=== PATIENT | female | born 1940 | race Caucasian/White ===

== ENCOUNTER 2016-05-29 16:31 | Observation (INO) | payer MEDICARE ==
[2016-05-29 17:22] LABS: Basophils % (A) 0 %; CH 29.3; CHCM 32.3; Eosinophils # (A) 0.2 k/uL (0-0.7); Eosinophils % (A) 2 %; HCT 34.1 % (34.0-46.0); HDW 2.73; HGB 10.7 gm/dL (11.4-16.0); Luc # (Auto) 0.25; Luc % (Auto) 3; Lymphocytes # (A) 2.1 k/uL (1.0-4.8); Lymphocytes % (A) 29 %; MCH 28.7 pg (25.0-35.0); MCHC 31.4 g/dL (31.0-37.0); MCV 91.4 fL (80.0-100.0); Mean Platelet Volume 7.5; Monocytes # (A) 0.4 k/uL (0-1.0); Monocytes % (A) 6 %; Neutrophils # (A) 4.5 k/uL (1.3-7.7); Neutrophils % (A) 60 %; RBC 3.73 m/uL (3.80-5.40); RDW 15.5 % (11.5-15.5); WBC 7.5 k/uL (3.8-10.6); WBC (Perox) 7.71
[2016-05-29 17:28] LABS: INR 1.1 (<1.1); Partial Thromboplastin Time 25.3 sec (22.0-30.0); Prothrombin Time 10.7 sec (9.0-12.0)
[2016-05-29 17:32] LABS: Calcium 9.2 mg/dL (8.4-10.2); Potassium 4.3 mmol/L (3.5-5.1); Total Bilirubin 0.4 mg/dL (0.2-1.3); Total Protein 7.2 g/dL (6.3-8.2)
[2016-05-29 17:35] LABS: Creatine Kinase 24 U/L (30-135)
--- NOTE | 2016-05-29 17:46 | XR ---
EXAMINATION TYPE: XR chest 1V portable DATE OF EXAM: 05/29/2016 5:37 PM COMPARISON: 09/16/2014 INDICATION: Weakness, fall 2 days prior TECHNIQUE: Single frontal view of the chest is obtained. FINDINGS: The heart size is normal. The pulmonary vasculature is normal. The lungs are clear. No displaced fractures are evident. No pneumothorax is evident. IMPRESSION: 1. No acute pulmonary process.
[2016-05-29 17:48] LABS: Creatine Kinase MB 1.2 ng/mL (0.0-2.4); Troponin I <0.012 ng/mL (0.000-0.034)
[2016-05-29 18:45] LABS: Appearance,Urine Clear (Clear); Bilirubin,Urine Negative (Negative); Glucose,Urine (UA) Negative (Negative); Ketones,Urine Negative (Negative); Leukocyte Esterase,Urine Negative (Negative); Mucus,Urine Rare /hpf; Nitrite,Urine Negative (Negative); PH, Urine 5.5 (5.0-8.0); Particle Count 11135; Protein,Urine 1+ (Negative); RBC,Urine 2 /hpf (0-5); Squamous Epithelial Cell,Urine 1 /hpf (0-4); UA Billing (MACRO vs. MICRO) MICRO; Urobilinogen,Urine <2.0 mg/dL (<2.0); WBC,Urine 2 /hpf (0-5)
--- NOTE | 2016-05-29 19:21 | CT ---
EXAMINATION TYPE: CT brain wo con DATE OF EXAM: 05/29/2016 6:25 PM COMPARISON: 07/06/2011 CT brain, 02/11/2012 MRI brain. INDICATION: Fall 2 days ago. Bruising to the face DLP: 1643 mGycm, Automated exposure control for dose reduction was used. CONTRAST: None CT of the brain is performed utilizing 3 mm thick sections through the posterior fossa and 3 mm thick sections through the remaining calvarium. Study is performed within 24 hours of arrival to the hosp [facility]. No abnormal hyperdensity is present to suggest an acute intracranial hemorrhage. No mass lesion is evident. No acute infarcts are evident. White matter changes are not as evident as on the MRI exam. Ventricles and sulci are appropriate for the patient age. Paranasal sinuses and mastoid air cells within the [id number] are clear. IMPRESSIONS: 1. No acute intracranial process.
--- NOTE | 2016-05-29 19:26 | CT ---
EXAMINATION TYPE: CT facial bones wo con DATE OF EXAM: 05/29/2016 6:25 PM COMPARISON: NONE HISTORY: Fall 2 days ago. Bruising to the face CT DLP: 1643 mGycm Automated exposure control for dose reduction was used. TECHNIQUE: CT scan of the sinuses is performed without contrast, axial images are obtained, coronal r eformatted images are also reviewed. FINDINGS: There is a punctate areas of low density adjacent to the anterior left mandible previous co uld be related to dentures. On the coronal plane on this appears more conclusive for denture relation . No subcutaneous air is identified. An acute fracture is not identified. There is a defect within th e right anterior aspect of the mandible prior to tooth removal could be related. Series 2 image 21. A n acute fracture is not identified. There is mild soft tissue swelling at the chin. There is a small 0.9 x 1.3 cm hyperdense collection in the right cheek which can be a small hematoma. There is soft ti ssue swelling over this region. Zygomatic arches are intact. Maxillary sinuses appear intact. Greater wings of sphenoid are unremarkable. Globes are symmetrical. Orbits appear normal. Nasal bones are intact. Maxillary spine is intact. Note is made of degenerative changes within the visualized portions of the cervical spine IMPRESSION: 1. Soft tissue swelling right cheek with a small subcutaneous hematoma discussed above. 2. No acute osseous fractures. 3. Small air collections appear to be related to the patient's dentures. No subcutaneous air is ident ified.
[2016-05-29] MEDS ORDERED: ACETAMINOPHEN TAB 325 MG TAB PO PRN (19:52)
[2016-05-29] MEDS ORDERED: NALOXONE 0.4 MG/ML 1 ML VIAL IV PRN (19:52)
--- NOTE | 2016-05-29 19:55 | ED ---
Weakness HPI - General Chief complaint: Weakness Stated complaint: Weakness, Fall, Altered Mental Time Seen by Provider: 05/29/16 16:44 Source: patient, family Mode of arrival: wheelchair Limitations: no limitations - History of Present Illness Initial comments: This patient is 75-year-old woman who presents to be evaluated after she had a fall. The patient has been having some generalized weakness and a number of recent falls. The patient also has been somewhat disoriented at times. Currently the patient does complain of some right facial pain and swelling after the fall. She is denying neck pain. Patient denies chest pain, palpitations, dyspnea or diaphoresis. Patient was not able to state with certainty that she did not have syncopal episode. MD Complaint: generalized weakness, lack of energy, difficulty walking -: week(s) Location: generalized Quality: aching Consistency: constant Improves with: none Worsens with: none Associated Symptoms: denies other symptoms - Related Data Home Medications Medication Instructions Recorded Confirmed Clopidogrel [Plavix] 75 mg PO DAILY 09/16/14 05/29/16 Pantoprazole Sodium 40 mg PO DAILY 09/16/14 05/29/16 Repaglinide [Prandin] 1 mg PO TID 09/16/14 05/29/16 ALPRAZolam [Xanax] 0.5 mg PO BID PRN 04/17/15 05/29/16 Aspirin [Adult Low Dose Aspirin EC] 81 mg PO DAILY 02/03/16 05/29/16 Multivitamins, Thera [Multivitamin 1 tab PO DAILY 02/03/16 05/29/16 (formulary)] Deland Oil 1 tab PO DAILY 02/03/16 05/29/16 Previous Rx's Medication Instructions Recorded Atorvastatin [Lipitor] 40 mg PO HS #30 tab 04/19/15 Benazepril [Lotensin] 5 mg PO DAILY #1 tablet 05/31/16 Ferrous Sulfate Oral Elixir 300 mg PO DAILY #140 ml 05/31/16 [Feosol Liquid] Metoprolol Tartrate [Lopressor] 25 mg PO BID #0 05/31/16 amLODIPine [Norvasc] 5 mg PO HS #0 05/31/16 Allergies Allergy/AdvReac Type Severity Reaction Status Date / Time acetaminophen [From Tylenol] Allergy Anaphylaxis Verified 05/29/16 17:04 blue dye Allergy Anaphylaxis Verified 05/29/16 17:04 clonidine [From Catapres] Allergy Unknown Verified 05/29/16 17:04 iodine Allergy Unknown Verified 05/29/16 17:04 monosodium glutamate [MSG] Allergy Anaphylaxis Verified 05/29/16 17:04 ofloxacin [From Floxin] Allergy Anaphylaxis Verified 05/29/16 17:04 piroxicam [From Feldene] Allergy Unknown Verified 05/29/16 17:04 red dye Allergy Anaphylaxis Verified 05/29/16 17:04 Sulfa (Sulfonamide Allergy Anaphylaxis Verified 05/29/16 17:04 Antibiotics) tramadol [From Ultram] Allergy Anaphylaxis Verified 05/29/16 17:04 bisoprolol [From Ziac] AdvReac Unknown Verified 05/29/16 17:04 glipizide AdvReac Unknown Verified 05/29/16 17:04 hydrochlorothiazide AdvReac Unknown Verified 05/29/16 17:04 [From Ziac] metformin AdvReac Unknown Verified 05/29/16 17:04 sertraline [From Zoloft] AdvReac Hallucinati Verified 05/30/16 06:06 ons triamterene [From Dyazide] AdvReac Unknown Verified 05/29/16 17:04 Review of Systems ROS Statement: Those systems with pertinent positive or pertinent negative responses have been documented in the HPI. ROS Other: All systems not noted in ROS Statement are negative. Constitutional: Reports: weakness (Generalized). Denies: fever, chills Eyes: Denies: vision change ENT: Reports: epistaxis. Denies: ear pain, hearing loss Respiratory: Denies: cough, dyspnea Cardiovascular: Reports: syncope (Questionable). Denies: chest pain Gastrointestinal: Denies: abdominal pain, vomiting, diarrhea Genitourinary: Denies: dysuria, hematuria Skin: Denies: rash Neurological: Denies: headache, weakness, numbness, paresthesias Past Medical History Past Medical History: Coronary Artery Disease (CAD), Chest Pain / Angina, Heart Failure, COPD, Diabetes Mellitus, GERD/Reflux, GI Bleed, Hyperlipidemia, Hypertension, Myocardial Infarction (NH), Osteoarthritis (OA) Additional Past Medical History / Comment(s): 09/16/14 admitted with chf. Other HX: NIDDM, chronic L knee pain, generalized arthiritis, anemia, back pain.sinus infections. Last Myocardial Infarction Date:: 04/2010 History of Any Multi-Drug Resistant Organisms: None Reported Past Surgical History: Appendectomy, Heart Catheterization With Stent, Hysterectomy Additional Past Surgical History / Comment(s): Ccaths with a total of 5 stents placed. Stent in leg. Subclavian bypass. PTCA's, EGD with cauterized arterovenous malformation, colonoscopy, L hand's index finger amputation, R hand 's thumb tendon repair, R elbow replacement, subclavian steel surgery-"new veins in my neck." sinus sx Past Anesthesia/Blood Transfusion Reactions: No Reported Reaction Additional Past Anesthesia/Blood Transfusion Reaction / Comment(s): Pt has recieved blood in the past without reaction. Date of Last Stent Placement:: 2010 Past Psychological History: Anxiety, Depression Additional Psychological History / Comment(s): Pt has a adult bryan who lives with her and another bryan next door. She is independent. She uses a cane to ambulate. She drives a car. She has no home care agency use. She has a supportive family. Smoking Status: Former smoker Past Alcohol Use History: None Reported Additional Past Alcohol Use History / Comment(s): Pt states she has smoked on and off for more than 35 yrs. quit 09-16-14 Past Drug Use History: None Reported - Past Family History Father History Unknown: Yes Mother Family Medical History: Cancer Additional Family Medical History / Comment(s): Mother had lung cancer. General Exam Limitations: no limitations General appearance: alert, in no apparent distress Head exam: Present: atraumatic, normocephalic Eye exam: Present: PERRL, EOMI, periorbital swelling, periorbital tenderness, other ((Continued). Absent: scleral icterus, conjunctival injection ENT exam: Present: normal oropharynx, mucous membranes moist Neck exam: Present: normal inspection, full ROM. Absent: tenderness, meningismus Respiratory exam: Present: normal lung sounds bilaterally. Absent: respiratory distress, wheezes, rales, rhonchi, stridor Cardiovascular Exam: Present: regular rate, normal rhythm, normal heart sounds. Absent: systolic murmur, diastolic murmur, rubs, gallop GI/Abdominal exam: Present: soft. Absent: distended, tenderness, guarding, rebound, rigid Extremities exam: Present: normal inspection, normal capillary refill. Absent: pedal edema, calf tenderness Back exam: Absent: CVA tenderness (R), CVA tenderness (L) Neurological exam: Present: alert, CN II-XII intact. Absent: motor sensory deficit Skin exam: Present: warm, dry, intact, normal color, other (Right facial contusion) Course Vital Signs 05/29/16 05/29/16 05/29/16 16:38 18:34 19:03 Temperature 97.2 F L Pulse Rate 53 L 52 L 56 L Respiratory 20 16 16 Rate Blood Pressure 146/81 202/85 153/65 O2 Sat by Pulse 98 99 100 Oximetry 05/29/16 05/29/16 19:38 20:10 Temperature Pulse Rate 70 62 Respiratory 16 16 Rate Blood Pressure 153/65 162/74 O2 Sat by Pulse 100 100 Oximetry Medical Decision Making - Lab Data Result diagrams: 05/31/16 08:45 05/31/16 08:45 Lab Results 05/29/16 05/29/16 05/29/16 Range/Units 17:00 17:00 17:00 WBC 7.5 (3.8-10.6) k/uL RBC 3.73 L (3.80-5.40) m/uL Hgb 10.7 L (11.4-16.0) gm/dL Hct 34.1 (34.0-46.0) % MCV 91.4 (80.0-100.0) fL MCH 28.7 (25.0-35.0) pg MCHC 31.4 (31.0-37.0) g/dL RDW 15.5 (11.5-15.5) % Plt Count 234 (150-450) k/uL Neutrophils % 60 % Lymphocytes % 29 % Monocytes % 6 % Eosinophils % 2 % Basophils % 0 % Neutrophils # 4.5 (1.3-7.7) k/uL Lymphocytes # 2.1 (1.0-4.8) k/uL Monocytes # 0.4 (0-1.0) k/uL Eosinophils # 0.2 (0-0.7) k/uL Basophils # 0.0 (0-0.2) k/uL PT (9.0-12.0) sec INR (<1.1) APTT (22.0-30.0) sec Sodium 145 (137-145) mmol/L Potassium 4.3 (3.5-5.1) mmol/L Chloride 111 H (98-107) mmol/L Carbon Dioxide 23 (22-30) mmol/L Anion Gap 11 mmol/L BUN 29 H (7-17) mg/dL Creatinine 1.43 H (0.52-1.04) mg/dL Est GFR (MDRD) Af Amer 43 (>60 ml/min/1.73 sqM) Est GFR (MDRD) Non-Af 36 (>60 ml/min/1.73 sqM) Glucose 87 (74-99) mg/dL Estimated Ave Glu mg/dL mg/dL Hemoglobin A1c (4.2-6.1) % Calcium 9.2 (8.4-10.2) mg/dL Total Bilirubin 0.4 (0.2-1.3) mg/dL AST 24 (14-36) U/L ALT 22 (9-52) U/L Alkaline Phosphatase 97 (38-126) U/L Total Creatine Kinase 24 L (30-135) U/L CK-MB (CK-2) 1.2 (0.0-2.4) ng/mL CK-MB (CK-2) Rel Index 5.0 Troponin I <0.012 (0.000-0.034) ng/mL Total Protein 7.2 (6.3-8.2) g/dL Albumin 3.7 (3.5-5.0) g/dL Urine Color Urine Appearance (Clear) Urine pH (5.0-8.0) Ur Specific [place] (1.001-1.035) Urine Protein (Negative) Urine Glucose (UA) (Negative) Urine Ketones (Negative) Urine Blood (Negative) Urine Nitrate (Negative) Urine Bilirubin (Negative) Urine Urobilinogen (<2.0) mg/dL Ur Leukocyte Esterase (Negative) Urine RBC (0-5) /hpf Urine WBC (0-5) /hpf Ur Squamous Epith Cells (0-4) /hpf Hyaline Casts (0-2) /lpf Urine Mucus (None) /hpf 05/29/16 05/29/16 05/29/16 Range/Units 17:00 17:00 18:21 WBC (3.8-10.6) k/uL RBC (3.80-5.40) m/uL Hgb (11.4-16.0) gm/dL Hct (34.0-46.0) % MCV (80.0-100.0) fL MCH (25.0-35.0) pg MCHC (31.0-37.0) g/dL RDW (11.5-15.5) % Plt Count (150-450) k/uL Neutrophils % % Lymphocytes % % Monocytes % % Eosinophils % % Basophils % % Neutrophils # (1.3-7.7) k/uL Lymphocytes # (1.0-4.8) k/uL Monocytes # (0-1.0) k/uL Eosinophils # (0-0.7) k/uL Basophils # (0-0.2) k/uL PT 10.7 (9.0-12.0) sec INR 1.1 (<1.1) APTT 25.3 (22.0-30.0) sec Sodium (137-145) mmol/L Potassium (3.5-5.1) mmol/L Chloride (98-107) mmol/L Carbon Dioxide (22-30) mmol/L Anion Gap mmol/L BUN (7-17) mg/dL Creatinine (0.52-1.04) mg/dL Est GFR (MDRD) Af Amer (>60 ml/min/1.73 sqM) Est GFR (MDRD) Non-Af (>60 ml/min/1.73 sqM) Glucose (74-99) mg/dL Estimated Ave Glu mg/dL 143 mg/dL Hemoglobin A1c 6.6 H (4.2-6.1) % Calcium (8.4-10.2) mg/dL Total Bilirubin (0.2-1.3) mg/dL AST (14-36) U/L ALT (9-52) U/L Alkaline Phosphatase (38-126) U/L Total Creatine Kinase (30-135) U/L CK-MB (CK-2) (0.0-2.4) ng/mL CK-MB (CK-2) Rel Index Troponin I (0.000-0.034) ng/mL Total Protein (6.3-8.2) g/dL Albumin (3.5-5.0) g/dL Urine Color Yellow Urine Appearance Clear (Clear) Urine pH 5.5 (5.0-8.0) Ur Specific [place] 1.010 (1.001-1.035) Urine Protein 1+ H (Negative) Urine Glucose (UA) Negative (Negative) Urine Ketones Negative (Negative) Urine Blood Negative (Negative) Urine Nitrate Negative (Negative) Urine Bilirubin Negative (Negative) Urine Urobilinogen <2.0 (<2.0) mg/dL Ur Leukocyte Esterase Negative (Negative) Urine RBC 2 (0-5) /hpf Urine WBC 2 (0-5) /hpf Ur Squamous Epith Cells 1 (0-4) /hpf Hyaline Casts 3 H (0-2) /lpf Urine Mucus Rare H (None) /hpf - EKG Data -: EKG Interpreted by Mi EKG shows normal: sinus rhythm, axis (Normal), intervals (The QRS duration is prolonged at 150 ms consistent with left bundle branch block), QRS complexes ( There is a left bundle-branch block present) Rate: bradycardia (Rate approximately 51 bpm) Interpretation: other (Review of the record finds that the left bundle branch block was present on monitor tracings from January.) Disposition Clinical Impression: Altered mental status, Falls frequently, Contusion of face Disposition: ADMITTED IP TO THIS [facility] Condition: Stable
[2016-05-29 21:42] LABS: Glucose,Whole Blood 124 mg/dL (75-99)
[2016-05-29] MEDS: amLODIPine 5 MG TAB PO SCH (22:53)
[2016-05-29] MEDS: SODIUM CHLORIDE 0.9% 1,000 ML IV SCH (23:00)
[2016-05-30 07:07] LABS: Glucose,Whole Blood 64 mg/dL (75-99)
[2016-05-30 07:24] LABS: Glucose,Whole Blood 80 mg/dL (75-99)
[2016-05-30] MEDS: REPAGLINIDE 1 MG TAB PO SCH ×2 (08:43→14:09)
[2016-05-30] MEDS ORDERED: METOPROLOL TARTRATE 50 MG TAB PO SCH (09:00)
[2016-05-30 12:00] LABS: Glucose,Whole Blood 261 mg/dL (75-99)
[2016-05-30] MEDS ORDERED: ALPRAZolam 0.5 MG TAB PO PRN (13:28)
[2016-05-30] MEDS ORDERED: SODIUM CHLORIDE 0.9% 1,000 ML IV ONE (13:45)
--- NOTE | 2016-05-30 15:34 | P.CNNES ---
History of Present Illness Consult date: 05/30/16 Reason for Consult: Patient admitted with generalized weakness and multiple falls. History of Present Illness: This patient is a 75-year-old right-handed white female was in her usual state of health until of last week. She was at home and was on her way to the bathroom when she apparently lost her balance and fell forward. She struck the bedroom wall and tried to brace herself with her walking cane. Unfortunately she collapsed and fell to the ground. Her daughter who was in another room heard her fall and came running to the bedroom to assist her. The daughter recommended that she go to the hospital but the patient refused. She does not recollect losing consciousness when she fell. She did complain of a headache at the time. Apparently the next day she was also having some visual and auditory hallucinations. This was quite alarming to the family as she has not done this previously. The patient noted yesterday significant bruising on her entire face. Due to the head trauma she developed raccoon eyes and soft tissue swelling and hematoma to the right side of the face. Left eye was also involved. Having seen the degree of contusion to the face she decided to come to the emergency room yesterday evening. Patient was seen in the emergency room by Dr. Morales who ordered a computed tomography scan of the brain. CAT scan of the brain was reported negative for any acute changes. There was no evidence of acute hemorrhage or stroke. No evidence of subdural hematoma. Patient also underwent computed tomography scan of the facial bones which revealed no acute osseous fracture. Soft tissue swelling over the right cheek and some subcutaneous hematoma was noted. We reviewed the results of the CAT scan today with the patient and her daughter who is at bedside. Apparently the patient has been doing better today in terms of her mental status. They were concerned as she clearly had visual and auditory hallucinations a day after this fall. The patient does have a known history of underlying severe cardiomyopathy and vascular disease. She underwent a R to study in January of last year which revealed her to have significant carotid artery stenosis. According to the daughter it measured 80-90% stenosis. She was advised maximal medical therapy at the time. In the emergency room the patient's EKG revealed left bundle branch block as well as QRS prolongation. She was noted to have some sinus bradycardia with a heart rate dropping to 46. The patient is resting comfortably at this time. She denies any headache symptoms at this time. As noted she does have major contusion to the face mostly on the right side. She has been able to stand and ambulate today to the bathroom with the use of her walker. She denies any severe vertigo symptoms at this time. This patient likely has suffered a closed head injury with mild concussion syndrome. Neurology is now consulted for further evaluation and recommendations. Review of Systems Constitutional: Denies chills, Denies fever Eyes: denies blurred vision, denies pain Ears, nose, mouth and throat: Denies headache, Denies sore throat Cardiovascular: Denies chest pain, Denies shortness of breath Respiratory: Denies cough Gastrointestinal: Denies abdominal pain, Denies diarrhea, Denies nausea, Denies vomiting Genitourinary: Denies dysuria, Denies hematuria Musculoskeletal: Denies myalgias Integumentary: Denies pruritus, Denies rash Neurological: Reports change in mentation, Reports syncope, Denies numbness, Denies weakness Psychiatric: Reports hallucinations, Denies anxiety, Denies depression Endocrine: Denies fatigue, Denies weight change Past Medical History Past Medical History: Coronary Artery Disease (CAD), Chest Pain / Angina, Heart Failure, COPD, Diabetes Mellitus, GERD/Reflux, GI Bleed, Hyperlipidemia, Hypertension, Myocardial Infarction (MS), Osteoarthritis (OA) Additional Past Medical History / Comment(s): 09/16/14 admitted with chf. Other HX: NIDDM, chronic L knee pain, generalized arthiritis, anemia, back pain.sinus infections., carotid stenosis Last Myocardial Infarction Date:: 04/2010 History of Any Multi-Drug Resistant Organisms: None Reported Past Surgical History: Appendectomy, Heart Catheterization With Stent, Hysterectomy Additional Past Surgical History / Comment(s): Ccaths with a total of 5 stents placed. Stent in leg. left Subclavian bypass. PTCA's, EGD with cauterized arterovenous malformation, colonoscopy, L hand's index finger amputation, R hand 's thumb tendon repair, R elbow replacement, subclavian steel surgery-"new veins in my neck." sinus sx Past Anesthesia/Blood Transfusion Reactions: No Reported Reaction Additional Past Anesthesia/Blood Transfusion Reaction / Comment(s): Pt has recieved blood in the past without reaction. Date of Last Stent Placement:: 2010 Past Psychological History: Anxiety, Depression Additional Psychological History / Comment(s): Pt has a adult bryan who lives with her and another bryan next door. She is independent. She uses a cane to ambulate. She drives a car. She has no home care agency use. She has a supportive family. Smoking Status: Former smoker Past Alcohol Use History: None Reported Additional Past Alcohol Use History / Comment(s): Pt states she has smoked on and off for more than 35 yrs. quit 09-16-14 Past Drug Use History: None Reported - Past Family History Father History Unknown: Yes Mother Family Medical History: Cancer Additional Family Medical History / Comment(s): Mother had lung cancer. Medications and Allergies Home Medications Medication Instructions Recorded Confirmed Type Clopidogrel [Plavix] 75 mg PO DAILY 09/16/14 05/29/16 History Pantoprazole Sodium 40 mg PO DAILY 09/16/14 05/29/16 History Repaglinide [Prandin] 1 mg PO TID 09/16/14 05/29/16 History ALPRAZolam [Xanax] 0.5 mg PO BID PRN 04/17/15 05/29/16 History Benazepril [Lotensin] 10 mg PO DAILY 04/17/15 05/29/16 History Cyclobenzaprine [Flexeril] 10 mg PO BID PRN 04/17/15 05/29/16 History amLODIPine [Norvasc] 5 mg PO HS 04/17/15 05/29/16 History Aspirin [Adult Low Dose Aspirin EC] 81 mg PO DAILY 02/03/16 05/29/16 History Ferrous Sulfate [Iron (65 MG 325 mg PO DAILY 02/03/16 05/29/16 History Elemental)] Multivitamins, Thera [Multivitamin] 1 tab PO DAILY 02/03/16 05/29/16 History [place] Oil 1 tab PO DAILY 02/03/16 05/29/16 History Furosemide [Lasix] 20 mg PO DAILY@1200 05/29/16 05/29/16 History Metoprolol Tartrate [Lopressor] 25 mg PO QID 05/29/16 05/29/16 History Allergies Allergy/AdvReac Type Severity Reaction Status Date / Time acetaminophen [From Tylenol] Allergy Anaphylaxis Verified 05/29/16 17:04 blue dye Allergy Anaphylaxis Verified 05/29/16 17:04 clonidine [From Catapres] Allergy Unknown Verified 05/29/16 17:04 iodine Allergy Unknown Verified 05/29/16 17:04 monosodium glutamate [MSG] Allergy Anaphylaxis Verified 05/29/16 17:04 ofloxacin [From Floxin] Allergy Anaphylaxis Verified 05/29/16 17:04 piroxicam [From Feldene] Allergy Unknown Verified 05/29/16 17:04 red dye Allergy Anaphylaxis Verified 05/29/16 17:04 Sulfa (Sulfonamide Allergy Anaphylaxis Verified 05/29/16 17:04 Antibiotics) tramadol [From Ultram] Allergy Anaphylaxis Verified 05/29/16 17:04 bisoprolol [From Ziac] AdvReac Unknown Verified 05/29/16 17:04 glipizide AdvReac Unknown Verified 05/29/16 17:04 hydrochlorothiazide AdvReac Unknown Verified 05/29/16 17:04 [From Ziac] metformin AdvReac Unknown Verified 05/29/16 17:04 sertraline [From Zoloft] AdvReac Hallucinati Verified 05/30/16 06:06 ons triamterene [From Dyazide] AdvReac Unknown Verified 05/29/16 17:04 Physical Examination - Vital Signs Vital Signs: Vital Signs Temp Pulse Pulse Resp BP BP Pulse Ox 05/30/16 08:46 95 05/30/16 07:00 97.4 F L 73 16 145/64 95 05/29/16 23:00 97.3 F L 70 16 152/70 96 05/29/16 20:10 62 16 162/74 100 Intake and Output 05/29/16 05/30/16 05/30/16 22:59 06:59 14:59 Intake Total 120 220 Balance 120 220 Intake: Intake, IV Titration 220 Amount Sodium Chloride 0.9% 1, 220 000 ml @ 20 mls/hr IV . Q24H [facility] Rx#:[id number] Oral 120 Other: Voiding Method Bedside Commode # Voids 1 Weight 78.5 kg - Constitutional General appearance: average body habitus, cooperative - EENT EENT: PERRL, mucous membranes moist - Respiratory Respiratory: lungs clear, normal breath sounds - Cardiovascular Cardiovascular: regular rate, normal S1, normal S2 Extremities: no peripheral edema bilaterally - Gastrointestinal Gastrointestinal: normoactive bowel sounds - Integumentary Integumentary: normal - Neurologic Cranial nerve examination: PERRL, EOMI, VFF, V1/V2/V3 grossly intact, face symmetric, tongue midline, intact gag reflex, intact corneal reflex, normal palatal elevation Speech examination: intact Sensorimotor examination: intact Detailed motor examination: grossly full strength in all extremities Motor examination - right side: 5/5: biceps, triceps, wrist flexion, wrist extension, striker out, hip flexors, knee extensors, dorsiflexion, toe extension (EHL) , plantarflexion Motor examination - left side: 5/5: biceps, triceps, wrist flexion, wrist extension, striker out, hip flexors, knee extensors, dorsiflexion, toe extension (EHL) , plantarflexion Detailed sensory examination: intact Reflex and gait examination: intact Reflexes: 1+: ankle, bicep, knee, tricep - Musculoskeletal Musculoskeletal: no pain - Psychiatric Psychiatric: mood/affect appropriate, cooperative Results - Laboratory Findings CBC and BMP: 05/29/16 17:00 05/29/16 17:00 Abnormal Lab Findings: Abnormal Labs 05/29/16 05/30/16 05/30/16 21:38 07:05 11:58 POC Glucose (mg/dL) 124 H 64 L 261 H Assessment and Plan (1) Closed head injury Status: Acute Code(s): S09.90XA - UNSPECIFIED INJURY OF HEAD, INITIAL ENCOUNTER (2) Acute encephalopathy Status: Acute Code(s): G93.40 - ENCEPHALOPATHY, UNSPECIFIED (3) Sinus bradycardia Status: Acute Code(s): R00.1 - BRADYCARDIA, UNSPECIFIED (4) Carotid artery stenosis Status: Acute Code(s): I65.29 - OCCLUSION AND STENOSIS OF UNSPECIFIED CAROTID ARTERY Plan: This patient is a 75-year-old female who suffered a major fall at home on of last week. Patient fell forward in her bedroom and struck the wall. She sustained major contusion to the face. She refused to come to the hospital on . Apparently yesterday evening she was noticing significant contusion and bruising to the face. At this point she was very concerned and decided to come to the emergency room for further evaluation. She is on Plavix and aspirin and the closed head injury became much more pronounced yesterday which cause the patient quite concerned. Patient was brought into the emergency room and subsequent admitted to the hospital. She has a known history of carotid artery disease with significant stenosis. In the ER she is also noted to have evidence of left bundle branch block and sinus bradycardia. The cause of her fall is still unclear but possibilities include symptomatic sinus bradycardia or cardiogenic syncope. We have recommended a cardiology consultation for further assessment. Neurologically she is intact. Her cognitive function has improved. We will continue to monitor for any signs of subdural hematoma following this closed head injury. Case was discussed at length with the patient and her daughter at bedside. All their questions were answered. We will continue close neurological follow-up in this patient during this admission. Time with Patient: Greater than 30
--- NOTE | 2016-05-30 16:22 | HP ---
DATE OF ADMISSION: Patient is a very pleasant 75-year-old female who came in after a fall and patient has a raccoon face because of the fall and bruising on the face and patient had multiple CT's all of which are negative. The patient's etiology of fall is not very clear but although patient does not appear to have any syncopal episode or any seizure-like activity, loss of bowel or bladder incontinence, patient appears to have had a generalized weakness. Patient has been falling lately and patient was also confused as per the family and patient apparently had visual hallucinations. Patient is only on Xanax, but patient has been on the Xanax for long time and patient at one point of time, primary care physician tried to get rid of Xanax and start her on sertraline for her anxiety disorder. At the time, she had visual hallucinations. Patient does not have any history of Parkinson's or any history of the Lewy-Body dementia and patient denied any other seizure-like activity, migraine. Patient denied any fever, chills. Patient denied any dysuria, nausea, vomiting. Patient's creatinine is 1.43. Baseline appears to be around that, around 1.3. Patient does not have any history of congestive heart failure. Patient has severe peripheral vascular disease and coronary artery disease. REVIEW OF SYSTEMS: GENERAL: As described in HPI. HEENT: No recent visual problems or hearing problems. Denied any sore throat. CARDIOVASCULAR: No chest pain, orthopnea, PND, no palpitations, no syncope. PULMONARY: No shortness of breath, no cough, no hemoptysis. GASTROINTESTINAL: No diarrhea, no nausea, no vomiting, no abdominal pain. Normoactive bowel sounds. NEUROLOGICAL: As described on HPI. Patient does not have any other focal weakness or sensory deficits or any visual problems. HEMATOLOGICAL: Denies any bleeding or petechiae. GENITOURINARY: Denies any burning micturition, frequency, or urgency. MUSCULOSKELETAL/RHEUMATOLOGICAL: Denies any joint pain, swelling, or any muscle pain. ENDOCRINE: Denies any polyuria or polydipsia. The rest of the 14 point review of systems is negative. Home medications include Plavix, pantoprazole, repaglinide, alprazolam, benazepril, cyclobenzaprine, amlodipine, ferrous sulfate, multivitamin, salmon oil, Lasix, metoprolol, atorvastatin. ALLERGIES: Patient has multiple allergies, please refer to the chart for those. PAST MEDICAL HISTORY: Coronary artery disease, peripheral vascular disease, COPD, diabetes mellitus. Patient at one point of time was admitted for congestive heart failure in the past, although at that time, I extensively reviewed her chart, it does not appear like patient was treated for any heart failure exacerbation. Initially was thought to have heart failure, but was treated for mostly COPD and bronchitis, hyperlipidemia, hypertension, myocardial infarction, osteoarthritis, appendectomy, cardiac catheterization and stent placement, hysterectomy, anxiety and depression. FAMILY HISTORY: Father had cancer. SOCIAL HISTORY: Quit smoking years ago. Denied any acute smoking since 2014, denied any alcohol abuse or any drug abuse. PHYSICAL EXAMINATION: Temperature 97.4, pulse of 73, respiratory rate of 16, blood pressure is 145/64, saturating at 94% on room air. HEENT EXAMINATION: Raccoon face as described in the history itself. GENERAL: The patient is alert and oriented x3, not in any acute distress. Well developed, well nourished. Normocephalic, atraumatic. No pharyngeal erythema. No thyromegaly. CARDIOVASCULAR: S1 and S2 present. No murmurs, rubs, or gallops. PULMONARY: Chest is clear to auscultation, no wheezing or crackles. ABDOMEN: Soft, nontender, nondistended, normoactive bowel sounds. No palpable organomegaly. MUSCULOSKELETAL: No joint swelling or deformity. EXTREMITIES: No cyanosis, clubbing, or pedal edema. NEUROLOGICAL: Gross neurological examination did not reveal any focal deficits. SKIN: No rashes. LABORATORY DATA: CBC, CMP are abnormal for elevated chloride of 111. Patient will be switched to lactated Ringer's and patient's creatinine is elevated. ASSESSMENT AND PLAN: 1. Fall, appears to be mechanical fall. Will get PT and OT to evaluate the patient. No other fractures were evident on the CT of the brain and facial CT. There is a nasal bone fracture. Beyond that, there is nothing else seen. There is some soft tissue subcutaneous hematoma under the right cheek which is actually evident clinically. 2. Visual hallucinations and episode of confusion; unsure of the exact etiology yet. Will get Neurology to evaluate the patient for that. I do not know the exact etiology of that. 3. Chronic obstructive pulmonary disease. 4. Coronary artery disease. 5. Peripheral vascular disease. 6. Type 2 diabetes mellitus. 7. Hyperlipidemia. 8. Hypertension. 9. History of myocardial infarction in the past. For above mentioned clinical problems, I will continue all the appropriate medications except for lisinopril which will be held as her renal function unknown whether CKD or other acute renal failure. Possibility of acute renal failure secondary to prerenal azotemia from Lasix and patient has a component of chronic kidney disease stage III, probably secondary to diabetic nephropathy.
[2016-05-30 17:03] LABS: Glucose,Whole Blood 194 mg/dL (75-99)
[2016-05-30] MEDS: INSULIN LISPRO (humaLOG) 300 UNIT/3 ML VIAL SQ SCH ×2 (18:40→20:42)
[2016-05-30] MEDS: METOPROLOL TARTRATE 25 MG TAB PO SCH ×2 (18:40→20:42)
[2016-05-30] MEDS: LACTATED RINGERS 1,000 ML IV SCH (20:34)
[2016-05-30] MEDS: SODIUM CHLORIDE 0.9% 1,000 ML IV SCH (20:39)
[2016-05-30 20:40] LABS: Hemoglobin A1C 6.6 % (4.2-6.1)
[2016-05-30] MEDS: amLODIPine 5 MG TAB PO SCH (20:41)
[2016-05-30] MEDS ORDERED: ATORVASTATIN 40 MG TAB PO SCH (21:00)
[2016-05-30 22:00] LABS: Glucose,Whole Blood 113 mg/dL (75-99)
[2016-05-31] MEDS: LACTATED RINGERS 1,000 ML IV SCH (06:29)
[2016-05-31 07:41] LABS: Glucose,Whole Blood 120 mg/dL (75-99)
[2016-05-31 07:46] VITALS: BP 128/64; PULSE 81; RESP 19; TEMP 97.2
--- NOTE | 2016-05-31 08:59 | P.CRDCN ---
History of Present Illness Consult date: 05/31/16 Reason for Consult (text): Syncope History of present illness: 75-year-old lady is admitted to hospital having had a fall at home. Patient states that she got up to go to the bathroom and slipped and fell and fell on her face. She has extensive contusion on her face. She fell down on but came to hospital after she noticed a extensive ecchymosis. Cardiology has been consulted for evaluation of possible syncope. She denies chest pain difficulty in breathing palpitations dizziness or syncope. There is no history of loss of consciousness. Her fall seems to be simple mechanical she slipped and fell. Patient EKG shows sinus bradycardia with left bundle branch block. Since admission we did not document any bradycardia arrhythmia. Did not document any tachycardia C that. Her blood pressures have been stable. I'm going to check an orthostatic hypotension on her. Patient has known carotid stenosis. Carotid stenosis does not explain the event that happened to her. She has had extensive workup so far including CT scans of the face that have all been negative. From my standpoint I'm going to obtain a 2-D echo if this is negative she from a standpoint she can be discharged home and to workup can be pursued as outpatient we will consider an event recorder and if necessary do a stress test on her. Review of Systems Constitutional: Denies chills. Denies fever. Eyes: Denies blurred vision. Denies pain. Ears, nose, mouth and throat: Denies headache. Denies sore throat. Cardiovascular: Denies chest pain. Denies shortness of breath. Respiratory: Denies cough. Gastrointestinal: Denies abdominal pain. Denies diarrhea. Denies nausea. Denies vomiting. Musculoskeletal: Denies myalgias. Integumentary: Denies pruritus. Denies rash. Neurological: Denies numbness. Denies weakness. Fall and injury to the face Psychiatric: Denies anxiety. Denies depression. Endocrine: Denies fatigue. Denies weight change. Genitourinary: Denies burning, hematuria, frequency of urination. Hematological: No anemia or excess bleeding. Past Medical History Past Medical History: Coronary Artery Disease (CAD), Chest Pain / Angina, Heart Failure, COPD, Diabetes Mellitus, GERD/Reflux, GI Bleed, Hyperlipidemia, Hypertension, Myocardial Infarction (NC), Osteoarthritis (OA) Additional Past Medical History / Comment(s): 09/16/14 admitted with chf. Other HX: NIDDM, chronic L knee pain, generalized arthiritis, anemia, back pain.sinus infections., carotid stenosis Last Myocardial Infarction Date:: 04/2010 History of Any Multi-Drug Resistant Organisms: None Reported Past Surgical History: Appendectomy, Heart Catheterization With Stent, Hysterectomy Additional Past Surgical History / Comment(s): Ccaths with a total of 5 stents placed. Stent in leg. left Subclavian bypass. PTCA's, EGD with cauterized arterovenous malformation, colonoscopy, L hand's index finger amputation, R hand 's thumb tendon repair, R elbow replacement, subclavian steel surgery-"new veins in my neck." sinus sx Past Anesthesia/Blood Transfusion Reactions: No Reported Reaction Additional Past Anesthesia/Blood Transfusion Reaction / Comment(s): Pt has recieved blood in the past without reaction. Date of Last Stent Placement:: 2010 Past Psychological History: Anxiety, Depression Additional Psychological History / Comment(s): Pt has a adult bryan who lives with her and another bryan next door. She is independent. She uses a cane to ambulate. She drives a car. She has no home care agency use. She has a supportive family. Smoking Status: Former smoker Past Alcohol Use History: None Reported Additional Past Alcohol Use History / Comment(s): Pt states she has smoked on and off for more than 35 yrs. quit 09-16-14 Past Drug Use History: None Reported - Past Family History Father History Unknown: Yes Mother Family Medical History: Cancer Additional Family Medical History / Comment(s): Mother had lung cancer. Medications and Allergies Home Medications Medication Instructions Recorded Confirmed Type Clopidogrel [Plavix] 75 mg PO DAILY 09/16/14 05/29/16 History Pantoprazole Sodium 40 mg PO DAILY 09/16/14 05/29/16 History Repaglinide [Prandin] 1 mg PO TID 09/16/14 05/29/16 History ALPRAZolam [Xanax] 0.5 mg PO BID PRN 04/17/15 05/29/16 History Benazepril [Lotensin] 10 mg PO DAILY 04/17/15 05/29/16 History Cyclobenzaprine [Flexeril] 10 mg PO BID PRN 04/17/15 05/29/16 History amLODIPine [Norvasc] 5 mg PO HS 04/17/15 05/29/16 History Aspirin [Adult Low Dose Aspirin EC] 81 mg PO DAILY 02/03/16 05/29/16 History Ferrous Sulfate [Iron (65 MG 325 mg PO DAILY 02/03/16 05/29/16 History Elemental)] Multivitamins, Thera [Multivitamin] 1 tab PO DAILY 02/03/16 05/29/16 History [place] Oil 1 tab PO DAILY 02/03/16 05/29/16 History Furosemide [Lasix] 20 mg PO DAILY@1200 05/29/16 05/29/16 History Metoprolol Tartrate [Lopressor] 25 mg PO QID 05/29/16 05/29/16 History Allergies Allergy/AdvReac Type Severity Reaction Status Date / Time acetaminophen [From Tylenol] Allergy Anaphylaxis Verified 05/29/16 17:04 blue dye Allergy Anaphylaxis Verified 05/29/16 17:04 clonidine [From Catapres] Allergy Unknown Verified 05/29/16 17:04 iodine Allergy Unknown Verified 05/29/16 17:04 monosodium glutamate [MSG] Allergy Anaphylaxis Verified 05/29/16 17:04 ofloxacin [From Floxin] Allergy Anaphylaxis Verified 05/29/16 17:04 piroxicam [From Feldene] Allergy Unknown Verified 05/29/16 17:04 red dye Allergy Anaphylaxis Verified 05/29/16 17:04 Sulfa (Sulfonamide Allergy Anaphylaxis Verified 05/29/16 17:04 Antibiotics) tramadol [From Ultram] Allergy Anaphylaxis Verified 05/29/16 17:04 bisoprolol [From Ziac] AdvReac Unknown Verified 05/29/16 17:04 glipizide AdvReac Unknown Verified 05/29/16 17:04 hydrochlorothiazide AdvReac Unknown Verified 05/29/16 17:04 [From Ziac] metformin AdvReac Unknown Verified 05/29/16 17:04 sertraline [From Zoloft] AdvReac Hallucinati Verified 05/30/16 06:06 ons triamterene [From Dyazide] AdvReac Unknown Verified 05/29/16 17:04 Physical Exam Vitals: Vital Signs Temp Pulse Pulse Resp BP BP Pulse Ox 05/31/16 07:00 97.2 F L 81 19 128/64 95 05/30/16 23:50 96.6 F L 74 20 164/69 98 05/30/16 21:25 101 H 180/89 05/30/16 15:00 97.4 F L 100 16 136/82 96 Intake and Output 05/30/16 05/31/16 05/31/16 22:59 06:59 14:59 Intake Total 200 100 Balance 200 100 Intake: Oral 200 100 Other: Voiding Method Bedside Commode # Voids 2 Weight 79 kg General: The patient is awake and alert, in no distress, and does not appear acutely ill. Skin: Skin is warm and dry and no rashes or lesions are noted. Eye: Pupils are equal, round and reactive to light, extra-ocular movements are intact; there is normal conjunctiva bilaterally. Patient has extensive ecchymosis over her face Ears, nose, mouth and throat: There are moist mucous membranes and no oral lesions. Neck: The neck is supple, there is no tenderness or JVD. Cardiovascular: There is a regular rate and rhythm. Systolic murmur at the apex Respiratory: Lungs are clear to auscultation, respirations are non-labored, breath sounds are equal. Gastrointestinal: Soft, non-distended, non-tender abdomen without masses or organomegaly noted. There is no rebound or guarding present. Bowel sounds are unremarkable. Back: There is no tenderness to palpation in the midline. There is no obvious deformity. Musculoskeletal: Normal ROM, no tenderness, There is no pedal edema. There is no calf tenderness or swelling. Extremities: No edema. Vascular: Femoral pulse is normal. Posterior tibial pulses are normal .Dorsalis pedis is palpable. Neurological: CN II-XII intact. There are no obvious motor or sensory deficits. Speech is normal. Psychiatric: Cooperative, appropriate mood & affect, normal judgment. Results 05/29/16 17:00 05/29/16 17:00 Current Medications Generic Name Dose Route Start Last Admin Trade Name Freq PRN Reason Stop Dose Admin Alprazolam 0.5 mg 05/30/16 13:28 Xanax PO BID PRN Anxiety/Insomnia Amlodipine Besylate 5 mg 05/29/16 22:15 05/30/16 20:41 Norvasc PO 5 mg HS HOLLI Administration Aspirin 81 mg 05/31/16 09:00 Aspirin PO DAILY HOLLI Atorvastatin Calcium 40 mg 05/30/16 21:00 05/30/16 20:41 Lipitor PO 40 mg HS HOLLI Administration Clopidogrel Bisulfate 75 mg 05/31/16 09:00 Plavix PO DAILY HOLLI Ferrous Sulfate 300 mg 05/31/16 12:00 Feosol PO DAILY@1200 HOLLI Sodium Chloride 1,000 mls @ 20 mls/hr 05/29/16 20:00 05/30/16 20:39 Saline 0.9% IV Not Given .Q24H HOLLI Lactated Ringer's 1,000 mls @ 75 mls/hr 05/30/16 15:45 05/31/16 06:29 Lactated Ringers IV 75 mls/hr .[id number] HOLLI Administration Insulin Human Lispro 0 unit 05/30/16 17:30 05/30/16 20:42 Humalog SQ Not Given ACHS [facility] Protocol Metoprolol Tartrate 25 mg 05/30/16 13:45 05/30/16 20:42 Lopressor PO 25 mg BID HOLLI Administration Naloxone HCl 0.2 mg 05/29/16 19:52 Narcan IV Q2M PRN Opioid Reversal Pantoprazole Sodium 40 mg 05/31/16 09:00 Protonix PO DAILY HOLLI Intake and Output 05/30/16 05/31/16 05/31/16 22:59 06:59 14:59 Intake Total 200 100 Balance 200 100 Intake: Oral 200 100 Other: Voiding Method Bedside Commode # Voids 2 Weight 79 kg EKG Interpretations (text) Sinus bradycardia with left bundle branch block Assessment and Plan Plan: Syncope rule out cardiac causes History of fall History of CAD Hypertension Dyslipidemia Patient fall seems to be primarily mechanical. I reviewed all her records. I' m going to review the carotid duplex study. This can be addressed as outpatient. I will obtain a 2-D echo to assess her LV function. Will consider a stress test as outpatient.
[2016-05-31] MEDS ORDERED: PANTOPRAZOLE 40 MG TABLET PO SCH (09:00)
[2016-05-31] MEDS ORDERED: ASPIRIN 81 MG CHEW PO SCH (09:00)
[2016-05-31] MEDS ORDERED: CLOPIDOGREL 75 MG TAB PO SCH (09:00)
[2016-05-31] MEDS: INSULIN LISPRO (humaLOG) 300 UNIT/3 ML VIAL SQ SCH ×2 (09:06→12:47)
[2016-05-31] MEDS: METOPROLOL TARTRATE 25 MG TAB PO SCH (09:07)
[2016-05-31 09:08] LABS: CH 28.8; CHCM 31.7; HCT 32.6 % (34.0-46.0); HDW 2.59; HGB 10.3 gm/dL (11.4-16.0); MCH 28.8 pg (25.0-35.0); MCHC 31.6 g/dL (31.0-37.0); MCV 91.3 fL (80.0-100.0); Mean Platelet Volume 6.4; RBC 3.57 m/uL (3.80-5.40); RDW 15.5 % (11.5-15.5); WBC 7.7 k/uL (3.8-10.6)
[2016-05-31 09:37] LABS: Calcium 9.2 mg/dL (8.4-10.2); Potassium 4.6 mmol/L (3.5-5.1)
[2016-05-31] MEDS ORDERED: FERROUS SULFATE ORAL ELIXIR 300 MG/5 ML CUP PO SCH (12:00)
[2016-05-31 12:23] LABS: Glucose,Whole Blood 187 mg/dL (75-99)
--- NOTE | 2016-05-31 16:40 | P.DS ---
Providers Date of admission: 05/29/16 19:54 Expected date of discharge: 05/31/16 Attending physician: MD Dr. Kristina Oconnell Consults: 05/30/16 13:34 Consult Physician Routine Consulting Provider: Jere Hamilton Consult Reason/Comments: Altered mental status Do you want consulting provider notified?: Yes 05/30/16 16:00 Consult Physician Routine Consulting Provider: Westley Crawford Consult Reason/Comments: Symptomatic sinus bradycardia and left bundle branch block. Syncope. Do you want consulting provider notified?: Yes Primary care physician: [facility] Course: Final Diagnoses: 1. Mechanical fall, nasal bone fracture present, no other fractures reported per CT of brain and face 2. Visual hallucinations and episodic confusion, etiology unclear, improved 3. COPD 4. CAD 5. Peripheral vascular disease 6. Diabetes mellitus type 2 7. Hyperlipidemia 8. Hypertension 9. History of AR 10. Acute renal failure secondary to prerenal azotemia related to Lasix. 11. History of Carotid artery artery stenosis 80-90% per family, maximizing medical therapy recommended Hospital course: This is a 75-year-old female presented with a raccoon face status post fall. EKG revealed sinus bradycardia with left bundle branch block.No clear-cut syncopal episodes or seizure-like activity, as patient did not completely lose consciousness. CT of facial bones reported soft tissue swelling right cheek with a small subcutaneous hematoma, no acute osseous fractures Neuro workup completed by Dr. Mckeon. Evaluated by cardiology, discussing potential outpatient stress test. Echo completed, results pending. Lasix and lisinopril placed on hold secondary to acute renal failure. Significant clinical improvement. Patient has been cleared by all consults. Family at bedside and updated on adjustments in med regime and discharge plan. Patient is being discharged home with daughters in a stable condition with guarded prognosis. The impression and plan of care has been dictated as directed. : I performed a H&P examination of this patient and discussed the same with the dictator. I agree with the dictator's note. Any additional findings/opinions/ etc. will be noted. Patient Condition at Discharge: Stable Plan - Discharge Summary New Discharge Prescriptions: Benazepril [Lotensin] 5 mg PO DAILY #1 tablet Ferrous Sulfate Oral Elixir [Feosol Liquid] 300 mg PO DAILY #140 ml Discharge Medication List Clopidogrel [Plavix] 75 mg PO DAILY 09/16/14 [History] Pantoprazole Sodium 40 mg PO DAILY 09/16/14 [History] Repaglinide [Prandin] 1 mg PO TID 09/16/14 [History] ALPRAZolam [Xanax] 0.5 mg PO BID PRN 04/17/15 [History] Atorvastatin [Lipitor] 40 mg PO HS #30 tab 04/19/15 [Rx] Aspirin [Adult Low Dose Aspirin EC] 81 mg PO DAILY 02/03/16 [History] Multivitamins, Thera [Multivitamin] 1 tab PO DAILY 02/03/16 [History] [place] Oil 1 tab PO DAILY 02/03/16 [History] Benazepril [Lotensin] 5 mg PO DAILY #1 tablet 05/31/16 [Rx] Ferrous Sulfate Oral Elixir [Feosol Liquid] 300 mg PO DAILY #140 ml 05/31/16 [Rx ] Metoprolol Tartrate [Lopressor] 25 mg PO BID #0 05/31/16 [Rx] amLODIPine [Norvasc] 5 mg PO HS #0 05/31/16 [Rx] Follow up Appointment(s)/Referral(s): Jere Hamilton MD [STAFF PHYSICIAN] - 2 Weeks [facility], [NON-STAFF] - 1 Week Myla Veras MD [STAFF PHYSICIAN] - 1 Week Andrés Varner MD [Primary Care Provider] - 3 Days Ambulatory/Diagnostic Orders: Basic Metabolic Panel [LAB.AMB] Time Frame: 3 Days, Location: Determined By Patient Patient Instructions/Handouts: Altered Mental Status (GEN), Fall Prevention (DC ) Activity/Diet/Wound Care/Special Instructions: Lasix discontinued. Diet: Cardiac Activity: Limited until follow up Discharge Disposition: HOME WITH HOME HEALTH SERVICES
--- NOTE | 2016-05-31 17:00 | P.PN ---
Subjective This patient is a 75-year-old female who was evaluated yesterday for having suffered an acute fall and possible near syncope. Patient has been seen by internal medicine and cardiology and seems to be doing much better. She has had no further recurrence of syncope and/or confusion. She did suffer extensive contusion to the face which is slowly resolving. She has ecchymosis over the right orbital and facial areas. She denies any headache today. She had no obvious cause of loss of consciousness with this episode and no evidence of any seizure-like activity associated with the fall. There was no loss of bowel or bladder incontinence. EKG did show some sinus bradycardia with left bundle branch block. She has been evaluated by cardiology who is checking her for orthostatic hypertension. She has known carotid artery stenosis and this is being further evaluated by cardiology. She is to have a echocardiogram and this will also be evaluated by cardiology. Neurologically she remains intact and is alert and oriented 3. We will continue close neurological follow-up for the patient during this admission. Objective - Vital Signs Vital signs: Vital Signs Temp 97.2 F L 05/31/16 07:00 Pulse 81 05/31/16 07:00 Resp 19 05/31/16 07:00 BP 128/64 05/31/16 07:00 Pulse Ox 95 05/31/16 07:00 Intake & Output 05/30/16 05/31/16 05/31/16 18:59 06:59 18:59 Intake Total 300 Output Total 3 Balance -3 300 Weight 79 kg Intake: Oral 300 Output: Urine 3 Other: Voiding Method Bedside Commode Bedside Commode # Voids 2 - Exam Physical examination: PHYSICAL EXAMINATION: Patient is resting comfortably in bed. VITAL SIGNS: Blood pressure is [128/64]. Heart rate is [81]. Respiration is [19] . Temperature is [97.2]. HEENT: Head is atraumatic, neck is supple, there were no carotid bruits. CHEST: Lungs are clear to auscultation and percussion. CARDIAC: S1, S2 normal rate and rhythm. There is no murmur. ABDOMEN: Soft and nontender. Bowel sounds are present. EXTREMITIES: There is no pedal edema. Peripheral pulses are present. Neurological examination: Patient has a nonfocal neurological examination. Neurologic exam remains unchanged from yesterday. - Labs CBC & Chem 7: 05/31/16 08:45 05/31/16 08:45 Labs: Abnormal Lab Results - Last 24 Hours (Table) 05/30/16 05/30/16 05/31/16 Range/Units 17:00 21:40 07:20 RBC (3.80-5.40) m/uL Hgb (11.4-16.0) gm/dL Hct (34.0-46.0) % Chloride (98-107) mmol/L BUN (7-17) mg/dL Creatinine (0.52-1.04) mg/dL Glucose (74-99) mg/dL POC Glucose (mg/dL) 194 H 113 H 120 H (75-99) mg/dL 05/31/16 05/31/16 05/31/16 Range/Units 08:45 08:45 12:19 RBC 3.57 L (3.80-5.40) m/uL Hgb 10.3 L (11.4-16.0) gm/dL Hct 32.6 L (34.0-46.0) % Chloride 109 H (98-107) mmol/L BUN 22 H (7-17) mg/dL Creatinine 1.23 H (0.52-1.04) mg/dL Glucose 173 H (74-99) mg/dL POC Glucose (mg/dL) 187 H (75-99) mg/dL Assessment and Plan (1) Closed head injury Status: Acute Code(s): S09.90XA - UNSPECIFIED INJURY OF HEAD, INITIAL ENCOUNTER (2) Acute encephalopathy Status: Acute Code(s): G93.40 - ENCEPHALOPATHY, UNSPECIFIED (3) Sinus bradycardia Status: Acute Code(s): R00.1 - BRADYCARDIA, UNSPECIFIED (4) Carotid artery stenosis Status: Acute Code(s): I65.29 - OCCLUSION AND STENOSIS OF UNSPECIFIED CAROTID ARTERY Plan: This patient is a 75-year-old female who suffered a major fall at home on of last week. Patient fell forward in her bedroom and struck the wall. She sustained major contusion to the face. She refused to come to the hospital on . Apparently yesterday evening she was noticing significant contusion and bruising to the face. At this point she was very concerned and decided to come to the emergency room for further evaluation. She is on Plavix and aspirin and the closed head injury became much more pronounced yesterday which cause the patient quite concerned. Patient was brought into the emergency room and subsequent admitted to the hospital. She has a known history of carotid artery disease with significant stenosis. In the ER she is also noted to have evidence of left bundle branch block and sinus bradycardia. The cause of her fall is still unclear but possibilities include symptomatic sinus bradycardia or cardiogenic syncope. We have recommended a cardiology consultation for further assessment. Neurologically she is intact. Her cognitive function has improved. We will continue to monitor for any signs of subdural hematoma following this closed head injury. Case was discussed at length with the patient and her daughter at bedside. All their questions were answered. Patient continues to do much better today in terms of her mental status. She is being considered for discharge home later today. She may follow -up in the outpatient neurology clinic if there is any further symptoms of confusion or weakness. We will continue close neurological follow-up in this patient during this admission. As noted patient can schedule follow-up in the outpatient neurology clinic in 3-4 weeks as needed.
--- NOTE | 2016-06-01 05:01 | EEG ---
DATE OF SERVICE: 05/31/2016 INDICATIONS FOR EXAMINATION: This patient is a 75-year-old female being evaluated for multiple falls and recent collapse. AGE: 75Y EEG FINDINGS: A routine 21-channel, awake digital EEG recording was accomplished utilizing the 10 to 20 international system with bipolar and referential montages. The background activity in the most alert resting state consists of a low to medium amplitude, fairly well-developed and well-sustained 7 to 8 Hz activity over the posterior head regions. This posterior rhythm attenuates to eye opening. There is a small amount of low amplitude 18 to 20 Hz beta activity seen maximally over the anterior head regions. Muscle and movement artifact was observed on a few occasions during the tracing. Hyperventilation was not performed. Photic stimulation at flash frequencies of 2 to 30 Hz produced a good symmetrical occipital driving response. No epileptiform discharges were seen. IMPRESSION: This EEG is normal for the patient's age. The EEG failed to reveal any focal, lateralized or epileptiform abnormalities. Clinical correlation is recommended.
--- NOTE | 2016-06-01 09:58 | ECHOF ---
Referral Reason:syncope MEASUREMENTS -------- HEIGHT: 157.5 cm WEIGHT: 78.9 kg BP: IVSd: 1.3 cm (0.6 - 1.1) LVIDd: 2.7 cm (3.9 - 5.3) LVPWd: 1.6 cm (0.6 - 1.1) IVSs: 1.8 cm LVIDs: 2.2 cm LVPWs: 1.3 cm Ao Diam: 3.5 cm (2.0 - 3.7) AV Cusp: 1.8 cm (1.5 - 2.6) LA Diam: 3.1 cm (2.7 - 3.8) MV EXCURSION: 12.842 mm (> 18.000) MV EF SLOPE: 33 mm/s (70 - 150) EPSS: 0.8 cm MV E Moris: 0.72 m/s MV DecT: 112 ms MV A Moris: 1.19 m/s MV E/A Ratio: 0.61 RAP: 5.00 mmHg RVSP: 20.42 mmHg FINDINGS -------- Sinus rhythm. This was a technically difficult study with suboptimal views. There is moderate concentric left ventricular hypertrophy. Overall left ventricular systolic function is mild-moderately impaired with, an EF between 40 - 45 %. The right ventricle is normal in size and function. The left atrium is normal in size. The right atrium is normal in size. 1.5mg of Definity was utilized for enhancement of images Aortic valve is trileaflet and is mildly thickened. The mitral valve leaflets are mildly thickened. Mild mitral regurgitation is present. Mild tricuspid regurgitation present. Pulmonic valve appears structurally normal. The aortic root size is normal. The pericardium is normal. CONCLUSIONS -------- 1. Sinus rhythm. 2. The mitral valve leaflets are mildly thickened. 3. Mild mitral regurgitation is present. 4. Mild tricuspid regurgitation present. 5. Pulmonic valve appears structurally normal. 6. The aortic root size is normal. 7. The pericardium is normal. 8. This was a technically difficult study with suboptimal views. 9. There is moderate concentric left ventricular hypertrophy. 10. Overall left ventricular systolic function is mild-moderately impaired with, an EF between 40 - 45 %. 11. The right ventricle is normal in size and function. 12. The left atrium is normal in size. 13. The right atrium is normal in size. 14. 1.5mg of Definity was utilized for enhancement of images 15. Aortic valve is trileaflet and is mildly thickened. WATERSHED COORDINATOR: Sharda Manley RDCS
== END 2016-05-31 15:32 | disposition home health service (06) ==
LOC: EC 16:31 → 4MS4W 19:54
PROVIDERS: ADMIT Internal Medicine; ATTEND Internal Medicine
DX: S02.2XXA Fracture of nasal bones, initial encounter for closed fracture (principal); S00.83XA Contusion of other part of head, initial encounter; R44.1 Visual hallucinations; I13.0 Hypertensive heart and chronic kidney disease with heart failure and stage 1 through stage 4 chronic kidney disease, or unspecified chronic kidney disease; E11.22 Type 2 diabetes mellitus with diabetic chronic kidney disease; E11.51 Type 2 diabetes mellitus with diabetic peripheral angiopathy without gangrene; E78.5 Hyperlipidemia, unspecified; F41.9 Anxiety disorder, unspecified; G93.40 Encephalopathy, unspecified; I25.10 Atherosclerotic heart disease of native coronary artery without angina pectoris; I25.2 Old myocardial infarction; I42.9 Cardiomyopathy, unspecified; I44.7 Left bundle-branch block, unspecified; I65.29 Occlusion and stenosis of unspecified carotid artery; J44.9 Chronic obstructive pulmonary disease, unspecified; K21.9 Gastro-esophageal reflux disease without esophagitis; N18.3 Chronic kidney disease, stage 3 (moderate); R29.6 Repeated falls; W01.0XXA Fall on same level from slipping, tripping and stumbling without subsequent striking against object, initial encounter; Y92.009 Unspecified place in unspecified non-institutional (private) residence as the place of occurrence of the external cause; N17.8 Other acute kidney failure; T50.1X5A Adverse effect of loop [high-ceiling] diuretics, initial encounter; Z79.82 Long term (current) use of aspirin; Z79.899 Other long term (current) drug therapy; Z87.891 Personal history of nicotine dependence; R41.0 Disorientation, unspecified; Z79.84 Long term (current) use of oral hypoglycemic drugs; Z79.02 Long term (current) use of antithrombotics/antiplatelets; Z88.1 Allergy status to other antibiotic agents; Z88.5 Allergy status to narcotic agent; Z88.2 Allergy status to sulfonamides; M19.90 Unspecified osteoarthritis, unspecified site; R00.1 Bradycardia, unspecified; S05.11XA Contusion of eyeball and orbital tissues, right eye, initial encounter; R55 Syncope and collapse; S09.90XA Unspecified injury of head, initial encounter; I50.9 Heart failure, unspecified; D64.9 Anemia, unspecified; Z91.048 Other nonmedicinal substance allergy status
CPT/HCPCS: 99285 ×2; 36415; 94760; 95816; 93005; 93306; 97116; 97161; 80053; 80048; 83036; 82550; 82553; 84484; 85025; 85027; 85610; 85730; 81001; 71010; 70486; 70450; G0378 ×3; 96360; 96361

== ENCOUNTER 2016-09-04 05:08 | Inpatient (IN) | payer MEDICARE ==
[2016-09-04] MEDS ORDERED: ASPIRIN 81 MG CHEW PO STA (05:17)
[2016-09-04] MEDS ORDERED: NITROGLYCERIN OINT 1 INCH/GM PACKET TOPICAL STA (05:17)
--- NOTE | 2016-09-04 05:19 | ED ---
General Adult HPI - General Chief complaint: Chest Pain Stated complaint: Chest Pain/SOB Time Seen by Provider: 09/04/16 05:10 Source: patient, EMS, RN notes reviewed Mode of arrival: EMS Limitations: no limitations - History of Present Illness Initial comments: This is a 75-year-old female with past history significant for coronary artery disease with multiple stent placements. Patient also has diabetes hypertension and high cholesterol. Patient states she smoked up until about a year ago. Patient comes in today. She had chest pain that was not relieved with 3 nitroglycerin at home. Patient states she had emesis a gave her IV more nitroglycerin and oxygen patient states this took away her pain completely and she now is pain-free. Patient denies any radiation of the pain earlier. Patient denies any shortness of breath or difficulty breathing. Patient denies any diaphoresis. Patient denies any nausea. Patient denies abdominal pain patient denies any vomiting or diarrhea recently. Patient denies any recent fever chills or cough. Patient denies being lightheaded dizzy or having a near syncopal episode. Patient denies any headache patient denies numbness weakness. - Related Data Home Medications Medication Instructions Recorded Confirmed Clopidogrel [Plavix] 75 mg PO DAILY 09/16/14 09/04/16 Pantoprazole Sodium 40 mg PO DAILY 09/16/14 09/04/16 Repaglinide [Prandin] 1 mg PO TID 09/16/14 09/04/16 ALPRAZolam [Xanax] 0.5 mg PO BID PRN 04/17/15 09/04/16 Aspirin [Adult Low Dose Aspirin EC] 81 mg PO DAILY 02/03/16 09/04/16 Multivitamins, Thera [Multivitamin 1 tab PO DAILY 02/03/16 09/04/16 (formulary)] [place] Oil 1 tab PO DAILY 02/03/16 09/04/16 Nitroglycerin Sl Tabs [Nitrostat] 0.4 mg SUBLINGUAL Q5M PRN 09/04/16 09/04/16 Previous Rx's Medication Instructions Recorded Atorvastatin [Lipitor] 40 mg PO HS #30 tab 04/19/15 Benazepril [Lotensin] 5 mg PO DAILY #1 tablet 05/31/16 Ferrous Sulfate Oral Elixir 300 mg PO DAILY #140 ml 05/31/16 [Feosol Liquid] Metoprolol Tartrate [Lopressor] 25 mg PO BID #0 05/31/16 amLODIPine [Norvasc] 5 mg PO HS #0 05/31/16 Allergies Allergy/AdvReac Type Severity Reaction Status Date / Time acetaminophen [From Tylenol] Allergy Anaphylaxis Verified 09/04/16 05:17 blue dye Allergy Anaphylaxis Verified 09/04/16 05:17 clonidine [From Catapres] Allergy Unknown Verified 09/04/16 05:17 iodine Allergy Unknown Verified 09/04/16 05:17 monosodium glutamate [MSG] Allergy Anaphylaxis Verified 09/04/16 05:17 ofloxacin [From Floxin] Allergy Anaphylaxis Verified 09/04/16 05:17 piroxicam [From Feldene] Allergy Unknown Verified 09/04/16 05:17 red dye Allergy Anaphylaxis Verified 09/04/16 05:17 Sulfa (Sulfonamide Allergy Anaphylaxis Verified 09/04/16 05:17 Antibiotics) tramadol [From Ultram] Allergy Anaphylaxis Verified 09/04/16 05:17 bisoprolol [From Ziac] AdvReac Unknown Verified 09/04/16 05:17 glipizide AdvReac Unknown Verified 09/04/16 05:17 hydrochlorothiazide AdvReac Unknown Verified 09/04/16 05:17 [From Ziac] metformin AdvReac Unknown Verified 09/04/16 05:17 sertraline [From Zoloft] AdvReac Hallucinati Verified 09/04/16 05:17 ons triamterene [From Dyazide] AdvReac Unknown Verified 09/04/16 05:17 Review of Systems ROS Statement: Those systems with pertinent positive or pertinent negative responses have been documented in the HPI. ROS Other: All systems not noted in ROS Statement are negative. Past Medical History Past Medical History: Coronary Artery Disease (CAD), Chest Pain / Angina, Heart Failure, COPD, Diabetes Mellitus, GERD/Reflux, GI Bleed, Hyperlipidemia, Hypertension, Myocardial Infarction ([place]), Osteoarthritis (OA) Additional Past Medical History / Comment(s): 09/16/14 admitted with chf. Other HX: NIDDM, chronic L knee pain, generalized arthiritis, anemia, back pain.sinus infections. Last Myocardial Infarction Date:: 04/2010 History of Any Multi-Drug Resistant Organisms: None Reported Past Surgical History: Appendectomy, Heart Catheterization With Stent, Hysterectomy Additional Past Surgical History / Comment(s): Ccaths with a total of 5 stents placed. Stent in leg. Subclavian bypass. PTCA's, EGD with cauterized arterovenous malformation, colonoscopy, L hand's index finger amputation, R hand 's thumb tendon repair, R elbow replacement, subclavian steel surgery-"new veins in my neck." sinus sx Past Anesthesia/Blood Transfusion Reactions: No Reported Reaction Additional Past Anesthesia/Blood Transfusion Reaction / Comment(s): Pt has recieved blood in the past without reaction. Date of Last Stent Placement:: 2010 Past Psychological History: Anxiety, Depression Additional Psychological History / Comment(s): Pt has a adult bryan who lives with her and another bryan next door. She is independent. She uses a cane to ambulate. She drives a car. She has no home care agency use. She has a supportive family. Smoking Status: Former smoker Past Alcohol Use History: None Reported Additional Past Alcohol Use History / Comment(s): Pt states she has smoked on and off for more than 35 yrs. quit 09-16-14 Past Drug Use History: None Reported - Past Family History Father History Unknown: Yes Mother Family Medical History: Cancer Additional Family Medical History / Comment(s): Mother had lung cancer. General Exam - General Exam Comments Initial Comments: GENERAL: Patient is well-developed and well-nourished. Patient is nontoxic and well- hydrated and is in mild distress. ENT: Neck is soft and supple. No significant lymphadenopathy is noted. Oropharynx is clear. Moist mucous membranes. Neck has full range of motion without eliciting any pain. EYES: The sclera were anicteric and conjunctiva were pink and moist. Extraocular movements were intact and pupils were equal round and reactive to light. Eyelids were unremarkable. PULMONARY: Unlabored respirations. Good breath sounds bilaterally. No audible rales rhonchi or wheezing was noted. CARDIOVASCULAR: There is a regular rate and rhythm without any murmurs gallops or rubs. ABDOMEN: Soft and nontender with normal bowel sounds. No palpable organomegaly was noted. There is no palpable pulsatile mass. SKIN: Skin is clear with no lesions or rashes and otherwise unremarkable. NEUROLOGIC: Patient is alert and oriented x3. Cranial nerves II through XII are grossly intact. Motor and sensory are also intact. Normal speech, volume and content. Symmetrical smile. MUSCULOSKELETAL: Normal extremities with adequate strength and full range of motion. No lower extremity swelling or edema. No calf tenderness. LYMPHATICS: No significant lymphadenopathy is noted PSYCHIATRIC: Normal psychiatric evaluation. Normal interpersonal interactions appears functionally intact in deals appropriately with others. No signs of depression. No signs of anxiety. Limitations: no limitations Course Vital Signs 09/04/16 05:09 Temperature 96.8 F L Pulse Rate 81 Respiratory 20 Rate Blood Pressure 179/88 O2 Sat by Pulse 91 L Oximetry Medical Decision Making - Medical Decision Making EKG shows a normal sinus rhythm at 76 bpm MA interval 284 Stacy is a 50 QT interval 470 QTC is 528. Patient's EKG shows a left bundle branch block. When compared to an old EKG there are no acute changes noted Chest x-ray shows mild pulmonary edema Patient received Lasix for the pulmonary edema. Patient's troponin was elevated so so the patient heparin spoke with cardiology . the primary medical care doctor admitted the patient. - Lab Data Result diagrams: 09/04/16 05:25 09/04/16 05:25 Lab Results 09/04/16 09/04/16 09/04/16 Range/Units 05:25 05:25 05:25 WBC 9.8 (3.8-10.6) k/uL RBC 3.32 L (3.80-5.40) m/uL Hgb 10.0 L (11.4-16.0) gm/dL Hct 32.0 L (34.0-46.0) % MCV 96.3 (80.0-100.0) fL MCH 30.1 (25.0-35.0) pg MCHC 31.3 (31.0-37.0) g/dL RDW 14.7 (11.5-15.5) % Plt Count 259 (150-450) k/uL Neutrophils % 72 % Lymphocytes % 19 % Monocytes % 6 % Eosinophils % 1 % Basophils % 0 % Neutrophils # 7.1 (1.3-7.7) k/uL Lymphocytes # 1.9 (1.0-4.8) k/uL Monocytes # 0.6 (0-1.0) k/uL Eosinophils # 0.1 (0-0.7) k/uL Basophils # 0.0 (0-0.2) k/uL Hypochromasia Slight PT (9.0-12.0) sec INR (<1.1) APTT (22.0-30.0) sec Sodium 140 (137-145) mmol/L Potassium 4.1 (3.5-5.1) mmol/L Chloride 112 H (98-107) mmol/L Carbon Dioxide 18 L (22-30) mmol/L Anion Gap 10 mmol/L BUN 26 H (7-17) mg/dL Creatinine 1.29 H (0.52-1.04) mg/dL Est GFR (MDRD) Af Amer 49 (>60 ml/min/1.73 sqM) Est GFR (MDRD) Non-Af 40 (>60 ml/min/1.73 sqM) Glucose 162 H (74-99) mg/dL Calcium 8.2 L (8.4-10.2) mg/dL Magnesium 1.4 L (1.6-2.3) mg/dL Total Bilirubin 0.5 (0.2-1.3) mg/dL AST 43 H (14-36) U/L ALT 22 (9-52) U/L Alkaline Phosphatase 90 (38-126) U/L Total Creatine Kinase 179 H (30-135) U/L CK-MB (CK-2) 8.9 H* (0.0-2.4) ng/mL CK-MB (CK-2) Rel Index 5.0 Troponin I 3.680 H* (0.000-0.034) ng/mL Total Protein 6.7 (6.3-8.2) g/dL Albumin 3.6 (3.5-5.0) g/dL 09/04/16 Range/Units 05:25 WBC (3.8-10.6) k/uL RBC (3.80-5.40) m/uL Hgb (11.4-16.0) gm/dL Hct (34.0-46.0) % MCV (80.0-100.0) fL MCH (25.0-35.0) pg MCHC (31.0-37.0) g/dL RDW (11.5-15.5) % Plt Count (150-450) k/uL Neutrophils % % Lymphocytes % % Monocytes % % Eosinophils % % Basophils % % Neutrophils # (1.3-7.7) k/uL Lymphocytes # (1.0-4.8) k/uL Monocytes # (0-1.0) k/uL Eosinophils # (0-0.7) k/uL Basophils # (0-0.2) k/uL Hypochromasia PT 11.3 (9.0-12.0) sec INR 1.1 (<1.1) APTT 26.0 (22.0-30.0) sec Sodium (137-145) mmol/L Potassium (3.5-5.1) mmol/L Chloride (98-107) mmol/L Carbon Dioxide (22-30) mmol/L Anion Gap mmol/L BUN (7-17) mg/dL Creatinine (0.52-1.04) mg/dL Est GFR (MDRD) Af Amer (>60 ml/min/1.73 sqM) Est GFR (MDRD) Non-Af (>60 ml/min/1.73 sqM) Glucose (74-99) mg/dL Calcium (8.4-10.2) mg/dL Magnesium (1.6-2.3) mg/dL Total Bilirubin (0.2-1.3) mg/dL AST (14-36) U/L ALT (9-52) U/L Alkaline Phosphatase (38-126) U/L Total Creatine Kinase (30-135) U/L CK-MB (CK-2) (0.0-2.4) ng/mL CK-MB (CK-2) Rel Index Troponin I (0.000-0.034) ng/mL Total Protein (6.3-8.2) g/dL Albumin (3.5-5.0) g/dL Critical Care Time Critical Care Time: Yes Total Critical Care Time: 35 Disposition Clinical Impression: Non-STEMI (non-ST elevated myocardial infarction) Disposition: ADMITTED IP TO THIS HOSP Referrals: Andrés Varner MD [Primary Care Provider] - 1-2 days Time of Disposition: 06:18
[2016-09-04 05:38] LABS: Basophils % (A) 0 %; CH 30.4; CHCM 31.7; Eosinophils # (A) 0.1 k/uL (0-0.7); Eosinophils % (A) 1 %; HDW 2.81; Hypochromasia Slight; Luc # (Auto) 0.13; Luc % (Auto) 1; Lymphocytes # (A) 1.9 k/uL (1.0-4.8); Lymphocytes % (A) 19 %; MCH 30.1 pg (25.0-35.0); MCHC 31.3 g/dL (31.0-37.0); MCV 96.3 fL (80.0-100.0); Mean Platelet Volume 6.7; Monocytes # (A) 0.6 k/uL (0-1.0); Monocytes % (A) 6 %; Neutrophils # (A) 7.1 k/uL (1.3-7.7); Neutrophils % (A) 72 %; RBC 3.32 m/uL (3.80-5.40); RDW 14.7 % (11.5-15.5); WBC 9.8 k/uL (3.8-10.6); WBC (Perox) 9.94
[2016-09-04 05:46] LABS: INR 1.1 (<1.1); Prothrombin Time 11.3 sec (9.0-12.0)
[2016-09-04 05:47] LABS: Calcium 8.2 mg/dL (8.4-10.2); Magnesium 1.4 mg/dL (1.6-2.3); Potassium 4.1 mmol/L (3.5-5.1); Total Bilirubin 0.5 mg/dL (0.2-1.3); Total Protein 6.7 g/dL (6.3-8.2)
--- NOTE | 2016-09-04 06:01 | XR ---
EXAM: XR Chest, 2 Views CLINICAL HISTORY: Reason: Chest Pain TECHNIQUE: Frontal and lateral views of the chest. COMPARISON: 05/29/16 FINDINGS: Lungs: Prominent central pulmonary vasculature. Increased interstitial markings bilaterally, increased since the prior study. Similar mild nodularity or scarring in the right lateral upper lobe. Pleural space: Likely small pleural effusion, new since prior. No pneumothorax. Heart: Heart size upper normal. Mediastinum: Unremarkable. Bones/joints: Unremarkable. IMPRESSION: Findings may represent mild pulmonary edema or interstitial pneumonitis.
[2016-09-04] MEDS ORDERED: FUROSEMIDE 10 MG/ML 2 ML VIAL IV ONE ×2 (06:02→06:30)
[2016-09-04 06:14] LABS: Creatine Kinase MB 8.9 ng/mL (0.0-2.4); Troponin I 3.68 ng/mL (0.000-0.034)
[2016-09-04] MEDS ORDERED: HEPARIN SODIUM,PORCINE 10,000 UNIT/ML 1 ML VIAL IV ONE (06:16)
[2016-09-04] MEDS ORDERED: NITROGLYCERIN SL TABS 0.4 MG TAB SUBLINGUAL PRN ×3 (06:33→12:29)
[2016-09-04] MEDS: HEPARIN SODIUM,PORCINE/D5W PMX 25,000 UNIT in DEXTROSE/WATER 1 500ML.BAG IV SCH (06:35)
--- NOTE | 2016-09-04 08:58 | P.CRDCN ---
History of Present Illness Consult date: 09/04/16 Requesting physician: Iza Escobedo Consult reason: chest pain Chief complaint: Chest pain History of present illness: This is a pleasant 75-year-old female who used to follow with Dr. Edwards in the office, she now follows with Dr. Mojica. Patient has a history of coronary artery disease with prior stent placement, PAD with prior peripheral stenting, hypertension, chronic anemia, diabetes, hyperlipidemia, she presents to the hospital with symptoms of chest discomfort. Patient states she was fairly active yesterday going to appointments and out with her daughter without any difficulty. She states that she was getting ready for bed last night and developed midsternal chest tightness, she tried to drink some warm water thinking that it may be heartburn, however the symptoms persisted. She did try taking one sublingual nitroglycerin without any relief of symptoms. EMS was called, she was given 3 baby aspirin along with a sublingual nitroglycerin and ultimately got relief of discomfort. Blood pressure on arrival here 180/88, heart rate in the 80s, 91% on room air. EKG on arrival here showed a normal sinus rhythm with a left bundle-branch block pattern and lateral ST-T wave changes. Hemoglobin 10.0, potassium 4.1, BUN 26, creatinine 1.2. Magnesium level I.4, CK 179, MB 8.9, troponin 3.6. BNP level 13,200. Patient denies any associated shortness of breath, no diaphoresis or nausea. At the time of my examination this morning she is currently chest pain-free. The patient is on aspirin 325 mg daily, she was given 2 IV doses of Lasix 20 mg, nitro paste is in place as well as heparin drip. Past Medical History Past Medical History: Coronary Artery Disease (CAD), Chest Pain / Angina, Heart Failure, COPD, Diabetes Mellitus, GERD/Reflux, GI Bleed, Hyperlipidemia, Hypertension, Myocardial Infarction ([place]), Osteoarthritis ([place]) Additional Past Medical History / Comment(s): 09/16/14 admitted with chf. Other HX: NIDDM, chronic L knee pain, generalized arthiritis, anemia, back pain.sinus infections. Last Myocardial Infarction Date:: 04/2010 History of Any Multi-Drug Resistant Organisms: None Reported Past Surgical History: Appendectomy, Heart Catheterization With Stent, Hysterectomy Additional Past Surgical History / Comment(s): Ccaths with a total of 5 stents placed. Stent in leg. Subclavian bypass. PTCA's, EGD with cauterized arterovenous malformation, colonoscopy, L hand's index finger amputation, R hand 's thumb tendon repair, R elbow replacement, subclavian steel surgery-"new veins in my neck." sinus sx Past Anesthesia/Blood Transfusion Reactions: No Reported Reaction Additional Past Anesthesia/Blood Transfusion Reaction / Comment(s): Pt has recieved blood in the past without reaction. Date of Last Stent Placement:: 2010 Past Psychological History: Anxiety, Depression Additional Psychological History / Comment(s): Pt has a adult bryan who lives with her and another bryan next door. She is independent. She uses a cane to ambulate. She drives a car. She has no home care agency use. She has a supportive family. Smoking Status: Former smoker Past Alcohol Use History: None Reported Additional Past Alcohol Use History / Comment(s): Pt states she has smoked on and off for more than 35 yrs. quit 09-16-14 Past Drug Use History: None Reported - Past Family History Father History Unknown: Yes Mother Family Medical History: Cancer Additional Family Medical History / Comment(s): Mother had lung cancer. Medications and Allergies Home Medications Medication Instructions Recorded Confirmed Type Clopidogrel [Plavix] 75 mg PO DAILY 09/16/14 09/04/16 History Pantoprazole Sodium 40 mg PO DAILY 09/16/14 09/04/16 History Repaglinide [Prandin] 1 mg PO TID 09/16/14 09/04/16 History ALPRAZolam [Xanax] 0.5 mg PO BID PRN 04/17/15 09/04/16 History Aspirin [Adult Low Dose Aspirin EC] 81 mg PO DAILY 02/03/16 09/04/16 History Multivitamins, Thera [Multivitamin 1 tab PO DAILY 02/03/16 09/04/16 History (formulary)] [place] Oil 1 tab PO DAILY 02/03/16 09/04/16 History Nitroglycerin Sl Tabs [Nitrostat] 0.4 mg SUBLINGUAL Q5M PRN 09/04/16 09/04/16 History Allergies Allergy/AdvReac Type Severity Reaction Status Date / Time acetaminophen [From Tylenol] Allergy Anaphylaxis Verified 09/04/16 05:17 blue dye Allergy Anaphylaxis Verified 09/04/16 05:17 clonidine [From Catapres] Allergy Unknown Verified 09/04/16 05:17 iodine Allergy Unknown Verified 09/04/16 05:17 monosodium glutamate [MSG] Allergy Anaphylaxis Verified 09/04/16 05:17 ofloxacin [From Floxin] Allergy Anaphylaxis Verified 09/04/16 05:17 piroxicam [From Feldene] Allergy Unknown Verified 09/04/16 05:17 red dye Allergy Anaphylaxis Verified 09/04/16 05:17 Sulfa (Sulfonamide Allergy Anaphylaxis Verified 09/04/16 05:17 Antibiotics) tramadol [From Ultram] Allergy Anaphylaxis Verified 09/04/16 05:17 bisoprolol [From Ziac] AdvReac Unknown Verified 09/04/16 05:17 glipizide AdvReac Unknown Verified 09/04/16 05:17 hydrochlorothiazide AdvReac Unknown Verified 09/04/16 05:17 [From Ziac] metformin AdvReac Unknown Verified 09/04/16 05:17 sertraline [From Zoloft] AdvReac Hallucinati Verified 09/04/16 05:17 ons triamterene [From Dyazide] AdvReac Unknown Verified 09/04/16 05:17 Physical Exam Vitals: Vital Signs Temp Pulse Resp BP Pulse Ox 09/04/16 08:19 96.8 F L 63 16 148/61 97 09/04/16 07:00 63 16 148/61 97 09/04/16 05:09 96.8 F L 81 20 179/88 91 L Intake and Output 09/03/16 09/04/16 09/04/16 22:59 06:59 14:59 Other: Weight 76.204 kg PHYSICAL EXAMINATION: HEENT: Head is atraumatic, normocephalic. Pupils equal, round. Neck is supple. There is no elevated jugular venous pressure. Bilateral carotid bruits HEART EXAMINATION: heart S1 and S2 systolic murmur heard. CHEST EXAMINATION: Lungs are clear with diminished air entry to bilateral bases. ABDOMEN: Soft, nontender. Bowel sounds are heard. No organomegaly noted. EXTREMITIES: 1+ peripheral pulses with no evidence of peripheral edema and no calf tenderness noted. NEUROLOGIC patient is awake, alert and oriented -3. . Results 09/04/16 05:25 09/04/16 05:25 Cardiac Enzymes 09/04/16 09/04/16 Range/Units 05:25 05:25 AST 43 H (14-36) U/L CK-MB (CK-2) 8.9 H* (0.0-2.4) ng/mL Troponin I 3.680 H* (0.000-0.034) ng/mL Coagulation 09/04/16 Range/Units 05:25 PT 11.3 (9.0-12.0) sec APTT 26.0 (22.0-30.0) sec CBC 09/04/16 Range/Units 05:25 WBC 9.8 (3.8-10.6) k/uL RBC 3.32 L (3.80-5.40) m/uL Hgb 10.0 L (11.4-16.0) gm/dL Hct 32.0 L (34.0-46.0) % Plt Count 259 (150-450) k/uL Comprehensive Metabolic Panel 09/04/16 Range/Units 05:25 Sodium 140 (137-145) mmol/L Potassium 4.1 (3.5-5.1) mmol/L Chloride 112 H (98-107) mmol/L Carbon Dioxide 18 L (22-30) mmol/L BUN 26 H (7-17) mg/dL Creatinine 1.29 H (0.52-1.04) mg/dL Glucose 162 H (74-99) mg/dL Calcium 8.2 L (8.4-10.2) mg/dL AST 43 H (14-36) U/L ALT 22 (9-52) U/L Alkaline Phosphatase 90 (38-126) U/L Total Protein 6.7 (6.3-8.2) g/dL Albumin 3.6 (3.5-5.0) g/dL Current Medications Generic Name Dose Route Start Last Admin Trade Name Freq PRN Reason Stop Dose Admin Aspirin 325 mg 09/05/16 09:00 Aspirin PO DAILY [facility] Heparin Sodium/Dextrose 25,000 500 mls @ 18.28 mls/hr 09/04/16 06:30 06:35 unit/ IV Solution IV 12 units/kg/hr .Q24H HOLLI 18.28 mls/hr Protocol Administration 12 UNITS/KG/HR Nitroglycerin 1 inch 09/04/16 12:00 Nitro-Bid Oint TOPICAL Q6HR [facility] Nitroglycerin 0.4 mg 09/04/16 06:33 Nitrostat SUBLINGUAL Q5M PRN Chest Pain Intake and Output 09/03/16 09/04/16 09/04/16 22:59 06:59 14:59 Other: Weight 76.204 kg 09/04/16 05:25 09/04/16 05:25 EKG Interpretations (text) EKG shows a normal sinus rhythm with a left bundle-branch block pattern and lateral ST-T wave changes. Assessment and Plan Plan: Assessment and plan #1 symptoms of midsternal chest tightness and heaviness, abnormal troponin suggestive of acute coronary syndrome. #2 known history of coronary artery disease with prior stent placement #3 PAD with prior peripheral stenting #4 hypertension #5 hyperlipidemia #6 diabetes #7 chronic anemia #8 systolic congestive year acute on chronic, most recent echo was performed in May of this year which revealed an ejection fraction of 40-45%. Plan We will obtain an echocardiogram with Doppler study. Obtained to further troponin values and repeat EKG. Continue IV heparin along with aspirin and Nitropaste. Resume Lipitor, metoprolol tartrate, Lotensin, Plavix, further recommendations will be based on these findings and the patient's clinical course. DNP note has been reviewed, I agree with a documented findings and plan of care. Patient was seen and examined.
[2016-09-04] MEDS: CLOPIDOGREL 75 MG TAB PO SCH (10:19)
[2016-09-04] MEDS: METOPROLOL TARTRATE 25 MG TAB PO SCH ×2 (10:19→21:13)
[2016-09-04] MEDS: LISINOPRIL 5 MG TAB PO SCH (10:20)
[2016-09-04 10:40] VITALS: BMI 30.7
[2016-09-04] MEDS ORDERED: ALPRAZolam 0.25 MG TAB PO PRN ×2 (10:58→12:29)
[2016-09-04] MEDS ORDERED: ASPIRIN 325 MG TAB PO STA ×2 (10:58→12:29)
[2016-09-04] MEDS ORDERED: SODIUM CHLORIDE 0.9% 1,000 ML in EMPTY BAG 1 BAG IV ONE ×2 (10:58→12:29)
[2016-09-04] MEDS ORDERED: ALPRAZolam 0.5 MG TAB PO PRN ×2 (10:58→12:29)
[2016-09-04] MEDS ORDERED: ATORVASTATIN 80 MG TAB PO STA ×2 (10:58→12:29)
[2016-09-04 12:18] LABS: Creatine Kinase MB 13.7 ng/mL (0.0-2.4); Troponin I 8.39 ng/mL (0.000-0.034)
[2016-09-04] MEDS ORDERED: diphenhydrAMINE 25 MG CAP PO SCH (12:30)
[2016-09-04 12:58] LABS: Glucose,Whole Blood 114 mg/dL (75-99)
[2016-09-04] MEDS ORDERED: diphenhydrAMINE 50 MG/ML 1 ML VIAL IVP SCH (14:15)
[2016-09-04] MEDS: FERROUS SULFATE ORAL ELIXIR 300 MG/5 ML CUP PO SCH (14:22)
[2016-09-04] MEDS: NITROGLYCERIN OINT 1 INCH/GM PACKET TOPICAL SCH ×2 (14:22→17:59)
[2016-09-04] MEDS: predniSONE 20 MG TAB PO SCH ×3 (14:23→21:13)
[2016-09-04] MEDS: diphenhydrAMINE 50 MG/ML 1 ML VIAL IVP SCH ×2 (14:38→22:14)
[2016-09-04 16:52] LABS: Glucose,Whole Blood 170 mg/dL (75-99)
[2016-09-04] MEDS ORDERED: LISINOPRIL 10 MG TAB PO STA (17:18)
[2016-09-04 17:31] LABS: Creatine Kinase MB 11.4 ng/mL (0.0-2.4); Troponin I 8.43 ng/mL (0.000-0.034)
[2016-09-04] MEDS ORDERED: ATORVASTATIN 40 MG TAB PO SCH (21:00)
[2016-09-04 21:10] LABS: Glucose,Whole Blood 258 mg/dL (75-99)
[2016-09-04] MEDS: INSULIN LISPRO (humaLOG) 300 UNIT/3 ML VIAL SQ SCH (21:13)
[2016-09-05] MEDS: NITROGLYCERIN OINT 1 INCH/GM PACKET TOPICAL SCH ×3 (00:42→14:31)
[2016-09-05] MEDS: LISINOPRIL 5 MG TAB PO SCH (06:09)
[2016-09-05] MEDS: diphenhydrAMINE 50 MG/ML 1 ML VIAL IVP SCH (06:09)
[2016-09-05] MEDS: METOPROLOL TARTRATE 25 MG TAB PO SCH ×2 (06:09→20:09)
[2016-09-05] MEDS: CLOPIDOGREL 75 MG TAB PO SCH (06:09)
[2016-09-05] MEDS: predniSONE 20 MG TAB PO SCH (06:09)
[2016-09-05 06:29] LABS: Glucose,Whole Blood 221 mg/dL (75-99)
[2016-09-05 06:48] LABS: Basophils % (A) 0 %; CHCM 32.2; Eosinophils % (A) 1 %; HCT 31.9 % (34.0-46.0); HDW 3.06; HGB 10.6 gm/dL (11.4-16.0); Hypochromasia Slight; Luc # (Auto) 0.08; Luc % (Auto) 1; Lymphocytes # (A) 1.5 k/uL (1.0-4.8); Lymphocytes % (A) 20 %; MCH 31.2 pg (25.0-35.0); MCHC 33.4 g/dL (31.0-37.0); MCV 93.5 fL (80.0-100.0); Mean Platelet Volume 6.8; Monocytes # (A) 0.4 k/uL (0-1.0); Monocytes % (A) 5 %; Neutrophils # (A) 5.7 k/uL (1.3-7.7); Neutrophils % (A) 74 %; RBC 3.41 m/uL (3.80-5.40); RDW 14.4 % (11.5-15.5); WBC 7.7 k/uL (3.8-10.6); WBC (Perox) 8.05
[2016-09-05] MEDS: INSULIN LISPRO (humaLOG) 300 UNIT/3 ML VIAL SQ SCH ×4 (06:57→22:07)
[2016-09-05 07:26] LABS: Calcium 9.1 mg/dL (8.4-10.2)
[2016-09-05 07:29] LABS: Potassium 4.7 mmol/L (3.5-5.1)
[2016-09-05] MEDS: HEPARIN SODIUM,PORCINE/D5W PMX 25,000 UNIT in DEXTROSE/WATER 1 500ML.BAG IV SCH (08:11)
[2016-09-05] MEDS ORDERED: ASPIRIN 325 MG TAB PO SCH (09:00)
--- NOTE | 2016-09-05 10:47 | HP ---
DATE OF ADMISSION: CHIEF COMPLAINT: Chest pain. HISTORY OF PRESENT ILLNESS: Mrs. Leon is a 75-year-old female who follows with Dr. Andrés Varner as outpatient with a past medical history of coronary artery disease, peripheral arterial disease, hypertension, chronic anemia, diabetes, hyperlipidemia, coming to the hospital with a chief complaint of chest pain. Patient states that she started to have chest pain midsternal, chest tightness that was radiating to the back side of the chest. She did try taking sublingual nitroglycerin without any relief of symptoms. She called EMS. The EMS did give her 4 baby aspirins after which she had relief of her chest pain. The patient states that she has been in her usual health and she did see Dr. Dumont for her left knee pain and got intra-articular steroid shots. Patient also states that she had a fall 5 to 6 weeks back, unclear whether it is mechanical or due to syncope and since then she states that she had difficulty in controlling her blood sugars and blood pressure. At the time of admission, the patient's blood pressure was high and she had elevation in her troponins without any EKG changes so she is currently being treated for non-ST elevation myocardial infarction with IV heparin. Cardiology has been consulted and following the patient. PAST MEDICAL HISTORY: Significant for coronary artery disease, peripheral arterial disease, hypertension, hyperlipidemia, COPD, diabetes mellitus. PAST SURGICAL HISTORY: Appendectomy, heart catheterization with stent placement, hysterectomy, and peripheral arterial disease, status post stent placement in bilateral lower extremities. ALLERGIES: TYLENOL, BLUE DYE, CLONIDINE, IODINE, MONOSODIUM GLUTAMATE, MOXIFLOXACIN, PIROXICAM, RED DYE, SULFA, TRAMADOL, BISOPROLOL, GLIPIZIDE, HYDROCHLOROTHIAZIDE, METFORMIN, ZOLOFT, TRIAMTERENE. Patient's home medications: 1. Plavix 75 mg p.o. daily. 2. Prandin 1 mg p.o. 3 times a day. 3. Pantoprazole 40 mg p.o. daily. 4. Xanax 0.5 mg p.o. b.i.d. 5. Lipitor 40 mg p.o. q.h.s. 6. Aspirin 81 mg p.o. daily. 7. Multivitamin 1 tablet p.o. daily. 8. [place] oil 1 tablet p.o. daily. 9. Lotensin 5 mg p.o. daily. 10. Ferrous sulfate 300 mg p.o. daily. 11. Metoprolol 25 mg p.o. b.i.d. 12. Nitroglycerin 0.4 mg sublingual q.5 minutes p.r.n. for chest pain. REVIEW OF SYSTEMS: All 13 review of systems are done and negative except for the ones mentioned in the HPI. FAMILY HISTORY: Positive for lung cancer in her mother. Patient's vitals currently: Blood pressure 181/87, heart rate 59, respiratory rate 14, temperature 96.7, saturating at 94% on room air. GENERAL EXAMINATION: Patient does not appear to be in acute distress. She is comfortably, sitting on the bed. HEAD: Atraumatic, nontraumatic. EYES: Pupils, round, and reactive to light. No pallor. No icterus. NECK: No JVD. No thyromegaly. CARDIOVASCULAR: S1, S2 heard. LUNGS: Bilateral breath sounds are positive. No wheeze or crackles. ABDOMEN: Soft, nontender. Bowel sounds are positive. EXTREMITIES: No edema. No cyanosis, no clubbing. Peripheral pulses are felt. PIPING MANAGER: Alert, awake and oriented x3. No focal neurological deficits. PSYCHIATRIC: Appropriate mood and affect. MUSCULOSKELETAL: No joint swelling or deformity. SKIN: No rashes. The patient's labs: White count of 9.8, hemoglobin is 10.2, platelets of 259. Sodium is 140, potassium 4.1, chloride 112, bicarb 18, BUN 26, creatinine 1.29, troponin is 3.680, 8.390 and 8.430. ASSESSMENT AND PLAN: 1. Non-ST elevation myocardial infarction. 2. History of coronary artery disease with prior stent placement. 3. Severe peripheral arterial disease with prior peripheral stenting. 4. Hypertension. 5. Hyperlipidemia. 6. Type 2 diabetes mellitus. 7. Chronic anemia on iron supplements. 8. Systolic congestive heart failure, acute on chronic. Recent echo showing ejection fraction of 40% to 45%. PLAN: The patient is to be continued on IV heparin. Patient's troponins have been elevated. She is currently denying any chest pain so we will continue with the current management. Cardiology on board and following the patient. Will continue with the rest of her home medications. Patient's blood pressure is running high so we will increase the dose of Lotensin. Further recommendations to follow depending on the progress of the patient. Patient states that she follows with Dr. Pittman and wants him to do the cath, but I explained to her that Dr. Lina Veras is coveting cardiology tear for this week, but we will inform her daughter and proceed further. This was also discussed with the nursing staff in detail that we will inform her daughter about this.
[2016-09-05] MEDS ORDERED: MIDAZOLAM 2 MG/2 ML VIAL ONE (10:53)
[2016-09-05] MEDS ORDERED: LIDOCAINE 2% INJ 20 MG/ML (20 ML MDV) ONE (11:00)
[2016-09-05] MEDS ORDERED: IV FLUID CONTINUATION 375 ML IV ONE (11:15)
[2016-09-05] MEDS: MIDAZOLAM 2 MG/2 ML VIAL IV ONE ×2 (11:55→12:13)
[2016-09-05] MEDS ORDERED: LIDOCAINE 2% INJ 20 MG/ML SQ ONE (11:59)
[2016-09-05] MEDS ORDERED: NITROGLYCERIN SL TABS 0.4 MG TAB SUBLINGUAL ONE ×3 (12:06→12:57)
[2016-09-05] MEDS: NITROGLYCERIN SL TABS 0.4 MG TAB SUBLINGUAL ONE ×3 (12:07→12:58)
[2016-09-05] MEDS: NITROGLYCERIN 1000MCG/10ML SYRINGE INTRACORON ONE ×2 (12:14→12:29)
[2016-09-05] MEDS ORDERED: amLODIPine 5 MG TAB ONE (12:16)
[2016-09-05] MEDS ORDERED: amLODIPine 5 MG TAB PO ONE (12:17)
[2016-09-05] MEDS ORDERED: IODIXANOL 320 MG/ML 100 ML INTRAARTER ONE (12:34)
[2016-09-05] MEDS ORDERED: LABETALOL 5 MG/ML VIAL MDV IV ONE (12:44)
[2016-09-05] MEDS ORDERED: RX INFO: IV CONTRAST WAS GIVEN 1 EACH MISC MISCELLANE PRN (13:48)
[2016-09-05] MEDS ORDERED: SODIUM CHLORIDE 0.9% 1,000 ML IV SCH (14:00)
[2016-09-05] MEDS ORDERED: LISINOPRIL 5 MG TAB PO ONE (14:00)
[2016-09-05] MEDS: FERROUS SULFATE ORAL ELIXIR 300 MG/5 ML CUP PO SCH (14:23)
[2016-09-05 15:29] LABS: Glucose,Whole Blood 166 mg/dL (75-99)
[2016-09-05 17:00] LABS: Glucose,Whole Blood 154 mg/dL (75-99)
--- NOTE | 2016-09-05 17:12 | PN ---
Boris Johnson is a 75-year-old lady presented with a non-ST elevation myocardial infarction. She has peripheral artery disease, CAD, previous stenting of RCA. She has significant disease in circumflex, extremely tortuous and calcified. Her troponin maxed at 8.3. She is resting comfortably, hemodynamically stable and had some chest pain yesterday. We will perform coronary angiography today from right femoral approach. Rationale, risks, benefits, options explained to patient and family. Vital signs are stable. S1, S2 heard normally ejection systolic murmur is audible. Lungs are clear. Abdomen and lower extremity exam is unchanged. We will perform electrical cardioversion today.
[2016-09-05] MEDS ORDERED: amLODIPine 5 MG TAB PO SCH (21:00)
[2016-09-05 21:32] LABS: Glucose,Whole Blood 209 mg/dL (75-99)
[2016-09-06 05:40] VITALS: TEMP 98.2
[2016-09-06 06:15] LABS: Glucose,Whole Blood 98 mg/dL (75-99)
[2016-09-06] MEDS: INSULIN LISPRO (humaLOG) 300 UNIT/3 ML VIAL SQ SCH ×2 (06:37→12:34)
[2016-09-06 07:25] LABS: Basophils % (A) 0 %; CH 30.7; Eosinophils % (A) 0 %; HCT 28.3 % (34.0-46.0); HDW 3.03; HGB 9.3 gm/dL (11.4-16.0); Luc # (Auto) 0.23; Luc % (Auto) 3; Lymphocytes # (A) 2.7 k/uL (1.0-4.8); Lymphocytes % (A) 29 %; MCH 30.8 pg (25.0-35.0); MCHC 32.9 g/dL (31.0-37.0); MCV 93.5 fL (80.0-100.0); Mean Platelet Volume 6.7; Monocytes # (A) 0.8 k/uL (0-1.0); Monocytes % (A) 9 %; Neutrophils # (A) 5.3 k/uL (1.3-7.7); Neutrophils % (A) 59 %; RBC 3.02 m/uL (3.80-5.40); RDW 14.5 % (11.5-15.5); WBC 9.1 k/uL (3.8-10.6); WBC (Perox) 9.57
[2016-09-06 07:43] LABS: Calcium 8.8 mg/dL (8.4-10.2); Potassium 3.5 mmol/L (3.5-5.1)
[2016-09-06] MEDS: METOPROLOL TARTRATE 25 MG TAB PO SCH (08:18)
[2016-09-06] MEDS: CLOPIDOGREL 75 MG TAB PO SCH (08:18)
[2016-09-06] MEDS ORDERED: LISINOPRIL 20 MG TAB PO SCH (09:00)
[2016-09-06] MEDS ORDERED: ASPIRIN 81 MG CHEW PO SCH (09:00)
[2016-09-06 09:16] VITALS: RESP 18
[2016-09-06 09:21] LABS: Hemoglobin A1C 6.3 % (4.2-6.1)
--- NOTE | 2016-09-06 10:39 | PN ---
DATE OF SERVICE: 09/05/2016 Ms. Leon is a 75-year-old female with a past medical history of coronary artery disease, peripheral artery disease, hypertension, chronic anemia, diabetes mellitus, hyperlipidemia. Came into the hospital with the chief complaint of chest pain. Patient had end-STEMI, did have a cardiac cath this morning and they suggested medical management. Patient currently lying in bed. She does not have any active complaints. REVIEW OF SYSTEMS: CONSTITUTIONAL: Denies having any fever, chills, or rigors. RESPIRATORY: No cough. No difficulty in breathing. CARDIOVASCULAR: No chest pain or palpitations. GI: No abdominal pain, nausea, vomiting, or diarrhea. : No dysuria or hematuria. Patient's medications have been reviewed. On examination, patient's vital signs temperature 97.2, heart rate 77, respiratory rate 16, blood pressure 136/68, saturating at 94% on room air. GENERAL EXAMINATION: Patient does not appear to be in acute distress. She is comfortably lying in bed. HEAD: Atraumatic, nontraumatic. EYES: Pupils, round, and reactive to light. No pallor. No icterus. NECK: No JVD. No thyromegaly. CARDIOVASCULAR: S1, S2 heard. LUNGS: Bilateral breath sounds are positive. No wheeze or crackles. ABDOMEN: Soft, nontender. Bowel sounds positive. EXTREMITIES: No edema. No cyanosis, no clubbing. Peripheral pulses are felt. Examination of the cardiac cath and right groin, no signs of bleeding or hematoma. YACHT RIGGER: Alert, awake, oriented x3. No focal neurological deficits. PSYCHIATRIC: Appropriate mood and affect. PATIENT'S LABS: White count 7.7, hemoglobin 10.6, platelets 265. Sodium 142, potassium 4.7, chloride 110, bicarb 20, BUN 24, creatinine 1.10. ASSESSMENT AND PLAN: 1. Non-ST elevation myocardial infarction. 2. History of coronary artery disease with prior stent placement. 3. Severe peripheral artery disease with prior peripheral stenting. 4. Hypertension. 5. Hyperlipidemia. 6. Type 2 diabetes mellitus. 7. Chronic anemia on iron supplements. 8. Systolic congestive heart failure with acute on chronic recent echo showing ejection fraction of 40% to 45%. PLAN: The plan is to continue on the current medical management. The cardiac cath was done and she did not have any stents placed. Continue with the current medication regimen and anticipate discharge in the next 24 hours.
--- NOTE | 2016-09-06 11:17 | CC ---
DATE OF SERVICE: 09/05/2016 PROCEDURE: Left heart catheterization, coronary angiography. Performed by: Dr. Yasemin Veras. Moderate conscious sedation time 45 minutes with Versed and Benadryl. CLINICAL INFORMATION: Mrs. Mitchell Leon is a 75-year-old lady with a known history of CAD, peripheral arterial disease, hypertension, hyperlipidemia, carotid disease. She underwent stenting of right coronary artery, performed by Dr. Chucky Veras in July of 2010 and prior to that in April of 2010 she had stenting of a very complex tortuous calcified circumflex. Since then, she has done fairly well on medical therapy, had some left SFA stenting performed by Dr. Pittman. She came into the hospital with chest pain suggestive of angina, had a troponin elevation, but EKG had a left bundle and therefore inconclusive. In view of her abnormal troponin levels and episodes of chest pain, I recommended coronary angiography with the understanding that she had significant calcified coronary disease based on previous cardiac cath. PROCEDURE NOTE: Under local anesthesia and strict aseptic precautions, a 6 [place] introducer was placed in the right femoral artery. I had a considerable difficulty. I used a micropuncture technique, advanced a glidewire and over the glidewire, I advanced a 6 [place] sheath and over this, I advanced a long straight 4 [place]ian catheter into the descending aorta and then passed an stiff Amplatz wire. With this combination I was able to get a 6 [place] introducer. Using standard Marky catheters, I performed coronary angiography, and a pigtail catheter was used to check LV pressures. LV gram was not performed. Sheath was taken out after optimizing BP control and manual compression applied. Patient tolerated the procedure well without complications. CARDIAC CATHETERIZATION FINDINGS: The left ventricular end-diastolic pressure was about 80 to 90 mmHg without any gradient across the aortic valve. CORONARY ANGIOGRAPHIC FINDINGS: RIGHT CORONARY ARTERY: Very dominant vessel, proximally has minor irregularities, heavy calcification, midportion before bifurcation has a 40% stenosis at the site of previous stenting it bifurcates into large PDA and PLV, both of which supply a sizable amount of myocardium. There is no significant disease in the dominant RCA. LEFT MAIN CORONARY ARTERY: A short, patent vessel, which is calcified distally tapers to about a 30% narrowing then bifurcates into LAD and circumflex. LEFT ANTERIOR DESCENDING CORONARY ARTERY: Good caliber vessel extends along the anterior wall, gives off septal and diagonal branches in the midportion. There is a 30% to 35% narrowing, moderate calcification. No significant obstructive CAD is noted in the LAD system. LEFT POSTERIOR CIRCUMFLEX CORONARY ARTERY: Technically clear, nondominant vessel, extremely tortuous, ostium has a 50% lesion, proximal portion has another 40% to 50% lesion and then the caliber improves and gives off a large posterolateral branch that is free of significant disease. Compared to the previous images angiographically, there is no significant progression of disease. The left main appears to have had mild progression of disease, but the circumflex and RCA do not show any significant disease progression. FINAL IMPRESSION: This patient has mildly elevated filling pressures. She has systolic hypertension. There is moderate disease, and the stented RCA and circumflex are both patent with no more than 40% stenosis. LAD is free of significant disease. All coronaries are heavily calcified. RECOMMENDATIONS: After reviewing the angiograms and comparing them to the ones from 2011, I am recommending aggressive medical therapy. Left main lesion is about 35% best seen in the caudal projection, nonsurgical. Aggressive medical therapy with risk factor modification, BP control is advised, but I am not recommending any percutaneous or surgical intervention at this time. Findings are discussed at length with the patient and family and will be discharged hopefully in the next 24 to 48 hours.
--- NOTE | 2016-09-06 11:19 | LTR ---
September 05, 2016 RE: Mitchell Leon Dear Dr. Varner; Thank you for the opportunity to participate in the care of Mrs. Boris Leon. I am pleased to report to you that she does not have any significant progression of CAD. We will pursue aggressive medical therapy without percutaneous or surgical intervention. Please find enclosed my cardiac cath report for your records. Thank you for your referral and please call for questions. With kindest regards. Sincerely, COTY LAMA MD
[2016-09-06 11:40] LABS: Glucose,Whole Blood 135 mg/dL (75-99)
[2016-09-06] MEDS: FERROUS SULFATE ORAL ELIXIR 300 MG/5 ML CUP PO SCH (12:34)
[2016-09-06 12:38] VITALS: BP 179/71; PULSE 65
--- NOTE | 2016-09-07 09:19 | CDI ---
In responding to this query, please exercise your independent professional judgment. The [facility] Coding Staff and Clinical Documentation Specialists appreciate your assistance in clarifying documentation, maintaining compliance with coding guidelines, accurately documenting patients condition and capturing severity of illness. The fact that a question is asked does not imply that any particular answer is desired or expected. Communication forms are a method of clarifying documentation and are not made part of the Legal Health Record. Thank you in advance for your clarification. Last Revision, January 2015 Lyn Manzo [address] [place] [address] Documentation Clarification Form Date: 09/06/2016 12:51:00 PM From: Tana Lopez RN, CCDS Admit Date: 09/04/2016 6:18:00 AM Patient Name: Mitchell Leon Visit Number: [id number] Dr. Jessica Shirley A diagnosis of anemia lacks specificity to accurately reflect your patients severity of condition and clarification is needed. Patient history/risk factors: CAD, PAD, HTN, Hyperlipidemia, COPD, DM Clinical Indicators: 09/06 Attending Progress Note: "Chronic anemia on iron supplements." Hemoglobin: 10/10.6/9.3 Hematocrit: 32/31.9/28.3 Treatment: Labs Am daily Feosol 300mg PO QD In order to capture the severity of condition, please clarify the type of anemia and etiology if known: Acute blood loss anemia Acute on chronic blood loss anemia Chronic blood loss anemia Iron deficiency anemia Hemolytic anemia Drug induced anemia Anemia due to malignancy Nutritional anemia Anemia of chronic kidney disease Unable to determine Other, please specify Please document in your progress notes and discharge summary in order to capture severity of illness and risk of mortality. Include clinical findings that support your diagnosis. FYI: Press F11 to launch patient chart. Place X here if this finding has no clinical significance, is not applicable or if you are not able to provide any additional documentation. JAIR
--- NOTE | 2016-09-07 09:59 | DS ---
DATE OF ADMISSION: 09/04/2016 DATE OF DISCHARGE: 09/06/2016 HOSPITAL COURSE: Ms. Leon is a 75-year-old female with a past medical history of coronary artery disease artery disease, peripheral artery disease , hypertension, chronic anemia, diabetes mellitus, hyperlipidemia, admitted to the hospital with a chief complaint of chest pain. The patient had non-ST elevation myocardial infarction and she did have a cardiac cath on 09/05/2016. Patient did not have any significant stenosis. Cardiology suggested that she continue with the medical management. Post cath, patient's hemoglobin has been stable. No active complaints. She has been cleared by cardiology to be discharged home in stable condition. Patient's vitals are stable at the time of discharge and she is being discharged home in stable condition. DISCHARGE DIAGNOSES: 1. Non-ST elevation myocardial infarction non-ST elevation myocardial infarction. 2. History of coronary artery disease with prior stenting. 3. History of severe peripheral artery disease with prior stenting. 4. Hypertension. 5. Hyperlipidemia. 6. Type 2 diabetes mellitus. 7. Chronic anemia on iron supplements. 8. Systolic congestive heart failure with acute on chronic. Recent echo showing an ejection fraction of 40% to 45%. Patient's discharge medications: 1. Plavix 75 mg p.o. daily. 2. Protonix 40 mg p.o. daily. 3. Prandin 1 mg p.o. 3 times a day. 4. Xanax 0.5 mg p.o. b.i.d. p.r.n. for anxiety. 5. ( ) 40 mg p.o. q.h.s. 6. Aspirin 81 mg p.o. daily. 7. Multivitamin 1 tablet p.o. daily. 8. [place] oil 1 tablet p.o. daily. 9. Lotensin 5 mg p.o. daily. 10. Ferrous Sulfate 300 mg p.o. daily. 11. Metoprolol 25 mg p.o. b.i.d. 12. Nitroglycerins 0.4 mg sublingual q.5 minutes p.r.n. for chest pain. The patient is being discharged home in stable condition. Advised to follow with a her PCP, Dr. Andrés Varner in 2 to 3 days and also cardiology, Dr. Pittman in one week. DIET: Heart healthy diet. Activity as tolerated. Patient is being discharged home today.
--- NOTE | 2016-09-09 10:27 | ECHOF ---
Referral Reason:acs MEASUREMENTS -------- HEIGHT: 157.5 cm WEIGHT: 76.2 kg BP: 148/61 IVSd: 1.5 cm (0.6 - 1.1) LVIDd: 4.0 cm (3.9 - 5.3) LVPWd: 1.8 cm (0.6 - 1.1) IVSs: 2.4 cm LVIDs: 3.1 cm LVPWs: 1.7 cm LAESV Index (A-L): 41.58 ml/m Ao Diam: 3.5 cm (2.0 - 3.7) AV Cusp: 1.7 cm (1.5 - 2.6) LA Diam: 2.9 cm (2.7 - 3.8) MV EXCURSION: 13.536 mm (> 18.000) MV EF SLOPE: 30 mm/s (70 - 150) EPSS: 1.7 cm MV E Moris: 0.87 m/s MV DecT: 229 ms MV A Moris: 0.91 m/s MV E/A Ratio: 0.96 RAP: 5.00 mmHg RVSP: 24.70 mmHg FINDINGS -------- Sinus rhythm. This was a technically difficult study with suboptimal views. There is moderate concentric left ventricular hypertrophy. Overall left ventricular systolic function is mild-moderately impaired with, an EF between 40 - 45 %. Mitral Doppler inflow pattern suggests diastolic filling abnormality 28.58. The right ventricle is normal in size and function. LA is severely dilated >40 ml/m2 The right atrium is normal in size. 1.5mg of Definity was utilized for enhancement of images Aortic valve is trileaflet and is mildly thickened. The mitral valve leaflets are mildly thickened. Mild mitral regurgitation is present. Mild tricuspid regurgitation present. The right ventricular systolic pressure, as measured by Doppler, is 24.70mmHg. Pulmonic valve appears structurally normal. The aortic root size is normal. The pericardium is normal. CONCLUSIONS -------- 1. Sinus rhythm. 2. Aortic valve is trileaflet and is mildly thickened. 3. The mitral valve leaflets are mildly thickened. 4. Mild mitral regurgitation is present. 5. Mild tricuspid regurgitation present. 6. The right ventricular systolic pressure, as measured by Doppler, is 24.70mmHg. 7. Pulmonic valve appears structurally normal. 8. The aortic root size is normal. 9. The pericardium is normal. 10. This was a technically difficult study with suboptimal views. 11. There is moderate concentric left ventricular hypertrophy. 12. Overall left ventricular systolic function is mild-moderately impaired with, an EF between 40 - 45 %. 13. Mitral Doppler inflow pattern suggest diastolic filling abnormality 28.58. 14. The right ventricle is normal in size and function. 15. LA is severely dilated >40 ml/m2 16. The right atrium is normal in size. 17. 1.5mg of Definity was utilized for enhancement of images [employer] HISTORY PROFESSOR: Sharda Manley RDCS
== END 2016-09-06 15:17 | disposition home or self-care (01) | DRG 280 ==
LOC: EC 05:08 → 6SEL 06:18
PROVIDERS: ADMIT Hospitalist; ATTEND Hospitalist
PROC: B211YZZ Fluoroscopy of Multiple Coronary Arteries using Other Contrast (ICD-10-PCS; 2016-09-05)
PROC: 4A023N7 Measurement of Cardiac Sampling and Pressure, Left Heart, Percutaneous Approach (ICD-10-PCS; principal; 2016-09-05 11:15)
DX: I21.4 Non-ST elevation (NSTEMI) myocardial infarction (principal); I50.23 Acute on chronic systolic (congestive) heart failure; J44.9 Chronic obstructive pulmonary disease, unspecified; E11.9 Type 2 diabetes mellitus without complications; F32.9 Major depressive disorder, single episode, unspecified; D64.9 Anemia, unspecified; I11.0 Hypertensive heart disease with heart failure; I44.7 Left bundle-branch block, unspecified; I73.9 Peripheral vascular disease, unspecified; I25.10 Atherosclerotic heart disease of native coronary artery without angina pectoris; E78.5 Hyperlipidemia, unspecified; E78.00 Pure hypercholesterolemia, unspecified; I25.2 Old myocardial infarction; K21.9 Gastro-esophageal reflux disease without esophagitis; F41.9 Anxiety disorder, unspecified; G89.29 Other chronic pain; M25.562 Pain in left knee; Z87.891 Personal history of nicotine dependence; Z90.710 Acquired absence of both cervix and uterus; Z95.828 Presence of other vascular implants and grafts; Z95.5 Presence of coronary angioplasty implant and graft; Z91.041 Radiographic dye allergy status; Z88.2 Allergy status to sulfonamides; Z88.8 Allergy status to other drugs, medicaments and biological substances; Z91.048 Other nonmedicinal substance allergy status; Z79.02 Long term (current) use of antithrombotics/antiplatelets; Z79.84 Long term (current) use of oral hypoglycemic drugs; Z79.82 Long term (current) use of aspirin; Z79.899 Other long term (current) drug therapy
CPT/HCPCS: 36415; 71020; 80048; 80053; 80061; 82550; 82553; 83036; 83735; 83880; 84484; 85025; 85610; 85730; 93005; 93306; 93458; 94760; 96365; 96366; 96375; 96376; 99291

== ENCOUNTER → 2017-03-14 | Outpatient (CLI) | payer MEDICARE ==
--- NOTE | 2017-03-14 11:12 | MR ---
EXAMINATION TYPE: MR angio head wo con DATE OF EXAM: 03/14/2017 COMPARISON: NONE HISTORY: Chronic tension-type headache TECHNIQUE: Utilizing 3-D [id number] intracranial MRA of [place] was performed. FINDINGS: The vertebrobasilar and carotid systems are patent. There is mild fusiform prominence of the right M CA trifurcation measuring 2 mm. Left vertebral artery is dominant. Right vertebral artery is congenit ally diminutive in size.. There is a 2 mm nodular prominence extending off the distal left ICA. IMPRESSION: 1. Mild fusiform prominence of the right MCA trifurcation which is suggestive of a 2 mm aneurysm. 2. 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
--- NOTE | 2017-03-14 11:32 | MR ---
EXAMINATION TYPE: MR brain wo con DATE OF EXAM: 03/14/2017 COMPARISON: 02/11/2012 HISTORY: Chronic tension-type headache T1-weighted sagittal, T2, FLAIR, and diffusion axial, and T2 coronal coronal views of the brain are s ubmitted. There is no evidence of acute ischemia. There is a mass measuring 8 mm posterior to the odontoid on t he left resulting in anterior lateral compression of the spinal cord. Changes of chronic sinusitis and mastoiditis noted. There is a mild to moderate generalized degenerat marla change with areas of abnormal signal within the white matter bilaterally which are nonspecific bu t most typical remote microvascular ischemia. Small focal area of abnormal signal involving the andrew compatible with remote infarction. Craniocervi tyler junction maintained. Sella turcica has a normal appearance. No cerebellopontine angle mass. IMPRESSION: 1. There is an 8 mm mass posterior to the odontoid on the left resulting in mild anterolateral compre ssion of the spinal cord. This may be related to meningioma. Postcontrast exam recommended to assess for enhancement. Report called to referring physician. 2. Degenerative and nonspecific white matter changes most typical remote microvascular ischemia. A Red message has been communicated to Jere Hamilton MD~[id number] via the [employer] Critical Result system on 03/14/2017 11:30 AM, Message ID [id number].
== END | disposition home or self-care (01) ==
LOC: RADMRIMAIN 10:11
PROVIDERS: ATTEND Psychiatry & Neurology Neurology
DX: G44.229 Chronic tension-type headache, not intractable (principal); I67.1 Cerebral aneurysm, nonruptured; G95.20 Unspecified cord compression
CPT/HCPCS: 70544; 70551

== ENCOUNTER 2017-03-31 12:10 | Inpatient (IN) | payer MEDICARE ==
[2017-03-31] MEDS ORDERED: SODIUM CHLORIDE 0.9% 1,000 ML IV STA (12:51)
--- NOTE | 2017-03-31 12:54 | ED ---
General Adult HPI - General Chief complaint: Fever Stated complaint: SOB-Sent by Time Seen by Provider: 03/31/17 12:21 Source: patient, family, RN notes reviewed Mode of arrival: wheelchair Limitations: no limitations - History of Present Illness Initial comments: 76-year-old female sent by primary care physician for evaluation of fever, weight loss and dehydration. Patient has past medical history of CHF, COPD, hypertension, CAD, peripheral vascular disease. She states that over the past several days she has had mild cough. She also reports subjective fever and chills. She complains of myalgias and body aches. Denies any central chest pain. Denies abdominal pain. Patient had one episode of vomiting and one episode of diarrhea. No known sick contacts. Patient was sent for fever evaluation and dehydration. - Related Data Home Medications Medication Instructions Recorded Confirmed Clopidogrel [Plavix] 75 mg PO DAILY 09/16/14 03/31/17 Pantoprazole Sodium 40 mg PO DAILY 09/16/14 03/31/17 Repaglinide [Prandin] 1 mg PO QAM 09/16/14 03/31/17 ALPRAZolam [Xanax] 0.5 mg PO BID PRN 04/17/15 03/31/17 Aspirin [Adult Low Dose Aspirin EC] 81 mg PO DAILY 02/03/16 03/31/17 Multivitamins, Thera [Multivitamin 1 tab PO DAILY 02/03/16 03/31/17 (formulary)] Nitroglycerin Sl Tabs [Nitrostat] 0.4 mg SUBLINGUAL Q5M PRN 09/04/16 03/31/17 Previous Rx's Medication Instructions Recorded Atorvastatin [Lipitor] 40 mg PO HS #30 tab 04/19/15 Benazepril [Lotensin] 5 mg PO DAILY #1 tablet 05/31/16 Metoprolol Tartrate [Lopressor] 25 mg PO BID #0 05/31/16 Allergies Allergy/AdvReac Type Severity Reaction Status Date / Time acetaminophen [From Tylenol] Allergy Anaphylaxis Verified 03/31/17 13:53 blue dye Allergy Anaphylaxis Verified 03/31/17 13:53 clonidine [From Catapres] Allergy Unknown Verified 03/31/17 13:53 iodine Allergy Unknown Verified 03/31/17 13:53 monosodium glutamate [MSG] Allergy Anaphylaxis Verified 03/31/17 13:53 ofloxacin [From Floxin] Allergy Anaphylaxis Verified 03/31/17 13:53 piroxicam [From Feldene] Allergy Unknown Verified 03/31/17 13:53 red dye Allergy Anaphylaxis Verified 03/31/17 13:53 Sulfa (Sulfonamide Allergy Anaphylaxis Verified 03/31/17 13:53 Antibiotics) tramadol [From Ultram] Allergy Anaphylaxis Verified 03/31/17 13:53 bisoprolol [From Ziac] AdvReac Unknown Verified 03/31/17 13:53 glipizide AdvReac Unknown Verified 03/31/17 13:53 hydrochlorothiazide AdvReac Unknown Verified 03/31/17 13:53 [From Ziac] metformin AdvReac Unknown Verified 03/31/17 13:53 sertraline [From Zoloft] AdvReac Hallucinati Verified 03/31/17 13:53 ons triamterene [From Dyazide] AdvReac Unknown Verified 03/31/17 13:53 Review of Systems ROS Statement: Those systems with pertinent positive or pertinent negative responses have been documented in the HPI. ROS Other: All systems not noted in ROS Statement are negative. Past Medical History Past Medical History: Coronary Artery Disease (CAD), Chest Pain / Angina, Heart Failure, COPD, Diabetes Mellitus, GERD/Reflux, GI Bleed, Hyperlipidemia, Hypertension, Myocardial Infarction (CA), Osteoarthritis (OA) Additional Past Medical History / Comment(s): 09/16/14 admitted with chf. Other HX: NIDDM, chronic L knee pain, generalized arthiritis, anemia, back pain.sinus infections. MRI brain-tumor Last Myocardial Infarction Date:: 04/2010 History of Any Multi-Drug Resistant Organisms: None Reported Past Surgical History: Appendectomy, Heart Catheterization With Stent, Hysterectomy Additional Past Surgical History / Comment(s): Ccaths with a total of 5 stents placed. Stent in leg. Subclavian bypass. PTCA's, EGD with cauterized arterovenous malformation, colonoscopy, L hand's index finger amputation, R hand 's thumb tendon repair, R elbow replacement, subclavian steel surgery-"new veins in my neck." sinus sx, Past Anesthesia/Blood Transfusion Reactions: No Reported Reaction Additional Past Anesthesia/Blood Transfusion Reaction / Comment(s): Pt has recieved blood in the past without reaction. Date of Last Stent Placement:: 2010 Past Psychological History: Anxiety, Depression Smoking Status: Former smoker Past Alcohol Use History: None Reported Past Drug Use History: None Reported - Past Family History Father History Unknown: Yes Mother Family Medical History: Cancer Additional Family Medical History / Comment(s): Mother had lung cancer. General Exam Limitations: no limitations General appearance: alert, in no apparent distress Head exam: Present: atraumatic, normocephalic Eye exam: Present: normal appearance, PERRL ENT exam: Present: mucous membranes dry Neck exam: Present: normal inspection, full ROM. Absent: tenderness, meningismus Respiratory exam: Present: normal lung sounds bilaterally. Absent: respiratory distress, wheezes Cardiovascular Exam: Present: regular rate, normal rhythm GI/Abdominal exam: Present: soft. Absent: distended, tenderness Extremities exam: Present: normal inspection, normal capillary refill. Absent: pedal edema Neurological exam: Present: alert, oriented X3, CN II-XII intact. Absent: motor sensory deficit Psychiatric exam: Present: normal affect, normal mood Skin exam: Present: warm, dry, intact. Absent: cyanosis, diaphoretic Course Vital Signs 03/31/17 12:15 Temperature 97.2 F L Pulse Rate 57 L Respiratory 16 Rate Blood Pressure 185/84 O2 Sat by Pulse 95 Oximetry Medical Decision Making - Medical Decision Making 68-year-old female presenting for evaluation of fever and dehydration. Laboratory studies are obtained, patient has white blood cell count 8.4, hemoglobin 12.4, creatinine 2.45 from a baseline of 1.6. Influenza is negative. Chest x-ray shows no focal pneumonia. Urinalysis is pending as well as blood culture and urine culture. Patient will be admitted for further evaluation and treatment including rehydration and monitoring of acute kidney injury. Urinalysis pending. Case discussed with Dr. Vazquez, he will accept admission. - Lab Data Result diagrams: 03/31/17 12:42 03/31/17 12:42 Lab Results 03/31/17 03/31/17 03/31/17 Range/Units 12:42 12:42 12:42 WBC 8.4 (3.8-10.6) k/uL RBC 4.33 (3.80-5.40) m/uL Hgb 12.4 (11.4-16.0) gm/dL Hct 39.9 (34.0-46.0) % MCV 92.2 (80.0-100.0) fL MCH 28.6 (25.0-35.0) pg MCHC 31.0 (31.0-37.0) g/dL RDW 15.1 (11.5-15.5) % Plt Count 237 (150-450) k/uL Neutrophils % 70 % Lymphocytes % 21 % Monocytes % 5 % Eosinophils % 1 % Basophils % 0 % Neutrophils # 5.9 (1.3-7.7) k/uL Lymphocytes # 1.8 (1.0-4.8) k/uL Monocytes # 0.4 (0-1.0) k/uL Eosinophils # 0.1 (0-0.7) k/uL Basophils # 0.0 (0-0.2) k/uL Sodium 142 (137-145) mmol/L Potassium 3.9 (3.5-5.1) mmol/L Chloride 106 (98-107) mmol/L Carbon Dioxide 21 L (22-30) mmol/L Anion Gap 15 mmol/L BUN 26 H (7-17) mg/dL Creatinine 2.45 H (0.52-1.04) mg/dL Est GFR (MDRD) Af Amer 23 (>60 ml/min/1.73 sqM) Est GFR (MDRD) Non-Af 19 (>60 ml/min/1.73 sqM) Glucose 145 H (74-99) mg/dL Plasma Lactic Acid Michael (0.7-2.0) mmol/L Calcium 7.8 L (8.4-10.2) mg/dL Total Bilirubin 0.4 (0.2-1.3) mg/dL AST 22 (14-36) U/L ALT 27 (9-52) U/L Alkaline Phosphatase 93 (38-126) U/L Total Protein 7.0 (6.3-8.2) g/dL Albumin 3.8 (3.5-5.0) g/dL Influenza Type A RNA Not Detected (Not Detectd) Influenza Type B (PCR) Not Detected (Not Detectd) 03/31/17 Range/Units 12:42 WBC (3.8-10.6) k/uL RBC (3.80-5.40) m/uL Hgb (11.4-16.0) gm/dL Hct (34.0-46.0) % MCV (80.0-100.0) fL MCH (25.0-35.0) pg MCHC (31.0-37.0) g/dL RDW (11.5-15.5) % Plt Count (150-450) k/uL Neutrophils % % Lymphocytes % % Monocytes % % Eosinophils % % Basophils % % Neutrophils # (1.3-7.7) k/uL Lymphocytes # (1.0-4.8) k/uL Monocytes # (0-1.0) k/uL Eosinophils # (0-0.7) k/uL Basophils # (0-0.2) k/uL Sodium (137-145) mmol/L Potassium (3.5-5.1) mmol/L Chloride (98-107) mmol/L Carbon Dioxide (22-30) mmol/L Anion Gap mmol/L BUN (7-17) mg/dL Creatinine (0.52-1.04) mg/dL Est GFR (MDRD) Af Amer (>60 ml/min/1.73 sqM) Est GFR (MDRD) Non-Af (>60 ml/min/1.73 sqM) Glucose (74-99) mg/dL Plasma Lactic Acid Michael 1.6 (0.7-2.0) mmol/L Calcium (8.4-10.2) mg/dL Total Bilirubin (0.2-1.3) mg/dL AST (14-36) U/L ALT (9-52) U/L Alkaline Phosphatase (38-126) U/L Total Protein (6.3-8.2) g/dL Albumin (3.5-5.0) g/dL Influenza Type A RNA (Not Detectd) Influenza Type B (PCR) (Not Detectd) Disposition Clinical Impression: Dehydration, Acute kidney injury Disposition: ADMITTED IP TO THIS HOSP Condition: Stable Referrals: Andrés Varner MD [Primary Care Provider] - 1-2 days Decision to Admit Reason: Admit from EC Decision Date: 03/31/17 Decision Time: 14:19
[2017-03-31 13:10] LABS: Albumin 3.8 g/dL (3.5-5.0); Calcium 7.8 mg/dL (8.4-10.2); Potassium 3.9 mmol/L (3.5-5.1); Total Bilirubin 0.4 mg/dL (0.2-1.3)
[2017-03-31 13:11] LABS: Basophils % (A) 0 %; Eosinophils # (A) 0.1 k/uL (0-0.7); Eosinophils % (A) 1 %; HCT 39.9 % (34.0-46.0); HGB 12.4 gm/dL (11.4-16.0); Lymphocytes # (A) 1.8 k/uL (1.0-4.8); Lymphocytes % (A) 21 %; MCH 28.6 pg (25.0-35.0); MCV 92.2 fL (80.0-100.0); Mean Platelet Volume 7.2; Monocytes # (A) 0.4 k/uL (0-1.0); Monocytes % (A) 5 %; Neutrophils # (A) 5.9 k/uL (1.3-7.7); Neutrophils % (A) 70 %; Platelet Count 237 k/uL (150-450); RBC 4.33 m/uL (3.80-5.40); RDW 15.1 % (11.5-15.5); WBC 8.4 k/uL (3.8-10.6)
--- NOTE | 2017-03-31 13:17 | XR ---
EXAMINATION TYPE: XR chest 2V DATE OF EXAM: 03/31/2017 COMPARISON: 09/04/2016 INDICATION: Pain fever flulike symptoms for 3 days, TECHNIQUE: Frontal and lateral views of the chest are obtained. FINDINGS: The heart size is normal. The pulmonary vasculature is normal. The lungs are clear. Left apical surgical suture is present. IMPRESSION: 1. No acute pulmonary process.
[2017-03-31] MEDS ORDERED: NALOXONE 0.4 MG/ML 1 ML VIAL IV PRN (14:20)
[2017-03-31] MEDS ORDERED: NITROGLYCERIN SL TABS 0.4 MG TAB SUBLINGUAL PRN (15:09)
--- NOTE | 2017-03-31 15:09 | P.HPIM ---
History of Present Illness H&P Date: 03/31/17 Chief Complaint: Weakness and fatigue muscle aches and nausea The patient is a 76-year-old female with a past focal history of coronary artery disease with stenting, peripheral vascular disease with stenting , essential hypertension and dyslipidemia type 2 diabetes, chronic systolic congestive heart failure with last known ejection fraction of 40-45% Presents to the ER with chief complaint of increasing fatigue and weakness, and diffuse myalgias of her back and all extremities with some nausea and decreased appetite. She denies any subjective fevers chills or night sweats, she denies any dysuria chest pain or shortness of breath. She reports a history of dysgeusia since having a fall several months ago, the patient denied any history of fractures to her face at that point but interestingly after reviewing her records it appears that the discharging physician documented that the patient sustained a nasal bone fracture in May of last year, despite there not be any noted fractures on facial and head CT The patient denies any abdominal pain, she does report diarrhea last week that's has since resolved. 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 In the ER the patient was noted to be in acute kidney injury on chronic kidney disease with elevated creatinine of 2.5, she was recommended for admission for acute dehydration and acute kidney injury Past Medical History Past Medical History: Coronary Artery Disease (CAD), Chest Pain / Angina, Heart Failure, COPD, Diabetes Mellitus, GERD/Reflux, GI Bleed, Hyperlipidemia, Hypertension, Myocardial Infarction (PR), Osteoarthritis (OA) Additional Past Medical History / Comment(s): 09/16/14 admitted with chf. Other HX: NIDDM, chronic L knee pain, generalized arthiritis, anemia, back pain.sinus infections. MRI brain-tumor Last Myocardial Infarction Date:: 04/2010 History of Any Multi-Drug Resistant Organisms: None Reported Past Surgical History: Appendectomy, Heart Catheterization With Stent, Hysterectomy Additional Past Surgical History / Comment(s): Ccaths with a total of 5 stents placed. Stent in leg. Subclavian bypass. PTCA's, EGD with cauterized arterovenous malformation, colonoscopy, L hand's index finger amputation, R hand 's thumb tendon repair, R elbow replacement, subclavian steel surgery-"new veins in my neck." sinus sx, Past Anesthesia/Blood Transfusion Reactions: No Reported Reaction Additional Past Anesthesia/Blood Transfusion Reaction / Comment(s): Pt has recieved blood in the past without reaction. Date of Last Stent Placement:: 2010 Past Psychological History: Anxiety, Depression Smoking Status: Former smoker Past Alcohol Use History: None Reported Past Drug Use History: None Reported - Past Family History Father History Unknown: Yes Mother Family Medical History: Cancer Additional Family Medical History / Comment(s): Mother had lung cancer. Medications and Allergies Home Medications Medication Instructions Recorded Confirmed Type Clopidogrel [Plavix] 75 mg PO DAILY 09/16/14 03/31/17 History Pantoprazole Sodium 40 mg PO DAILY 09/16/14 03/31/17 History Repaglinide [Prandin] 1 mg PO BID 09/16/14 03/31/17 History ALPRAZolam [Xanax] 0.5 mg PO BID PRN 04/17/15 03/31/17 History Atorvastatin [Lipitor] 40 mg PO HS #30 tab 04/19/15 03/31/17 Rx Aspirin [Adult Low Dose Aspirin EC] 81 mg PO DAILY 02/03/16 03/31/17 History Multivitamins, Thera [Multivitamin 1 tab PO DAILY 02/03/16 03/31/17 History (formulary)] Benazepril [Lotensin] 5 mg PO DAILY #1 tablet 05/31/16 03/31/17 Rx Metoprolol Tartrate [Lopressor] 25 mg PO BID #0 05/31/16 03/31/17 Rx Nitroglycerin Sl Tabs [Nitrostat] 0.4 mg SUBLINGUAL Q5M PRN 09/04/16 03/31/17 History Allergies Allergy/AdvReac Type Severity Reaction Status Date / Time acetaminophen [From Tylenol] Allergy Anaphylaxis Verified 03/31/17 13:53 blue dye Allergy Anaphylaxis Verified 03/31/17 13:53 clonidine [From Catapres] Allergy Unknown Verified 03/31/17 13:53 iodine Allergy Unknown Verified 03/31/17 13:53 monosodium glutamate [MSG] Allergy Anaphylaxis Verified 03/31/17 13:53 ofloxacin [From Floxin] Allergy Anaphylaxis Verified 03/31/17 13:53 piroxicam [From Feldene] Allergy Unknown Verified 03/31/17 13:53 red dye Allergy Anaphylaxis Verified 03/31/17 13:53 Sulfa (Sulfonamide Allergy Anaphylaxis Verified 03/31/17 13:53 Antibiotics) tramadol [From Ultram] Allergy Anaphylaxis Verified 03/31/17 13:53 bisoprolol [From Ziac] AdvReac Unknown Verified 03/31/17 13:53 glipizide AdvReac Unknown Verified 03/31/17 13:53 hydrochlorothiazide AdvReac Unknown Verified 03/31/17 13:53 [From Ziac] metformin AdvReac Unknown Verified 03/31/17 13:53 sertraline [From Zoloft] AdvReac Hallucinati Verified 03/31/17 13:53 ons triamterene [From Dyazide] AdvReac Unknown Verified 03/31/17 13:53 Physical Exam Vitals: Vital Signs Temp Pulse Resp BP Pulse Ox 03/31/17 13:19 68 18 178/79 97 03/31/17 12:15 97.2 F L 57 L 16 185/84 95 Intake and Output 03/30/17 03/31/17 03/31/17 22:59 06:59 14:59 Other: Weight 65.771 kg Patient Weight 04/01/17 06:59 Weight 65.771 kg Constitutional: No acute distress, conversant, pleasant Eyes: Anicteric sclerae, moist conjunctiva, no lid-lag, PERRLA ENMT: NC/AT,Oropharynx clear, no erythema, exudates, dry mucous membranes Neck:Supple, FROM, no masses, or JVD, No carotid bruits; No thyromegaly Lungs: Clear to auscultation, Clear to percussion, Normal respiratory effort, no accessory muscle use Cardiovascular: Heart regular in rate and rhythm, No murmurs, gallops, or rubs no peripheral edema Abdominal: Soft Nontender, nom distended, no guarding, no rebound or rigidity, Normoactive bowel sounds No hepatomegaly, No splenomegaly, No palpable mass No abdominal wall hernia noted Skin: Normal temperature, tone, texture, turgor, No induration No subcutaneous nodules, No rash, lesions, No ulcers Extremities:No digital cyanosis No clubbing, Pedal pulses intact and symmetrical Radial pulses intact and symmetrical Normal gait and station, No calf tenderness Psychiatric: Alert and oriented to person, place and time, Appropriate affect Intact judgement Neuro: Muscles Strength 5/5 in all 4 extremities, Sensation to light touch grossly present throughout, Cranial nerves II-XII grossly intact. No focal sensory deficits Results CBC & Chem 7: 04/01/17 07:28 04/01/17 07:28 Labs: Abnormal Lab Results - Last 24 Hours (Table) 03/31/17 Range/Units 12:42 Carbon Dioxide 21 L (22-30) mmol/L BUN 26 H (7-17) mg/dL Creatinine 2.45 H (0.52-1.04) mg/dL Glucose 145 H (74-99) mg/dL Calcium 7.8 L (8.4-10.2) mg/dL Assessment and Plan (1) Acute kidney injury superimposed on CKD Current Visit: Yes Status: Acute Code(s): N17.9 - ACUTE KIDNEY FAILURE, UNSPECIFIED; N18.9 - CHRONIC KIDNEY DISEASE, UNSPECIFIED SNOMED Code(s): 51096080 (2) Type 2 diabetes mellitus Current Visit: Yes Status: Acute Code(s): E11.9 - TYPE 2 DIABETES MELLITUS WITHOUT COMPLICATIONS SNOMED Code(s): 59012830 (3) Essential hypertension Current Visit: Yes Status: Acute Code(s): I10 - ESSENTIAL (PRIMARY) HYPERTENSION SNOMED Code(s): 19914230 (4) Traumatic anosmia Current Visit: Yes Status: Acute Code(s): S04.819A - INJURY OF OLFACTORY NERVE, UNSPECIFIED SIDE, INIT ENCNTR SNOMED Code(s): 94304479 Plan: The patient is placed in observation anticipate a greater than 2 midnight stay admitted with acute kidney injury superimposed on chronic kidney disease stage III secondary to poor by mouth intake loss of appetite and dehydration, the patient was scheduled to be referred to Dr. García as she is inpatient here will consult GI for further recommendations. It is possible that she might have some gastroparesis from her underlying type 2 diabetes we'll start Reglan for that and initiate Protonix therapy for possible GERD. This certainly possible that the patient might have underlying anosmia and dysgeusia from her trauma where she sustained supposedly a nasal bone fracture that was documented on her last discharge summary however review of her CAT scan at that time reported that the nasal bones are intact. We will hydrate the patient resume her home meds and continue to follow her clinical course
[2017-03-31] MEDS ORDERED: ONDANSETRON 4 MG/2 ML VIAL IVP PRN (15:39)
[2017-03-31 16:45] VITALS: BMI 26.5
[2017-03-31] MEDS: METOCLOPRAMIDE 5 MG TAB PO SCH ×2 (18:09→20:16)
[2017-03-31] MEDS: METOPROLOL TARTRATE 25 MG TAB PO SCH (20:16)
[2017-03-31] MEDS: ATORVASTATIN 40 MG TAB PO SCH (20:16)
[2017-03-31 20:41] LABS: Glucose,Whole Blood 148 mg/dL (75-99)
[2017-03-31] MEDS: REPAGLINIDE 1 MG TAB PO SCH (22:09)
[2017-04-01 01:37] LABS: Appearance,Urine Clear (Clear); Bilirubin,Urine Negative (Negative); Blood,Urine Negative (Negative); Color,Urine Yellow; Glucose,Urine (UA) Negative (Negative); Hyaline Casts,Urine 6 /lpf (0-2); Ketones,Urine Negative (Negative); Leukocyte Esterase,Urine Negative (Negative); Mucus,Urine Rare /hpf; Nitrite,Urine Negative (Negative); PH, Urine 5.5 (5.0-8.0); Protein,Urine 1+ (Negative); RBC,Urine 1 /hpf (0-5); Specific Gravity,Urine 1.009 (1.001-1.035); Squamous Epithelial Cell,Urine 2 /hpf (0-4); Urobilinogen,Urine <2.0 mg/dL (<2.0); WBC,Urine 8 /hpf (0-5)
[2017-04-01 02:35] LABS: Hemoglobin A1C 6.3 % (4.0-6.0)
[2017-04-01] MEDS: REPAGLINIDE 1 MG TAB PO SCH ×2 (07:41→18:00)
[2017-04-01] MEDS: METOCLOPRAMIDE 5 MG TAB PO SCH ×4 (07:43→22:06)
[2017-04-01] MEDS: ASPIRIN 81 MG PO SCH (07:43)
[2017-04-01] MEDS: METOPROLOL TARTRATE 25 MG TAB PO SCH ×2 (07:43→21:53)
[2017-04-01] MEDS: PANTOPRAZOLE 40 MG TABLET PO SCH (07:43)
[2017-04-01] MEDS ORDERED: SODIUM CHLORIDE 0.9% 500 ML IV ONE (08:07)
[2017-04-01 08:11] LABS: Glucose,Whole Blood 66 mg/dL (75-99)
[2017-04-01 08:11] LABS: Glucose,Whole Blood 84 mg/dL (75-99)
[2017-04-01 08:20] LABS: Anisocytosis Slight; Basophils % (A) 0 %; Eosinophils # (A) 0.1 k/uL (0-0.7); Eosinophils % (A) 1 %; HCT 37.4 % (34.0-46.0); HGB 11.2 gm/dL (11.4-16.0); Hypochromasia Moderate; Lymphocytes # (A) 2.7 k/uL (1.0-4.8); Lymphocytes % (A) 31 %; MCH 28.1 pg (25.0-35.0); MCHC 29.9 g/dL (31.0-37.0); MCV 93.8 fL (80.0-100.0); Mean Platelet Volume 7.7; Monocytes # (A) 0.6 k/uL (0-1.0); Monocytes % (A) 7 %; Neutrophils % (A) 57 %; Platelet Count 200 k/uL (150-450); RBC 3.99 m/uL (3.80-5.40); RDW 16.1 % (11.5-15.5); WBC 8.8 k/uL (3.8-10.6)
[2017-04-01 08:34] LABS: Calcium 7.3 mg/dL (8.4-10.2); Potassium 3.5 mmol/L (3.5-5.1)
[2017-04-01] MEDS ORDERED: LISINOPRIL 5 MG TAB PO SCH (09:00)
[2017-04-01] MEDS ORDERED: REPAGLINIDE 1 MG TAB PO SCH (09:00)
[2017-04-01] MEDS ORDERED: CLOPIDOGREL 75 MG TAB PO SCH (09:00)
[2017-04-01] MEDS: SODIUM CHLORIDE 0.9% 1,000 ML IV SCH ×2 (10:53→21:50)
[2017-04-01 12:14] LABS: Glucose,Whole Blood 83 mg/dL (75-99)
[2017-04-01] MEDS: MULTIVITAMINS, THERA 1 EACH TAB PO SCH ×2 (12:39→13:09)
[2017-04-01] MEDS: LISINOPRIL 5 MG TAB PO SCH (12:39)
--- NOTE | 2017-04-01 13:01 | P.PN ---
Subjective Progress Note Date: 04/01/17 Patient still complaining of loss of appetite, she attempted to eat breakfast and a prep had approximately 1/4 of her meal. No acute events overnight Objective - Vital Signs Vital signs: Vital Signs Temp 97.8 F 04/01/17 07:00 Pulse 65 04/01/17 07:00 Resp 16 04/01/17 07:00 BP 137/64 04/01/17 07:00 Pulse Ox 95 04/01/17 07:00 Intake & Output 03/31/17 04/01/17 04/01/17 18:59 06:59 18:59 Weight 65.771 kg 65.771 kg Other: # Voids 1 - Exam Constitutional: No acute distress, conversant, pleasant Eyes: Anicteric sclerae, moist conjunctiva, no lid-lag, PERRLA ENMT: NC/AT,Oropharynx clear, no erythema, exudates Neck:Supple, FROM, no masses, or JVD, No carotid bruits; No thyromegaly Lungs: Clear to auscultation, Clear to percussion, Normal respiratory effort, no accessory muscle use Cardiovascular: Heart regular in rate and rhythm, No murmurs, gallops, or rubs no peripheral edema Abdominal: Soft Nontender, nom distended, no guarding, no rebound or rigidity, Normoactive bowel sounds No hepatomegaly, No splenomegaly, No palpable mass No abdominal wall hernia noted Skin: Normal temperature, tone, texture, turgor, No induration No subcutaneous nodules, No rash, lesions, No ulcers Extremities:No digital cyanosis No clubbing, Pedal pulses intact and symmetrical Radial pulses intact and symmetrical Normal gait and station, No calf tenderness Psychiatric: Alert and oriented to person, place and time, Appropriate affect Intact judgement Neuro: Muscles Strength 5/5 in all 4 extremities, Sensation to light touch grossly present throughout, Cranial nerves II-XII grossly intact. No focal sensory deficits - Labs CBC & Chem 7: 04/01/17 07:28 04/01/17 07:28 Labs: Abnormal Lab Results - Last 24 Hours (Table) 03/31/17 03/31/17 03/31/17 Range/Units 12:42 12:42 20:35 Hgb (11.4-16.0) gm/dL MCHC (31.0-37.0) g/dL RDW (11.5-15.5) % Chloride (98-107) mmol/L Carbon Dioxide 21 L (22-30) mmol/L BUN 26 H (7-17) mg/dL Creatinine 2.45 H (0.52-1.04) mg/dL Glucose 145 H (74-99) mg/dL POC Glucose (mg/dL) 148 H (75-99) mg/dL Hemoglobin A1c 6.3 H (4.0-6.0) % Calcium 7.8 L (8.4-10.2) mg/dL Urine Protein (Negative) Urine WBC (0-5) /hpf Hyaline Casts (0-2) /lpf Urine Mucus (None) /hpf 04/01/17 04/01/17 04/01/17 Range/Units 01:20 07:08 07:28 Hgb 11.2 L (11.4-16.0) gm/dL MCHC 29.9 L (31.0-37.0) g/dL RDW 16.1 H (11.5-15.5) % Chloride (98-107) mmol/L Carbon Dioxide (22-30) mmol/L BUN (7-17) mg/dL Creatinine (0.52-1.04) mg/dL Glucose (74-99) mg/dL POC Glucose (mg/dL) 66 L (75-99) mg/dL Hemoglobin A1c (4.0-6.0) % Calcium (8.4-10.2) mg/dL Urine Protein 1+ H (Negative) Urine WBC 8 H (0-5) /hpf Hyaline Casts 6 H (0-2) /lpf Urine Mucus Rare H (None) /hpf 04/01/17 Range/Units 07:28 Hgb (11.4-16.0) gm/dL MCHC (31.0-37.0) g/dL RDW (11.5-15.5) % Chloride 112 H (98-107) mmol/L Carbon Dioxide (22-30) mmol/L BUN 25 H (7-17) mg/dL Creatinine 2.09 H (0.52-1.04) mg/dL Glucose (74-99) mg/dL POC Glucose (mg/dL) (75-99) mg/dL Hemoglobin A1c (4.0-6.0) % Calcium 7.3 L (8.4-10.2) mg/dL Urine Protein (Negative) Urine WBC (0-5) /hpf Hyaline Casts (0-2) /lpf Urine Mucus (None) /hpf Microbiology - Last 24 Hours (Table) 04/01/17 01:20 Urine Culture - Preliminary Urine,Voided Assessment and Plan (1) Acute kidney injury superimposed on CKD Narrative/Plan: * Prerenal secondary to decreased by mouth intake * Continue with IV fluids creatinine trending down nicely Current Visit: Yes Status: Acute Code(s): N17.9 - ACUTE KIDNEY FAILURE, UNSPECIFIED; N18.9 - CHRONIC KIDNEY DISEASE, UNSPECIFIED SNOMED Code(s): 21546319 (2) Type 2 diabetes mellitus Narrative/Plan: * A1c is 6.3 and suggesting pretty good control * Can continue home diabetic regimen Current Visit: Yes Status: Acute Code(s): E11.9 - TYPE 2 DIABETES MELLITUS WITHOUT COMPLICATIONS SNOMED Code(s): 26152089 (3) Essential hypertension Narrative/Plan: * Blood pressure stable continue home antihypertensive regimen Current Visit: Yes Status: Acute Code(s): I10 - ESSENTIAL (PRIMARY) HYPERTENSION SNOMED Code(s): 05293152 (4) Traumatic anosmia Narrative/Plan: * History of facial CT indicates that there was no nasal fracture despite this been documented by discharging physician on her admission in May 2016 * Dietary consultation Current Visit: Yes Status: Acute Code(s): S04.819A - INJURY OF OLFACTORY NERVE, UNSPECIFIED SIDE, INIT ENCNTR SNOMED Code(s): 31602616 (5) Nausea Narrative/Plan: * Still with poor intake secondary to nausea and dysgeusia * Possible gastroparesis versus GERD * Continue with Reglan and Protonix respectively we'll also add Pepcid for additive PPI therapy * GI consult requested possible EGD Current Visit: Yes Status: Acute Code(s): R11.0 - NAUSEA SNOMED Code(s): 962691232
[2017-04-01] MEDS ORDERED: FAMOTIDINE 20 MG TAB PO STA (13:02)
[2017-04-01 17:21] LABS: Glucose,Whole Blood 136 mg/dL (75-99)
[2017-04-01 20:57] LABS: Glucose,Whole Blood 105 mg/dL (75-99)
[2017-04-01] MEDS: ATORVASTATIN 40 MG TAB PO SCH ×2 (21:51→21:53)
[2017-04-01] MEDS: FAMOTIDINE 20 MG TAB PO SCH (21:53)
[2017-04-01] MEDS: ALPRAZolam 0.5 MG TAB PO PRN (21:56)
[2017-04-02] MEDS: SODIUM CHLORIDE 0.9% 1,000 ML IV SCH (05:51)
[2017-04-02 07:33] LABS: Glucose,Whole Blood 68 mg/dL (75-99)
[2017-04-02] MEDS ORDERED: DEXTROSE 10 % IN WATER 250 ML IV STA (07:36)
[2017-04-02 07:56] LABS: Glucose,Whole Blood 164 mg/dL (75-99)
[2017-04-02] MEDS: METOCLOPRAMIDE 5 MG TAB PO SCH ×4 (08:01→20:58)
[2017-04-02] MEDS: REPAGLINIDE 1 MG TAB PO SCH ×2 (08:01→17:12)
[2017-04-02 09:43] LABS: Anisocytosis Slight; Basophils % (A) 0 %; Eosinophils # (A) 0.1 k/uL (0-0.7); Eosinophils % (A) 2 %; HCT 33.1 % (34.0-46.0); HGB 9.9 gm/dL (11.4-16.0); Hypochromasia Slight; Lymphocytes # (A) 2.3 k/uL (1.0-4.8); Lymphocytes % (A) 32 %; MCH 28.3 pg (25.0-35.0); MCHC 29.9 g/dL (31.0-37.0); MCV 94.4 fL (80.0-100.0); Mean Platelet Volume 8.1; Monocytes # (A) 0.6 k/uL (0-1.0); Monocytes % (A) 9 %; Neutrophils % (A) 55 %; Platelet Count 164 k/uL (150-450); RBC 3.51 m/uL (3.80-5.40); RDW 16.5 % (11.5-15.5); WBC 7.3 k/uL (3.8-10.6)
[2017-04-02 09:58] LABS: Potassium 3.2 mmol/L (3.5-5.1)
[2017-04-02 10:08] LABS: Calcium 6.5 mg/dL (8.4-10.2)
[2017-04-02] MEDS: ASPIRIN 81 MG PO SCH (10:41)
[2017-04-02] MEDS: METOPROLOL TARTRATE 25 MG TAB PO SCH ×2 (10:41→20:55)
[2017-04-02] MEDS: PANTOPRAZOLE 40 MG TABLET PO SCH (10:41)
[2017-04-02] MEDS: FAMOTIDINE 20 MG TAB PO SCH ×2 (10:41→20:57)
[2017-04-02] MEDS ORDERED: POTASSIUM CHLORIDE 40 MEQ in SODIUM CHLORIDE 0.9% 250 ML IVPB STA (10:45)
[2017-04-02] MEDS ORDERED: CALCIUM CHLORIDE 100 MG/ML 10 ML SYRINGE IVP ONE (10:56)
[2017-04-02] MEDS ORDERED: CALCIUM GLUCONATE 1,000 MG in SODIUM CHLORIDE 0.9% 100 ML IVPB ONE (11:00)
--- NOTE | 2017-04-02 11:04 | P.PN ---
Subjective Progress Note Date: 04/02/17 Patient wanting to eat because she's hungry was apparently nothing by mouth overnight with plans for EGD however unable to be performed today and is rescheduled for tomorrow, No acute events overnight Objective - Vital Signs Vital signs: Vital Signs Temp 96.5 F L 04/02/17 07:00 Pulse 77 04/02/17 07:00 Resp 16 04/02/17 07:00 BP 148/68 04/02/17 07:00 Pulse Ox 95 04/02/17 07:00 Intake & Output 04/01/17 04/02/17 04/02/17 18:59 06:59 18:59 Intake Total 120 800 Balance 120 800 Weight 65.771 kg Intake: Intake, IV Titration 800 Amount Sodium Chloride 0.9% 1, 800 000 ml @ 100 mls/hr IV . Q10H HOLLI Rx#:[id number] Oral 120 Other: # Voids 1 2 - Exam Constitutional: No acute distress, conversant, pleasant Eyes: Anicteric sclerae, moist conjunctiva, no lid-lag, PERRLA ENMT: NC/AT,Oropharynx clear, no erythema, exudates Neck:Supple, FROM, no masses, or JVD, No carotid bruits; No thyromegaly Lungs: Clear to auscultation, Clear to percussion, Normal respiratory effort, no accessory muscle use Cardiovascular: Heart regular in rate and rhythm, No murmurs, gallops, or rubs no peripheral edema Abdominal: Soft Nontender, nom distended, no guarding, no rebound or rigidity, Normoactive bowel sounds No hepatomegaly, No splenomegaly, No palpable mass No abdominal wall hernia noted Skin: Normal temperature, tone, texture, turgor, No induration No subcutaneous nodules, No rash, lesions, No ulcers Extremities:No digital cyanosis No clubbing, Pedal pulses intact and symmetrical Radial pulses intact and symmetrical Normal gait and station, No calf tenderness Psychiatric: Alert and oriented to person, place and time, Appropriate affect Intact judgement Neuro: Muscles Strength 5/5 in all 4 extremities, Sensation to light touch grossly present throughout, Cranial nerves II-XII grossly intact. No focal sensory deficits - Labs CBC & Chem 7: 04/02/17 09:03 04/02/17 09:03 Labs: Abnormal Lab Results - Last 24 Hours (Table) 04/01/17 04/01/17 04/02/17 Range/Units 17:18 20:55 07:26 RBC (3.80-5.40) m/uL Hgb (11.4-16.0) gm/dL Hct (34.0-46.0) % MCHC (31.0-37.0) g/dL RDW (11.5-15.5) % Sodium (137-145) mmol/L Potassium (3.5-5.1) mmol/L Chloride (98-107) mmol/L BUN (7-17) mg/dL Creatinine (0.52-1.04) mg/dL POC Glucose (mg/dL) 136 H 105 H 68 L (75-99) mg/dL Calcium (8.4-10.2) mg/dL 04/02/17 04/02/17 04/02/17 Range/Units 07:54 09:03 09:03 RBC 3.51 L (3.80-5.40) m/uL Hgb 9.9 L (11.4-16.0) gm/dL Hct 33.1 L (34.0-46.0) % MCHC 29.9 L (31.0-37.0) g/dL RDW 16.5 H (11.5-15.5) % Sodium 147 H (137-145) mmol/L Potassium 3.2 L (3.5-5.1) mmol/L Chloride 114 H (98-107) mmol/L BUN 18 H (7-17) mg/dL Creatinine 1.45 H (0.52-1.04) mg/dL POC Glucose (mg/dL) 164 H (75-99) mg/dL Calcium 6.5 L* (8.4-10.2) mg/dL Microbiology - Last 24 Hours (Table) 04/01/17 01:20 Urine Culture - Final Urine,Voided Aerococcus urinae 03/31/17 12:42 Blood Culture - Preliminary Blood No Growth after 24 hours Assessment and Plan (1) Acute kidney injury superimposed on CKD Narrative/Plan: * Prerenal secondary to decreased by mouth intake * Continue with IV fluids creatinine trending down nicely from 2.45-1.45 * Decrease fluids to 75 mL an hour of half normal saline Current Visit: Yes Status: Acute Code(s): N17.9 - ACUTE KIDNEY FAILURE, UNSPECIFIED; N18.9 - CHRONIC KIDNEY DISEASE, UNSPECIFIED SNOMED Code(s): 49792732 (2) Type 2 diabetes mellitus Narrative/Plan: * A1c is 6.3 and suggesting pretty good control * Can continue home diabetic regimen Current Visit: Yes Status: Acute Code(s): E11.9 - TYPE 2 DIABETES MELLITUS WITHOUT COMPLICATIONS SNOMED Code(s): 24259720 (3) Essential hypertension Narrative/Plan: * Blood pressure stable continue home antihypertensive regimen Current Visit: Yes Status: Acute Code(s): I10 - ESSENTIAL (PRIMARY) HYPERTENSION SNOMED Code(s): 58919320 (4) Traumatic anosmia Narrative/Plan: * History of facial CT indicates that there was no nasal fracture despite this been documented by discharging physician on her admission in May 2016 * Dietary consultation Current Visit: Yes Status: Chronic Code(s): S04.819A - INJURY OF OLFACTORY NERVE, UNSPECIFIED SIDE, INIT ENCNTR SNOMED Code(s): 69621845 (5) Nausea Narrative/Plan: * Still with poor intake secondary to nausea and dysgeusia * Possible gastroparesis versus GERD * Continue with Reglan and Protonix respectively we'll also add Pepcid for additive PPI therapy * GI Dr. Chao planning EGD tomorrow Current Visit: Yes Status: Acute Code(s): R11.0 - NAUSEA SNOMED Code(s): 928622991 (6) Hypocalcemia Narrative/Plan: * we'll replace with calcium chloride and check PTH, vitamin D, albumin magnesium and phosphorus Current Visit: Yes Status: Acute Code(s): E83.51 - HYPOCALCEMIA SNOMED Code(s): 9635722 (7) Hypokalemia Narrative/Plan: * potassium 3.2 we'll replace and recheck tomorrow Current Visit: Yes Status: Acute Code(s): E87.6 - HYPOKALEMIA SNOMED Code( s): 36194417
[2017-04-02 11:09] LABS: Albumin 2.9 g/dL (3.5-5.0); Phosphorus 3.1 mg/dL (2.5-4.5)
[2017-04-02] MEDS: SODIUM CHLORIDE 0.45% 1,000 ML IV SCH (11:10)
[2017-04-02 11:21] LABS: Magnesium 0.7 mg/dL (1.6-2.3)
[2017-04-02 12:05] LABS: Glucose,Whole Blood 155 mg/dL (75-99)
[2017-04-02] MEDS: MULTIVITAMINS, THERA 1 EACH TAB PO SCH (12:28)
[2017-04-02] MEDS: MAGNESIUM SULFATE-D5W PMX 1 GM in DEXTROSE/WATER 1 100ML.BAG IVPB SCH ×4 (12:34→17:06)
[2017-04-02] MEDS: CLOPIDOGREL 75 MG TAB PO SCH (12:36)
[2017-04-02] MEDS: LISINOPRIL 5 MG TAB PO SCH (12:36)
[2017-04-02 17:23] LABS: Glucose,Whole Blood 269 mg/dL (75-99)
[2017-04-02 20:23] LABS: Glucose,Whole Blood 187 mg/dL (75-99)
[2017-04-02] MEDS: ALPRAZolam 0.5 MG TAB PO PRN (21:02)
[2017-04-03] MEDS: SODIUM CHLORIDE 0.45% 1,000 ML IV SCH ×2 (02:15→13:42)
[2017-04-03 06:58] LABS: Glucose,Whole Blood 71 mg/dL (75-99)
[2017-04-03] MEDS: PANTOPRAZOLE 40 MG TABLET PO SCH ×2 (07:50→10:37)
[2017-04-03] MEDS: ASPIRIN 81 MG PO SCH ×2 (07:50→10:37)
[2017-04-03] MEDS: METOCLOPRAMIDE 5 MG TAB PO SCH ×3 (07:50→12:44)
[2017-04-03] MEDS: REPAGLINIDE 1 MG TAB PO SCH ×2 (07:50→10:49)
[2017-04-03] MEDS: METOPROLOL TARTRATE 25 MG TAB PO SCH ×3 (07:51→10:38)
[2017-04-03] MEDS: FAMOTIDINE 20 MG TAB PO SCH ×2 (07:51→10:37)
[2017-04-03] MEDS ORDERED: IV FLUID CONTINUATION 1,000 ML IV ONE (09:33)
[2017-04-03] MEDS ORDERED: LIDOCAINE 1% INJ 10MG/ML (20 ML MDV) ONE (09:34)
[2017-04-03] MEDS ORDERED: PROPOFOL 10 MG/ML 20 ML VIAL IV ONE (09:34)
[2017-04-03] MEDS ORDERED: FLUCONAZOLE 100 MG TAB PO SCH (10:00)
--- NOTE | 2017-04-03 10:21 | P.PCN ---
Date of Procedure: 04/03/17 Procedure(s) Performed: Procedure: Esophagogastroduodenoscopy and biopsy. Preoperative diagnosis: Nausea and weight loss. Postoperative diagnosis: 1. Deja esophagitis. 2. Antral gastritis. 3. Biopsies obtained from duodenum, antrum and esophagus. Procedure: With the patient on her left lateral decubitus position and after informed consent and adequate sedation, I passed the Olympus-GIF 160 video upper endoscope through the cricopharyngeus down the esophagus. GE junction was around 40 cm from the incisors and there was a very small sliding hiatal hernia measuring less than 1 cm with no obvious reflux esophagitis or complicated reflux disease. There was erythema and sticky small white exudates consistent with deja esophagitis. The endoscope was then passed into the stomach which was insufflated with air and inspected in detail including the retroflex view in the cardia. There was some motling and erythema in the antrum consistent with gastitis, but no ulcers or phytobezoars. Finally, the endoscope was passed through the pylorus into the duodenum. No ulcers or outlet obstruction or other pathology noted. The patient tolerated the procedure well. Plan: Will start diflucan. Await biopsy results.
[2017-04-03 11:45] LABS: Albumin 3.5 g/dL (3.5-5.0); Magnesium 1.6 mg/dL (1.6-2.3); Phosphorus 3.1 mg/dL (2.5-4.5); Potassium 3.8 mmol/L (3.5-5.1); Total Bilirubin 0.6 mg/dL (0.2-1.3); Total Protein 6.2 g/dL (6.3-8.2)
[2017-04-03 12:10] LABS: Glucose,Whole Blood 132 mg/dL (75-99)
--- NOTE | 2017-04-03 12:36 | P.PN ---
Subjective Progress Note Date: 04/03/17 Patient recently returned from a EGD, discussed results consistent with deja esophagitis and antral gastritis, discussed plan that we will try to advance her diet and see how she tolerates it. Corrected significant electrolyte abnormalities yesterday we'll recheck her labs this morning No acute events overnight Objective - Vital Signs Vital signs: Vital Signs Temp 97.5 F L 04/03/17 07:00 Pulse 76 04/03/17 07:00 Resp 18 04/03/17 07:00 BP 148/71 04/03/17 07:00 Pulse Ox 94 L 04/03/17 07:00 Intake & Output 04/02/17 04/03/17 04/03/17 18:59 06:59 18:59 Intake Total 1025 100 Balance 1025 100 Weight 65.771 kg Intake: IV 100 Intake, IV Titration 1025 Amount Calcium Gluconate 1,000 100 mg In Sodium Chloride 0.9 % 100 ml @ 100 mls/hr IVPB ONCE ONE Rx#: [id number] Potassium Chloride 40 meq 250 In Sodium Chloride 0.9% 250 ml @ 67.5 mls/hr IVPB ONCE STA Rx#:[id number] Sodium Chloride 0.45% 1, 675 000 ml @ 75 mls/hr IV . [id number] [facility]I Rx#:[id number] Other: # Voids 3 - Exam Constitutional: No acute distress, conversant, pleasant Eyes: Anicteric sclerae, moist conjunctiva, no lid-lag, PERRLA ENMT: NC/AT,Oropharynx clear, no erythema, exudates Neck:Supple, FROM, no masses, or JVD, No carotid bruits; No thyromegaly Lungs: Clear to auscultation, Clear to percussion, Normal respiratory effort, no accessory muscle use Cardiovascular: Heart regular in rate and rhythm, No murmurs, gallops, or rubs no peripheral edema Abdominal: Soft Nontender, nom distended, no guarding, no rebound or rigidity, Normoactive bowel sounds No hepatomegaly, No splenomegaly, No palpable mass No abdominal wall hernia noted Skin: Normal temperature, tone, texture, turgor, No induration No subcutaneous nodules, No rash, lesions, No ulcers Extremities:No digital cyanosis No clubbing, Pedal pulses intact and symmetrical Radial pulses intact and symmetrical Normal gait and station, No calf tenderness Psychiatric: Alert and oriented to person, place and time, Appropriate affect Intact judgement Neuro: Muscles Strength 5/5 in all 4 extremities, Sensation to light touch grossly present throughout, Cranial nerves II-XII grossly intact. No focal sensory deficits - Labs CBC & Chem 7: 04/02/17 09:03 04/03/17 11:24 Labs: Abnormal Lab Results - Last 24 Hours (Table) 04/02/17 04/02/17 04/02/17 Range/Units 10:52 17:11 20:22 Sodium (137-145) mmol/L Chloride (98-107) mmol/L Creatinine (0.52-1.04) mg/dL Glucose (74-99) mg/dL POC Glucose (mg/dL) 269 H 187 H (75-99) mg/dL Calcium (8.4-10.2) mg/dL Total Protein (6.3-8.2) g/dL PTH Intact 158.0 H (14.0-72.0) pg/mL 04/03/17 04/03/17 04/03/17 Range/Units 06:55 11:24 12:05 Sodium 146 H (137-145) mmol/L Chloride 114 H (98-107) mmol/L Creatinine 1.27 H (0.52-1.04) mg/dL Glucose 107 H (74-99) mg/dL POC Glucose (mg/dL) 71 L 132 H (75-99) mg/dL Calcium 8.0 L (8.4-10.2) mg/dL Total Protein 6.2 L (6.3-8.2) g/dL PTH Intact (14.0-72.0) pg/mL Microbiology - Last 24 Hours (Table) 03/31/17 12:42 Blood Culture - Preliminary Blood No Growth after 48 hours 04/01/17 01:20 Urine Culture - Final Urine,Voided Aerococcus urinae Assessment and Plan (1) Antral gastritis Narrative/Plan: * Status post EGD performed by Dr. Chao * Continue with Reglan and Protonix and Pepcid for additive PPI therapy Current Visit: Yes Status: Acute Code(s): K29.50 - UNSPECIFIED CHRONIC GASTRITIS WITHOUT BLEEDING SNOMED Code(s): 2430649 (2) Deja esophagitis Narrative/Plan: * Started on Diflucan 100 mg by mouth daily Current Visit: Yes Status: Acute Code(s): B37.81 - CANDIDAL ESOPHAGITIS SNOMED Code(s): 47191921 (3) Acute kidney injury superimposed on CKD Narrative/Plan: * Prerenal secondary to decreased by mouth intake * Continue with IV fluids creatinine trending down nicely from 2.45-1.27 * Decrease fluids to 75 mL an hour of half normal saline Current Visit: Yes Status: Acute Code(s): N17.9 - ACUTE KIDNEY FAILURE, UNSPECIFIED; N18.9 - CHRONIC KIDNEY DISEASE, UNSPECIFIED SNOMED Code(s): 35727207 (4) Type 2 diabetes mellitus Narrative/Plan: * A1c is 6.3 and suggesting pretty good control * Can continue home diabetic regimen Current Visit: Yes Status: Acute Code(s): E11.9 - TYPE 2 DIABETES MELLITUS WITHOUT COMPLICATIONS SNOMED Code(s): 18133490 (5) Essential hypertension Narrative/Plan: * Blood pressure stable continue home antihypertensive regimen Current Visit: Yes Status: Acute Code(s): I10 - ESSENTIAL (PRIMARY) HYPERTENSION SNOMED Code(s): 02332160 (6) Traumatic anosmia Narrative/Plan: * History of facial CT indicates that there was no nasal fracture despite this been documented by discharging physician on her admission in May 2016 * Dietary consultation Current Visit: Yes Status: Chronic Code(s): S04.819A - INJURY OF OLFACTORY NERVE, UNSPECIFIED SIDE, INIT ENCNTR SNOMED Code(s): 50738148 (7) Hypocalcemia Narrative/Plan: * we'll replace with calcium chloride and check PTH, vitamin D, albumin magnesium and phosphorus Current Visit: Yes Status: Acute Code(s): E83.51 - HYPOCALCEMIA SNOMED Code(s): 0233515 (8) Hypokalemia Narrative/Plan: * Hypokalemia has resolved Current Visit: Yes Status: Resolved Code(s): E87.6 - HYPOKALEMIA SNOMED Code(s): 02595543 Plan: The patient appetite picks up she may be able to be discharged today
[2017-04-03] MEDS: MULTIVITAMINS, THERA 1 EACH TAB PO SCH (13:27)
[2017-04-03] MEDS: CLOPIDOGREL 75 MG TAB PO SCH (13:35)
[2017-04-03] MEDS: LISINOPRIL 5 MG TAB PO SCH (13:35)
[2017-04-03 15:13] VITALS: BP 142/79; PULSE 80; RESP 18; TEMP 96.2
--- NOTE | 2017-04-04 19:36 | P.DS ---
Providers Date of admission: 03/31/17 14:20 Attending physician: Baldemar Vazquez MD Consults: 03/31/17 15:42 Consult Physician Routine Consulting Provider: Tonie García Consult Reason/Comments: nausea, poor appetite Do you want consulting provider notified?: Yes Primary care physician: Andrés Varner - Discharge Diagnosis(es) (1) Antral gastritis Status: Acute (2) Deja esophagitis Status: Acute (3) UTI (urinary tract infection) Status: Acute (4) Acute kidney injury superimposed on CKD Status: Acute (5) Type 2 diabetes mellitus Status: Acute (6) Essential hypertension Status: Acute (7) Traumatic anosmia Status: Chronic (8) Hypocalcemia Status: Acute (9) Hypokalemia Status: Resolved (10) Vitamin D deficiency Status: Acute Hospital Course: The patient is a 76-year-old female that presented with decreased appetite and intractable nausea and was admitted for acute kidney injury superimposed on chronic kidney disease after presenting with a creatinine of 2.45, the kidney injury was thought to be prerenal secondary to decreased oral intake and dehydration secondary to esophageal candidiasis and antral gastritis that were seen on EGD performed by GI Dr. Hernadez. The patient was started on IV fluids treat supportively with antiemetics and several electrolyte abnormality such as hypokalemia hypomagnesemia and hypocalcemia were addressed. Her creatinine returned to baseline and her blood sugars remained stable her hemoglobin A1c was 6.2 indicating adequate control. She was also treated with PPI therapy with Protonix and Pepcid. Vitamin D levels were checked and this is apparently the patient has a vitamin D deficiency which is apparently chronic. Urine cultures were checked and are positive for Aerococcus urinae. The patient 's appetite gradually improved. The patient was started on Diflucan and amoxicillin on day of discharge. New prescription is a discharge and include Diflucan amoxicillin Zofran Pepcid and vitamin D. This discharge process took approximately 35 minutes Patient Condition at Discharge: Stable Plan - Discharge Summary Discharge Rx Participant: No New Discharge Prescriptions: New Famotidine [Pepcid] 20 mg PO DAILY #30 tab Fluconazole [Diflucan] 100 mg PO DAILY 21 Days #21 tab Ondansetron HCl [Zofran Oral Soln] 4 mg PO Q6H PRN 20 Days #20 solution PRN Reason: Nausea And Vomiting Amoxicillin 500 mg PO AC-BID #28 capsule Ergocalciferol (Vitamin D2) [Vitamin D2] 50,000 unit PO WEEKLY #8 capsule Ondansetron HCl [Zofran] 4 mg PO TID PRN #15 tablet PRN Reason: Nausea Continue Clopidogrel [Plavix] 75 mg PO DAILY Repaglinide [Prandin] 1 mg PO BID Pantoprazole Sodium 40 mg PO DAILY ALPRAZolam [Xanax] 0.5 mg PO BID PRN PRN Reason: Anxiety/Insomnia Atorvastatin [Lipitor] 40 mg PO HS #30 tab Aspirin [Adult Low Dose Aspirin EC] 81 mg PO DAILY Multivitamins, Thera [Multivitamin (formulary)] 1 tab PO DAILY Metoprolol Tartrate [Lopressor] 25 mg PO BID #0 Benazepril [Lotensin] 5 mg PO DAILY #1 tablet Nitroglycerin Sl Tabs [Nitrostat] 0.4 mg SUBLINGUAL Q5M PRN PRN Reason: Pain Discharge Medication List Clopidogrel [Plavix] 75 mg PO DAILY 09/16/14 [History] Pantoprazole Sodium 40 mg PO DAILY 09/16/14 [History] Repaglinide [Prandin] 1 mg PO BID 09/16/14 [History] ALPRAZolam [Xanax] 0.5 mg PO BID PRN 04/17/15 [History] Atorvastatin [Lipitor] 40 mg PO HS #30 tab 04/19/15 [Rx] Aspirin [Adult Low Dose Aspirin EC] 81 mg PO DAILY 02/03/16 [History] Multivitamins, Thera [Multivitamin (formulary)] 1 tab PO DAILY 02/03/16 [History ] Benazepril [Lotensin] 5 mg PO DAILY #1 tablet 05/31/16 [Rx] Metoprolol Tartrate [Lopressor] 25 mg PO BID #0 05/31/16 [Rx] Nitroglycerin Sl Tabs [Nitrostat] 0.4 mg SUBLINGUAL Q5M PRN 09/04/16 [History] Famotidine [Pepcid] 20 mg PO DAILY #30 tab 04/03/17 [Rx] Fluconazole [Diflucan] 100 mg PO DAILY 21 Days #21 tab 04/03/17 [Rx] Ondansetron HCl [Zofran Oral Soln] 4 mg PO Q6H PRN 20 Days #20 solution [Rx] Amoxicillin 500 mg PO AC-BID #28 capsule 04/04/17 [Rx] Ergocalciferol (Vitamin D2) [Vitamin D2] 50,000 unit PO WEEKLY #8 capsule [Rx] Ondansetron HCl [Zofran] 4 mg PO TID PRN #15 tablet 04/04/17 [Rx] Follow up Appointment(s)/Referral(s): Andrés Varner MD [Primary Care Provider] - 1-2 days Discharge Disposition: HOME SELF-CARE
--- NOTE | 2017-04-12 12:17 | P.CONS ---
History of Present Illness - Reason for Consult Consult date: 04/01/17 Nausea weight loss - History of Present Illness The patient is a 76-year-old female with a past medical history of coronary artery disease with stenting, peripheral vascular disease with stenting, essential hypertension and dyslipidemia type 2 diabetes, chronic systolic congestive heart failure with last known ejection fraction of 40-45%, presented to the ER with chief complaint of increasing fatigue and weakness, and diffuse myalgias of her back and all extremities with some nausea and decreased appetite. She denies any subjective fevers chills or night sweats, she denies any dysuria chest pain or shortness of breath. She denied abdominal pain and reported diarrhea the week prior that has since resolved. There is also history of weight loss. The patient was noted in the emergency room to have acute kidney injury on top of chronic kidney disease and has been hydrated. We are asked to see regarding nausea and weight loss. She denied dysphagia, odynophagia or any hematemesis or melena. Review of Systems 12 point review of systems is, otherwise, not revealing. Past Medical History Past Medical History: Coronary Artery Disease (CAD), Chest Pain / Angina, Heart Failure, COPD, Diabetes Mellitus, GERD/Reflux, GI Bleed, Hyperlipidemia, Hypertension, Myocardial Infarction ([place]), Osteoarthritis (OA) Additional Past Medical History / Comment(s): 09/16/14 admitted with chf. Other HX: NIDDM, chronic L knee pain, generalized arthiritis, anemia, back pain.sinus infections. MRI brain-tumor Last Myocardial Infarction Date:: 04/2010 History of Any Multi-Drug Resistant Organisms: None Reported Past Surgical History: Appendectomy, Heart Catheterization With Stent, Hysterectomy Additional Past Surgical History / Comment(s): Ccaths with a total of 5 stents placed. Stent in leg. Subclavian bypass. PTCA's, EGD with cauterized arterovenous malformation, colonoscopy, L hand's index finger amputation, R hand 's thumb tendon repair, R elbow replacement, subclavian steel surgery-"new veins in my neck." sinus sx, Past Anesthesia/Blood Transfusion Reactions: No Reported Reaction Additional Past Anesthesia/Blood Transfusion Reaction / Comm: Pt has recieved blood in the past without reaction. Date of Last Stent Placement:: 2010 Past Psychological History: Anxiety, Depression Smoking Status: Former smoker Past Alcohol Use History: None Reported Past Drug Use History: None Reported - Past Family History Father History Unknown: Yes Mother Family Medical History: Cancer Additional Family Medical History / Comment(s): Mother had lung cancer. Medications and Allergies Home Medications Medication Instructions Recorded Confirmed Type Clopidogrel [Plavix] 75 mg PO DAILY 09/16/14 04/10/17 History Pantoprazole Sodium 40 mg PO DAILY 09/16/14 04/10/17 History Repaglinide [Prandin] 1 mg PO BID 09/16/14 04/10/17 History ALPRAZolam [Xanax] 0.5 mg PO BID PRN 04/17/15 04/10/17 History Atorvastatin [Lipitor] 40 mg PO HS #30 tab 04/19/15 04/10/17 Rx Aspirin [Adult Low Dose Aspirin EC] 81 mg PO DAILY 02/03/16 04/10/17 History Multivitamins, Thera [Multivitamin 1 tab PO DAILY 02/03/16 04/10/17 History (formulary)] Benazepril [Lotensin] 5 mg PO DAILY #1 tablet 05/31/16 04/10/17 Rx Metoprolol Tartrate [Lopressor] 25 mg PO BID #0 05/31/16 04/10/17 Rx Nitroglycerin Sl Tabs [Nitrostat] 0.4 mg SUBLINGUAL Q5M PRN 09/04/16 04/10/17 History Famotidine [Pepcid] 20 mg PO DAILY #30 tab 04/03/17 04/10/17 Rx Fluconazole [Diflucan] 100 mg PO DAILY 21 Days #21 tab 04/03/17 04/10/17 Rx Ondansetron HCl [Zofran Oral Soln] 4 mg PO Q6H PRN 20 Days #20 04/03/17 Rx solution Ergocalciferol (Vitamin D2) 50,000 unit PO WEEKLY #8 capsule 04/04/17 04/10/17 Rx [Vitamin D2] HYDROcodone/APAP 5-325MG [[place] 1 tab PO Q6HR PRN #12 tab 04/09/17 04/10/17 Rx 5-325] HYDROmorphone [Dilaudid] 1 mg PO Q6HR PRN #12 tab 04/09/17 04/10/17 Rx Allergies Allergy/AdvReac Type Severity Reaction Status Date / Time acetaminophen [From Tylenol] Allergy Anaphylaxis Verified 04/10/17 17:01 blue dye Allergy Anaphylaxis Verified 04/10/17 17:01 clonidine [From Catapres] Allergy Unknown Verified 04/10/17 17:01 iodine Allergy Unknown Verified 04/10/17 17:01 monosodium glutamate [MSG] Allergy Anaphylaxis Verified 04/10/17 17:01 ofloxacin [From Floxin] Allergy Anaphylaxis Verified 04/10/17 17:01 piroxicam [From Feldene] Allergy Unknown Verified 04/10/17 17:01 red dye Allergy Anaphylaxis Verified 04/10/17 17:01 Sulfa (Sulfonamide Allergy Anaphylaxis Verified 04/10/17 17:01 Antibiotics) tramadol [From Ultram] Allergy Anaphylaxis Verified 04/10/17 17:01 bisoprolol [From Ziac] AdvReac Unknown Verified 04/10/17 17:01 glipizide AdvReac Unknown Verified 04/10/17 17:01 hydrochlorothiazide AdvReac Unknown Verified 04/10/17 17:01 [From Ziac] metformin AdvReac Unknown Verified 04/10/17 17:01 sertraline [From Zoloft] AdvReac Hallucinati Verified 04/10/17 17:01 ons triamterene [From Dyazide] AdvReac Unknown Verified 04/10/17 17:01 Physical Exam Vitals: Vital Signs Temp Pulse Resp BP BP Pulse Ox 04/01/17 15:00 97.7 F 62 16 163/77 96 04/01/17 07:00 97.8 F 65 16 137/64 95 03/31/17 23:00 98.0 F 52 L 16 147/63 96 03/31/17 21:29 75 16 Intake and Output 04/01/17 04/01/17 04/01/17 06:59 14:59 22:59 Intake Total 120 Balance 120 Intake: Oral 120 Other: # Voids 1 1 Weight 65.771 kg Patient Weight 04/02/17 06:59 Weight 65.771 kg General: Appeared stated age, very pleasant, in no acute distress Head and neck: Normocephalic and atraumatic. Conjunctivae pink and sclerae not icteric. Mucous membranes moist and pink. No masses in the neck or tracheal shifts Lungs: Clear to auscultation with no dullness to percussion Heart: Regular, no abnormal sounds, murmurs, gallops or friction rubs Abdomen: Soft, no masses, organomegalies or tenderness, bowel sounds present Extremities: No clubbing, cyanosis or edema Neurologic: Alert and oriented 3. Cranial nerves grossly intact. No gross sensory or motor abnormalities Results CBC & Chem 7: 04/02/17 09:03 04/03/17 11:24 Labs: Abnormal Lab Results - Last 24 Hours (Table) 03/31/17 03/31/17 04/01/17 Range/Units 12:42 20:35 01:20 Hgb (11.4-16.0) gm/dL MCHC (31.0-37.0) g/dL RDW (11.5-15.5) % Chloride (98-107) mmol/L BUN (7-17) mg/dL Creatinine (0.52-1.04) mg/dL POC Glucose (mg/dL) 148 H (75-99) mg/dL Hemoglobin A1c 6.3 H (4.0-6.0) % Calcium (8.4-10.2) mg/dL Urine Protein 1+ H (Negative) Urine WBC 8 H (0-5) /hpf Hyaline Casts 6 H (0-2) /lpf Urine Mucus Rare H (None) /hpf 04/01/17 04/01/17 04/01/17 Range/Units 07:08 07:28 07:28 Hgb 11.2 L (11.4-16.0) gm/dL MCHC 29.9 L (31.0-37.0) g/dL RDW 16.1 H (11.5-15.5) % Chloride 112 H (98-107) mmol/L BUN 25 H (7-17) mg/dL Creatinine 2.09 H (0.52-1.04) mg/dL POC Glucose (mg/dL) 66 L (75-99) mg/dL Hemoglobin A1c (4.0-6.0) % Calcium 7.3 L (8.4-10.2) mg/dL Urine Protein (Negative) Urine WBC (0-5) /hpf Hyaline Casts (0-2) /lpf Urine Mucus (None) /hpf 04/01/17 Range/Units 17:18 Hgb (11.4-16.0) gm/dL MCHC (31.0-37.0) g/dL RDW (11.5-15.5) % Chloride (98-107) mmol/L BUN (7-17) mg/dL Creatinine (0.52-1.04) mg/dL POC Glucose (mg/dL) 136 H (75-99) mg/dL Hemoglobin A1c (4.0-6.0) % Calcium (8.4-10.2) mg/dL Urine Protein (Negative) Urine WBC (0-5) /hpf Hyaline Casts (0-2) /lpf Urine Mucus (None) /hpf Microbiology - Last 24 Hours (Table) 03/31/17 12:42 Blood Culture - Preliminary Blood No Growth after 24 hours 04/01/17 01:20 Urine Culture - Preliminary Urine,Voided Assessment and Plan Assessment: Nausea and weight loss could be on the basis of peptic ulcer disease, reflux disease or gastroparesis. Other pathology including pancreatic pathology should be kept in mind. Plan: I agree with your current management. Would consider upper endoscopy during this hospitalization. I will discuss with you and follow with you with interest.
== END 2017-04-03 17:50 | disposition home or self-care (01) | DRG 392 ==
LOC: EC 12:10 → 4MS4W 14:20
PROVIDERS: ADMIT Family Medicine; ATTEND Family Medicine
PROC: 0DB68ZX Excision of Stomach, Via Natural or Artificial Opening Endoscopic, Diagnostic (ICD-10-PCS; 2017-04-03)
PROC: 0DB58ZX Excision of Esophagus, Via Natural or Artificial Opening Endoscopic, Diagnostic (ICD-10-PCS; 2017-04-03)
PROC: 0DB98ZX Excision of Duodenum, Via Natural or Artificial Opening Endoscopic, Diagnostic (ICD-10-PCS; principal; 2017-04-03 09:30)
DX: K29.60 Other gastritis without bleeding (principal); N17.9 Acute kidney failure, unspecified; B37.81 Candidal esophagitis; E11.22 Type 2 diabetes mellitus with diabetic chronic kidney disease; E83.42 Hypomagnesemia; E11.51 Type 2 diabetes mellitus with diabetic peripheral angiopathy without gangrene; I13.0 Hypertensive heart and chronic kidney disease with heart failure and stage 1 through stage 4 chronic kidney disease, or unspecified chronic kidney disease; I50.22 Chronic systolic (congestive) heart failure; N39.0 Urinary tract infection, site not specified; E83.51 Hypocalcemia; E86.0 Dehydration; E55.9 Vitamin D deficiency, unspecified; E78.5 Hyperlipidemia, unspecified; E87.6 Hypokalemia; F32.9 Major depressive disorder, single episode, unspecified; F41.9 Anxiety disorder, unspecified; I25.10 Atherosclerotic heart disease of native coronary artery without angina pectoris; I25.2 Old myocardial infarction; J44.9 Chronic obstructive pulmonary disease, unspecified; K21.0 Gastro-esophageal reflux disease with esophagitis; K44.9 Diaphragmatic hernia without obstruction or gangrene; N18.3 Chronic kidney disease, stage 3 (moderate); G89.29 Other chronic pain; M19.90 Unspecified osteoarthritis, unspecified site; M25.562 Pain in left knee; R43.0 Anosmia; R43.2 Parageusia; R63.4 Abnormal weight loss; Z79.02 Long term (current) use of antithrombotics/antiplatelets; Z79.82 Long term (current) use of aspirin; Z79.899 Other long term (current) drug therapy; Z95.5 Presence of coronary angioplasty implant and graft; Z90.710 Acquired absence of both cervix and uterus; Z87.891 Personal history of nicotine dependence; Z88.6 Allergy status to analgesic agent; Z88.1 Allergy status to other antibiotic agents; Z91.041 Radiographic dye allergy status; Z88.5 Allergy status to narcotic agent; Z88.2 Allergy status to sulfonamides; Z88.8 Allergy status to other drugs, medicaments and biological substances; Z91.048 Other nonmedicinal substance allergy status
CPT/HCPCS: 36415; 43239; 71046; 80048; 80053; 81001; 82040; 82306; 83036; 83605; 83735; 83970; 84100; 85025; 87040; 87086; 87502; 88305; 88312; 88342; 96360; 96361; 99285

== ENCOUNTER 2017-04-09 19:19 | Emergency (ER) | payer MEDICARE ==
[2017-04-09] MEDS ORDERED: HYDROmorphone 0.5 MG/0.5 ML SYRINGE IVP STA ×2 (19:24→20:54)
[2017-04-09 19:53] VITALS: RESP 18
[2017-04-09 19:58] LABS: Anisocytosis Slight; Basophils % (A) 0 %; Eosinophils # (A) 0.1 k/uL (0-0.7); Eosinophils % (A) 2 %; HCT 32.8 % (34.0-46.0); HGB 10.3 gm/dL (11.4-16.0); Hypochromasia Slight; Lymphocytes # (A) 1.9 k/uL (1.0-4.8); Lymphocytes % (A) 22 %; MCH 29.3 pg (25.0-35.0); MCHC 31.3 g/dL (31.0-37.0); MCV 93.8 fL (80.0-100.0); Mean Platelet Volume 7.9; Monocytes # (A) 0.7 k/uL (0-1.0); Monocytes % (A) 9 %; Neutrophils # (A) 5.6 k/uL (1.3-7.7); Neutrophils % (A) 65 %; Platelet Count 183 k/uL (150-450); RDW 17.6 % (11.5-15.5); WBC 8.7 k/uL (3.8-10.6)
--- NOTE | 2017-04-09 20:03 | XR ---
EXAMINATION TYPE: XR shoulder limited LT DATE OF EXAM: 04/09/2017 CLINICAL HISTORY: Left shoulder pain TECHNIQUE: Single view left shoulder was obtained. COMPARISON: None. FINDINGS: There is an acute complete fracture was felt to be the anatomical neck of the left humerus. There is 5 cm of impaction. There is also another fracture fragment identified which could be the gr eater tuberosity. IMPRESSION: Acute complete impacted fracture of the proximal humerus. Fracture of the greater tuberosity is also suspected.
[2017-04-09 20:05] LABS: Glucose,Whole Blood 124 mg/dL (75-99)
--- NOTE | 2017-04-09 20:05 | XR ---
EXAMINATION TYPE: XR pelvis AP view DATE OF EXAM: 04/09/2017 CLINICAL HISTORY: Fall after falling down the stairs. TECHNIQUE: A single AP view of the pelvis is obtained. COMPARISON: None. FINDINGS: Severe degenerative changes are noted of the left hip joint with marginal sclerosis and com plete loss of joint space. Mild degenerative changes are noted in the right hip joint. Postoperative changes are identified in the pelvis. No acute fracture subluxation is seen. IMPRESSION: Severe degenerative changes are identified at the left hip joint. No acute fracture or subluxation is seen.
[2017-04-09 20:08] LABS: Albumin 3.3 g/dL (3.5-5.0); Alcohol <10 mg/dL; Amylase <30 U/L (30-110); Anion Gap 10 mmol/L; Calcium 8.2 mg/dL (8.4-10.2); Carbon Dioxide 21 mmol/L (22-30); Chloride 110 mmol/L (98-107); Glucose 123 mg/dL (74-99); Lipase 80 U/L (23-300); Sodium 141 mmol/L (137-145); Total Bilirubin 0.5 mg/dL (0.2-1.3); Total Protein 6.2 g/dL (6.3-8.2)
--- NOTE | 2017-04-09 20:10 | CT ---
EXAMINATION TYPE: CT brain cspine wo con DATE OF EXAM: 04/09/2017 COMPARISON: May 29, 2016 HISTORY: Fall with posterior head injury. CT DLP: 1256.20 mGycm Automated exposure control for dose reduction was used. TECHNIQUE: CT scan of the head and cervical spine are performed without contrast. FINDINGS: There is no acute intracranial hemorrhage, mass effect, or midline shift identified. Abdon ical atrophy as well as chronic white matter ischemic changes are noted. The ventricles and sulci ar e within normal limits in size. The globes are intact and the visualized sinuses are clear. Abnormal foreign body material is noted in both external auditory canals. Cervical spine is visualized in its entirety from C1 through upper thoracic levels and demonstrates s atisfactory alignment without evidence of acute fracture or dislocation. Moderate degenerative change s are noted in the cervical spine with endplate spurring noted at multiple levels which cause variabl e amounts of effacement of the ventral thecal sac as well as foraminal narrowing. Prevertebral soft t issue appears within normal limits. The C1-C2 articulation is unremarkable. IMPRESSION: 1. There is no acute fracture or dislocation evident in the cervical spine. 2. No acute intracranial hemorrhage, mass effect, or midline shift is seen. Foreign bodies are identi fied in the external auditory canals. Clinical correlation is required.
[2017-04-09 20:18] LABS: ALT 28 U/L (9-52); AST 21 U/L (14-36); Alkaline Phosphatase 73 U/L (38-126); Blood Urea Nitrogen 20 mg/dL (7-17); Potassium 4.4 mmol/L (3.5-5.1)
[2017-04-09 20:40] LABS: Creatine Kinase MB 1.4 ng/mL (0.0-2.4); Troponin I 0.022 ng/mL (0.000-0.034)
[2017-04-09 20:45] LABS: INR 1.1 (<1.2); Prothrombin Time 10.9 sec (9.0-12.0)
[2017-04-09 20:56] LABS: Partial Thromboplastin Time 21.4 sec (22.0-30.0)
--- NOTE | 2017-04-09 21:27 | XR ---
EXAMINATION TYPE: XR chest 1V portable DATE OF EXAM: 04/09/2017 COMPARISON: March 31, 2017 HISTORY: Left shoulder pain. TECHNIQUE: Single frontal view of the chest is obtained. FINDINGS: There is an acute complete fracture at what is felt to be the anatomical neck of the left humerus. There is 5 cm of impaction. The lungs appear clear. No pneumothorax or pleural effusion is identified. The cardiac silhouette is within normal limits. Surgical suma are identified in the upper chest unchanged. IMPRESSION: Acute complete impacted fracture of the left humerus is noted.
--- NOTE | 2017-04-09 22:16 | ED ---
General Adult HPI - General Chief complaint: Fall Stated complaint: Fall Time Seen by Provider: 04/09/17 19:24 Source: patient, family, EMS, RN notes reviewed, old records reviewed Mode of arrival: EMS Limitations: no limitations - History of Present Illness Initial comments: 76-year-old female presenting status post fall. Patient states she was stepping up, fell striking the right side of her head and left arm. She complains of severe pain in her left shoulder. Patient states she did not lose consciousness. She is on aspirin and Plavix for history of coronary artery disease. Patient has additional past medical history of chronic kidney disease. Denies any preceding chest pain or shortness of breath. Denies any abdominal pain. Denies nausea vomiting or diarrhea. Denies any lower extremity pain or swelling. - Related Data Home Medications Medication Instructions Recorded Confirmed Clopidogrel [Plavix] 75 mg PO DAILY 09/16/14 04/09/17 Pantoprazole Sodium 40 mg PO DAILY 09/16/14 04/09/17 Repaglinide [Prandin] 1 mg PO BID 09/16/14 04/09/17 ALPRAZolam [Xanax] 0.5 mg PO BID PRN 04/17/15 04/09/17 Aspirin [Adult Low Dose Aspirin EC] 81 mg PO DAILY 02/03/16 04/09/17 Multivitamins, Thera [Multivitamin 1 tab PO DAILY 02/03/16 04/09/17 (formulary)] Nitroglycerin Sl Tabs [Nitrostat] 0.4 mg SUBLINGUAL Q5M PRN 09/04/16 04/09/17 Previous Rx's Medication Instructions Recorded Atorvastatin [Lipitor] 40 mg PO HS #30 tab 04/19/15 Benazepril [Lotensin] 5 mg PO DAILY #1 tablet 05/31/16 Metoprolol Tartrate [Lopressor] 25 mg PO BID #0 05/31/16 Famotidine [Pepcid] 20 mg PO DAILY #30 tab 04/03/17 Fluconazole [Diflucan] 100 mg PO DAILY 21 Days #21 tab 04/03/17 Ondansetron HCl [Zofran Oral Soln] 4 mg PO Q6H PRN 20 Days #20 04/03/17 solution Ergocalciferol (Vitamin D2) 50,000 unit PO WEEKLY #8 capsule 04/04/17 [Vitamin D2] HYDROcodone/APAP 5-325MG [[place] 1 tab PO Q6HR PRN #12 tab 04/09/17 5-325] HYDROmorphone [Dilaudid] 1 mg PO Q6HR PRN #12 tab 04/09/17 Allergies Allergy/AdvReac Type Severity Reaction Status Date / Time acetaminophen [From Tylenol] Allergy Anaphylaxis Verified 04/09/17 19:51 blue dye Allergy Anaphylaxis Verified 04/09/17 19:51 clonidine [From Catapres] Allergy Unknown Verified 04/09/17 19:51 iodine Allergy Unknown Verified 04/09/17 19:51 monosodium glutamate [MSG] Allergy Anaphylaxis Verified 04/09/17 19:51 ofloxacin [From Floxin] Allergy Anaphylaxis Verified 04/09/17 19:51 piroxicam [From Feldene] Allergy Unknown Verified 04/09/17 19:51 red dye Allergy Anaphylaxis Verified 04/09/17 19:51 Sulfa (Sulfonamide Allergy Anaphylaxis Verified 04/09/17 19:51 Antibiotics) tramadol [From Ultram] Allergy Anaphylaxis Verified 04/09/17 19:51 bisoprolol [From Ziac] AdvReac Unknown Verified 04/09/17 19:51 glipizide AdvReac Unknown Verified 04/09/17 19:51 hydrochlorothiazide AdvReac Unknown Verified 04/09/17 19:51 [From Ziac] metformin AdvReac Unknown Verified 04/09/17 19:51 sertraline [From Zoloft] AdvReac Hallucinati Verified 04/09/17 19:51 ons triamterene [From Dyazide] AdvReac Unknown Verified 04/09/17 19:51 Review of Systems ROS Statement: Those systems with pertinent positive or pertinent negative responses have been documented in the HPI. ROS Other: All systems not noted in ROS Statement are negative. Past Medical History Past Medical History: Coronary Artery Disease (CAD), Chest Pain / Angina, Heart Failure, COPD, Diabetes Mellitus, GERD/Reflux, GI Bleed, Hyperlipidemia, Hypertension, Myocardial Infarction ([place]), Osteoarthritis (OA) Additional Past Medical History / Comment(s): 09/16/14 admitted with chf. Other HX: NIDDM, chronic L knee pain, generalized arthiritis, anemia, back pain.sinus infections. MRI brain-tumor Last Myocardial Infarction Date:: 04/2010 History of Any Multi-Drug Resistant Organisms: None Reported Past Surgical History: Appendectomy, Heart Catheterization With Stent, Hysterectomy Additional Past Surgical History / Comment(s): Ccaths with a total of 5 stents placed. Stent in leg. Subclavian bypass. PTCA's, EGD with cauterized arterovenous malformation, colonoscopy, L hand's index finger amputation, R hand 's thumb tendon repair, R elbow replacement, subclavian steel surgery-"new veins in my neck." sinus sx, Past Anesthesia/Blood Transfusion Reactions: No Reported Reaction Additional Past Anesthesia/Blood Transfusion Reaction / Comment(s): Pt has recieved blood in the past without reaction. Date of Last Stent Placement:: 2010 Past Psychological History: Anxiety, Depression Smoking Status: Former smoker Past Alcohol Use History: None Reported Past Drug Use History: None Reported - Past Family History Father History Unknown: Yes Mother Family Medical History: Cancer Additional Family Medical History / Comment(s): Mother had lung cancer. General Exam Limitations: no limitations General appearance: alert, in no apparent distress Head exam: Present: atraumatic, normocephalic Eye exam: Present: normal appearance, PERRL ENT exam: Present: normal exam Neck exam: Present: normal inspection, full ROM. Absent: tenderness Respiratory exam: Present: normal lung sounds bilaterally. Absent: respiratory distress, wheezes Cardiovascular Exam: Present: regular rate, normal rhythm GI/Abdominal exam: Present: soft. Absent: distended, tenderness Extremities exam: Present: joint swelling (Left shoulder, ecchymotic, swollen, severe pain with range of motion, distal pulses intact, border guard strength in the left hand is normal, other extremities within normal limits) Back exam: Present: normal inspection, full ROM. Absent: tenderness Neurological exam: Present: alert, oriented X3, CN II-XII intact. Absent: motor sensory deficit Psychiatric exam: Present: normal affect, normal mood Skin exam: Present: warm, dry, intact. Absent: cyanosis, diaphoretic Course Vital Signs 04/09/17 19:22 Temperature 97.6 F Pulse Rate 64 Respiratory 18 Rate Blood Pressure 182/105 O2 Sat by Pulse 95 Oximetry EKG Findings - EKG Comments: EKG Findings:: EKG shows normal sinus rhythm, left bundle branch block, ventricular rate 61, [place] interval 148, castration 154, QTC 421, no signs of acute ischemia Medical Decision Making - Medical Decision Making 68-year-old female presenting status post fall. Fall was mechanical in nature. Head CT is obtained, negative for acute intracranial her belly, CT C-spine negative for fracture subluxation, pelvic x-ray is negative for any acute bony abnormality. X-ray of the chest and shoulder both positive for complete impacted fracture of the proximal humerus. Remainder of left upper extremity exam is normal, good border guard strength, normal pulses. Patient is placed in a sling for gravity traction. Laboratory studies reveal creatinine 1.7, patient has history of CK D. Troponin 0.0-2 in the setting of CK D, no chest pain, no EKG changes. White blood cell count 8.7, hemoglobin stable 10.3. Patient was evaluated as a primary to trauma, general surgery was contacted. Patient will be taken home with her daughter, she will be observed for 24 hours , there was only minor head trauma with no LOC. Diagnosis: Left proximal humerus fracture - Lab Data Result diagrams: 04/09/17 19:45 04/09/17 19:45 Lab Results 04/09/17 04/09/17 04/09/17 Range/Units 19:45 19:45 19:45 WBC 8.7 (3.8-10.6) k/uL RBC 3.50 L (3.80-5.40) m/uL Hgb 10.3 L (11.4-16.0) gm/dL Hct 32.8 L (34.0-46.0) % MCV 93.8 (80.0-100.0) fL MCH 29.3 (25.0-35.0) pg MCHC 31.3 (31.0-37.0) g/dL RDW 17.6 H (11.5-15.5) % Plt Count 183 (150-450) k/uL Neutrophils % 65 % Lymphocytes % 22 % Monocytes % 9 % Eosinophils % 2 % Basophils % 0 % Neutrophils # 5.6 (1.3-7.7) k/uL Lymphocytes # 1.9 (1.0-4.8) k/uL Monocytes # 0.7 (0-1.0) k/uL Eosinophils # 0.1 (0-0.7) k/uL Basophils # 0.0 (0-0.2) k/uL Hypochromasia Slight Anisocytosis Slight PT (9.0-12.0) sec INR (<1.2) APTT (22.0-30.0) sec Sodium 141 (137-145) mmol/L Potassium 4.4 (3.5-5.1) mmol/L Chloride 110 H (98-107) mmol/L Carbon Dioxide 21 L (22-30) mmol/L Anion Gap 10 mmol/L BUN 20 H (7-17) mg/dL Creatinine 1.70 H (0.52-1.04) mg/dL Est GFR (MDRD) Af Amer 35 (>60 ml/min/1.73 sqM) Est GFR (MDRD) Non-Af 29 (>60 ml/min/1.73 sqM) Glucose 123 H (74-99) mg/dL POC Glucose (mg/dL) (75-99) mg/dL POC Glu Family Psychologist ID Plasma Lactic Acid Michael (0.7-2.0) mmol/L Calcium 8.2 L (8.4-10.2) mg/dL Total Bilirubin 0.5 (0.2-1.3) mg/dL AST 21 (14-36) U/L ALT 28 (9-52) U/L Alkaline Phosphatase 73 (38-126) U/L Total Creatine Kinase (30-135) U/L CK-MB (CK-2) (0.0-2.4) ng/mL CK-MB (CK-2) Rel Index Troponin I (0.000-0.034) ng/mL Total Protein 6.2 L (6.3-8.2) g/dL Albumin 3.3 L (3.5-5.0) g/dL Amylase <30 L (30-110) U/L Lipase 80 (23-300) U/L Serum Alcohol <10 mg/dL Blood Type O Negative Blood Type Recheck O Neg Antibody Screen NEGATIVE Spec Expiration Date 04/12/2017234404/09/17 04/09/17 04/09/17 Range/Units 19:45 19:45 19:45 WBC (3.8-10.6) k/uL RBC (3.80-5.40) m/uL Hgb (11.4-16.0) gm/dL Hct (34.0-46.0) % MCV (80.0-100.0) fL MCH (25.0-35.0) pg MCHC (31.0-37.0) g/dL RDW (11.5-15.5) % Plt Count (150-450) k/uL Neutrophils % % Lymphocytes % % Monocytes % % Eosinophils % % Basophils % % Neutrophils # (1.3-7.7) k/uL Lymphocytes # (1.0-4.8) k/uL Monocytes # (0-1.0) k/uL Eosinophils # (0-0.7) k/uL Basophils # (0-0.2) k/uL Hypochromasia Anisocytosis PT 10.9 (9.0-12.0) sec INR 1.1 (<1.2) APTT 21.4 L (22.0-30.0) sec Sodium (137-145) mmol/L Potassium (3.5-5.1) mmol/L Chloride (98-107) mmol/L Carbon Dioxide (22-30) mmol/L Anion Gap mmol/L BUN (7-17) mg/dL Creatinine (0.52-1.04) mg/dL Est GFR (MDRD) Af Amer (>60 ml/min/1.73 sqM) Est GFR (MDRD) Non-Af (>60 ml/min/1.73 sqM) Glucose (74-99) mg/dL POC Glucose (mg/dL) (75-99) mg/dL POC Glu Family Psychologist ID Plasma Lactic Acid Michael 1.2 (0.7-2.0) mmol/L Calcium (8.4-10.2) mg/dL Total Bilirubin (0.2-1.3) mg/dL AST (14-36) U/L ALT (9-52) U/L Alkaline Phosphatase (38-126) U/L Total Creatine Kinase 53 (30-135) U/L CK-MB (CK-2) 1.4 (0.0-2.4) ng/mL CK-MB (CK-2) Rel Index 2.6 Troponin I 0.022 (0.000-0.034) ng/mL Total Protein (6.3-8.2) g/dL Albumin (3.5-5.0) g/dL Amylase (30-110) U/L Lipase (23-300) U/L Serum Alcohol mg/dL Blood Type Blood Type Recheck Antibody Screen Spec Expiration Date 04/09/17 Range/Units 20:02 WBC (3.8-10.6) k/uL RBC (3.80-5.40) m/uL Hgb (11.4-16.0) gm/dL Hct (34.0-46.0) % MCV (80.0-100.0) fL MCH (25.0-35.0) pg MCHC (31.0-37.0) g/dL RDW (11.5-15.5) % Plt Count (150-450) k/uL Neutrophils % % Lymphocytes % % Monocytes % % Eosinophils % % Basophils % % Neutrophils # (1.3-7.7) k/uL Lymphocytes # (1.0-4.8) k/uL Monocytes # (0-1.0) k/uL Eosinophils # (0-0.7) k/uL Basophils # (0-0.2) k/uL Hypochromasia Anisocytosis PT (9.0-12.0) sec INR (<1.2) APTT (22.0-30.0) sec Sodium (137-145) mmol/L Potassium (3.5-5.1) mmol/L Chloride (98-107) mmol/L Carbon Dioxide (22-30) mmol/L Anion Gap mmol/L BUN (7-17) mg/dL Creatinine (0.52-1.04) mg/dL Est GFR (MDRD) Af Amer (>60 ml/min/1.73 sqM) Est GFR (MDRD) Non-Af (>60 ml/min/1.73 sqM) Glucose (74-99) mg/dL POC Glucose (mg/dL) 124 H (75-99) mg/dL POC Glu Family Psychologist ID Watt, Renu Plasma Lactic Acid Michael (0.7-2.0) mmol/L Calcium (8.4-10.2) mg/dL Total Bilirubin (0.2-1.3) mg/dL AST (14-36) U/L ALT (9-52) U/L Alkaline Phosphatase (38-126) U/L Total Creatine Kinase (30-135) U/L CK-MB (CK-2) (0.0-2.4) ng/mL CK-MB (CK-2) Rel Index Troponin I (0.000-0.034) ng/mL Total Protein (6.3-8.2) g/dL Albumin (3.5-5.0) g/dL Amylase (30-110) U/L Lipase (23-300) U/L Serum Alcohol mg/dL Blood Type Blood Type Recheck Antibody Screen Spec Expiration Date Critical Care Time Critical Care Time: Yes Total Critical Care Time: 35 Disposition Clinical Impression: Fall, Closed left humeral fracture Disposition: HOME SELF-CARE Condition: Good Instructions: Fall Prevention for Older Adults (ED), Arm Fracture in Adults (ED ), Proximal Humerus Fracture (ED) Prescriptions: HYDROcodone/APAP 5-325MG [[place] 5-325] 1 tab PO Q6HR PRN #12 tab PRN Reason: Pain HYDROmorphone [Dilaudid] 1 mg PO Q6HR PRN #12 tab PRN Reason: Severe Pain Referrals: Andrés Varner MD [Primary Care Provider] - 1-2 days Greg Dumont DO [Doctor of Osteopathic Medicine] - 1-2 days Time of Disposition: 22:15
[2017-04-09] MEDS ORDERED: HYDROcodone/APAP 5-325MG 1 EACH TAB PO STA (22:37)
[2017-04-09 23:42] VITALS: BP 188/78; PULSE 61; TEMP 97
== END 2017-04-09 22:55 | disposition home or self-care (01) ==
LOC: EC 19:19
DX: S42.202A Unspecified fracture of upper end of left humerus, initial encounter for closed fracture (principal); I25.10 Atherosclerotic heart disease of native coronary artery without angina pectoris; K21.9 Gastro-esophageal reflux disease without esophagitis; I25.2 Old myocardial infarction; E11.22 Type 2 diabetes mellitus with diabetic chronic kidney disease; N18.9 Chronic kidney disease, unspecified; Z95.5 Presence of coronary angioplasty implant and graft; Z87.891 Personal history of nicotine dependence; Z79.02 Long term (current) use of antithrombotics/antiplatelets; Z79.84 Long term (current) use of oral hypoglycemic drugs; Z79.82 Long term (current) use of aspirin; Z79.899 Other long term (current) drug therapy; Z88.6 Allergy status to analgesic agent; Z91.048 Other nonmedicinal substance allergy status; Z88.8 Allergy status to other drugs, medicaments and biological substances; Z88.1 Allergy status to other antibiotic agents; Z88.2 Allergy status to sulfonamides; W10.9XXA Fall (on) (from) unspecified stairs and steps, initial encounter; Y93.89 Activity, other specified
CPT/HCPCS: 99285; 96374; 96376; 36415; 86900; 86901; 80053; 82150; 82550; 82553; 83605; 83690; 84484; 85025; 85610; 85730; 86850; 80320; 72170; 73020; 71045; 72125; 70450; J1170; 93005

== ENCOUNTER 2017-04-10 16:18 | Inpatient (IN) | payer MEDICARE ==
[2017-04-10] MEDS ORDERED: HYDROmorphone 0.5 MG/0.5 ML SYRINGE IVP STA (16:55)
[2017-04-10] MEDS ORDERED: ONDANSETRON 4 MG/2 ML VIAL IVP STA (16:55)
[2017-04-10] MEDS ORDERED: SODIUM CHLORIDE 0.9% 1,000 ML IV STA (16:55)
--- NOTE | 2017-04-10 17:03 | ED ---
General Adult HPI - General Chief complaint: Recheck/Abnormal Lab/Rx Stated complaint: NVD/Weakness/Pain Time Seen by Provider: 04/10/17 16:45 Source: family, RN notes reviewed Mode of arrival: wheelchair Limitations: no limitations - History of Present Illness Initial comments: Patient is a pleasant 76-year-old female presenting to the emergency department with family for weakness and vomiting. Patient has had ongoing symptoms for several weeks. Patient did have recent urinary tract infection and only took 3 doses of amoxicillin and did not tolerate it. Patient has been having diarrhea. Patient has been having nausea and vomiting. Patient was in the hospital yesterday after a fall with proximal humerus fracture. Patient unable to get up and move around today without significant assistance. Patient is having severe pain with any movement of the left arm. No change in mental status. Patient denies any pain other than her left upper arm. - Related Data Home Medications Medication Instructions Recorded Confirmed Clopidogrel [Plavix] 75 mg PO DAILY 09/16/14 04/10/17 Pantoprazole Sodium 40 mg PO DAILY 09/16/14 04/10/17 Repaglinide [Prandin] 1 mg PO BID 09/16/14 04/10/17 ALPRAZolam [Xanax] 0.5 mg PO BID PRN 04/17/15 04/10/17 Aspirin [Adult Low Dose Aspirin EC] 81 mg PO DAILY 02/03/16 04/10/17 Multivitamins, Thera [Multivitamin 1 tab PO DAILY 02/03/16 04/10/17 (formulary)] Nitroglycerin Sl Tabs [Nitrostat] 0.4 mg SUBLINGUAL Q5M PRN 09/04/16 04/10/17 Previous Rx's Medication Instructions Recorded Atorvastatin [Lipitor] 40 mg PO HS #30 tab 04/19/15 Benazepril [Lotensin] 5 mg PO DAILY #1 tablet 05/31/16 Metoprolol Tartrate [Lopressor] 25 mg PO BID #0 05/31/16 Famotidine [Pepcid] 20 mg PO DAILY #30 tab 04/03/17 Fluconazole [Diflucan] 100 mg PO DAILY 21 Days #21 tab 04/03/17 Ondansetron HCl [Zofran Oral Soln] 4 mg PO Q6H PRN 20 Days #20 04/03/17 solution Ergocalciferol (Vitamin D2) 50,000 unit PO WEEKLY #8 capsule 04/04/17 [Vitamin D2] HYDROcodone/APAP 5-325MG [[place] 1 tab PO Q6HR PRN #12 tab 04/09/17 5-325] HYDROmorphone [Dilaudid] 1 mg PO Q6HR PRN #12 tab 04/09/17 Allergies Allergy/AdvReac Type Severity Reaction Status Date / Time acetaminophen [From Tylenol] Allergy Anaphylaxis Verified 04/10/17 17:01 blue dye Allergy Anaphylaxis Verified 04/10/17 17:01 clonidine [From Catapres] Allergy Unknown Verified 04/10/17 17:01 iodine Allergy Unknown Verified 04/10/17 17:01 monosodium glutamate [MSG] Allergy Anaphylaxis Verified 04/10/17 17:01 ofloxacin [From Floxin] Allergy Anaphylaxis Verified 04/10/17 17:01 piroxicam [From Feldene] Allergy Unknown Verified 04/10/17 17:01 red dye Allergy Anaphylaxis Verified 04/10/17 17:01 Sulfa (Sulfonamide Allergy Anaphylaxis Verified 04/10/17 17:01 Antibiotics) tramadol [From Ultram] Allergy Anaphylaxis Verified 04/10/17 17:01 bisoprolol [From Ziac] AdvReac Unknown Verified 04/10/17 17:01 glipizide AdvReac Unknown Verified 04/10/17 17:01 hydrochlorothiazide AdvReac Unknown Verified 04/10/17 17:01 [From Ziac] metformin AdvReac Unknown Verified 04/10/17 17:01 sertraline [From Zoloft] AdvReac Hallucinati Verified 04/10/17 17:01 ons triamterene [From Dyazide] AdvReac Unknown Verified 04/10/17 17:01 Review of Systems ROS Statement: Those systems with pertinent positive or pertinent negative responses have been documented in the HPI. ROS Other: All systems not noted in ROS Statement are negative. Constitutional: Denies: fever Eyes: Denies: eye pain ENT: Denies: ear pain Respiratory: Denies: cough Cardiovascular: Denies: chest pain Endocrine: Reports: fatigue Gastrointestinal: Reports: vomiting Genitourinary: Denies: discharge Musculoskeletal: Denies: back pain Skin: Denies: rash Neurological: Reports: weakness. Denies: confusion Past Medical History Past Medical History: Coronary Artery Disease (CAD), Chest Pain / Angina, Heart Failure, COPD, Diabetes Mellitus, GERD/Reflux, GI Bleed, Hyperlipidemia, Hypertension, Myocardial Infarction ([place]), Osteoarthritis (OA) Additional Past Medical History / Comment(s): 09/16/14 admitted with chf. Other HX: NIDDM, chronic L knee pain, generalized arthiritis, anemia, back pain.sinus infections. MRI brain-tumor Last Myocardial Infarction Date:: 04/2010 History of Any Multi-Drug Resistant Organisms: None Reported Past Surgical History: Appendectomy, Heart Catheterization With Stent, Hysterectomy Additional Past Surgical History / Comment(s): Ccaths with a total of 5 stents placed. Stent in leg. Subclavian bypass. PTCA's, EGD with cauterized arterovenous malformation, colonoscopy, L hand's index finger amputation, R hand 's thumb tendon repair, R elbow replacement, subclavian steel surgery-"new veins in my neck." sinus sx, Past Anesthesia/Blood Transfusion Reactions: No Reported Reaction Additional Past Anesthesia/Blood Transfusion Reaction / Comment(s): Pt has recieved blood in the past without reaction. Date of Last Stent Placement:: 2010 Past Psychological History: Anxiety, Depression Smoking Status: Former smoker Past Alcohol Use History: None Reported Past Drug Use History: None Reported - Past Family History Father History Unknown: Yes Mother Family Medical History: Cancer Additional Family Medical History / Comment(s): Mother had lung cancer. General Exam Limitations: no limitations General appearance: alert, in no apparent distress Head exam: Present: atraumatic Eye exam: Present: normal appearance, PERRL ENT exam: Present: normal oropharynx Neck exam: Present: normal inspection. Absent: tenderness Respiratory exam: Present: normal lung sounds bilaterally Cardiovascular Exam: Present: regular rate, normal rhythm GI/Abdominal exam: Present: soft. Absent: tenderness Extremities exam: Present: other (Left upper arm with significant ecchymosis and tenderness. Pain with any range of motion.) Back exam: Present: normal inspection. Absent: tenderness, vertebral tenderness Neurological exam: Present: alert. Absent: motor sensory deficit Expanded Motor strength exam: RUE: 5, LUE: 5, RLE: 5, LLE: 5 Psychiatric exam: Present: normal affect, normal mood Skin exam: Present: other (Significant ecchymosis left shoulder/left upper arm) Course Vital Signs 04/10/17 04/10/17 16:35 18:02 Temperature 97.9 F Pulse Rate 54 L 78 Respiratory 18 18 Rate Blood Pressure 159/68 O2 Sat by Pulse 99 98 Oximetry EKG Findings - EKG Comments: EKG Findings:: Sinus rhythm at 65. QRS 144. QT 494. QTC 513. Left axis. Left bundle branch block. Nonspecific ST-T. Medical Decision Making - Medical Decision Making Patient reevaluated and resting comfortably in bed. Patient has been unable to tolerate oral antibiotics and has positive urine culture. Patient does have significant proximal humerus fracture and will need orthopedic evaluation. Family is not comfortable with discharge home. Case was discussed in detail with Dr. amaya, covering for Dr. Cardenas. - Lab Data Result diagrams: 04/10/17 17:20 04/10/17 17:20 Lab Results 04/10/17 04/10/17 04/10/17 Range/Units 17:20 17:20 17:20 WBC 6.8 (3.8-10.6) k/uL RBC 3.25 L (3.80-5.40) m/uL Hgb 9.4 L (11.4-16.0) gm/dL Hct 30.3 L (34.0-46.0) % MCV 93.0 (80.0-100.0) fL MCH 28.8 (25.0-35.0) pg MCHC 30.9 L (31.0-37.0) g/dL RDW 17.3 H (11.5-15.5) % Plt Count 188 (150-450) k/uL Neutrophils % 69 % Lymphocytes % 19 % Monocytes % 9 % Eosinophils % 1 % Basophils % 0 % Neutrophils # 4.7 (1.3-7.7) k/uL Lymphocytes # 1.3 (1.0-4.8) k/uL Monocytes # 0.6 (0-1.0) k/uL Eosinophils # 0.0 (0-0.7) k/uL Basophils # 0.0 (0-0.2) k/uL Hypochromasia Slight Anisocytosis Slight PT (9.0-12.0) sec INR (<1.2) APTT (22.0-30.0) sec Sodium 141 (137-145) mmol/L Potassium 4.4 (3.5-5.1) mmol/L Chloride 109 H (98-107) mmol/L Carbon Dioxide 19 L (22-30) mmol/L Anion Gap 13 mmol/L BUN 21 H (7-17) mg/dL Creatinine 1.90 H (0.52-1.04) mg/dL Est GFR (MDRD) Af Amer 31 (>60 ml/min/1.73 sqM) Est GFR (MDRD) Non-Af 26 (>60 ml/min/1.73 sqM) Glucose 122 H (74-99) mg/dL Calcium 8.2 L (8.4-10.2) mg/dL Magnesium 1.1 L (1.6-2.3) mg/dL Total Bilirubin 0.6 (0.2-1.3) mg/dL AST 21 (14-36) U/L ALT 26 (9-52) U/L Alkaline Phosphatase 81 (38-126) U/L Total Creatine Kinase 147 H (30-135) U/L CK-MB (CK-2) 2.0 (0.0-2.4) ng/mL CK-MB (CK-2) Rel Index 1.4 Troponin I 0.038 H* (0.000-0.034) ng/mL Total Protein 6.1 L (6.3-8.2) g/dL Albumin 3.3 L (3.5-5.0) g/dL 04/10/17 Range/Units 17:20 WBC (3.8-10.6) k/uL RBC (3.80-5.40) m/uL Hgb (11.4-16.0) gm/dL Hct (34.0-46.0) % MCV (80.0-100.0) fL MCH (25.0-35.0) pg MCHC (31.0-37.0) g/dL RDW (11.5-15.5) % Plt Count (150-450) k/uL Neutrophils % % Lymphocytes % % Monocytes % % Eosinophils % % Basophils % % Neutrophils # (1.3-7.7) k/uL Lymphocytes # (1.0-4.8) k/uL Monocytes # (0-1.0) k/uL Eosinophils # (0-0.7) k/uL Basophils # (0-0.2) k/uL Hypochromasia Anisocytosis PT 10.8 (9.0-12.0) sec INR 1.1 (<1.2) APTT 24.4 (22.0-30.0) sec Sodium (137-145) mmol/L Potassium (3.5-5.1) mmol/L Chloride (98-107) mmol/L Carbon Dioxide (22-30) mmol/L Anion Gap mmol/L BUN (7-17) mg/dL Creatinine (0.52-1.04) mg/dL Est GFR (MDRD) Af Amer (>60 ml/min/1.73 sqM) Est GFR (MDRD) Non-Af (>60 ml/min/1.73 sqM) Glucose (74-99) mg/dL Calcium (8.4-10.2) mg/dL Magnesium (1.6-2.3) mg/dL Total Bilirubin (0.2-1.3) mg/dL AST (14-36) U/L ALT (9-52) U/L Alkaline Phosphatase (38-126) U/L Total Creatine Kinase (30-135) U/L CK-MB (CK-2) (0.0-2.4) ng/mL CK-MB (CK-2) Rel Index Troponin I (0.000-0.034) ng/mL Total Protein (6.3-8.2) g/dL Albumin (3.5-5.0) g/dL - Radiology Data Radiology results: image reviewed (Chest x-ray shows no acute intrathoracic process. There is an impacted left proximal humerus fracture.) Disposition Clinical Impression: Urinary tract infection, Falls frequently, Proximal humerus fracture, Weakness Disposition: ADMITTED IP TO THIS [facility] Referrals: Andrés Varner MD [Primary Care Provider] - 1-2 days Decision Time: 18:45
[2017-04-10 17:39] LABS: Anisocytosis Slight; Basophils % (A) 0 %; Eosinophils % (A) 1 %; HCT 30.3 % (34.0-46.0); HGB 9.4 gm/dL (11.4-16.0); Hypochromasia Slight; Lymphocytes # (A) 1.3 k/uL (1.0-4.8); Lymphocytes % (A) 19 %; MCH 28.8 pg (25.0-35.0); MCHC 30.9 g/dL (31.0-37.0); Mean Platelet Volume 7.8; Monocytes # (A) 0.6 k/uL (0-1.0); Monocytes % (A) 9 %; Neutrophils # (A) 4.7 k/uL (1.3-7.7); Neutrophils % (A) 69 %; Platelet Count 188 k/uL (150-450); RBC 3.25 m/uL (3.80-5.40); RDW 17.3 % (11.5-15.5); WBC 6.8 k/uL (3.8-10.6)
--- NOTE | 2017-04-10 17:49 | XR ---
EXAMINATION TYPE: XR chest 2V DATE OF EXAM: 04/10/2017 COMPARISON: 04/09/2017 HISTORY: Chest pain with known recent left proximal shoulder fracture. TECHNIQUE: Frontal and lateral views of the chest are obtained. FINDINGS: There is redemonstration of an impacted left proximal humeral fracture, moderate acromiocl avicular arthropathy bilaterally, and left supraclavicular suma. Cardiac silhouette is mildly enla rged. No pneumothorax is identified. No displaced rib fractures are seen. No focal consolidation, ple ural effusion or pneumothorax. IMPRESSION: 1. No acute cardiopulmonary process. 2. Redemonstration of an impacted acute left proximal humeral fracture.
[2017-04-10 17:55] LABS: INR 1.1 (<1.2); Partial Thromboplastin Time 24.4 sec (22.0-30.0); Prothrombin Time 10.8 sec (9.0-12.0)
[2017-04-10 18:02] LABS: Albumin 3.3 g/dL (3.5-5.0); Calcium 8.2 mg/dL (8.4-10.2); Potassium 4.4 mmol/L (3.5-5.1); Total Bilirubin 0.6 mg/dL (0.2-1.3); Total Protein 6.1 g/dL (6.3-8.2)
[2017-04-10 18:08] LABS: Magnesium 1.1 mg/dL (1.6-2.3)
[2017-04-10 18:14] LABS: Troponin I 0.038 ng/mL (0.000-0.034)
[2017-04-10] MEDS ORDERED: MAGNESIUM SULFATE-D5W PMX 1 GM in DEXTROSE/WATER 1 100ML.BAG IVPB ONE (18:25)
[2017-04-10] MEDS ORDERED: MAGNESIUM OXIDE 400 MG TAB PO STA (18:25)
[2017-04-10] MEDS ORDERED: NALOXONE 0.4 MG/ML 1 ML VIAL IV PRN (18:46)
[2017-04-10] MEDS ORDERED: AMPICILLIN-SULBACTAM 3 GM in SODIUM CHLORIDE 0.9% 100 ML IVPB STA (18:49)
[2017-04-10] MEDS ORDERED: CYCLOBENZAPRINE 10 MG TAB PO STA (19:18)
[2017-04-10] MEDS ORDERED: METOPROLOL TARTRATE 25 MG TAB PO STA (19:19)
[2017-04-10] MEDS ORDERED: ALPRAZolam 0.5 MG TAB PO PRN (20:49)
[2017-04-10] MEDS ORDERED: NITROGLYCERIN SL TABS 0.4 MG TAB SUBLINGUAL PRN (20:49)
[2017-04-10] MEDS ORDERED: ONDANSETRON HCL 4 MG PO PRN (20:49)
[2017-04-10] MEDS: MORPHINE SULFATE 2 MG/ML SYRINGE IV PRN (20:51)
[2017-04-10] MEDS ORDERED: FAMOTIDINE 20 MG TAB PO SCH (21:00)
[2017-04-10] MEDS: METOPROLOL TARTRATE 25 MG TAB PO SCH (21:14)
[2017-04-10 21:34] LABS: Glucose,Whole Blood 89 mg/dL (75-99)
[2017-04-10] MEDS: ATORVASTATIN 40 MG TAB PO SCH (23:14)
[2017-04-10] MEDS: MAGNESIUM SULFATE-D5W PMX 1 GM in DEXTROSE/WATER 1 100ML.BAG IVPB SCH ×2 (23:14→23:36)
[2017-04-10] MEDS: SODIUM CHLORIDE 0.9% 1,000 ML IV SCH (23:15)
[2017-04-10] MEDS: HYDROcodone/APAP 5-325MG 1 EACH TAB PO PRN (23:36)
--- NOTE | 2017-04-11 00:14 | P.HPIM ---
History of Present Illness H&P Date: 04/10/17 Chief Complaint: generalized weakness, poor PO intake 76 year old female with history of CAD s/p stents, HTN, DM, recent UTI and candidial esophagitis, she was discharge from the hospital 1 week ago, she presented again yesterday after sustaining a fall at home she was waking around when fell backwards, without loss of consciousness, denies any palpitations, chest pain, or trouble breathing, but she was feeling weak and shaky she thinks because she was not eating well. she hit her head and fell on left arm, she immediately felt excruciating pain, and she was brought to the ER at [facility], further workup showed no acute process in head CT (fall while on plavix and aspirin), further imaging to the shoulder revealed left humeral fracture. Arm sling was applied and patient discharged home with pain killers and to follow up OP. However, she reports that she felt weaker at home, and she was not eating drinking well, not even taking her own medications, due to feeling nauseated and sick to the stomach, again she denies any chest pain, orthopnea, leg swelling, or vomiting. She does report that for her prescribed ABx for UTI, she only ended up taking 3 pills due to intolerance of themedication and also because she developed diarrhea described as explosive multiple times a day non bloody , no delilah. She has been taking her diflucan though. Today otherwise, she denies any fever, chills, She reports that she is barely making any urine and thinks that she is dehydrated which happens to her alot. She feels better now after getting some IVF in the ED. her family discussed with me the possibility of evaluating the patient for home situation, as she has her older daughter living with her who is unable to take care of her old mother due to social issues that she has herself, and they think at this point they would entertain the possibility of placement in a post acute care facility if appropriate. She currently feels her pain is well controlled, and she feels much rested. She named her daughter Sharri as surrogate decision maker, and elected to be a full code as this is also indicated in her wishing will. Review of Systems Constitutional: Patient denies fever, denies chills, denies night sweating, Reports significant weight changes (weight loss) Eyes: Patient denies visual changes, denies eye pain ENT: Patient denies ear pain, denies rhinorrhea, denies sore throat Cardiovascular: Patient denies chest pain, denies exertional dyspnea, denies peripheral leg edema, denies orthopnea, denies paroxysmal nocturnal dyspnea Respiratory:Patient denies wheezing, denies shortness of breath, reports chronic productive cough , quit smoking years ago, denies any hemoptysis Gastrointestinal: Patient denies constipation, denies vomiting, denies abdominal pain, reports diarrhea as in HPI Genitourinary: Patient denies dysuria, denies hematuria, denies genital lesions, reports decrease urine output, dark and foul smelling Musculoskeletal: Patient denies muscle pain, , reports left shoulder pain worse with movement better with rest Psychiatric: Patient denies suicidal ideation, denies anxiety, reports memory changes, and mood swings (emotional, depressed mood) , needs help with cooking, shopping, banking Endocrine: Patient denies heat intolerance, denies cold intolerance, denies excessive thirst, denies polyuria Neurological: Patient denies focal neurologic deficits, denies focal weakness , denies numbness, denies tingling Hem/Lymphatic: Patient denies bleeding tendency, denies swollen lymph glands , reports bruising over left shoulder, and easy bruising in general with thin skin Allergic/Immun: Patient denies recent allergic reactions Skin: Patient denies rashes, denies pruritis, denies ulcers she is not updated on age appropriate cancer screening tests Past Medical History Past Medical History: Coronary Artery Disease (CAD), Chest Pain / Angina, Heart Failure, COPD, Diabetes Mellitus, GERD/Reflux, GI Bleed, Hyperlipidemia, Hypertension, Myocardial Infarction ([place]), Osteoarthritis (OA) Additional Past Medical History / Comment(s): NIDDM, chronic L knee pain, generalized arthiritis, anemia, back pain.sinus infections. 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 Stent in leg. Subclavian bypass. PTCA's, EGD with cauterized arterovenous malformation, colonoscopy, L hand's index finger amputation, R hand 's thumb tendon repair, R elbow replacement, subclavian steel surgery-"new veins in my neck." sinus sx, Past Anesthesia/Blood Transfusion Reactions: No Reported Reaction Additional Past Anesthesia/Blood Transfusion Reaction / Comment(s): Pt has recieved blood in the past without reaction. Date of Last Stent Placement:: 2010 Past Psychological History: Anxiety, Depression Smoking Status: Former smoker Past Alcohol Use History: None Reported Past Drug Use History: None Reported - Past Family History Father History Unknown: Yes Mother Family Medical History: Cancer Additional Family Medical History / Comment(s): Mother had lung cancer. Medications and Allergies Home Medications Medication Instructions Recorded Confirmed Type Clopidogrel [Plavix] 75 mg PO DAILY 09/16/14 04/10/17 History Pantoprazole Sodium 40 mg PO DAILY 09/16/14 04/10/17 History Repaglinide [Prandin] 1 mg PO BID 09/16/14 04/10/17 History ALPRAZolam [Xanax] 0.5 mg PO BID PRN 04/17/15 04/10/17 History Atorvastatin [Lipitor] 40 mg PO HS #30 tab 04/19/15 04/10/17 Rx Aspirin [Adult Low Dose Aspirin EC] 81 mg PO DAILY 02/03/16 04/10/17 History Multivitamins, Thera [Multivitamin 1 tab PO DAILY 02/03/16 04/10/17 History (formulary)] Benazepril [Lotensin] 5 mg PO DAILY #1 tablet 05/31/16 04/10/17 Rx Metoprolol Tartrate [Lopressor] 25 mg PO BID #0 05/31/16 04/10/17 Rx Nitroglycerin Sl Tabs [Nitrostat] 0.4 mg SUBLINGUAL Q5M PRN 09/04/16 04/10/17 History Famotidine [Pepcid] 20 mg PO DAILY #30 tab 04/03/17 04/10/17 Rx Fluconazole [Diflucan] 100 mg PO DAILY 21 Days #21 tab 04/03/17 04/10/17 Rx Ondansetron HCl [Zofran Oral Soln] 4 mg PO Q6H PRN 20 Days #20 04/03/17 Rx solution Ergocalciferol (Vitamin D2) 50,000 unit PO WEEKLY #8 capsule 04/04/17 04/10/17 Rx [Vitamin D2] HYDROcodone/APAP 5-325MG [[place] 1 tab PO Q6HR PRN #12 tab 04/09/17 04/10/17 Rx 5-325] HYDROmorphone [Dilaudid] 1 mg PO Q6HR PRN #12 tab 04/09/17 04/10/17 Rx Allergies Allergy/AdvReac Type Severity Reaction Status Date / Time acetaminophen [From Tylenol] Allergy Anaphylaxis Verified 04/10/17 17:01 blue dye Allergy Anaphylaxis Verified 04/10/17 17:01 clonidine [From Catapres] Allergy Unknown Verified 04/10/17 17:01 iodine Allergy Unknown Verified 04/10/17 17:01 monosodium glutamate [MSG] Allergy Anaphylaxis Verified 04/10/17 17:01 ofloxacin [From Floxin] Allergy Anaphylaxis Verified 04/10/17 17:01 piroxicam [From Feldene] Allergy Unknown Verified 04/10/17 17:01 red dye Allergy Anaphylaxis Verified 04/10/17 17:01 Sulfa (Sulfonamide Allergy Anaphylaxis Verified 04/10/17 17:01 Antibiotics) tramadol [From Ultram] Allergy Anaphylaxis Verified 04/10/17 17:01 bisoprolol [From Ziac] AdvReac Unknown Verified 04/10/17 17:01 glipizide AdvReac Unknown Verified 04/10/17 17:01 hydrochlorothiazide AdvReac Unknown Verified 04/10/17 17:01 [From Ziac] metformin AdvReac Unknown Verified 04/10/17 17:01 sertraline [From Zoloft] AdvReac Hallucinati Verified 04/10/17 17:01 ons triamterene [From Dyazide] AdvReac Unknown Verified 04/10/17 17:01 Physical Exam Vitals: Vital Signs Temp Pulse Pulse Resp BP BP Pulse Ox 04/10/17 20:15 97.9 F 66 12 171/73 96 04/10/17 19:52 97.2 F L 71 18 172/80 97 04/10/17 18:52 78 18 182/69 97 04/10/17 18:02 78 18 98 04/10/17 16:35 97.9 F 54 L 18 159/68 99 Intake and Output 04/10/17 04/10/17 04/10/17 06:59 14:59 22:59 Other: Weight 63.503 kg Patient Weight 04/11/17 06:59 Weight 63.503 kg Constitutional: No acute distress, conversant, pleasant Eyes: Anicteric sclerae, moist conjunctiva, no lid-lag, clinical pallor Pupils equal round reactive to light ENMT: NC/AT Oropharynx clear, no erythema, exudates Neck: Supple, FROM, no masses, or JVD No carotid bruits No thyromegaly Lungs: Clear to auscultation Clear to percussion Normal respiratory effort, no accessory muscle use Cardiovascular: Heart regular in rate and rhythm, + systolic murmur, NO gallops, or rubs No peripheral edema Abdominal: Soft Nontender, no guarding, rebound or rigidity Abdomen moving with respiration Normoactive bowel sounds No hepatomegaly, No splenomegaly No palpable mass No abdominal wall hernia noted Skin: Normal temperature, tone, texture, turgor No induration No subcutaneous nodules No rash, lesions No ulcers diffuse small areas of bruising especially over upper extremities bilaterally over the forearms Extremities: No digital cyanosis No clubbing Pedal pulses intact and symmetrical Radial pulses intact and symmetrical No calf tenderness significant bruising over left shoulder with loss of function of left shoulder due to extreme pain with motion (passive and active), 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 patient is missing the tip of her index finger over the left hand Psychiatric: Alert and oriented to person, place and time Appropriate affect fair judgment Neuro Muscles Strength 5/5 in all 4 extremities (except limited exam over left shoulder due to pain ) Sensation to light touch grossly present throughout Cranial nerves II-XII grossly intact No focal sensory deficits Lymphatics: no palpable cervical or supraclavicular , or inguinal lymph nodes Results CBC & Chem 7: 04/10/17 17:20 04/10/17 17:20 Labs: Abnormal Lab Results - Last 24 Hours (Table) 04/10/17 04/10/17 04/10/17 Range/Units 17:20 17:20 17:20 RBC 3.25 L (3.80-5.40) m/uL Hgb 9.4 L (11.4-16.0) gm/dL Hct 30.3 L (34.0-46.0) % MCHC 30.9 L (31.0-37.0) g/dL RDW 17.3 H (11.5-15.5) % Chloride 109 H (98-107) mmol/L Carbon Dioxide 19 L (22-30) mmol/L BUN 21 H (7-17) mg/dL Creatinine 1.90 H (0.52-1.04) mg/dL Glucose 122 H (74-99) mg/dL Calcium 8.2 L (8.4-10.2) mg/dL Magnesium 1.1 L (1.6-2.3) mg/dL Total Creatine Kinase 147 H (30-135) U/L Troponin I 0.038 H* (0.000-0.034) ng/mL Total Protein 6.1 L (6.3-8.2) g/dL Albumin 3.3 L (3.5-5.0) g/dL Assessment and Plan (1) Hypomagnesemia Narrative/Plan: replace IV repeat levels in AM Current Visit: Yes Status: Acute Code(s): E83.42 - HYPOMAGNESEMIA SNOMED Code(s): 297487048 (2) DVT prophylaxis Narrative/Plan: heparin sc TId Current Visit: Yes Status: Acute Code(s): XOJ5381 - SNOMED Code(s): 178464788 (3) Falls frequently Narrative/Plan: frequent falls , advanced age, debility , and vitamin d deficiency PT evaluation possible placement social work consult Current Visit: Yes Status: Acute Code(s): R29.6 - REPEATED FALLS SNOMED Code(s): 785661552 (4) UTI (urinary tract infection) Narrative/Plan: failed outpatient therapy due to medication intolerance IV unasyn recheck UA and culture no angel catheter Current Visit: Yes Status: Acute Code(s): N39.0 - URINARY TRACT INFECTION, SITE NOT SPECIFIED SNOMED Code(s): 58322187 (5) Weakness Narrative/Plan: generalized weakness due to advanced age and debility PT eval Current Visit: Yes Status: Acute Code(s): R53.1 - WEAKNESS SNOMED Code(s) : 79333016 (6) Acute kidney injury superimposed on CKD Narrative/Plan: most likely 2/2 poor PO intake and dehydration IVF hydration monitor renal function avoid nephrotoxic meds ACEI on hold for now Current Visit: No Status: Acute Code(s): N17.9 - ACUTE KIDNEY FAILURE, UNSPECIFIED; N18.9 - CHRONIC KIDNEY DISEASE, UNSPECIFIED SNOMED Code(s): 69767572 (7) Deja esophagitis Narrative/Plan: resume diflucan day 11/15 Current Visit: No Status: Acute Code(s): B37.81 - CANDIDAL ESOPHAGITIS SNOMED Code(s): 62105414 (8) Closed left humeral fracture Narrative/Plan: arm sling in place neurovascular exam intact on the left UE ortho consult pain control Current Visit: No Status: Acute Code(s): S42.302A - UNSP FRACTURE OF SHAFT OF HUMERUS, LEFT ARM, INIT SNOMED Code(s): 50338295 (9) Essential hypertension Narrative/Plan: controlled now ACEI on hold due to worsening renal function Current Visit: No Status: Acute Code(s): I10 - ESSENTIAL (PRIMARY) HYPERTENSION SNOMED Code(s): 38459470 (10) Type 2 diabetes mellitus Narrative/Plan: insulin sliding scale last visit A1C 6.2 % Current Visit: No Status: Acute Code(s): E11.9 - TYPE 2 DIABETES MELLITUS WITHOUT COMPLICATIONS SNOMED Code(s): 04376594 (11) Vitamin D deficiency Narrative/Plan: continue home therapy once weekly 54888 units Current Visit: No Status: Acute Code(s): E55.9 - VITAMIN D DEFICIENCY, UNSPECIFIED SNOMED Code(s): 58121833 (12) Weight loss Narrative/Plan: recommended to the patient to discuss with PCP , age appropriate cancer screening tests Current Visit: Yes Status: Acute Code(s): R63.4 - ABNORMAL WEIGHT LOSS SNOMED Code(s): 43090606 (13) CAD (coronary artery disease) Narrative/Plan: continue ASA, statin, plavix metoprolol Current Visit: Yes Status: Acute Code(s): I25.10 - ATHSCL HEART DISEASE OF [place] CORONARY ARTERY W/O ANG PCTRS SNOMED Code(s): 29042433 (14) Anemia Narrative/Plan: most likely of chronic disease iron studies monitor levels possibly the big bruising over left shoulder with humeral fracture is contributing into worsening of her anemia Current Visit: Yes Status: Acute Code(s): D64.9 - ANEMIA, UNSPECIFIED SNOMED Code(s): 542774167 (15) Metabolic acidosis Narrative/Plan: none anion gap metabolic acidosis aggressive hydration monitor levels Current Visit: Yes Status: Acute Code(s): E87.2 - ACIDOSIS SNOMED Code(s) : 54528199 (16) Brain aneurysm Narrative/Plan: asymptomatic for now, follow up OP with neurosurgery odontoid mass 8 mm , OP follow up with neurosurgery Current Visit: No Status: Acute Code(s): I67.1 - CEREBRAL ANEURYSM, NONRUPTURED SNOMED Code(s): 142576370 (17) Acute diarrhea Narrative/Plan: most likely side effect of antibiotics, r/o C.diff Current Visit: Yes Status: Acute Code(s): R19.7 - DIARRHEA, UNSPECIFIED SNOMED Code(s): 871390044 Plan: Preformed a thorough record review from recent hospitalization , recently discharged on with diagnosis of candidial esophagitis, and UTI, failed OP therapy with ABx due to intolerance and diarrhea. presented after sustaining afall at home Surrogate decision-maker: daughter valdez CODE STATUS: full code DVT prophylaxis: heparin sc Discussed with: Patient, family , RN Anticipated discharge: 48-[address]: [facility]
[2017-04-11] MEDS: HEPARIN SODIUM,PORCINE 5,000 UNIT/ML 1 ML VIAL SQ SCH ×5 (00:20→23:51)
[2017-04-11 01:18] LABS: Appearance,Urine Cloudy (Clear); Bacteria,Urine Rare /hpf; Bilirubin,Urine Negative (Negative); Blood,Urine Negative (Negative); Color,Urine Yellow; Glucose,Urine (UA) Negative (Negative); Granular Casts,Urine 7 /lpf (0); Hyaline Casts,Urine 23 /lpf (0-2); Ketones,Urine Trace (Negative); Leukocyte Esterase,Urine Small (Negative); Mucus,Urine Occasional /hpf; Nitrite,Urine Negative (Negative); PH, Urine 5.5 (5.0-8.0); Protein,Urine 2+ (Negative); RBC,Urine 10 /hpf (0-5); Specific Gravity,Urine 1.017 (1.001-1.035); Squamous Epithelial Cell,Urine 4 /hpf (0-4); WBC,Urine 4 /hpf (0-5)
[2017-04-11] MEDS: AMPICILLIN-SULBACTAM 1.5 GM in SODIUM CHLORIDE 0.9% 50 ML IVPB SCH ×4 (05:28→23:51)
[2017-04-11] MEDS: SODIUM CHLORIDE 0.9% 1,000 ML IV SCH ×3 (05:33→20:55)
[2017-04-11] MEDS ORDERED: REPAGLINIDE 1 MG TAB PO SCH (07:30)
[2017-04-11 07:37] LABS: Glucose,Whole Blood 74 mg/dL (75-99)
[2017-04-11] MEDS: INSULIN ASPART 100 UNIT/ML 1 ML 10 ML VIAL SQ SCH ×4 (07:44→21:51)
[2017-04-11 08:28] LABS: Anisocytosis Slight; Basophils % (A) 0 %; Eosinophils # (A) 0.1 k/uL (0-0.7); Eosinophils % (A) 1 %; HCT 24.8 % (34.0-46.0); Hypochromasia Slight; Lymphocytes # (A) 1.7 k/uL (1.0-4.8); Lymphocytes % (A) 22 %; MCHC 30.9 g/dL (31.0-37.0); MCV 93.8 fL (80.0-100.0); Monocytes # (A) 0.8 k/uL (0-1.0); Monocytes % (A) 10 %; Neutrophils # (A) 4.9 k/uL (1.3-7.7); Neutrophils % (A) 64 %; Platelet Count 149 k/uL (150-450); RBC 2.64 m/uL (3.80-5.40); RDW 16.2 % (11.5-15.5); WBC 7.6 k/uL (3.8-10.6)
[2017-04-11 08:30] LABS: HGB 7.7 gm/dL (11.4-16.0)
--- NOTE | 2017-04-11 10:32 | P.CNOR ---
History of Present Illness - HPI Consult date: 04/11/17 History of present illness: This is a 76-year-old female who was admitted after a fall. Patient states on 04/09/2017 she fell onto the left shoulder. Patient states she was evaluated in the emergency room and discharged with an arm sling. Patient states on 2017 she was in severe pain and she could not get the pain pills prescribed by the emergency room. Patient states she also felt feverish and sick so she was presented to the emergency room again and was admitted. Patient states today her pain is better controlled. Patient denies any neck pain, numbness, tingling , weakness. Review of Systems See HPI. Past Medical History Past Medical History: Coronary Artery Disease (CAD), Chest Pain / Angina, Heart Failure, COPD, Diabetes Mellitus, GERD/Reflux, GI Bleed, Hyperlipidemia, Hypertension, Myocardial Infarction ([place]), Osteoarthritis (OA) Additional Past Medical History / Comment(s): NIDDM, chronic L knee pain, generalized arthiritis, anemia, back pain.sinus infections. 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 Stent in leg. Subclavian bypass. PTCA's, EGD with cauterized arterovenous malformation, colonoscopy, L hand's index finger amputation, R hand 's thumb tendon repair, R elbow replacement, subclavian steel surgery-"new veins in my neck." sinus sx, Past Anesthesia/Blood Transfusion Reactions: No Reported Reaction Additional Past Anesthesia/Blood Transfusion Reaction / Comm: Pt has recieved blood in the past without reaction. Date of Last Stent Placement:: 2010 Past Psychological History: Anxiety, Depression Smoking Status: Former smoker Past Alcohol Use History: None Reported Past Drug Use History: None Reported - Past Family History Father History Unknown: Yes Mother Family Medical History: Cancer Additional Family Medical History / Comment(s): Mother had lung cancer. Medications and Allergies Home Medications Medication Instructions Recorded Confirmed Type Clopidogrel [Plavix] 75 mg PO DAILY 09/16/14 04/10/17 History Pantoprazole Sodium 40 mg PO DAILY 09/16/14 04/10/17 History Repaglinide [Prandin] 1 mg PO BID 09/16/14 04/10/17 History ALPRAZolam [Xanax] 0.5 mg PO BID PRN 04/17/15 04/10/17 History Atorvastatin [Lipitor] 40 mg PO HS #30 tab 04/19/15 04/10/17 Rx Aspirin [Adult Low Dose Aspirin EC] 81 mg PO DAILY 02/03/16 04/10/17 History Multivitamins, Thera [Multivitamin 1 tab PO DAILY 02/03/16 04/10/17 History (formulary)] Benazepril [Lotensin] 5 mg PO DAILY #1 tablet 05/31/16 04/10/17 Rx Metoprolol Tartrate [Lopressor] 25 mg PO BID #0 05/31/16 04/10/17 Rx Nitroglycerin Sl Tabs [Nitrostat] 0.4 mg SUBLINGUAL Q5M PRN 09/04/16 04/10/17 History Famotidine [Pepcid] 20 mg PO DAILY #30 tab 04/03/17 04/10/17 Rx Fluconazole [Diflucan] 100 mg PO DAILY 21 Days #21 tab 04/03/17 04/10/17 Rx Ondansetron HCl [Zofran Oral Soln] 4 mg PO Q6H PRN 20 Days #20 04/03/17 Rx solution Ergocalciferol (Vitamin D2) 50,000 unit PO WEEKLY #8 capsule 04/04/17 04/10/17 Rx [Vitamin D2] HYDROcodone/APAP 5-325MG [[place] 1 tab PO Q6HR PRN #12 tab 04/09/17 04/10/17 Rx 5-325] HYDROmorphone [Dilaudid] 1 mg PO Q6HR PRN #12 tab 04/09/17 04/10/17 Rx Allergies Allergy/AdvReac Type Severity Reaction Status Date / Time acetaminophen [From Tylenol] Allergy Anaphylaxis Verified 04/10/17 17:01 blue dye Allergy Anaphylaxis Verified 04/10/17 17:01 clonidine [From Catapres] Allergy Unknown Verified 04/10/17 17:01 iodine Allergy Unknown Verified 04/10/17 17:01 monosodium glutamate [MSG] Allergy Anaphylaxis Verified 04/10/17 17:01 ofloxacin [From Floxin] Allergy Anaphylaxis Verified 04/10/17 17:01 piroxicam [From Feldene] Allergy Unknown Verified 04/10/17 17:01 red dye Allergy Anaphylaxis Verified 04/10/17 17:01 Sulfa (Sulfonamide Allergy Anaphylaxis Verified 04/10/17 17:01 Antibiotics) tramadol [From Ultram] Allergy Anaphylaxis Verified 04/10/17 17:01 bisoprolol [From Ziac] AdvReac Unknown Verified 04/10/17 17:01 glipizide AdvReac Unknown Verified 04/10/17 17:01 hydrochlorothiazide AdvReac Unknown Verified 04/10/17 17:01 [From Ziac] metformin AdvReac Unknown Verified 04/10/17 17:01 sertraline [From Zoloft] AdvReac Hallucinati Verified 04/10/17 17:01 ons triamterene [From Dyazide] AdvReac Unknown Verified 04/10/17 17:01 Physical Examination On exam patient is alert and oriented 3 and is in no acute distress. There is significant ecchymosis over the left shoulder extending to the chest. Compartments are soft. Left shoulder is tender to palpation. There is no tenderness over the left elbow, wrist or hand. Patient has full range of motion of the wrist and hand. Sensation intact. Radial pulses 2+. Neurovascular status and circulatory status are intact. Results X-rays of the left shoulder show a displaced fracture of the proximal humerus. - Labs Labs: Abnormal Lab Results - Last 24 Hours (Table) 04/10/17 04/10/17 04/10/17 Range/Units 17:20 17:20 17:20 RBC 3.25 L (3.80-5.40) m/uL Hgb 9.4 L (11.4-16.0) gm/dL Hct 30.3 L (34.0-46.0) % MCHC 30.9 L (31.0-37.0) g/dL RDW 17.3 H (11.5-15.5) % Chloride 109 H (98-107) mmol/L Carbon Dioxide 19 L (22-30) mmol/L BUN 21 H (7-17) mg/dL Creatinine 1.90 H (0.52-1.04) mg/dL Glucose 122 H (74-99) mg/dL POC Glucose (mg/dL) (75-99) mg/dL Calcium 8.2 L (8.4-10.2) mg/dL Magnesium 1.1 L (1.6-2.3) mg/dL Total Creatine Kinase 147 H (30-135) U/L Troponin I 0.038 H* (0.000-0.034) ng/mL Total Protein 6.1 L (6.3-8.2) g/dL Albumin 3.3 L (3.5-5.0) g/dL Urine Appearance (Clear) Urine Protein (Negative) Urine Ketones (Negative) Ur Leukocyte Esterase (Negative) Urine RBC (0-5) /hpf Urine Bacteria (None) /hpf Hyaline Casts (0-2) /lpf Urine Mucus (None) /hpf 04/11/17 04/11/17 Range/Units 00:50 07:19 RBC (3.80-5.40) m/uL Hgb (11.4-16.0) gm/dL Hct (34.0-46.0) % MCHC (31.0-37.0) g/dL RDW (11.5-15.5) % Chloride (98-107) mmol/L Carbon Dioxide (22-30) mmol/L BUN (7-17) mg/dL Creatinine (0.52-1.04) mg/dL Glucose (74-99) mg/dL POC Glucose (mg/dL) 74 L (75-99) mg/dL Calcium (8.4-10.2) mg/dL Magnesium (1.6-2.3) mg/dL Total Creatine Kinase (30-135) U/L Troponin I (0.000-0.034) ng/mL Total Protein (6.3-8.2) g/dL Albumin (3.5-5.0) g/dL Urine Appearance Cloudy H (Clear) Urine Protein 2+ H (Negative) Urine Ketones Trace H (Negative) Ur Leukocyte Esterase Small H (Negative) Urine RBC 10 H (0-5) /hpf Urine Bacteria Rare H (None) /hpf Hyaline Casts 23 H (0-2) /lpf Urine Mucus Occasional H (None) /hpf H & H 04/10/17 Range/Units 17:20 Hgb 9.4 L (11.4-16.0) gm/dL Hct 30.3 L (34.0-46.0) % Coagulation 04/10/17 Range/Units 17:20 INR 1.1 (<1.2) Result Diagrams: 04/11/17 07:40 04/10/17 17:20 Assessment and Plan (1) Proximal humerus fracture Current Visit: Yes Status: Acute Code(s): S42.209A - UNSP FRACTURE OF UPPER END OF UNSP HUMERUS, INIT FOR CLOS FX SNOMED Code(s): 943603404 (2) Fall Current Visit: No Status: Acute Code(s): W19.XXXA - UNSPECIFIED FALL, INITIAL ENCOUNTER SNOMED Code(s): 6752905 Plan: #1. Maintain sling to the left upper extremity. #2. Continue pain control along with ice to the left shoulder. 3. Additional x-rays of the left shoulder are pending. Further recommendations to come. We'll continue to follow the patient closely.
[2017-04-11] MEDS: MULTIVITAMINS, THERA 1 EACH TAB PO SCH ×2 (10:33→10:35)
[2017-04-11] MEDS: METOPROLOL TARTRATE 25 MG TAB PO SCH ×2 (10:33→20:52)
[2017-04-11] MEDS: CLOPIDOGREL 75 MG TAB PO SCH (10:33)
[2017-04-11 10:34] LABS: Albumin 2.5 g/dL (3.5-5.0); Calcium 7.4 mg/dL (8.4-10.2); Magnesium 1.6 mg/dL (1.6-2.3); Phosphorus 3.3 mg/dL (2.5-4.5); Potassium 4.1 mmol/L (3.5-5.1); Total Bilirubin 0.3 mg/dL (0.2-1.3)
[2017-04-11] MEDS: FLUCONAZOLE 100 MG TAB PO SCH (10:34)
[2017-04-11] MEDS: ASPIRIN 81 MG PO SCH (10:34)
[2017-04-11] MEDS: PANTOPRAZOLE 40 MG TABLET PO SCH (10:34)
[2017-04-11] MEDS: diphenhydrAMINE 25 MG CAP PO PRN ×2 (10:41→17:11)
[2017-04-11] MEDS: HYDROcodone/APAP 5-325MG 1 EACH TAB PO PRN (10:41)
--- NOTE | 2017-04-11 11:20 | XR ---
EXAMINATION TYPE: XR shoulder complete LT DATE OF EXAM: 04/11/2017 COMPARISON: 04/09/2017 HISTORY: 76 year-old female left shoulder pain after fall 2 days ago TECHNIQUE: 3 views FINDINGS: Redemonstrated is a fracture of the proximal left humerus. This appears to be a three-part fracture w ith a impacted and laterally displaced and slightly angulated fracture across the surgical neck. The greater tuberosity fracture fragment was better seen previously. There is 3.2 cm of proximal migratio n and 2.8 cm lateral displacement. Some glenohumeral joint subluxation is present without tarun dislo cation. IMPRESSION: Two-part displaced proximal left humerus fracture involving the surgical neck (3.2 cm proximal migrat ion and 2.8 cm lateral displacement). This may be a three-part fracture as a displaced fracture fragm ent relating to the greater tuberosity was seen on the patient's 04/09/2017 exam.
[2017-04-11] MEDS: ONDANSETRON 4 MG/2 ML VIAL IVP PRN ×2 (11:36→18:32)
[2017-04-11] MEDS: MORPHINE SULFATE 2 MG/ML SYRINGE IV PRN (12:25)
[2017-04-11 12:52] LABS: Glucose,Whole Blood 135 mg/dL (75-99)
--- NOTE | 2017-04-11 13:51 | P.PN ---
Subjective Progress Note Date: 04/11/17 Principal diagnosis: dehydration/fall no further bouts of diarrhea,no abdominal pain, no nausea, no vomiting.Still is having pain in her shoulder specially with any movement. Objective - Vital Signs Vital signs: Vital Signs Temp 99.4 F 04/11/17 07:00 Pulse 75 04/11/17 07:00 Resp 18 04/11/17 07:00 BP 145/63 04/11/17 07:00 Pulse Ox 91 L 04/11/17 07:00 Intake & Output 04/10/17 04/11/17 04/11/17 18:59 06:59 18:59 Weight 63.503 kg 70 kg Other: # Voids 1 - Respiratory Respiratory: bilateral: CTA, negative: rales, rhonchi, wheezing - Cardiovascular Rhythm: regular Heart sounds: normal: S1, S2 - Gastrointestinal General gastrointestinal: Present: normal bowel sounds, soft - Integumentary Integumentary Comment(s): bruising appreciated over lt shoulder, swelling, - Musculoskeletal Musculoskeletal Comment(s): sweeling and bruising on lt shoulder, limited mobility secondary to pain - Labs CBC & Chem 7: 04/11/17 07:40 04/11/17 07:40 Labs: Abnormal Lab Results - Last 24 Hours (Table) 04/10/17 04/10/17 04/10/17 Range/Units 17:20 17:20 17:20 RBC 3.25 L (3.80-5.40) m/uL Hgb 9.4 L (11.4-16.0) gm/dL Hct 30.3 L (34.0-46.0) % MCHC 30.9 L (31.0-37.0) g/dL RDW 17.3 H (11.5-15.5) % Plt Count (150-450) k/uL Chloride 109 H (98-107) mmol/L Carbon Dioxide 19 L (22-30) mmol/L BUN 21 H (7-17) mg/dL Creatinine 1.90 H (0.52-1.04) mg/dL Glucose 122 H (74-99) mg/dL POC Glucose (mg/dL) (75-99) mg/dL Calcium 8.2 L (8.4-10.2) mg/dL Magnesium 1.1 L (1.6-2.3) mg/dL Total Creatine Kinase 147 H (30-135) U/L Troponin I 0.038 H* (0.000-0.034) ng/mL Total Protein 6.1 L (6.3-8.2) g/dL Albumin 3.3 L (3.5-5.0) g/dL Urine Appearance (Clear) Urine Protein (Negative) Urine Ketones (Negative) Ur Leukocyte Esterase (Negative) Urine RBC (0-5) /hpf Urine Bacteria (None) /hpf Hyaline Casts (0-2) /lpf Urine Mucus (None) /hpf 04/11/17 04/11/17 04/11/17 Range/Units 00:50 07:19 07:40 RBC 2.64 L (3.80-5.40) m/uL Hgb 7.7 L D (11.4-16.0) gm/dL Hct 24.8 L (34.0-46.0) % MCHC 30.9 L (31.0-37.0) g/dL RDW 16.2 H (11.5-15.5) % Plt Count 149 L (150-450) k/uL Chloride (98-107) mmol/L Carbon Dioxide (22-30) mmol/L BUN (7-17) mg/dL Creatinine (0.52-1.04) mg/dL Glucose (74-99) mg/dL POC Glucose (mg/dL) 74 L (75-99) mg/dL Calcium (8.4-10.2) mg/dL Magnesium (1.6-2.3) mg/dL Total Creatine Kinase (30-135) U/L Troponin I (0.000-0.034) ng/mL Total Protein (6.3-8.2) g/dL Albumin (3.5-5.0) g/dL Urine Appearance Cloudy H (Clear) Urine Protein 2+ H (Negative) Urine Ketones Trace H (Negative) Ur Leukocyte Esterase Small H (Negative) Urine RBC 10 H (0-5) /hpf Urine Bacteria Rare H (None) /hpf Hyaline Casts 23 H (0-2) /lpf Urine Mucus Occasional H (None) /hpf Assessment and Plan (1) Dehydration Narrative/Plan: IVF sec to diarrhea Current Visit: No Status: Acute Code(s): E86.0 - DEHYDRATION SNOMED Code(s ): 51234158 (2) Acute kidney injury Narrative/Plan: sec to dehydration continue IVF Current Visit: No Status: Acute Code(s): N17.9 - ACUTE KIDNEY FAILURE, UNSPECIFIED SNOMED Code(s): 32623119 (3) Acute diarrhea Narrative/Plan: stool cultures sent Current Visit: Yes Status: Acute Code(s): R19.7 - DIARRHEA, UNSPECIFIED SNOMED Code(s): 833507956 (4) Anemia Narrative/Plan: monitor no signs of bleeding Current Visit: Yes Status: Acute Code(s): D64.9 - ANEMIA, UNSPECIFIED SNOMED Code(s): 317992672 (5) Weakness Narrative/Plan: PT/OT acutely worse secondary to dehydration and diarrhea Current Visit: Yes Status: Acute Code(s): R53.1 - WEAKNESS SNOMED Code(s) : 52647253 (6) CAD (coronary artery disease) Narrative/Plan: no chest pain Current Visit: Yes Status: Acute Code(s): I25.10 - ATHSCL HEART DISEASE OF [place] CORONARY ARTERY W/O ANG PCTRS SNOMED Code(s): 66573431 (7) Hypomagnesemia Narrative/Plan: replace Current Visit: Yes Status: Acute Code(s): E83.42 - HYPOMAGNESEMIA SNOMED Code(s): 732732388 (8) Closed left humeral fracture Narrative/Plan: ortho following further xrays ordered Currently in sling pain control Current Visit: No Status: Acute Code(s): S42.302A - UNSP FRACTURE OF SHAFT OF HUMERUS, LEFT ARM, INIT SNOMED Code(s): 03742761 (9) Essential hypertension Narrative/Plan: controlled continue metoprolol hold lotensin Current Visit: No Status: Acute Code(s): I10 - ESSENTIAL (PRIMARY) HYPERTENSION SNOMED Code(s): 02171917 (10) Malnutrition Current Visit: Yes Status: Acute Code(s): E46 - UNSPECIFIED PROTEIN-CALORIE MALNUTRITION SNOMED Code(s): 50408085 (11) Type 2 diabetes mellitus Narrative/Plan: continue acck ac and hs, SSI hold prandin for now Current Visit: No Status: Acute Code(s): E11.9 - TYPE 2 DIABETES MELLITUS WITHOUT COMPLICATIONS SNOMED Code(s): 51634313
[2017-04-11] MEDS ORDERED: HYDROmorphone 0.5 MG/0.5 ML SYRINGE IVP PRN ×4 (14:54→15:05)
[2017-04-11] MEDS ORDERED: HYDROcodone/APAP 5-325MG 1 EACH TAB PO PRN (15:05)
[2017-04-11 17:14] LABS: Glucose,Whole Blood 144 mg/dL (75-99)
[2017-04-11] MEDS: MORPHINE SULFATE 2 MG/ML SYRINGE IVP PRN ×2 (18:16→22:00)
[2017-04-11] MEDS: ATORVASTATIN 40 MG TAB PO SCH (20:52)
[2017-04-11 21:03] LABS: Glucose,Whole Blood 156 mg/dL (75-99)
[2017-04-12] MEDS: SODIUM CHLORIDE 0.9% 1,000 ML IV SCH ×3 (06:00→21:06)
[2017-04-12 07:38] LABS: Glucose,Whole Blood 108 mg/dL (75-99)
[2017-04-12] MEDS: INSULIN ASPART 100 UNIT/ML 1 ML 10 ML VIAL SQ SCH ×4 (07:42→22:16)
[2017-04-12 08:21] LABS: Anisocytosis Slight; HCT 21.9 % (34.0-46.0); Hypochromasia Marked; MCH 28.7 pg (25.0-35.0); MCHC 30.2 g/dL (31.0-37.0); MCV 94.9 fL (80.0-100.0); Mean Platelet Volume 8.1; Platelet Count 141 k/uL (150-450); RBC 2.31 m/uL (3.80-5.40); RDW 16.9 % (11.5-15.5)
[2017-04-12] MEDS: ASPIRIN 81 MG PO SCH (08:24)
[2017-04-12] MEDS: PANTOPRAZOLE 40 MG TABLET PO SCH (08:24)
[2017-04-12] MEDS: HEPARIN SODIUM,PORCINE 5,000 UNIT/ML 1 ML VIAL SQ SCH ×4 (08:24→23:19)
[2017-04-12] MEDS: FLUCONAZOLE 100 MG TAB PO SCH (08:25)
[2017-04-12] MEDS: METOPROLOL TARTRATE 25 MG TAB PO SCH ×2 (08:25→20:59)
[2017-04-12] MEDS: CLOPIDOGREL 75 MG TAB PO SCH (08:25)
[2017-04-12] MEDS: ONDANSETRON 4 MG/2 ML VIAL IVP PRN (08:25)
[2017-04-12 08:30] LABS: HGB 6.6 gm/dL (11.4-16.0)
[2017-04-12 08:35] LABS: Calcium 7.5 mg/dL (8.4-10.2); Potassium 4.5 mmol/L (3.5-5.1)
[2017-04-12] MEDS: MORPHINE SULFATE 2 MG/ML SYRINGE IVP PRN (08:43)
--- NOTE | 2017-04-12 09:35 | P.PN ---
Subjective Progress Note Date: 04/12/17 Principal diagnosis: still with pain today still complaining of pain, daughter says that patient was hallucinating with the morphine. The are concerned with increased sweling also.No shortness of breath,no dizziess,no weakness.No chest pain. Objective - Vital Signs Vital signs: Vital Signs Temp 99.5 F 04/12/17 07:00 Pulse 80 04/12/17 07:00 Resp 14 04/12/17 07:00 BP 154/70 04/12/17 07:00 Pulse Ox 92 L 04/12/17 07:00 Intake & Output 04/11/17 04/12/17 04/12/17 18:59 06:59 18:59 Intake Total 100 Balance 100 Weight 70 kg 71 kg Intake: Intake, IV Titration 100 Amount Ampicillin-Sulbactam 1.5 50 gm In Sodium Chloride 0.9 % 50 ml @ 100 mls/hr IVPB Q12H [facility] Rx#:[id number] Ampicillin-Sulbactam 1.5 50 gm In Sodium Chloride 0.9 % 50 ml @ 100 mls/hr IVPB Q6HR [facility] Rx#:[id number] Other: # Voids 2 2 - Constitutional General appearance: Present: no acute distress - Respiratory Respiratory: bilateral: CTA, negative: wheezing - Cardiovascular Rhythm: regular Heart sounds: normal: S1, S2 - Gastrointestinal General gastrointestinal: Present: normal bowel sounds, soft - Integumentary Integumentary Comment(s): lot of bruising,and swelling on shoulder in lt arm. - Psychiatric Psychiatric: Present: A&O x's 3, intact judgment & insight - Labs CBC & Chem 7: 04/12/17 07:06 04/12/17 07:06 Labs: Abnormal Lab Results - Last 24 Hours (Table) 04/11/17 04/11/17 04/11/17 Range/Units 07:40 12:49 12:56 RBC (3.80-5.40) m/uL Hgb (11.4-16.0) gm/dL Hct (34.0-46.0) % MCHC (31.0-37.0) g/dL RDW (11.5-15.5) % Plt Count (150-450) k/uL Chloride 113 H (98-107) mmol/L Carbon Dioxide (22-30) mmol/L BUN 19 H (7-17) mg/dL Creatinine 1.63 H (0.52-1.04) mg/dL Glucose 58 L (74-99) mg/dL POC Glucose (mg/dL) 135 H (75-99) mg/dL Calcium 7.4 L (8.4-10.2) mg/dL Troponin I 0.087 H* (0.000-0.034) ng/mL Total Protein 5.0 L (6.3-8.2) g/dL Albumin 2.5 L (3.5-5.0) g/dL 04/11/17 04/11/17 04/12/17 Range/Units 16:48 21:00 07:06 RBC 2.31 L (3.80-5.40) m/uL Hgb 6.6 L* (11.4-16.0) gm/dL Hct 21.9 L (34.0-46.0) % MCHC 30.2 L (31.0-37.0) g/dL RDW 16.9 H (11.5-15.5) % Plt Count 141 L (150-450) k/uL Chloride (98-107) mmol/L Carbon Dioxide (22-30) mmol/L BUN (7-17) mg/dL Creatinine (0.52-1.04) mg/dL Glucose (74-99) mg/dL POC Glucose (mg/dL) 144 H 156 H (75-99) mg/dL Calcium (8.4-10.2) mg/dL Troponin I (0.000-0.034) ng/mL Total Protein (6.3-8.2) g/dL Albumin (3.5-5.0) g/dL 04/12/17 04/12/17 Range/Units 07:06 07:35 RBC (3.80-5.40) m/uL Hgb (11.4-16.0) gm/dL Hct (34.0-46.0) % MCHC (31.0-37.0) g/dL RDW (11.5-15.5) % Plt Count (150-450) k/uL Chloride 115 H (98-107) mmol/L Carbon Dioxide 19 L (22-30) mmol/L BUN (7-17) mg/dL Creatinine 1.48 H (0.52-1.04) mg/dL Glucose (74-99) mg/dL POC Glucose (mg/dL) 108 H (75-99) mg/dL Calcium 7.5 L (8.4-10.2) mg/dL Troponin I (0.000-0.034) ng/mL Total Protein (6.3-8.2) g/dL Albumin (3.5-5.0) g/dL Microbiology - Last 24 Hours (Table) 04/11/17 00:50 Urine Culture - Preliminary Urine,Clean Catch Assessment and Plan (1) Dehydration Narrative/Plan: has been on fluid. Will discontinue today Patient tolerating oral intake. Current Visit: No Status: Acute Code(s): E86.0 - DEHYDRATION SNOMED Code(s ): 49752106 (2) Acute kidney injury Narrative/Plan: improving d/c IVF Current Visit: No Status: Acute Code(s): N17.9 - ACUTE KIDNEY FAILURE, UNSPECIFIED SNOMED Code(s): 82205025 (3) Acute diarrhea Narrative/Plan: No further episodes as inpatient. We hae been unable to obtain stool studies. Current Visit: Yes Status: Acute Code(s): R19.7 - DIARRHEA, UNSPECIFIED SNOMED Code(s): 573139600 (4) Anemia Narrative/Plan: worse today Discussed with daughter and patient Will repeat cbc, if hgb confirmed under 7 will transfuse Current Visit: Yes Status: Acute Code(s): D64.9 - ANEMIA, UNSPECIFIED SNOMED Code(s): 371888055 (5) Weakness Narrative/Plan: pt/ot Current Visit: Yes Status: Acute Code(s): R53.1 - WEAKNESS SNOMED Code(s) : 66865955 (6) CAD (coronary artery disease) Narrative/Plan: no chest pain Current Visit: Yes Status: Acute Code(s): I25.10 - ATHSCL HEART DISEASE OF [place] CORONARY ARTERY W/O ANG PCTRS SNOMED Code(s): 41463714 (7) Hypomagnesemia Current Visit: Yes Status: Acute Code(s): E83.42 - HYPOMAGNESEMIA SNOMED Code(s): 623418114 (8) Closed left humeral fracture Narrative/Plan: await there eval of repet xrays, no apparent plans for surgery Current Visit: No Status: Acute Code(s): S42.302A - UNSP FRACTURE OF SHAFT OF HUMERUS, LEFT ARM, INIT SNOMED Code(s): 11370807 (9) Essential hypertension Narrative/Plan: controlled continue metoprolol hold lotensin Current Visit: No Status: Acute Code(s): I10 - ESSENTIAL (PRIMARY) HYPERTENSION SNOMED Code(s): 11339811 (10) Malnutrition Current Visit: Yes Status: Acute Code(s): E46 - UNSPECIFIED PROTEIN-CALORIE MALNUTRITION SNOMED Code(s): 79523069 (11) Type 2 diabetes mellitus Narrative/Plan: controlled metformin and glipizide on hold Current Visit: No Status: Acute Code(s): E11.9 - TYPE 2 DIABETES MELLITUS WITHOUT COMPLICATIONS SNOMED Code(s): 03989765 (12) Troponin level elevated Narrative/Plan: echo ordered cardiology to follow echo ordered Current Visit: Yes Status: Acute Code(s): R74.8 - ABNORMAL LEVELS OF OTHER SERUM ENZYMES SNOMED Code(s): 153842480 (13) Arm swelling Narrative/Plan: will order doppler of upper extremity to rule out hematoma Current Visit: Yes Status: Acute Code(s): M79.89 - OTHER SPECIFIED SOFT TISSUE DISORDERS SNOMED Code(s): 977829943
[2017-04-12] MEDS ORDERED: Magnesium Replacement Protocol 1 EACH MISC MISCELLANE PRN (10:36)
--- NOTE | 2017-04-12 10:44 | P.CRDCN ---
History of Present Illness Consult date: 04/12/17 History of present illness: Mrs. Leon is a pleasant 76-yr-old female with past medical history significant for coronary artery disease, systolic heart failure EF 40-45 %, COPD, diabetes mellitus, gastoresophageal reflux disease, hypertension, dyslipidemia, brain aneurysm, peripheral vascular disease, former tobacco use and GI bleedings. She follows with Dr. Pittman at the office. She presented to the hospital after suffering a left humeral fracture secondary to a mechanical fall 04/09. She was sent home and had increased nausea, vomiting and weakness. During routine lab evaluation her troponin levels were found to be elevated 0.022, 0.038 and 0.087. At the of my exam she is seen sitting up eating breakfast with her daughter at the bedside. She denies ever having had chest pain, shortness of breath, dizziness, palpitations or diaphoresis related to this fall. The fall was strictly mechanical. She has significant bruising to the left shoulder and chest wall. Orthopaedics is also following the patient. EKG reveals left bundle branch block which is consistent with old EKG's. Chest xray is negative for an acute cardiopulmonary process with evidence of left humeral fracture. Recent cardiac catheterization 08/2016 was reviewed and revealed in-stent restenosis of RCA, 30% narrowing of the left main, 30-35% calcification of the LAD, 50% ostial lesion of the circumflex as well as 40-50% lesion of the proximal portion. Medical management was advised at that time. Echocardiogram reviewed from 08/2016 reveals decreased LV systolic function with EF 40-45%, mildly thickened aortic valve, mild MR, mild TR, moderate concentric left ventricular hypertrophy and severely dilated left atrium. Laboratory data reviewed, hgb 6.6, platelets 141, potassium 4.5, magnesium 1.1, BUN 17, creatinine 1.48, troponin 0.022, 0.038, 0.087. Current cardiac medications include Lopressor 25 mg twice a day, Plavix 75 mg daily, benazepril 5 mg daily, atorvastatin 40 mg daily and aspirin 81 mg daily. Review of Systems CONSTITUTIONAL: Denies fever. Denies chills. EYES: Denies blurred vision. Denies vision changes. Denies eye pain. EARS, NOSE, MOUTH & THROAT: Denies headache. Denies sore throat. Denies ear pain. CARDIOVASCULAR: Denies chest pain. Denies shortness of breath. Denies orthopnea. Denies PND. Denies palpitations. RESPIRATORY: Denies cough. GASTROINTESTINAL: Denies abdominal pain. Denies diarrhea. Denies constipation. Complains of nausea. Denies vomiting. MUSCULOSKELETAL: Complains of pain to the left shoulder and arm. INTEGUMENTARY: Denies pruitis. Denies rash. Complains of bruising left shoulder and chest. NEUROLOGIC: Denies numbness. Denies tingling. Denies weakness. PSYCHIATRIC: Denies anxiety. Denies depression. ENDOCRINE: Denies fatigue. Denies weight change. Denies polydipsia. Denies polyurina. GENITOURINARY: Denies burning, hematuria or urgency with micturation. HEMATOLOGIC: Positive history of anemia. Denies bleeding. Past Medical History Past Medical History: Coronary Artery Disease (CAD), Chest Pain / Angina, Heart Failure, COPD, Diabetes Mellitus, GERD/Reflux, GI Bleed, Hyperlipidemia, Hypertension, Myocardial Infarction (PR), Osteoarthritis (OA) Additional Past Medical History / Comment(s): NIDDM, chronic L knee pain, generalized arthiritis, anemia, back pain.sinus infections. 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 Stent in leg. Subclavian bypass. PTCA's, EGD with cauterized arterovenous malformation, colonoscopy, L hand's index finger amputation, R hand 's thumb tendon repair, R elbow replacement, subclavian steel surgery-"new veins in my neck." sinus sx, Past Anesthesia/Blood Transfusion Reactions: No Reported Reaction Additional Past Anesthesia/Blood Transfusion Reaction / Comment(s): Pt has recieved blood in the past without reaction. Date of Last Stent Placement:: 2010 Past Psychological History: Anxiety, Depression Smoking Status: Former smoker Past Alcohol Use History: None Reported Past Drug Use History: None Reported - Past Family History Father History Unknown: Yes Mother Family Medical History: Cancer Additional Family Medical History / Comment(s): Mother had lung cancer. Medications and Allergies Home Medications Medication Instructions Recorded Confirmed Type Clopidogrel [Plavix] 75 mg PO DAILY 09/16/14 04/10/17 History Pantoprazole Sodium 40 mg PO DAILY 09/16/14 04/10/17 History Repaglinide [Prandin] 1 mg PO BID 09/16/14 04/10/17 History ALPRAZolam [Xanax] 0.5 mg PO BID PRN 04/17/15 04/10/17 History Atorvastatin [Lipitor] 40 mg PO HS #30 tab 04/19/15 04/10/17 Rx Aspirin [Adult Low Dose Aspirin EC] 81 mg PO DAILY 02/03/16 04/10/17 History Multivitamins, Thera [Multivitamin 1 tab PO DAILY 02/03/16 04/10/17 History (formulary)] Benazepril [Lotensin] 5 mg PO DAILY #1 tablet 05/31/16 04/10/17 Rx Metoprolol Tartrate [Lopressor] 25 mg PO BID #0 05/31/16 04/10/17 Rx Nitroglycerin Sl Tabs [Nitrostat] 0.4 mg SUBLINGUAL Q5M PRN 09/04/16 04/10/17 History Famotidine [Pepcid] 20 mg PO DAILY #30 tab 04/03/17 04/10/17 Rx Fluconazole [Diflucan] 100 mg PO DAILY 21 Days #21 tab 04/03/17 04/10/17 Rx Ondansetron HCl [Zofran Oral Soln] 4 mg PO Q6H PRN 20 Days #20 04/03/17 Rx solution Ergocalciferol (Vitamin D2) 50,000 unit PO WEEKLY #8 capsule 04/04/17 04/10/17 Rx [Vitamin D2] HYDROcodone/APAP 5-325MG [[place] 1 tab PO Q6HR PRN #12 tab 04/09/17 04/10/17 Rx 5-325] HYDROmorphone [Dilaudid] 1 mg PO Q6HR PRN #12 tab 04/09/17 04/10/17 Rx Allergies Allergy/AdvReac Type Severity Reaction Status Date / Time acetaminophen [From Tylenol] Allergy Anaphylaxis Verified 04/10/17 17:01 blue dye Allergy Anaphylaxis Verified 04/10/17 17:01 clonidine [From Catapres] Allergy Unknown Verified 04/10/17 17:01 iodine Allergy Unknown Verified 04/10/17 17:01 monosodium glutamate [MSG] Allergy Anaphylaxis Verified 04/10/17 17:01 ofloxacin [From Floxin] Allergy Anaphylaxis Verified 04/10/17 17:01 piroxicam [From Feldene] Allergy Unknown Verified 04/10/17 17:01 red dye Allergy Anaphylaxis Verified 04/10/17 17:01 Sulfa (Sulfonamide Allergy Anaphylaxis Verified 04/10/17 17:01 Antibiotics) tramadol [From Ultram] Allergy Anaphylaxis Verified 04/10/17 17:01 bisoprolol [From Ziac] AdvReac Unknown Verified 04/10/17 17:01 glipizide AdvReac Unknown Verified 04/10/17 17:01 hydrochlorothiazide AdvReac Unknown Verified 04/10/17 17:01 [From Ziac] metformin AdvReac Unknown Verified 04/10/17 17:01 sertraline [From Zoloft] AdvReac Hallucinati Verified 04/10/17 17:01 ons triamterene [From Dyazide] AdvReac Unknown Verified 04/10/17 17:01 Physical Exam Vitals: Vital Signs Temp Pulse Resp BP Pulse Ox 04/12/17 07:00 99.5 F 80 14 154/70 92 L 04/11/17 23:00 98.9 F 73 17 140/65 92 L 04/11/17 20:56 95 153/78 04/11/17 15:00 97.0 F L 70 18 158/70 94 L Intake and Output 04/11/17 04/12/17 04/12/17 22:59 06:59 14:59 Intake Total 100 Balance 100 Intake: Intake, IV Titration 100 Amount Ampicillin-Sulbactam 1.5 50 gm In Sodium Chloride 0.9 % 50 ml @ 100 mls/hr IVPB Q12H [facility] Rx#:[id number] Ampicillin-Sulbactam 1.5 50 gm In Sodium Chloride 0.9 % 50 ml @ 100 mls/hr IVPB Q6HR [facility] Rx#:[id number] Other: # Voids 2 Weight 71 kg Blood pressure 154/70 heart rate 80 afebrile GENERAL: This is a 76-year-old female in no apparent distress at the time of my examination. HEENT: Head is atraumatic, normocephalic. Pupils are equal, round. Sclerae anicteric. Conjunctivae are clear. Mucous membranes of the mouth are moist. Neck is supple. There is no jugular venous distention. No carotid bruit is heard. LUNGS: Clear to auscultation no wheezes, rales or rhonchi. No chest wall tenderness is noted on palpation or with deep breathing. Diminished HEART: Regular rate and rhythm with systolic ejection murmur at the base, no rubs or gallops. S1 and S2 heard. ABDOMEN: Soft, nontender. Bowel sounds are heard. No organomegaly noted. EXTREMITIES: No evidence of peripheral edema and no calf tenderness noted. Left shoulder, arm and chest wall ecchymosis. VASCULAR: 2+ radial and dorsalis pedis pulses. NEUROLOGIC: Patient is awake, alert and oriented x3. Results 04/12/17 07:06 04/12/17 07:06 Cardiac Enzymes 04/11/17 04/11/17 Range/Units 07:40 12:56 AST 20 (14-36) U/L Troponin I 0.087 H* (0.000-0.034) ng/mL CBC 04/12/17 Range/Units 07:06 WBC 6.0 (3.8-10.6) k/uL RBC 2.31 L (3.80-5.40) m/uL Hgb 6.6 L* (11.4-16.0) gm/dL Hct 21.9 L (34.0-46.0) % Plt Count 141 L (150-450) k/uL Comprehensive Metabolic Panel 04/11/17 04/12/17 Range/Units 07:40 07:06 Sodium 142 141 (137-145) mmol/L Potassium 4.1 4.5 (3.5-5.1) mmol/L Chloride 113 H 115 H (98-107) mmol/L Carbon Dioxide 22 19 L (22-30) mmol/L BUN 19 H 17 (7-17) mg/dL Creatinine 1.63 H 1.48 H (0.52-1.04) mg/dL Glucose 58 L 97 (74-99) mg/dL Calcium 7.4 L 7.5 L (8.4-10.2) mg/dL AST 20 (14-36) U/L ALT 29 (9-52) U/L Alkaline Phosphatase 64 (38-126) U/L Total Protein 5.0 L (6.3-8.2) g/dL Albumin 2.5 L (3.5-5.0) g/dL Current Medications Generic Name Dose Route Start Last Admin Trade Name Freq PRN Reason Stop Dose Admin Hydrocodone Bitart/Acetaminophen 2 each 04/11/17 15:05 [place] 5-325 PO Q6HR PRN Pain Scale 6 to 10 Hydrocodone Bitart/Acetaminophen 1 each 04/11/17 15:05 [place] 5-325 PO Q6HR PRN Pain Scale 1 to 5 Alprazolam 0.5 mg 04/10/17 20:49 Xanax PO BID PRN Anxiety/Insomnia Aspirin 81 mg 04/11/17 09:00 04/12/17 08:24 Aspirin PO 81 mg DAILY [facility] Administration Atorvastatin Calcium 40 mg 04/10/17 21:00 04/11/17 20:52 Lipitor PO 40 mg HS [facility] Administration Clopidogrel Bisulfate 75 mg 04/11/17 09:00 04/12/17 08:25 Plavix PO 75 mg DAILY [facility] Administration Diphenhydramine HCl 25 mg 04/11/17 09:58 04/11/17 17:11 Benadryl PO 25 mg QID PRN Administration Itching Fluconazole 100 mg 04/11/17 09:00 04/12/17 08:25 Diflucan PO 04/26/17 09:01 100 mg DAILY [facility] Administration Heparin Sodium (Porcine) 5,000 unit 04/11/17 00:00 04/12/17 08:41 Heparin SQ Not Given Q8HR [facility] Sodium Chloride 1,000 mls @ 115 mls/hr 04/10/17 19:00 04/12/17 06:00 Saline 0.9% IV Not Given .Q8H42M [facility] Ampicillin Sodium/Sulbactam 50 mls @ 100 mls/hr 04/12/17 00:00 04/11/17 23:51 Sodium 1.5 gm/ Sodium Chloride IVPB 100 mls/hr Q12H [facility] Administration Insulin Aspart 0 unit 04/11/17 07:30 04/12/17 07:42 Novolog SQ Not Given ACHS [facility] Protocol Metoprolol Tartrate 25 mg 04/10/17 21:00 04/12/17 08:25 Lopressor PO 25 mg BID [facility] Administration Morphine Sulfate 4 mg 04/11/17 17:48 04/12/17 08:43 Morphine Sulfate (Inj) IVP 4 mg Q4HR PRN Administration Pain/Discomfort Multivitamins 1 each 04/11/17 12:00 04/11/17 10:35 Theragran PO Not Given 1200 [facility] Naloxone HCl 0.2 mg 04/10/17 18:46 Narcan IV Q2M PRN Opioid Reversal Nitroglycerin 0.4 mg 04/10/17 20:49 Nitrostat SUBLINGUAL Q5M PRN Pain Ondansetron HCl 4 mg 04/10/17 18:46 04/12/17 08:25 Zofran IVP 4 mg Q8HR PRN Administration Nausea And Vomiting Pantoprazole Sodium 40 mg 04/11/17 07:30 04/12/17 08:24 Protonix PO 40 mg AC-[id number] [facility] Administration Intake and Output 04/11/17 04/12/17 04/12/17 22:59 06:59 14:59 Intake Total 100 Balance 100 Intake: Intake, IV Titration 100 Amount Ampicillin-Sulbactam 1.5 50 gm In Sodium Chloride 0.9 % 50 ml @ 100 mls/hr IVPB Q12H [facility] Rx#:[id number] Ampicillin-Sulbactam 1.5 50 gm In Sodium Chloride 0.9 % 50 ml @ 100 mls/hr IVPB Q6HR [facility] Rx#:[id number] Other: # Voids 2 Weight 71 kg 04/12/17 07:06 04/12/17 07:06 Assessment and Plan Assessment: ASSESSMENT 1. Mildly elevated troponin, secondary to acute anemia and acute kidney injury 2. History of chronic stable coronary artery disease, recent cardiac catheterization reviewed. Continue lopressor, aspirin and plavix. 3. Chronic stable systolic heart failure, currently compensated 4. Left humeral fracture, orthopaedics is following 5. Normocytic normochromic anemia 6. Hypertension, continue benazapril 7. Dyslipidemia, continue atorvastatin 8. Diabetes mellitus 9. Hypomagnesemia PLAN Troponin elevation is not reflective of an acute coronary event. Replace magnesium per protocol. Anemia management per primary medical team. Add small dose of long acting nitrates in the form of imdur 15 mg daily. We will defer repeating an echocardiogram at this time secondary to excessive bruising and pain to the chest wall. She can follow up with Dr. Pittman at regularly scheduled follow-up. Thank you kindly for this consultation. The above impression and plan of care have been discussed and directed by the signing physician. Letty Pisano, nurse practitioner, acting as scribe for signing physician.
[2017-04-12] MEDS: ISOSORBIDE MONONITRATE ER 15 MG TAB PO SCH (10:54)
[2017-04-12] MEDS: MAGNESIUM SULFATE-D5W PMX 1 GM in DEXTROSE/WATER 1 100ML.BAG IVPB SCH ×3 (10:54→14:37)
--- NOTE | 2017-04-12 11:28 | US ---
EXAMINATION TYPE: US venous doppler duplex UE LT DATE OF EXAM: 04/12/2017 COMPARISON: NONE CLINICAL HISTORY: evaluate for hematoma; patient stated fell on left shoulder and arm suffering injur y with bruising to these areas; patient unable to externally rotate left arm or abduct left arm and i s in sling. SIDE PERFORMED: left Exam is technically limited for full arm vein assessment due to the above stated. Left Arm: Negative for DVT at left IJV, Subclavian Vein, Axillary Vein upper Brachial Veins, and Righ t IJV; negative for SVT at upper Left Cephalic Vein. At left shoulder ecchymosis anterior edema chann els are noted with additional complex hypoechoic area = 2.8 x 1.6 x 0.7cm and seen at 1and 2 cm pos terior skin line. At left upper arm severe area of ecchymosis edematous channels are imaged within 3 cm from skin line. IMPRESSION: 1. No evidence for DVT at this time. 2. Left upper extremity edema of uncertain etiology. Small hematoma suspected.
[2017-04-12 11:36] LABS: Glucose,Whole Blood 162 mg/dL (75-99)
[2017-04-12] MEDS: MULTIVITAMINS, THERA 1 EACH TAB PO SCH (11:50)
[2017-04-12] MEDS: AMPICILLIN-SULBACTAM 1.5 GM in SODIUM CHLORIDE 0.9% 50 ML IVPB SCH ×2 (11:56→23:19)
[2017-04-12] MEDS: diphenhydrAMINE 25 MG CAP PO PRN ×2 (13:07→21:00)
[2017-04-12 13:43] LABS: Anisocytosis Slight; HCT 23.6 % (34.0-46.0); HGB 7.2 gm/dL (11.4-16.0); Hypochromasia Moderate; MCH 29.3 pg (25.0-35.0); MCHC 30.3 g/dL (31.0-37.0); MCV 96.8 fL (80.0-100.0); Mean Platelet Volume 7.4; Platelet Count 166 k/uL (150-450); RBC 2.44 m/uL (3.80-5.40); RDW 16.2 % (11.5-15.5); WBC 6.7 k/uL (3.8-10.6)
[2017-04-12] MEDS: HYDROcodone/APAP 5-325MG 1 EACH TAB PO PRN ×2 (17:01→23:20)
[2017-04-12 17:18] LABS: Glucose,Whole Blood 185 mg/dL (75-99)
[2017-04-12] MEDS: ATORVASTATIN 40 MG TAB PO SCH (20:59)
[2017-04-12 21:15] LABS: Glucose,Whole Blood 223 mg/dL (75-99)
[2017-04-13 08:01] LABS: Glucose,Whole Blood 130 mg/dL (75-99)
[2017-04-13] MEDS: ISOSORBIDE MONONITRATE ER 15 MG TAB PO SCH (08:04)
[2017-04-13] MEDS: ASPIRIN 81 MG PO SCH (08:04)
[2017-04-13] MEDS: CLOPIDOGREL 75 MG TAB PO SCH (08:04)
[2017-04-13] MEDS: INSULIN ASPART 100 UNIT/ML 1 ML 10 ML VIAL SQ SCH ×4 (08:04→21:16)
[2017-04-13] MEDS: FLUCONAZOLE 100 MG TAB PO SCH (08:04)
[2017-04-13] MEDS: METOPROLOL TARTRATE 25 MG TAB PO SCH ×2 (08:04→20:31)
[2017-04-13] MEDS: HEPARIN SODIUM,PORCINE 5,000 UNIT/ML 1 ML VIAL SQ SCH ×3 (08:04→23:54)
[2017-04-13] MEDS: PANTOPRAZOLE 40 MG TABLET PO SCH (08:04)
[2017-04-13] MEDS: HYDROcodone/APAP 5-325MG 1 EACH TAB PO PRN (08:09)
[2017-04-13 08:31] LABS: Calcium 8.4 mg/dL (8.4-10.2); Potassium 4.4 mmol/L (3.5-5.1)
[2017-04-13 08:45] LABS: Anisocytosis Slight; HCT 23.2 % (34.0-46.0); Hypochromasia Marked; MCH 28.9 pg (25.0-35.0); MCHC 30.1 g/dL (31.0-37.0); MCV 96.3 fL (80.0-100.0); Macrocytosis Slight; Mean Platelet Volume 8.1; Platelet Count 179 k/uL (150-450); RBC 2.41 m/uL (3.80-5.40); RDW 17.9 % (11.5-15.5); WBC 5.6 k/uL (3.8-10.6)
[2017-04-13] MEDS: SODIUM CHLORIDE 0.9% 1,000 ML IV SCH (08:48)
--- NOTE | 2017-04-13 09:02 | P.PN ---
Subjective Progress Note Date: 04/13/17 This is a 76-year-old female who was admitted after a fall. Patient sustained a fracture of the left proximal humerus. Patient is seen and evaluated at bedside with Dr. Greg Dumont. Patient states the left shoulder continues to be very painful. Patient denies any new complaints today. Objective - Vital Signs Vital signs: Vital Signs Temp 97.6 F 04/13/17 05:54 Pulse 75 04/13/17 05:54 Resp 17 04/13/17 05:54 BP 144/70 04/13/17 05:54 Pulse Ox 93 L 04/13/17 05:54 Intake & Output 04/12/17 04/13/17 04/13/17 18:59 06:59 18:59 Weight 71.5 kg Other: # Voids 1 1 - Exam On exam patient is alert and oriented and in no acute distress. Sling intact to left upper extremity. There is significant ecchymosis of the left shoulder. Sensation intact. Patient has full range of motion of the left wrist and hand. Neurovascular status and circulatory status are intact. - Labs CBC & Chem 7: 04/12/17 13:15 04/13/17 07:22 Labs: Abnormal Lab Results - Last 24 Hours (Table) 04/12/17 04/12/17 04/12/17 Range/Units 11:23 13:15 17:12 RBC 2.44 L (3.80-5.40) m/uL Hgb 7.2 L (11.4-16.0) gm/dL Hct 23.6 L (34.0-46.0) % MCHC 30.3 L (31.0-37.0) g/dL RDW 16.2 H (11.5-15.5) % Chloride (98-107) mmol/L Carbon Dioxide (22-30) mmol/L BUN (7-17) mg/dL Creatinine (0.52-1.04) mg/dL Glucose (74-99) mg/dL POC Glucose (mg/dL) 162 H 185 H (75-99) mg/dL 04/12/17 04/13/17 04/13/17 Range/Units 21:13 07:22 07:27 RBC (3.80-5.40) m/uL Hgb (11.4-16.0) gm/dL Hct (34.0-46.0) % MCHC (31.0-37.0) g/dL RDW (11.5-15.5) % Chloride 114 H (98-107) mmol/L Carbon Dioxide 19 L (22-30) mmol/L BUN 18 H (7-17) mg/dL Creatinine 1.49 H (0.52-1.04) mg/dL Glucose 117 H (74-99) mg/dL POC Glucose (mg/dL) 223 H 130 H (75-99) mg/dL Microbiology - Last 24 Hours (Table) 04/11/17 00:50 Urine Culture - Final Urine,Clean Catch Aerococcus urinae Assessment and Plan (1) Proximal humerus fracture Current Visit: Yes Status: Acute Code(s): S42.209A - UNSP FRACTURE OF UPPER END OF UNSP HUMERUS, INIT FOR CLOS FX SNOMED Code(s): 926508329 (2) Fall Current Visit: No Status: Acute Code(s): W19.XXXA - UNSPECIFIED FALL, INITIAL ENCOUNTER SNOMED Code(s): 9749763 Plan: #1. Maintain sling to the left upper extremity. #2. Continue pain control along with ice to the left shoulder. 3. X-rays of the left shoulder are reviewed and show a 2 part displaced proximal humerus fracture involving the surgical neck. Discussed possibility for surgery vs conservative management with patient. Will also discuss options with patient's daughter Krista who is the patient's power of civil attorney. Further recommendations to come. We'll continue to follow the patient closely.
--- NOTE | 2017-04-13 10:16 | P.PN ---
Subjective Progress Note Date: 04/13/17 Principal diagnosis: fall/debility Patient is a 76-year-old female to past medical history of diabetes mellitus, hypertension, dyslipidemia, and chronic kidney disease who presented to the emergency department with uncontrolled left shoulder pain, inadequate oral intake, and nausea. She had been to the ER the day before after having a fall without loss of consciousness. She underwent a head CT due to being on Plavix and aspirin which was negative. Further imaging did reveal a fracture to the left humerus. She was placed in an arm sling and was discharged home with outpatient orthopedic follow-up. However she represented to do it to inadequate oral intake, nausea, and left shoulder pain. After she left the hospital she did not take her prescribed antibiotic for the urinary tract infection due to diarrhea that was nonbloody. She was admitted due to inability to care for herself at home and possible urinary tract infection. She was seen by orthopedics who recommended further imaging of the left humerus. She was also discovered to have acute kidney injury with dehydration and was started on IV fluids. Hemoglobin was decreasing but she denied any blood in her stools or vomiting up blood. She was noted to have extensive bruising over her left shoulder. Her hemoglobin continued to fall and the lowest was 6.6. She is ordered a unit of packed red blood cells, however family declined. An ultrasound of her left upper extremity demonstrated probable hematoma and diffuse ecchymosis. She was reevaluated by ortho who recommended surgery if ASA and plavix could be held. Family was again contacted regarding the blood transfusion by nursing as was in agreement. Cardiology was contacted and stated that her ASA and plavix could be held. Patient seen and examined at bedside. She complains of pain in her left arm when moving her shoulder. She also complains of nausea. She feels as though she needs to sleep. She has no other complaints currently. Objective - Vital Signs Vital signs: Vital Signs Temp 97.6 F 04/13/17 05:54 Pulse 75 04/13/17 05:54 Resp 17 04/13/17 05:54 BP 144/70 04/13/17 05:54 Pulse Ox 93 L 04/13/17 05:54 Intake & Output 04/12/17 04/13/17 04/13/17 18:59 06:59 18:59 Weight 71.5 kg Other: # Voids 1 1 - Exam General: non toxic, mild distress, appears at stated age Derm: Large area of ecchymosis over left arm and chest wall warm, dry Head: atraumatic, normocephalic, symmetric Eyes: EOMI, no lid lag, anicteric sclera Mouth: no lip lesion, mucus membranes moist Cardiovascular: S1S2 reg, no murmur, positive posterior tibial pulse bilateral, Lungs: decreased bs b/l bases, no rhonchi, no rales , no accessory muscle use Abdominal: soft, nontender to palpation, no guarding, no appreciable organomegaly Ext: no gross muscle atrophy, no edema, no contractures Neuro: CN II-XI grossly intact, no focal neuro deficits Psych: Alert, oriented, appropriate affect - Labs CBC & Chem 7: 04/13/17 07:22 04/13/17 07:22 Labs: Abnormal Lab Results - Last 24 Hours (Table) 04/12/17 04/12/17 04/12/17 Range/Units 11:23 13:15 17:12 RBC 2.44 L (3.80-5.40) m/uL Hgb 7.2 L (11.4-16.0) gm/dL Hct 23.6 L (34.0-46.0) % MCHC 30.3 L (31.0-37.0) g/dL RDW 16.2 H (11.5-15.5) % Chloride (98-107) mmol/L Carbon Dioxide (22-30) mmol/L BUN (7-17) mg/dL Creatinine (0.52-1.04) mg/dL Glucose (74-99) mg/dL POC Glucose (mg/dL) 162 H 185 H (75-99) mg/dL 04/12/17 04/13/17 04/13/17 Range/Units 21:13 07:22 07:22 RBC 2.41 L (3.80-5.40) m/uL Hgb 7.0 L* (11.4-16.0) gm/dL Hct 23.2 L (34.0-46.0) % MCHC 30.1 L (31.0-37.0) g/dL RDW 17.9 H (11.5-15.5) % Chloride 114 H (98-107) mmol/L Carbon Dioxide 19 L (22-30) mmol/L BUN 18 H (7-17) mg/dL Creatinine 1.49 H (0.52-1.04) mg/dL Glucose 117 H (74-99) mg/dL POC Glucose (mg/dL) 223 H (75-99) mg/dL 04/13/17 Range/Units 07:27 RBC (3.80-5.40) m/uL Hgb (11.4-16.0) gm/dL Hct (34.0-46.0) % MCHC (31.0-37.0) g/dL RDW (11.5-15.5) % Chloride (98-107) mmol/L Carbon Dioxide (22-30) mmol/L BUN (7-17) mg/dL Creatinine (0.52-1.04) mg/dL Glucose (74-99) mg/dL POC Glucose (mg/dL) 130 H (75-99) mg/dL Microbiology - Last 24 Hours (Table) 04/11/17 00:50 Urine Culture - Final Urine,Clean Catch Aerococcus urinae Assessment and Plan Assessment: Left humeral fracture - pain control - d/w ortho off ASA and plavix X 7 days, then surgery likely next Tuesday - Heparin SC - hematoma left arm on US Acute blood loss anemia, likely due to hematoma - 1 unit pRBC - check iron studies - follow CBC Fall with debility - PT/OT - fall precautions Aerococcus UTI, POA not cath associated - continue with unasyn DM 2 - SSI, follow BS - HgB A1C 6.3 Deja esophagitis - continue with diflucan though 04/25 Chronic systolic CHF EF 40-45% - metoprolol - ACEI - Currently compensated - Cardio recs CAD - Hold ASA and plavix with impending surgery - cardio recs Elevated troponin - stress induced and secondary to CKD - Outpatient f/u with - no need for echo at this point in time mild protein calorie malnutrition - continue with supplements YONY, resolved Hypomagnesemia, resolved Chronic: HLD HTN CKD 3
[2017-04-13] MEDS: AMPICILLIN-SULBACTAM 1.5 GM in SODIUM CHLORIDE 0.9% 50 ML IVPB SCH ×2 (11:09→23:54)
[2017-04-13 13:03] LABS: Glucose,Whole Blood 136 mg/dL (75-99)
--- NOTE | 2017-04-13 13:22 | P.PN ---
Subjective Progress Note Date: 04/13/17 Mrs. Leon is a pleasant 76-yr-old female with past medical history significant for coronary artery disease, systolic heart failure EF 40-45 %, COPD, diabetes mellitus, gastoresophageal reflux disease, hypertension, dyslipidemia, brain aneurysm, peripheral vascular disease, former tobacco use and GI bleedings. She follows with Dr. Pittman at the office. She presented to the hospital after suffering a left humeral fracture secondary to a mechanical fall 04/09. She was sent home and had increased nausea, vomiting and weakness. During routine lab evaluation her troponin levels were found to be elevated 0.022, 0.038 and 0.087. At the of my exam she is seen sitting up eating breakfast with her daughter at the bedside. She denies ever having had chest pain, shortness of breath, dizziness, palpitations or diaphoresis related to this fall. The fall was strictly mechanical. She has significant bruising to the left shoulder and chest wall. Orthopaedics is also following the patient. EKG reveals left bundle branch block which is consistent with old EKG's. Chest xray is negative for an acute cardiopulmonary process with evidence of left humeral fracture. Recent cardiac catheterization 08/2016 was reviewed and revealed in-stent restenosis of RCA, 30% narrowing of the left main, 30-35% calcification of the LAD, 50% ostial lesion of the circumflex as well as 40-50% lesion of the proximal portion. Medical management was advised at that time. Echocardiogram reviewed from 08/2016 reveals decreased LV systolic function with EF 40-45%, mildly thickened aortic valve, mild MR, mild TR, moderate concentric left ventricular hypertrophy and severely dilated left atrium. Laboratory data reviewed, hgb 6.6, platelets 141, potassium 4.5, magnesium 1.1, BUN 17, creatinine 1.48, troponin 0.022, 0.038, 0.087. Current cardiac medications include Lopressor 25 mg twice a day, Plavix 75 mg daily, benazepril 5 mg daily, atorvastatin 40 mg daily and aspirin 81 mg daily. 04/13/2017 She is seen today resting in bed in no acute distress. She continues to complain of pain and soerness to the left chest wall and shoulder secondary to fracture. She denies shortness of breath, dizziness, palpitations or nausea/ vomiting. Per Dr. Sultana ortho plans to do surgery Tuesday and would like the plavix to be held. Imdur was started yesterday and she is tolerating without incident. Magnesium was replaced yesterday and repeat today is 2.0. Hgb remains low and she is being transfused with hgb 7. Objective - Vital Signs Vital signs: Vital Signs Temp 97.6 F 04/13/17 05:54 Pulse 75 04/13/17 05:54 Resp 17 04/13/17 05:54 BP 144/70 04/13/17 05:54 Pulse Ox 93 L 04/13/17 05:54 Intake & Output 04/12/17 04/13/17 04/13/17 18:59 06:59 18:59 Weight 71.5 kg Other: # Voids 1 1 1 - Exam Blood pressure 144/70 heart rate 75 afebrile GENERAL: Well-appearing, well-nourished and in no acute distress. NECK: Supple without JVD or thyromegaly. LUNGS: Breath sounds clear to auscultation bilaterally. Respiration equal and unlabored. No wheezes, rales or rhonchi. Diminished. HEART: Regular rate and rhythm with systolic ejection murmur at the base, no rubs or gallops. S1 and S2 heard. EXTREMITIES: Left arm in a sling, no edema. No clubbing or cyanosis. Peripheral pulses intact. Left shoulder, arm and chest wall ecchymosis. - Labs CBC & Chem 7: 04/13/17 07:22 04/13/17 07:22 Labs: Abnormal Lab Results - Last 24 Hours (Table) 04/12/17 04/12/17 04/12/17 Range/Units 13:15 17:12 21:13 RBC 2.44 L (3.80-5.40) m/uL Hgb 7.2 L (11.4-16.0) gm/dL Hct 23.6 L (34.0-46.0) % MCHC 30.3 L (31.0-37.0) g/dL RDW 16.2 H (11.5-15.5) % Chloride (98-107) mmol/L Carbon Dioxide (22-30) mmol/L BUN (7-17) mg/dL Creatinine (0.52-1.04) mg/dL Glucose (74-99) mg/dL POC Glucose (mg/dL) 185 H 223 H (75-99) mg/dL Crossmatch 04/13/17 04/13/17 04/13/17 Range/Units 07:22 07:22 07:25 RBC 2.41 L (3.80-5.40) m/uL Hgb 7.0 L* (11.4-16.0) gm/dL Hct 23.2 L (34.0-46.0) % MCHC 30.1 L (31.0-37.0) g/dL RDW 17.9 H (11.5-15.5) % Chloride 114 H (98-107) mmol/L Carbon Dioxide 19 L (22-30) mmol/L BUN 18 H (7-17) mg/dL Creatinine 1.49 H (0.52-1.04) mg/dL Glucose 117 H (74-99) mg/dL POC Glucose (mg/dL) (75-99) mg/dL Crossmatch See Detail 04/13/17 04/13/17 Range/Units 07:27 12:50 RBC (3.80-5.40) m/uL Hgb (11.4-16.0) gm/dL Hct (34.0-46.0) % MCHC (31.0-37.0) g/dL RDW (11.5-15.5) % Chloride (98-107) mmol/L Carbon Dioxide (22-30) mmol/L BUN (7-17) mg/dL Creatinine (0.52-1.04) mg/dL Glucose (74-99) mg/dL POC Glucose (mg/dL) 130 H 136 H (75-99) mg/dL Crossmatch Microbiology - Last 24 Hours (Table) 04/11/17 00:50 Urine Culture - Final Urine,Clean Catch Aerococcus urinae Assessment and Plan Assessment: ASSESSMENT 1. Mildly elevated troponin, secondary to acute anemia and acute kidney injury 2. History of chronic stable coronary artery disease, recent cardiac catheterization reviewed. Continue lopressor, aspirin and plavix. 3. Chronic stable systolic heart failure, currently compensated 4. Left humeral fracture, orthopaedics is following 5. Normocytic normochromic anemia 6. Hypertension, continue benazapril 7. Dyslipidemia, continue atorvastatin 8. Diabetes mellitus 9. Hypomagnesemia PLAN It is reasonable to hold Plavix for impending surgery next week. This should be resumed as soon as possible the postoperative phase. She is stable from a cardiac perspective and we will see her as needed for rest of her hospitalization. Thank you. The above impression and plan of care have been discussed and directed by the signing physician. Letty Pisano, nurse practitioner, acting as scribe for signing physician.
[2017-04-13] MEDS: ONDANSETRON 4 MG/2 ML VIAL IVP PRN (13:26)
--- NOTE | 2017-04-13 14:33 | CT ---
EXAMINATION TYPE: CT shoulder LT wo con DATE OF EXAM: 04/13/2017 COMPARISON: X-ray 04/11/2017 HISTORY: Patient complains of left shoulder/upper arm pain post fall. CT DLP: 409 mGycm Automated exposure control for dose reduction was used. FINDINGS: There is a comminuted fracture of the surgical neck of the left humerus. The humeral shaft displaced laterally relation to the humeral head. Humeral head articulates with the glenoid. Bayonet deformity of the humeral shaft humeral head is evident on the coronal plane images. Three-D reconstructed images performed separately on the [employer] computer by the technologist are film ed and presented for interpretation. IMPRESSION: COMMINUTED DISPLACED FRACTURE OF THE HUMERAL NECK WITH BAYONET DEFORMITY LEFT HUMERUS.
[2017-04-13 15:53] LABS: Iron Saturation 6.55 (12.00-45.00)
[2017-04-13 17:15] LABS: Glucose,Whole Blood 147 mg/dL (75-99)
[2017-04-13] MEDS ORDERED: ACETAMINOPHEN TAB 325 MG TAB PO SCH (19:15)
[2017-04-13] MEDS: ATORVASTATIN 40 MG TAB PO SCH (20:31)
[2017-04-13] MEDS: ACETAMINOPHEN TAB 500 MG TAB PO SCH ×2 (20:32→23:36)
[2017-04-13 20:58] LABS: Glucose,Whole Blood 125 mg/dL (75-99)
[2017-04-13] MEDS: MELATONIN 5 MG TABLET PO SCH (21:16)
[2017-04-14] MEDS: ACETAMINOPHEN TAB 500 MG TAB PO SCH ×3 (05:52→17:15)
[2017-04-14] MEDS: ONDANSETRON 4 MG/2 ML VIAL IVP PRN (06:33)
[2017-04-14 07:21] LABS: Glucose,Whole Blood 117 mg/dL (75-99)
[2017-04-14] MEDS: METOPROLOL TARTRATE 25 MG TAB PO SCH ×2 (07:21→20:51)
[2017-04-14] MEDS: LISINOPRIL 5 MG TAB PO SCH (07:21)
[2017-04-14] MEDS: ISOSORBIDE MONONITRATE ER 15 MG TAB PO SCH (07:21)
[2017-04-14] MEDS: PANTOPRAZOLE 40 MG TABLET PO SCH (07:21)
[2017-04-14] MEDS: HEPARIN SODIUM,PORCINE 5,000 UNIT/ML 1 ML VIAL SQ SCH ×2 (07:21→15:29)
[2017-04-14] MEDS: INSULIN ASPART 100 UNIT/ML 1 ML 10 ML VIAL SQ SCH ×4 (07:21→21:07)
[2017-04-14] MEDS: FLUCONAZOLE 100 MG TAB PO SCH (07:21)
[2017-04-14] MEDS ORDERED: SODIUM FERRIC GLUCONAT-SUCROSE 125 MG in SODIUM CHLORIDE 0.9% 100 ML IVPB ONE (07:30)
[2017-04-14 08:44] LABS: Calcium 8.8 mg/dL (8.4-10.2); Magnesium 1.7 mg/dL (1.6-2.3)
--- NOTE | 2017-04-14 08:49 | P.PN ---
Subjective Progress Note Date: 04/14/17 This is a 76-year-old female who was admitted after a fall. Patient sustained a fracture of the left proximal humerus. Patient is seen and evaluated at bedside today. Patient states she has noticed more swelling in the hand today. Patient reports continued pain in the left shoulder. Objective - Vital Signs Vital signs: Vital Signs Temp 97.8 F 04/14/17 07:00 Pulse 84 04/14/17 07:00 Resp 16 04/14/17 07:00 BP 186/82 04/14/17 07:00 Pulse Ox 92 L 04/14/17 07:00 Intake & Output 04/13/17 04/14/17 04/14/17 18:59 06:59 18:59 Intake Total 310 Balance 310 Weight 72.5 kg Intake: Blood Product 310 Rc As-1 Unit 310 [id number] Other: # Voids 1 2 - Exam On exam patient is alert and oriented and in no acute distress. Sling intact to left upper extremity. There is significant ecchymosis of the left shoulder. Sensation intact. Dressings to right upper extremity are clean, dry and intact. Patient has full range of motion of the left wrist and hand. Capillary refill is normal at <2 seconds. There is swelling of the left hand. Left hand is nontender to palpation. Neurovascular status and circulatory status are intact. - Labs CBC & Chem 7: 04/13/17 07:22 04/13/17 07:22 Labs: Abnormal Lab Results - Last 24 Hours (Table) 04/13/17 04/13/17 04/13/17 Range/Units 07:22 07:22 07:25 RBC 2.41 L (3.80-5.40) m/uL Hgb 7.0 L* (11.4-16.0) gm/dL Hct 23.2 L (34.0-46.0) % MCHC 30.1 L (31.0-37.0) g/dL RDW 17.9 H (11.5-15.5) % POC Glucose (mg/dL) (75-99) mg/dL Iron 15 L (50-170) ug/dL Iron Saturation 6.55 L (12.00-45.00) Crossmatch See Detail 01/17/18 01/17/18 01/17/18 Range/Units 12:50 17:09 20:57 RBC (3.80-5.40) m/uL Hgb (11.4-16.0) gm/dL Hct (34.0-46.0) % MCHC (31.0-37.0) g/dL RDW (11.5-15.5) % POC Glucose (mg/dL) 136 H 147 H 125 H (75-99) mg/dL Iron (50-170) ug/dL Iron Saturation (12.00-45.00) Crossmatch 04/14/17 Range/Units 07:06 RBC (3.80-5.40) m/uL Hgb (11.4-16.0) gm/dL Hct (34.0-46.0) % MCHC (31.0-37.0) g/dL RDW (11.5-15.5) % POC Glucose (mg/dL) 117 H (75-99) mg/dL Iron (50-170) ug/dL Iron Saturation (12.00-45.00) Crossmatch Assessment and Plan (1) Proximal humerus fracture Current Visit: Yes Status: Acute Code(s): S42.209A - UNSP FRACTURE OF UPPER END OF UNSP HUMERUS, INIT FOR CLOS FX SNOMED Code(s): 105260555 (2) Fall Current Visit: No Status: Acute Code(s): W19.XXXA - UNSPECIFIED FALL, INITIAL ENCOUNTER SNOMED Code(s): 1623619 Plan: #1. Maintain sling to the left upper extremity. Elevate left hand. #2. Continue pain control along with ice to the left shoulder. 3. X-rays of the left shoulder are reviewed and show a 2 part displaced proximal humerus fracture involving the surgical neck. Discussed possibility for surgery vs conservative management with patient and daughter. #4. ORIF left proximal humerus is scheduled for 04/19/2017. Plavix is being held per medicine. We'll continue to follow the patient closely.
[2017-04-14 08:54] LABS: Anisocytosis Slight; HCT 27.5 % (34.0-46.0); Hypochromasia Moderate; MCH 29.8 pg (25.0-35.0); MCHC 31.4 g/dL (31.0-37.0); MCV 94.8 fL (80.0-100.0); Mean Platelet Volume 9.1; Platelet Count 176 k/uL (150-450); RDW 17.7 % (11.5-15.5)
[2017-04-14 08:56] LABS: HGB 8.7 gm/dL (11.4-16.0)
[2017-04-14] MEDS ORDERED: ALPRAZolam 0.25 MG TAB PO PRN (09:53)
[2017-04-14] MEDS ORDERED: CALCIUM CARBONATE 500 MG CHEWABLE PO PRN (09:55)
--- NOTE | 2017-04-14 09:55 | P.PN ---
Progress Note - Text Progress Note Date: 04/13/17 Hospitalist interval note: Delayed charting seen on 04/13 at 1850 See patient regarding increased confusion. Patient was alert and oriented 3. She is aware that she is having some hallucinating episodes. Daughter states that this is new behaviors. I did discuss that she is not having any neuro changes as her neuro exam is normal. We feel this is likely acute delirium. We will monitor her with neuro checks. After much discussion we do not feel that a repeat head CT is order, and daughter is in agreement. We'll start her on scheduled Tylenol to see if she is having any untreated pain related to the delirium. We will also try melatonin to aid with sleep tonight. Ashwini Hooker, DO
--- NOTE | 2017-04-14 10:04 | P.PN ---
Subjective Progress Note Date: 04/14/17 Principal diagnosis: fall/debility Patient is a 76-year-old female with a past medical history of diabetes mellitus, hypertension, dyslipidemia, and chronic kidney disease who presented to the emergency department with uncontrolled left shoulder pain, inadequate oral intake, and nausea. She had been to the ER the day before after having a fall without loss of consciousness. She underwent a head CT due to being on Plavix and aspirin which was negative. Further imaging did reveal a fracture to the left humerus. She was placed in an arm sling and was discharged home with outpatient orthopedic follow-up. However she represented to do it to inadequate oral intake, nausea, and left shoulder pain. After she left the hospital she did not take her prescribed antibiotic for the urinary tract infection due to diarrhea that was nonbloody. She was admitted due to inability to care for herself at home and possible urinary tract infection. She was seen by orthopedics who recommended further imaging of the left humerus. She was also discovered to have acute kidney injury with dehydration and was started on IV fluids. Hemoglobin was decreasing but she denied any blood in her stools or vomiting up blood. She was noted to have extensive bruising over her left shoulder. Her hemoglobin continued to fall and the lowest was 6.6. She is ordered a unit of packed red blood cells, however family declined. An ultrasound of her left upper extremity demonstrated probable hematoma and diffuse ecchymosis. She was reevaluated by ortho who recommended surgery if ASA and plavix could be held. Family was again contacted regarding the blood transfusion by nursing as was in agreement. Cardiology was contacted and stated that her ASA and plavix could be held. She developed some Halluciantions adn confusion on 04/13/17 Patient seen and examined at bedside. She is aware that she was having hallucinations morning and seeing things that were not there. She states that she is having hallucinations for several months and this is how she ended up injuring her shoulder. She was at home about her concerns were trouble in the kitchen and tried to get there and ended up running into the wall. She states that she was placed on Xanax to try to help with hallucinations but this made them worse. The day before her daughter stated she started having hallucinations on Zoloft in the past. The patient is not afraid of these hallucinations but is disturbed by them. She's never seen a therapist, psychologist, or psychiatrist regarding medications. She is willing to see a psychiatrist of does not Dr. Braswell. She states her pain is well controlled. She continues to have nausea with eating. She states sometimes and she chews too much she feels nauseous. She denies any chest pain, shortness of breath, or constipation. She has no other complaints currently. Objective - Vital Signs Vital signs: Vital Signs Temp 97.8 F 04/14/17 07:00 Pulse 84 04/14/17 07:00 Resp 16 04/14/17 07:00 BP 186/82 04/14/17 07:00 Pulse Ox 92 L 04/14/17 07:00 Intake & Output 04/13/17 04/14/17 04/14/17 18:59 06:59 18:59 Intake Total 310 Balance 310 Weight 72.5 kg Intake: Blood Product 310 Rc As-1 Unit 310 [id number] Other: # Voids 1 2 - Exam General: non toxic, mild distress, appears at stated age Derm: Large area of ecchymosis over left arm and chest wall, warm, dry Head: atraumatic, normocephalic, symmetric Eyes: EOMI, no lid lag, anicteric sclera Mouth: no lip lesion, mucus membranes moist Cardiovascular: S1S2 reg, no murmur, positive posterior tibial pulse bilateral, Lungs: decreased bs b/l bases, no rhonchi, no rales , no accessory muscle use Abdominal: soft, nontender to palpation, no guarding, no appreciable organomegaly Ext: no gross muscle atrophy, no edema, no contractures, left arm in slight, bruising and swelling of left hand Neuro: CN II-XI grossly intact, no focal neuro deficits Psych: Alert, oriented, appropriate affect - Labs CBC & Chem 7: 04/14/17 07:05 04/14/17 07:05 Labs: Abnormal Lab Results - Last 24 Hours (Table) 04/13/17 04/13/17 04/13/17 Range/Units 07:22 07:25 12:50 RBC (3.80-5.40) m/uL Hgb (11.4-16.0) gm/dL Hct (34.0-46.0) % RDW (11.5-15.5) % Chloride (98-107) mmol/L Carbon Dioxide (22-30) mmol/L BUN (7-17) mg/dL Creatinine (0.52-1.04) mg/dL Glucose (74-99) mg/dL POC Glucose (mg/dL) 136 H (75-99) mg/dL Iron 15 L (50-170) ug/dL Iron Saturation 6.55 L (12.00-45.00) Crossmatch See Detail 04/13/17 04/13/17 04/14/17 Range/Units 17:09 20:57 07:05 RBC 2.90 L (3.80-5.40) m/uL Hgb 8.7 L D (11.4-16.0) gm/dL Hct 27.5 L (34.0-46.0) % RDW 17.7 H (11.5-15.5) % Chloride (98-107) mmol/L Carbon Dioxide (22-30) mmol/L BUN (7-17) mg/dL Creatinine (0.52-1.04) mg/dL Glucose (74-99) mg/dL POC Glucose (mg/dL) 147 H 125 H (75-99) mg/dL Iron (50-170) ug/dL Iron Saturation (12.00-45.00) Crossmatch 04/14/17 04/14/17 Range/Units 07:05 07:06 RBC (3.80-5.40) m/uL Hgb (11.4-16.0) gm/dL Hct (34.0-46.0) % RDW (11.5-15.5) % Chloride 113 H (98-107) mmol/L Carbon Dioxide 20 L (22-30) mmol/L BUN 19 H (7-17) mg/dL Creatinine 1.48 H (0.52-1.04) mg/dL Glucose 106 H (74-99) mg/dL POC Glucose (mg/dL) 117 H (75-99) mg/dL Iron (50-170) ug/dL Iron Saturation (12.00-45.00) Crossmatch Assessment and Plan Assessment: Left humeral fracture - pain control - off ASA and plavix X 7 days, then surgery 04/19 - Heparin SC - hematoma left arm on US Halluciantions, acute on chronic - prn Xanax if severe - consider psych consult Acute blood loss anemia on iron deficiency anemia, likely due to hematoma - s/p 1 unit pRBC - IV iron X 1 as she has tried multiple oral iron preparations and has failed due to diarrhea. - follow CBC Fall with debility - PT/OT - fall precautions Aerococcus UTI, POA not cath associated - continue with unasyn, will need treatment for 7 days D # 4 did not tolerate oral abx will continue IV at this time. DM 2 - SSI, follow BS - HgB A1C 6.3 Deja esophagitis - continue with diflucan though 04/25 Chronic systolic CHF EF 40-45% - metoprolol - ACEI - Currently compensated - Cardio recs CAD - Hold ASA and plavix with impending surgery - cardio recs Elevated troponin - stress induced and secondary to CKD - Outpatient f/u with - no need for echo at this point in time mild protein calorie malnutrition - continue with supplements YONY, resolved Hypomagnesemia, resolved Chronic: HLD HTN CKD 3 Patient is at elevated but not prohibitive risk for this non cardiac surgery due to debility and prior heart disease DVT prophylaxis: Heparin Discussed with: Patient Anticipated discharge: [address]: [facility] A total of 35 minutes was spent on the care of this complex patient more than 50 % of the time was spent in counseling and care coordination.
[2017-04-14] MEDS: AMPICILLIN-SULBACTAM 1.5 GM in SODIUM CHLORIDE 0.9% 50 ML IVPB SCH (11:13)
[2017-04-14] MEDS: HYDROcodone/APAP 5-325MG 1 EACH TAB PO PRN (12:19)
[2017-04-14 12:26] LABS: Glucose,Whole Blood 130 mg/dL (75-99)
[2017-04-14 15:40] VITALS: BMI 29.2
[2017-04-14 17:32] LABS: Glucose,Whole Blood 127 mg/dL (75-99)
[2017-04-14] MEDS ORDERED: HYDROcodone/APAP 10-325MG 1 EACH TAB PO PRN (17:58)
[2017-04-14] MEDS: ATORVASTATIN 40 MG TAB PO SCH (20:51)
[2017-04-14] MEDS: MELATONIN 5 MG TABLET PO SCH (20:51)
[2017-04-14] MEDS ORDERED: IMIPRAMINE 25 MG TAB PO SCH (21:00)
[2017-04-14 21:08] LABS: Glucose,Whole Blood 113 mg/dL (75-99)
[2017-04-14] MEDS ORDERED: AMITRIPTYLINE HCL 10 MG TAB PO SCH (21:30)
[2017-04-15] MEDS: AMPICILLIN-SULBACTAM 1.5 GM in SODIUM CHLORIDE 0.9% 50 ML IVPB SCH ×2 (00:12→12:13)
[2017-04-15] MEDS: HEPARIN SODIUM,PORCINE 5,000 UNIT/ML 1 ML VIAL SQ SCH ×2 (00:12→10:11)
[2017-04-15] MEDS: ACETAMINOPHEN TAB 500 MG TAB PO SCH ×3 (00:12→12:12)
[2017-04-15 07:43] LABS: Glucose,Whole Blood 108 mg/dL (75-99)
--- NOTE | 2017-04-15 07:57 | CONS ---
CONSULTATION DATE OF SERVICE: 04/14/2017. PURPOSE FOR CONSULTATION: Evaluate for hallucinations. HISTORY OF PRESENT ILLNESS: The patient is a 76-year-old female. She has history of CAD, HTN, DM, recent UTI and esophagitis. She was admitted due to sustaining a fall at home without losing consciousness and suffered a left humeral fracture. Since admission, the patient had been reporting to nursing that she was having hallucinations and delusional thoughts. Apparently there was some suggestion that this may only have happened recently. However, the patient was able to share with nursing that she has been having this for a considerable length of time. When I talked to the patient, she says that she has had problems like this going back to at least last August, though she has had some problems in this regard for much longer period of time. The main issue is that she wakes up in the middle of the night and will have some kinds of hallucinations where she is seeing people and feeling she is involved in situations that are very distressing to her. She acknowledges that typically these come on when she is waking up from sleep in the middle of the night. She says she will be partially awake though then wonders if she is actually fully awake. She has had both auditory and visual hallucinations. In addition, she gets a paranoid thinking. Often when she wakes up, she gets fears about things happening that she cannot control or that there are a nefarious happenings going on around her. She says for the most part, this happens at nighttime, though can also happen in the daytime if she lies down to take a nap. She says that her sleep has been up and down and that this has been going on for many months. She notes that she has been on Xanax in the past. She apparently had stopped taking Xanax altogether about in August. She felt that she was developing tolerance to the medications and needed to take extra pills for the same effect. She says that since stopping in August she has perhaps taken Xanax 2 other times in more recent months. She says that she did take Xanax on the day she fell and she attributes the fall to some effects of Xanax causing her to lose her balance. Since she has been in the hospital, she was continued on Xanax 0.25 mg b.i.d. p.r.n. She says that in the past she has tried some antidepressant medications though she was vague about details. She says she is leery about medications more because of things she has heard from other people than her own experience. She acknowledges that she has had on and off depression for quite some time. She did not provide too much for details in regards to that. I talked briefly to her daughters who suggested that she has had likely an ongoing problems with depression and anxiety. MENTAL STATUS: The patient was lying in bed. She gave fair eye contact. Psychomotor activity was little slowed. She answered questions appropriately. Her thoughts were clear. She was spontaneous and interactive. She was quite forthcoming in information she provided. She had good insight in regards to some of her medication issues and her problems. She had a fair range of affect. Her mood was somewhat dysphoric. There was no outward evidence of a thought disorder. 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 I discussed some treatment options with the patient. At this point, I will start the patient on Elavil 25 mg at bedtime. The aim of Elavil is to help to "increased REM latency", which pushes dreaming back into stage IV sleep, whether not she might need additional psychotropic medication intervention for issues of depression that remains to be seen. If she responds reasonably well to the Elavil, she may not need any other medications for these hallucinations such as antipsychotics. I will assess how she does after tonight with the Elavil. I will discontinue Xanax. I will continue to follow. MMODL / IJN: [id number] /
--- NOTE | 2017-04-15 08:00 | P.PN ---
Subjective Progress Note Date: 04/15/17 This is a 76-year-old female who was admitted after a fall. Patient sustained a fracture of the left proximal humerus. Patient is seen and evaluated at bedside today. Patient denies any new complaints today and has been tolerating the sling. Objective - Vital Signs Vital signs: Vital Signs Temp 96.3 F L 04/14/17 23:00 Pulse 71 04/14/17 23:00 Resp 12 04/14/17 23:00 BP 171/77 04/14/17 23:00 Pulse Ox 93 L 04/14/17 23:00 Intake & Output 04/14/17 04/15/17 04/15/17 18:59 06:59 18:59 Weight 72.5 kg 76 kg Other: # Voids 2 3 - Exam On exam patient is alert and oriented and in no acute distress. Sling intact to left upper extremity. There is significant ecchymosis of the left shoulder. Sensation intact. Dressings to right upper extremity are clean, dry and intact. Patient has full range of motion of the left wrist and hand. Capillary refill is normal at <2 seconds. There is swelling of the left hand. Left hand is nontender to palpation. Neurovascular status and circulatory status are intact. - Labs CBC & Chem 7: 04/14/17 07:05 04/14/17 07:05 Labs: Abnormal Lab Results - Last 24 Hours (Table) 04/14/17 04/14/17 04/14/17 Range/Units 07:05 07:05 11:58 RBC 2.90 L (3.80-5.40) m/uL Hgb 8.7 L D (11.4-16.0) gm/dL Hct 27.5 L (34.0-46.0) % RDW 17.7 H (11.5-15.5) % Chloride 113 H (98-107) mmol/L Carbon Dioxide 20 L (22-30) mmol/L BUN 19 H (7-17) mg/dL Creatinine 1.48 H (0.52-1.04) mg/dL Glucose 106 H (74-99) mg/dL POC Glucose (mg/dL) 130 H (75-99) mg/dL 04/14/17 04/14/17 04/15/17 Range/Units 16:57 21:06 07:31 RBC (3.80-5.40) m/uL Hgb (11.4-16.0) gm/dL Hct (34.0-46.0) % RDW (11.5-15.5) % Chloride (98-107) mmol/L Carbon Dioxide (22-30) mmol/L BUN (7-17) mg/dL Creatinine (0.52-1.04) mg/dL Glucose (74-99) mg/dL POC Glucose (mg/dL) 127 H 113 H 108 H (75-99) mg/dL Assessment and Plan (1) Proximal humerus fracture Current Visit: Yes Status: Acute Code(s): S42.209A - UNSP FRACTURE OF UPPER END OF UNSP HUMERUS, INIT FOR CLOS FX SNOMED Code(s): 553325218 (2) Fall Current Visit: No Status: Acute Code(s): W19.XXXA - UNSPECIFIED FALL, INITIAL ENCOUNTER SNOMED Code(s): 5830188 Plan: #1. Maintain sling to the left upper extremity. Elevate left hand. #2. Continue pain control along with ice to the left shoulder. 3. X-rays of the left shoulder are reviewed and show a 2 part displaced proximal humerus fracture involving the surgical neck. Discussed possibility for surgery vs conservative management with patient and daughter. #4. ORIF left proximal humerus is scheduled for 04/19/2017. Plavix is being held per medicine. We'll continue to follow the patient closely.
[2017-04-15 08:09] VITALS: BP 177/89; PULSE 105; RESP 16; TEMP 96.4
[2017-04-15 08:57] LABS: Anisocytosis Slight; HCT 30.4 % (34.0-46.0); HGB 9.4 gm/dL (11.4-16.0); Hypochromasia Slight; MCH 29.2 pg (25.0-35.0); MCHC 30.9 g/dL (31.0-37.0); MCV 94.6 fL (80.0-100.0); Mean Platelet Volume 7.9; Platelet Count 264 k/uL (150-450); RBC 3.21 m/uL (3.80-5.40); RDW 16.7 % (11.5-15.5); WBC 6.5 k/uL (3.8-10.6)
[2017-04-15] MEDS: INSULIN ASPART 100 UNIT/ML 1 ML 10 ML VIAL SQ SCH ×2 (09:16→13:03)
[2017-04-15 09:21] LABS: Potassium 5.1 mmol/L (3.5-5.1)
[2017-04-15] MEDS: FLUCONAZOLE 100 MG TAB PO SCH (10:11)
[2017-04-15] MEDS: ISOSORBIDE MONONITRATE ER 15 MG TAB PO SCH (10:11)
[2017-04-15] MEDS: PANTOPRAZOLE 40 MG TABLET PO SCH (10:12)
[2017-04-15] MEDS: METOPROLOL TARTRATE 25 MG TAB PO SCH (10:12)
[2017-04-15] MEDS: LISINOPRIL 5 MG TAB PO SCH (10:12)
[2017-04-15] MEDS: ONDANSETRON 4 MG/2 ML VIAL IVP PRN (10:21)
[2017-04-15 12:22] LABS: Glucose,Whole Blood 116 mg/dL (75-99)
--- NOTE | 2017-04-15 13:04 | P.DS ---
Providers Date of admission: 04/10/17 18:49 Expected date of discharge: 04/15/17 Attending physician: Vicky Rebollar MD Consults: 04/10/17 18:48 Consult Physician Urgent Consulting Provider: Cas Núñez Consult Reason/Comments: prox humerus fracture Do you want consulting provider notified?: Yes 04/11/17 15:30 Consult Physician Routine Consulting Provider: Beau Pittman Consult Reason/Comments: elevated troponin Do you want consulting provider notified?: Yes 04/14/17 11:14 Consult Physician Routine Consulting Provider: Mat Hussein Consult Reason/Comments: hallucinations Do you want consulting provider notified?: Yes Primary care physician: Andrés Varner - Discharge Diagnosis(es) (1) UTI (urinary tract infection) Current Visit: Yes Status: Acute (2) Proximal humerus fracture Current Visit: Yes Status: Acute (3) Hematoma Current Visit: Yes Status: Acute (4) Acute blood loss anemia Current Visit: Yes Status: Acute (5) Troponin level elevated Current Visit: Yes Status: Acute (6) Acute kidney injury superimposed on CKD Current Visit: No Status: Acute (7) Sleep disorder Current Visit: Yes Status: Acute (8) Chronic diastolic (congestive) heart failure Current Visit: Yes Status: Acute (9) Mild protein-calorie malnutrition Current Visit: Yes Status: Acute (10) CAD (coronary artery disease) Current Visit: Yes Status: Acute (11) Falls frequently Current Visit: Yes Status: Acute (12) Deja esophagitis Current Visit: No Status: Acute (13) Type 2 diabetes mellitus Current Visit: No Status: Acute Hospital Course: Patient is a 76-year-old female with a past medical history of diabetes mellitus, hypertension, dyslipidemia, and chronic kidney disease who presented to the emergency department with uncontrolled left shoulder pain, inadequate oral intake, and nausea. She had been to the ER the day before after having a fall without loss of consciousness. She underwent a head CT due to being on Plavix and aspirin which was negative. Further imaging did reveal a fracture to the left humerus. She was placed in an arm sling and was discharged home with outpatient orthopedic follow-up. However she represented to do it to inadequate oral intake, nausea, and left shoulder pain. After she left the hospital she did not take her prescribed antibiotic for the urinary tract infection due to diarrhea that was nonbloody. She was admitted due to inability to care for herself at home and possible urinary tract infection. She was seen by orthopedics who recommended further imaging of the left humerus. She was also discovered to have acute kidney injury with dehydration and was started on IV fluids. Hemoglobin was decreasing but she denied any blood in her stools or vomiting up blood. She was noted to have extensive bruising over her left shoulder. Her hemoglobin continued to fall and the lowest was 6.6. She was ordered a unit of packed red blood cells, however family declined. An ultrasound of her left upper extremity demonstrated probable hematoma and diffuse ecchymosis. She was reevaluated by ortho after shoulder CT who recommended surgery if ASA and plavix could be held. Family was again contacted regarding the blood transfusion by nursing as was in agreement as she will need surgery, they had wanted to limit exposure to blood due to an antibody. Cardiology was contacted and stated that her ASA and plavix could be held. She developed some Halluciantions and confusion on 04/13/17. Admitted that she has been struggling with some morning hallucinations and problems sleeping for several months. The psychiatry was consult who recommended initiation of Elavil. They felt that she was having delayed awakening after stage IV REM sleep leading to the hallucinations or continued dreams upon first wakening. She did have a slight increase in appetite on 04/14 that she has been struggling with this for quite some time and has seen a dietitian, tried multiple supplements, and had evaluation for swallowing all of which have not helped. Elavil may help increase her appetite as well. Her hemoglobin remained stable after transfusion. Her ferritin did come back at 50 and she was therefore given 1 dose of IV iron as she had failed taking oral iron therapy at home. Her low been increased to 9.4. Her urine again showed Aerococcus. She was maintained on Unasyn during her hospitalization to help increase compliance. Due to the fact that she will need to be off of Plavix and aspirin for 7 days she will be a planned readmission for surgery on 04/19 due to her fracture. At this time she will go home to the care of her daughter. We are planning that she will need rehab after surgery and she plans to go to [facility]. Decreased mobility and acute fracture needing surgical intervention she will be maintained on heparin or Lovenox at home. This will be determined by what is less expensive for the patient. Instructions were given for her to hold any prophylactic heparin/Lovenox on the day prior to surgery 04/18 Patient seen and examined at bedside. No chest pain, shortness of breath, or nausea. She believes she slept from 9 to 10:00 on. She did not have any hallucinations this morning. She is feeling well. She is in agreement with leaving the hospital today. She is aware that she'll have to come back for surgery next week. Plan of care was also discussed with her daughter. Vital signs reviewed and stable. General: non toxic, no distress, appears at stated age Derm: warm, dry diffuse ecchymosis over left chest wall with swelling in left hand Head: atraumatic, normocephalic, symmetric Eyes: EOMI, no lid lag, anicteric sclera Mouth: no lip lesion, mucus membranes moist Cardiovascular: S1S2 reg, no murmur, positive posterior tibial pulse bilateral, Lungs: CTA bilateral, no rhonchi, no rales , no accessory muscle use Abdominal: soft, nontender to palpation, no guarding, no appreciable organomegaly Ext: no gross muscle atrophy, no edema, no contractures Neuro: CN II-XI grossly intact, no focal neuro deficits Psych: Alert, oriented, appropriate affect A total of 45 minutes of time were spent preparing this complex discharge summary . Pertinent Studies: CT shoulder-communicative displaced fracture of the humeral neck with bayonet deformity left humerus Venous Doppler-left upper extremity edema, small hematoma, no DVT Chest x-ray-no acute cardiopulmonary process, redemonstration of an impacted acute left proximal humerus fracture Patient Condition at Discharge: Stable Plan - Discharge Summary Discharge Rx Participant: No New Discharge Prescriptions: New Amitriptyline HCl [Elavil] 25 mg PO HS #30 tab Cephalexin [Keflex] 250 mg PO Q6HR #12 cap Heparin Sodium,Porcine [Heparin Sodium] 5,000 unit SQ Q8HR #1 vial HYDROcodone/APAP 10-325MG [[place] 10-325] 1 each PO Q6H PRN #45 tab PRN Reason: Pain Scale 6 To 10 Isosorbide Mononitrate ER [Imdur] 15 mg PO DAILY #30 dose Enoxaparin [Lovenox] 40 mg SQ DAILY #6 syringe Continue Repaglinide [Prandin] 1 mg PO BID Pantoprazole Sodium 40 mg PO DAILY Atorvastatin [Lipitor] 40 mg PO HS #30 tab Multivitamins, Thera [Multivitamin (formulary)] 1 tab PO DAILY Metoprolol Tartrate [Lopressor] 25 mg PO BID #0 Benazepril [Lotensin] 5 mg PO DAILY #1 tablet Nitroglycerin Sl Tabs [Nitrostat] 0.4 mg SUBLINGUAL Q5M PRN PRN Reason: Pain Famotidine [Pepcid] 20 mg PO DAILY #30 tab Fluconazole [Diflucan] 100 mg PO DAILY 21 Days #21 tab Ondansetron HCl [Zofran Oral Soln] 4 mg PO Q6H PRN 20 Days #20 solution PRN Reason: Nausea And Vomiting Ergocalciferol (Vitamin D2) [Vitamin D2] 50,000 unit PO WEEKLY #8 capsule Discontinued Clopidogrel [Plavix] 75 mg PO DAILY ALPRAZolam [Xanax] 0.5 mg PO BID PRN PRN Reason: Anxiety/Insomnia Aspirin [Adult Low Dose Aspirin EC] 81 mg PO DAILY HYDROcodone/APAP 5-325MG [[place] 5-325] 1 tab PO Q6HR PRN #12 tab PRN Reason: Pain HYDROmorphone [Dilaudid] 1 mg PO Q6HR PRN #12 tab PRN Reason: Severe Pain Discharge Medication List Pantoprazole Sodium 40 mg PO DAILY 09/16/14 [History] Repaglinide [Prandin] 1 mg PO BID 09/16/14 [History] Atorvastatin [Lipitor] 40 mg PO HS #30 tab 04/19/15 [Rx] Multivitamins, Thera [Multivitamin (formulary)] 1 tab PO DAILY 02/03/16 [History ] Benazepril [Lotensin] 5 mg PO DAILY #1 tablet 05/31/16 [Rx] Metoprolol Tartrate [Lopressor] 25 mg PO BID #0 05/31/16 [Rx] Nitroglycerin Sl Tabs [Nitrostat] 0.4 mg SUBLINGUAL Q5M PRN 09/04/16 [History] Famotidine [Pepcid] 20 mg PO DAILY #30 tab 04/03/17 [Rx] Fluconazole [Diflucan] 100 mg PO DAILY 21 Days #21 tab 04/03/17 [Rx] Ondansetron HCl [Zofran Oral Soln] 4 mg PO Q6H PRN 20 Days #20 solution [Rx] Ergocalciferol (Vitamin D2) [Vitamin D2] 50,000 unit PO WEEKLY #8 capsule [Rx] Amitriptyline HCl [Elavil] 25 mg PO HS #30 tab 04/15/17 [Rx] Cephalexin [Keflex] 250 mg PO Q6HR #12 cap 04/15/17 [Rx] Enoxaparin [Lovenox] 40 mg SQ DAILY #6 syringe 04/15/17 [Rx] HYDROcodone/APAP 10-325MG [[place] 10-325] 1 each PO Q6H PRN #45 tab 04/15/17 [Rx] Heparin Sodium,Porcine [Heparin Sodium] 5,000 unit SQ Q8HR #1 vial 04/15/17 [Rx] Isosorbide Mononitrate ER [Imdur] 15 mg PO DAILY #30 dose 04/15/17 [Rx] Follow up Appointment(s)/Referral(s): Beau Pittman MD [STAFF PHYSICIAN] - 2 Weeks Andrés Varner MD [Primary Care Provider] - 3 Days Greg Dumont DO [Doctor of Osteopathic Medicine] - 1 Week Patient Instructions/Handouts: Arm Fracture in Adults (DC), Urinary Tract Infection in Women (DC) Activity/Diet/Wound Care/Special Instructions: Cardiac, diabetic diet. Try to stay up on eating and drinking. Your surgery will be April 19. Take either the heparin (prescription sent to [facility]) or Lovenox do not take both. Stop heparin/lovenox after 04/17, Do not take either heparin or lovenox on 04/18 or 04/19. Fall precautions, up with walker, change positions every 2 hours while awake. NO smoking, cessation information provided.
--- NOTE | 2017-04-15 15:12 | CONS ---
CONSULTATION DATE OF SERVICE: 04/15/2017 PURPOSE FOR CONSULTATION: Evaluate for hallucinations. INTERVAL HISTORY: Patient has been doing fairly well. It is noted that I had initially planned to start the patient on Tofranil last evening for sleep-related hallucinations. She is allergic to red dye, so we switched to Elavil. Patient said that she slept well last night. She did not have any through the night experiences of waking in a partial dream state where she would experience hallucinations. She says she feels fairly good this morning. She was up in a chair when I saw her. She was interactive. She noted that her plan today is to go home with her daughter for 2 days and then return for a surgery. She seems to tolerate the Elavil well. I did share with the patient that her that one of her daughters had concern that she may have longer-term problems with depression. The patient was somewhat in agreement with that. At this point, it seems reasonable to continue her just on the Elavil, which does seem to help her with her sleep and her nighttime issues of sleep onset hallucinations. When the patient returns to the hospital if it is appropriate to have a psychiatric consultation, please re- consult the service. MMODL / IJN: [id number] /
== END 2017-04-15 16:13 | disposition home or self-care (01) | DRG 690 ==
LOC: EC 16:18 → 6SEL 18:49 → 4MS4W 19:35
PROVIDERS: ADMIT Internal Medicine; ATTEND Internal Medicine
PROC: 30233N1 Transfusion of Nonautologous Red Blood Cells into Peripheral Vein, Percutaneous Approach (ICD-10-PCS; principal; 2017-04-13)
DX: N39.0 Urinary tract infection, site not specified (principal); N17.9 Acute kidney failure, unspecified; E87.2 Acidosis; I67.1 Cerebral aneurysm, nonruptured; B37.81 Candidal esophagitis; D62 Acute posthemorrhagic anemia; E11.22 Type 2 diabetes mellitus with diabetic chronic kidney disease; E11.51 Type 2 diabetes mellitus with diabetic peripheral angiopathy without gangrene; E44.1 Mild protein-calorie malnutrition; I13.0 Hypertensive heart and chronic kidney disease with heart failure and stage 1 through stage 4 chronic kidney disease, or unspecified chronic kidney disease; I50.22 Chronic systolic (congestive) heart failure; R44.3 Hallucinations, unspecified; S42.222A 2-part displaced fracture of surgical neck of left humerus, initial encounter for closed fracture; E55.9 Vitamin D deficiency, unspecified; B96.89 Other specified bacterial agents as the cause of diseases classified elsewhere; E78.5 Hyperlipidemia, unspecified; E83.42 Hypomagnesemia; E86.0 Dehydration; F32.9 Major depressive disorder, single episode, unspecified; F41.9 Anxiety disorder, unspecified; I25.10 Atherosclerotic heart disease of native coronary artery without angina pectoris; I25.2 Old myocardial infarction; J44.9 Chronic obstructive pulmonary disease, unspecified; K21.9 Gastro-esophageal reflux disease without esophagitis; N18.3 Chronic kidney disease, stage 3 (moderate); G89.29 Other chronic pain; M19.90 Unspecified osteoarthritis, unspecified site; M25.562 Pain in left knee; R19.7 Diarrhea, unspecified; R74.8 Abnormal levels of other serum enzymes; S40.022A Contusion of left upper arm, initial encounter; T40.2X5A Adverse effect of other opioids, initial encounter; Z88.6 Allergy status to analgesic agent; Z88.1 Allergy status to other antibiotic agents; Z91.041 Radiographic dye allergy status; Z88.5 Allergy status to narcotic agent; Z88.2 Allergy status to sulfonamides; Z88.8 Allergy status to other drugs, medicaments and biological substances; Z91.048 Other nonmedicinal substance allergy status; I44.7 Left bundle-branch block, unspecified; R29.6 Repeated falls; Z87.891 Personal history of nicotine dependence; Z79.02 Long term (current) use of antithrombotics/antiplatelets; Z79.82 Long term (current) use of aspirin; Z79.899 Other long term (current) drug therapy; Z95.5 Presence of coronary angioplasty implant and graft; Z90.710 Acquired absence of both cervix and uterus; W19.XXXA Unspecified fall, initial encounter; Y92.239 Unspecified place in hospital as the place of occurrence of the external cause; Y92.9 Unspecified place or not applicable
CPT/HCPCS: 36415; 70450; 71045; 71046; 72125; 72170; 80048; 80053; 80320; 81001; 82150; 82550; 82553; 82607; 82728; 82747; 83540; 83550; 83605; 83690; 83735; 84100; 84484; 85025; 85027; 85610; 85730; 86850; 86900; 86901; 86920; 87086; 93005; 96361; 96365; 96374; 96375; 96376; 99285

== ENCOUNTER 2017-04-19 08:37 | Inpatient (IN) | payer MEDICARE ==
[2017-04-18 10:15] VITALS: BMI 24.7
--- NOTE | 2017-04-18 16:16 | P.HPOR ---
History of Present Illness H&P Date: 04/18/17 This is a 76-year-old female who is being readmitted for ORIF of left proximal humerus after sustaining a displaced left proximal humerus fracture on 2017 after a fall. Patient was admitted for proximal humerus fracture and urinary tract infection on 04/10/2017 and was discharged to a rehabilitation center with the plan of readmission for orthopedic surgery on 04/19/2017. Patient has been off of Plavix and aspirin for 1 week per cardiology. Patient has been cleared by internal medicine and cardiology for ORIF of left proximal humerus. Patient denies any numbness, tingling, weakness, fever/chills, abdominal pain, chest pain or shortness of breath. Review of Systems See HPI. Past Medical History Past Medical History: Coronary Artery Disease (CAD), Chest Pain / Angina, Heart Failure, COPD, Diabetes Mellitus, GERD/Reflux, GI Bleed, Hyperlipidemia, Hypertension, Memory Impairment, Myocardial Infarction ([place]), Osteoarthritis (OA) Additional Past Medical History / Comment(s): NIDDM, chronic L knee pain, generalized arthiritis, anemia, back pain.sinus infections. 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 Stent in leg. Subclavian bypass GRAFT. PTCA's, EGD with cauterized arterovenous malformation, colonoscopy, L hand's index finger amputation, R hand 's thumb tendon repair, R elbow replacement, sinus sx, Past Anesthesia/Blood Transfusion Reactions: No Reported Reaction Additional Past Anesthesia/Blood Transfusion Reaction / Comment(s): Pt has recieved blood in the past without reaction. Date of Last Stent Placement:: 2010 Smoking Status: Former smoker - Past Family History Father History Unknown: Yes Mother Family Medical History: Cancer Additional Family Medical History / Comment(s): Mother had lung cancer. Medications and Allergies Home Medications Medication Instructions Recorded Confirmed Type Pantoprazole Sodium 40 mg PO DAILY 09/16/14 04/18/17 History Repaglinide [Prandin] 1 mg PO BID PRN 09/16/14 04/18/17 History Atorvastatin [Lipitor] 40 mg PO HS #30 tab 04/19/15 04/18/17 Rx Benazepril [Lotensin] 5 mg PO DAILY #1 tablet 05/31/16 04/18/17 Rx Metoprolol Tartrate [Lopressor] 25 mg PO BID #0 05/31/16 04/18/17 Rx Famotidine [Pepcid] 20 mg PO DAILY #30 tab 04/03/17 04/18/17 Rx Ondansetron HCl [Zofran Oral Soln] 4 mg PO Q6H PRN 20 Days #20 04/03/17 Rx solution Amitriptyline HCl [Elavil] 25 mg PO HS #30 tab 04/15/17 04/18/17 Rx Enoxaparin [Lovenox] 40 mg SQ DAILY #6 syringe 04/15/17 04/18/17 Rx HYDROcodone/APAP 10-325MG [[facility] each PO Q6H PRN #45 tab 04/15/17 04/18/17 Rx 10-325] Isosorbide Mononitrate ER [Imdur] 15 mg PO DAILY #30 dose 04/15/17 04/18/17 Rx Acetaminophen Tab [Tylenol Tab] 500 mg PO Q6H PRN 04/18/17 04/18/17 History Cyclobenzaprine [Flexeril] 10 mg PO TID 04/18/17 04/18/17 History Ergocalciferol (Vitamin D2) 50,000 unit PO KEARNS 04/18/17 04/18/17 History [Vitamin D2] Fluconazole [Diflucan] 100 mg PO DAILY 04/18/17 04/18/17 History Allergies Allergy/AdvReac Type Severity Reaction Status Date / Time blue dye Allergy Anaphylaxis Verified 04/18/17 10:04 clonidine [From Catapres] Allergy Diarrhea Verified 04/18/17 10:04 iodine Allergy Anaphylaxis Verified 04/18/17 10:04 monosodium glutamate [MSG] Allergy Anaphylaxis Verified 04/18/17 10:04 ofloxacin [From Floxin] Allergy Anaphylaxis Verified 04/18/17 10:04 piroxicam [From Feldene] Allergy Nausea & Verified 04/18/17 10:04 Vomiting red dye Allergy Anaphylaxis Verified 04/18/17 10:04 Sulfa (Sulfonamide Allergy Anaphylaxis Verified 04/18/17 10:04 Antibiotics) tramadol [From Ultram] Allergy Anaphylaxis Verified 04/18/17 10:04 amoxicillin AdvReac Diarrhea Verified 04/18/17 10:04 bisoprolol [From Ziac] AdvReac Unknown Verified 04/18/17 10:04 cephalexin [From Keflex] AdvReac Diarrhea Verified 04/18/17 10:04 glipizide AdvReac Unknown Verified 04/18/17 10:04 hydrochlorothiazide AdvReac Unknown Verified 04/18/17 10:04 [From Ziac] metformin AdvReac Unknown Verified 04/18/17 10:04 morphine AdvReac Hallucinati Verified 04/18/17 10:04 ons sertraline [From Zoloft] AdvReac Hallucinati Verified 04/18/17 10:04 ons triamterene [From Dyazide] AdvReac Unknown Verified 04/18/17 10:04 Physical Examination On exam patient is alert and oriented and in no acute distress. Sling intact to left upper extremity. There is significant ecchymosis of the left shoulder. Sensation intact. Patient has full range of motion of the left wrist and hand. Capillary refill is normal at <2 seconds. Neurovascular status and circulatory status are intact Results CT of the left shoulder dated 04/13/2017 shows comminuted displaced fracture of the humeral neck with bayonet deformity left humerus. Assessment and Plan (1) Closed fracture of left proximal humerus Status: Acute Code(s): S42.202A - UNSP FRACTURE OF UPPER END OF LEFT HUMERUS, INIT FOR CLOS FX SNOMED Code(s): 28776100 Plan: #1. Maintain sling to left upper extremity. #2. Plavix and aspirin to be restarted postoperatively. #3. ORIF left proximal humerus scheduled for 04/19/2017. Patient has been cleared by internal medicine and cardiology.
[~2017-04-19 08:37] MED LIST: LIDOCAINE 1% 20 ML VIAL (10MG/ML) FOR IV START INTRADERMA PRN
[2017-04-19 09:06] LABS: Glucose,Whole Blood 111 mg/dL (75-99)
[2017-04-19] MEDS ORDERED: HYDROmorphone 0.5 MG/0.5 ML SYRINGE IVP PRN ×2 (09:17)
[2017-04-19] MEDS ORDERED: hydrOXYzine PAMOATE 25 MG CAP PO PRN (09:17)
[2017-04-19] MEDS ORDERED: SENNOSIDES-DOCUSATE SODIUM 1 EACH TAB PO PRN (09:17)
[2017-04-19] MEDS ORDERED: HYDROcodone/APAP 5-325MG 1 EACH TAB PO PRN ×2 (09:17)
[2017-04-19] MEDS ORDERED: ONDANSETRON 4 MG/2 ML VIAL IVP ONE (09:34)
[2017-04-19] MEDS ORDERED: LIDOCAINE 1% 20 ML VIAL (10MG/ML) FOR IV START INTRADERMA ONE (09:34)
[2017-04-19] MEDS ORDERED: DEXAMETHASONE SOD PHOS (MDV) 100 MG/10 ML VIAL IV ONE (09:35)
[2017-04-19] MEDS ORDERED: MIDAZOLAM 2 MG/2 ML VIAL IV ONE (09:37)
[2017-04-19] MEDS: LACTATED RINGERS 1,000 ML IV SCH (09:50)
[2017-04-19] MEDS ORDERED: PROPOFOL 10 MG/ML 20 ML VIAL IV ONE (09:51)
[2017-04-19] MEDS ORDERED: ceFAZolin 1,000 MG in SODIUM CHLORIDE 0.9% 1,000 ML IRRIGATION ONE (09:51)
[2017-04-19] MEDS ORDERED: LIDOCAINE 2%-EPI 1:100,000 20 ML VIAL ONE (09:51)
[2017-04-19] MEDS ORDERED: LIDOCAINE 1% INJ 10MG/ML (20 ML MDV) ONE (09:51)
[2017-04-19] MEDS ORDERED: PHENYLEPHRINE-0.9% NACL SYG 1 MG/10 ML SYRINGE ONE (09:51)
[2017-04-19] MEDS ORDERED: SUCCINYLCHOLINE CHLORIDE 100 MG/5 ML SYR IV ONE (09:51)
[2017-04-19] MEDS ORDERED: ePHEDrine SULFATE/0.9% NACL/PF 50 MG/5 ML SYRINGE IV ONE (09:51)
[2017-04-19] MEDS ORDERED: ROPIVACAINE 5 MG/ML 30 ML VIAL ONE (09:51)
[2017-04-19] MEDS ORDERED: SODIUM CHLORIDE 0.9% 100 ML with ceFAZolin 2,000 MG IV ONE ×2 (10:11)
--- NOTE | 2017-04-19 10:45 | P.ONQ ---
Anesthesiology Proc Note - PNB - Peripheral Nerve Block Performed Left Interscalene Single Time Out Performed: Yes Procedure Start Time: : Procedure Stop Time: :36 Indication: Acute Post-Operative Pain, Requested by physician Sedation Type: Sedate with meaningful contact maintained Preparation: Sterile Prep Position: Supine Needle Size: 50mm (2") Needle Gauge: 21 Technique: Ultrasound Injectate: 0.5% Ropivacaine (see comment for volume) (ropi .5% 20cc) Blood Aspirated: No Pain Paresthesia on Injection Noted: No Resistance on Injection: Normal Events: Uneventful and Well Tolerated
--- NOTE | 2017-04-19 11:18 | P.OP ---
Date of Procedure: 04/19/17 Preoperative Diagnosis: Displaced fracture left proximal humerus Postoperative Diagnosis: Displaced fracture left proximal humerus Procedure(s) Performed: Open reduction and internal fixation left proximal humerus Implants: [employer] Merna Lock Proximal humerus plate Anesthesia: DAX Surgeon: Greg Dumont Spring Encaser #1: Marya Mcmillan Estimated Blood Loss (ml): 20 Pathology: none sent Condition: stable Disposition: PACU Indications for Procedure: This is a 68-year-old female who sustained a fall at home. He was admitted last week for a displaced fracture of her left proximal humerus as well as medical issues. Due to the displacement of the fracture, and open reduction and internal fixation was recommended. As was discussed at length with the patient's daughter and also with the patient, and informed consent was obtained. Her surgery was delayed secondary to her being on Plavix. Operative Findings: The operative findings are consistent with a displaced fracture of the left proximal humerus Description of Procedure: The patient was seen in the preoperative area, consent was reviewed, and operative site was marked with a skin marker. Patient was then brought to the operating room and given preoperative antibiotics intravenously. A general anesthetic was administered by the anesthesia department. The patient was then placed in a beachchair position with the bony prominences well-padded and the head secured. The shoulder was then prepped and draped in the usual sterile fashion. A universal timeout was then performed, which confirmed the patient's name, surgical site, ALLERGIES, and consent. A standard deltopectoral approach was performed. The skin and subcutaneous tissue was sharply dissected down to the deltoid fascia. The cephalic vein was then identified and retracted medially. The deltopectoral interval was then utilized to expose the fracture. The fracture hematoma was evacuated and the fracture was then manually reduced. Next the appropriate humeral plate was placed on the lateral aspect of the humerus just distal to the greater tuberosity. The plate was then provisionally held with screws both proximally and distally. Fluoroscopic x- rays confirmed reduction of the fracture and placement of the plate and screws. The remaining screw holes were then filled in order to achieve maximal fixation. After all the screws been placed, final fluoroscopic x-rays confirmed reduction of the fracture. The shoulder was also taken through range of motion and the fracture site was stable. Shoulder was then irrigated with pulsatile lavage. The deltopectoral interval was then closed with #1 Vicryl as well. The subcutaneous tissues were closed with 2-0 Vicryl then Dermabond was placed on the skin. A sterile dressing was then applied, the patient was transported to the recovery room in an arm sling in stable condition. The litigation assistant IZAIAH Guzman was required due the complexity of the surgery.
--- NOTE | 2017-04-19 11:25 | FL ---
Fluoroscopy History: LEFT SHOULDER FRACTURE 21 seconds of fluoroscopic time and 2 paper films are submitted for ORIF left shoulder.
[2017-04-19 12:03] LABS: Glucose,Whole Blood 122 mg/dL (75-99)
--- NOTE | 2017-04-19 12:33 | XR ---
EXAMINATION TYPE: XR shoulder limited LT DATE OF EXAM: 04/19/2017 CLINICAL HISTORY: s/p ORIF left proximal humerus Fixation plate and screws traverse proximal humeral fracture. Alignment is near-anatomic. No addition al fracture seen. Bone fragment identified adjacent to the acromion. IMPRESSION: 1. ORIF left proximal humerus.
[2017-04-19] MEDS ORDERED: ACETAMINOPHEN 500 MG PO PRN (14:30)
[2017-04-19] MEDS ORDERED: DOCUSATE 100 MG CAP PO PRN (14:35)
[2017-04-19] MEDS ORDERED: ALBUTEROL NEBULIZED 2.5 MG/3 ML INHALATION PRN (14:35)
--- NOTE | 2017-04-19 14:53 | P.CONS ---
History of Present Illness - Reason for Consult Consult date: 04/19/17 hypertensive mnagement Requesting physician: Oswaldo Dumont - Chief Complaint left arm pain - History of Present Illness Patient is a 76-year-old female with a past medical history of diabetes, hypertension, dyslipidemia, and chronic kidney disease who presented today for repair of her left humeral fracture. She is well moving to our service from her recent admission for uncontrolled pain from left humeral fracture, UTI, and insomnia. She was hospitalized from 04/10/2017 through 04/15. Patient underwent ORIF of left humeral fracture. She tolerated the procedure well. Patient seen and examined at bedside with family present. They report that she was sleeping most of the weekend with her new [place]. She was not very responsive until about 5 PM. She did not have any morning wakening hallucinations. They did report that she had hallucinations with sitting [place] for pain control. Their report that she did a little bit better with eating over the weekend and she had been doing. She did have some pain in the shoulder. She has not had any more nausea or abdominal pain. She has no other complaints currently. Family is very concerned about pain medication use with her history of hallucinations. They also want to go to [facility] on discharge. Review of Systems General: no fever/chills, no rigors, weight loss over the last several months, decreased appetite, no unusual fatigue Eyes: no noticable visual changes, no loss of vision ENT: no rhinorrhea, no congestion, no sore throat Cardiovascular: no chest pain, no palpitations, no preyncope/syncope, no edema Pulmonary: no shortness of breath, no wheezing, no cough Abdominal: no abdominal pain, no constipation, no diarrhea, no vomiting, no nausea Genitourinary: no dysuria, no urinary frequency, no unusual discharge/odor Neuro: no unusual paresthesias, no unusual paresis/paralysis, no headache Dermatologic: no unusual rashes, no unusual lesions, no unusual changes in nails Hematologic: no hemoptysis, no hematuria, no melena/hematochezia Psychiatric: no changes in mood or behaviors, sleeping more Musculoskeletal: Left shoulder pain Past Medical History Past Medical History: Coronary Artery Disease (CAD), Chest Pain / Angina, Heart Failure, COPD, Diabetes Mellitus, GERD/Reflux, GI Bleed, Hyperlipidemia, Hypertension, Memory Impairment, Myocardial Infarction (IA), Osteoarthritis (OA) Additional Past Medical History / Comment(s): NIDDM, chronic L knee pain, generalized arthiritis, anemia, back pain.sinus infections. 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 Stent in leg. Subclavian bypass GRAFT. PTCA's, EGD with cauterized arterovenous malformation, colonoscopy, L hand's index finger amputation, R hand 's thumb tendon repair, R elbow replacement, sinus sx, Past Anesthesia/Blood Transfusion Reactions: No Reported Reaction Additional Past Anesthesia/Blood Transfusion Reaction / Comm: Pt has recieved blood in the past without reaction. Date of Last Stent Placement:: 2010 Smoking Status: Former smoker - Past Family History Father History Unknown: Yes Mother Family Medical History: Cancer Additional Family Medical History / Comment(s): Mother had lung cancer. Medications and Allergies Home Medications Medication Instructions Recorded Confirmed Type Pantoprazole Sodium 40 mg PO DAILY 09/16/14 04/18/17 History Repaglinide [Prandin] 1 mg PO BID PRN 09/16/14 04/18/17 History Atorvastatin [Lipitor] 40 mg PO HS #30 tab 04/19/15 04/18/17 Rx Benazepril [Lotensin] 5 mg PO DAILY #1 tablet 05/31/16 04/18/17 Rx Metoprolol Tartrate [Lopressor] 25 mg PO BID #0 05/31/16 04/18/17 Rx Famotidine [Pepcid] 20 mg PO DAILY #30 tab 04/03/17 04/18/17 Rx Ondansetron HCl [Zofran Oral Soln] 4 mg PO Q6H PRN 20 Days #20 04/03/17 Rx solution Amitriptyline HCl [Elavil] 25 mg PO HS #30 tab 04/15/17 04/18/17 Rx Enoxaparin [Lovenox] 40 mg SQ DAILY #6 syringe 04/15/17 04/18/17 Rx HYDROcodone/APAP 10-325MG [[place] 1 each PO Q6H PRN #45 tab 04/15/17 04/18/17 Rx 10-325] Isosorbide Mononitrate ER [Imdur] 15 mg PO DAILY #30 dose 04/15/17 04/18/17 Rx Acetaminophen Tab [Tylenol Tab] 500 mg PO Q6H PRN 04/18/17 04/18/17 History Cyclobenzaprine [Flexeril] 10 mg PO TID 04/18/17 04/18/17 History Ergocalciferol (Vitamin D2) 50,000 unit PO KEARNS 04/18/17 04/18/17 History [Vitamin D2] Fluconazole [Diflucan] 100 mg PO DAILY 04/18/17 04/18/17 History Allergies Allergy/AdvReac Type Severity Reaction Status Date / Time blue dye Allergy Anaphylaxis Verified 04/19/17 09:07 clonidine [From Catapres] Allergy Diarrhea Verified 04/19/17 09:07 iodine Allergy Anaphylaxis Verified 04/19/17 09:07 monosodium glutamate [MSG] Allergy Anaphylaxis Verified 04/19/17 09:07 ofloxacin [From Floxin] Allergy Anaphylaxis Verified 04/19/17 09:07 piroxicam [From Feldene] Allergy Nausea & Verified 04/19/17 09:07 Vomiting red dye Allergy Anaphylaxis Verified 04/19/17 09:07 Sulfa (Sulfonamide Allergy Anaphylaxis Verified 04/19/17 09:07 Antibiotics) tramadol [From Ultram] Allergy Anaphylaxis Verified 04/19/17 09:07 amoxicillin AdvReac Diarrhea Verified 04/19/17 09:07 bisoprolol [From Ziac] AdvReac Unknown Verified 04/19/17 09:07 cephalexin [From Keflex] AdvReac Diarrhea Verified 04/19/17 09:07 glipizide AdvReac Unknown Verified 04/19/17 09:07 hydrochlorothiazide AdvReac Unknown Verified 04/19/17 09:07 [From Ziac] metformin AdvReac Unknown Verified 04/19/17 09:07 morphine AdvReac Hallucinati Verified 04/19/17 09:07 ons sertraline [From Zoloft] AdvReac Hallucinati Verified 04/19/17 09:07 ons triamterene [From Dyazide] AdvReac Unknown Verified 04/19/17 09:07 Physical Exam Osteopathic Statement: *. No significant issues noted on an osteopathic structural exam other than those noted in the History and Physical/Consult. Vitals: Vital Signs Temp Pulse Pulse Resp BP Pulse Ox 04/19/17 14:00 97.2 F L 84 16 160/87 99 04/19/17 13:30 77 16 148/65 98 04/19/17 13:15 70 16 155/78 96 04/19/17 13:00 72 16 152/69 99 04/19/17 12:45 76 16 152/67 98 04/19/17 12:30 74 16 171/67 97 04/19/17 12:15 71 16 154/67 98 04/19/17 12:00 77 16 137/62 98 04/19/17 11:53 72 16 147/66 98 04/19/17 11:38 75 16 149/67 99 04/19/17 11:23 98.2 F 72 18 161/67 98 04/19/17 09:45 76 16 147/75 97 04/19/17 09:33 97.8 F 80 18 174/91 95 Intake and Output 04/18/17 04/19/17 04/19/17 22:59 06:59 14:59 Intake Total 601 Output Total 20 Balance 581 Intake: IV 601 Output: Estimated Blood Loss 20 General: non toxic, no distress, appears at stated age, normal weight Derm: Ecchymosis over left chest wall, left arm, and left hand, also small ecchymoses over right forearm no unusual rashes/lesions, warm, dry Head: atraumatic, normocephalic, symmetric Eyes: EOMI, no lid lag, anicteric sclera, pupils equal round reactive to light ENT: Nose and ears atraumatic, no thrush, no pharyngeal erythema Neck: No thyromegaly, no cervical lymphadenopathy, trachea midline, supple Mouth: no lip lesion, mucus membranes moist Cardiovascular: S1S2 reg, no murmur, positive posterior tibial pulse bilateral, no edema, capillary refill less than 2 seconds Lungs: CTA bilateral, no rhonchi, no rales , no accessory muscle use Abdominal: soft, nontender to palpation, no guarding, no appreciable organomegaly, normal bowel sounds Ext: no gross muscle atrophy, muscle strength grossly intact in bilateral lower extremities, unable to move left upper extremity and she cannot feel it, 5 out of 5 in right upper extremity, no contractures, Neuro: CN II-XI grossly intact, light touch intact in bilateral face, right upper extremity, and bilateral lower extremities, unable to feel left upper extremity secondary to nerve block, Psych: Alert, oriented, appropriate affect Results Labs: Abnormal Lab Results - Last 24 Hours (Table) 04/19/17 04/19/17 Range/Units 09:03 12:00 POC Glucose (mg/dL) 111 H 122 H (75-99) mg/dL Assessment and Plan Assessment: Left humeral fracture status post ORIF -Family does not want her to have [place] she's had hallucinations to this and [place] was subsequently discontinued -Awaiting call back from Marya Mcmillan, or oscar BLISS regarding IV Tylenol -Resume DVT prophylaxis when okay with orthopedics -Aspirin and Plavix was ordered for the morning -PT evaluation Diabetes mellitus type 2 -Hold oral medications -Hemoglobin A1c was 6.3 -Sliding-scale insulin Iron deficiency anemia -Status post IV iron 1 last admission -Does not tolerate oral iron -Follow CBC Insomnia with waking hallucinations -Has been sleeping throughout the day and will decrease Elavil total 10 mg nightly Recent UTI -Recheck UA -Has completed antibiotic course Candidal esophagitis -Will complete Diflucan therapy on 04/25 Chronic systolic congestive heart failure with ejection fraction 40-45% -Metoprolol -CELESTINA inhibitor -Currently compensated -Not chronically on diuretic therapy Coronary artery disease -Resume aspirin and Plavix in a.m. if okay with orthopedics Mild protein calorie malnutrition -Dietary consultation, supplements Chronic kidney disease stage III -Check basic metabolic profile in a.m. -Avoid nephrotoxic sick agents Chronic: Hypertension Dyslipidemia Her daughter Sharri contacted with any questions and/or medication changes.
[2017-04-19 15:25] LABS: Anisocytosis Slight; Basophils % (A) 0 %; Eosinophils # (A) 0.1 k/uL (0-0.7); Eosinophils % (A) 1 %; HCT 30.9 % (34.0-46.0); HGB 9.4 gm/dL (11.4-16.0); Hypochromasia Moderate; Lymphocytes # (A) 0.5 k/uL (1.0-4.8); Lymphocytes % (A) 5 %; MCH 29.3 pg (25.0-35.0); MCHC 30.2 g/dL (31.0-37.0); MCV 96.9 fL (80.0-100.0); Macrocytosis Slight; Mean Platelet Volume 7.9; Monocytes # (A) 0.2 k/uL (0-1.0); Monocytes % (A) 2 %; Neutrophils # (A) 8.4 k/uL (1.3-7.7); Neutrophils % (A) 91 %; Platelet Count 331 k/uL (150-450); RBC 3.19 m/uL (3.80-5.40); RDW 19.7 % (11.5-15.5); WBC 9.1 k/uL (3.8-10.6)
[2017-04-19] MEDS ORDERED: ACETAMINOPHEN IV (For NPO) 1,000 MG in EMPTY BAG 1 BAG IVPB PRN (16:33)
[2017-04-19 17:00] LABS: Appearance,Urine Clear (Clear); Bacteria,Urine Rare /hpf; Bilirubin,Urine Negative (Negative); Blood,Urine Negative (Negative); Color,Urine Yellow; Glucose,Urine (UA) Negative (Negative); Hyaline Casts,Urine 3 /lpf (0-2); Ketones,Urine Negative (Negative); Leukocyte Esterase,Urine Negative (Negative); Mucus,Urine Rare /hpf; Nitrite,Urine Negative (Negative); PH, Urine 5.5 (5.0-8.0); Protein,Urine 1+ (Negative); RBC,Urine 1 /hpf (0-5); Specific Gravity,Urine 1.013 (1.001-1.035); Squamous Epithelial Cell,Urine 2 /hpf (0-4); Urobilinogen,Urine <2.0 mg/dL (<2.0); WBC,Urine 5 /hpf (0-5)
[2017-04-19 17:00] LABS: Glucose,Whole Blood 166 mg/dL (75-99)
[2017-04-19] MEDS: INSULIN ASPART 100 UNIT/ML 1 ML 10 ML VIAL SQ SCH ×2 (18:14→21:59)
[2017-04-19] MEDS: ceFAZolin IN SWFI 2 GM/20 ML SYRINGE IVP SCH (18:25)
[2017-04-19] MEDS ORDERED: AMITRIPTYLINE HCL 10 MG TAB PO SCH (21:00)
[2017-04-19 21:05] LABS: Glucose,Whole Blood 209 mg/dL (75-99)
[2017-04-19] MEDS: ATORVASTATIN 40 MG TAB PO SCH (21:53)
[2017-04-19] MEDS: METOPROLOL TARTRATE 25 MG TAB PO SCH (21:53)
[2017-04-19] MEDS: SODIUM CHLORIDE 0.9% 1,000 ML IV SCH (21:56)
[2017-04-20] MEDS ORDERED: HYDROmorphone 0.5 MG/0.5 ML SYRINGE ONE (00:40)
[2017-04-20] MEDS ORDERED: hydrOXYzine PAMOATE 25 MG CAP ONE (00:40)
[2017-04-20] MEDS: ceFAZolin IN SWFI 2 GM/20 ML SYRINGE IVP SCH (06:20)
[2017-04-20] MEDS: SODIUM CHLORIDE 0.9% 1,000 ML IV SCH (06:20)
[2017-04-20] MEDS: HYDROmorphone 0.5 MG/0.5 ML SYRINGE IVP PRN ×3 (07:07→13:38)
[2017-04-20 07:10] LABS: Glucose,Whole Blood 165 mg/dL (75-99)
[2017-04-20 07:24] LABS: Calcium 8.1 mg/dL (8.4-10.2); Potassium 4.4 mmol/L (3.5-5.1)
[2017-04-20] MEDS ORDERED: traMADol 50 MG TAB PO PRN ×2 (08:25)
[2017-04-20 08:38] LABS: Anisocytosis Slight; Basophils % (A) 0 %; Eosinophils % (A) 0 %; HCT 27.8 % (34.0-46.0); HGB 8.2 gm/dL (11.4-16.0); Hypochromasia Marked; Lymphocytes # (A) 0.7 k/uL (1.0-4.8); Lymphocytes % (A) 10 %; MCH 29.8 pg (25.0-35.0); MCHC 29.7 g/dL (31.0-37.0); MCV 100.5 fL (80.0-100.0); Macrocytosis Moderate; Mean Platelet Volume 6.9; Monocytes # (A) 0.5 k/uL (0-1.0); Monocytes % (A) 7 %; Neutrophils # (A) 6.1 k/uL (1.3-7.7); Neutrophils % (A) 82 %; Platelet Count 327 k/uL (150-450); RBC 2.77 m/uL (3.80-5.40); WBC 7.4 k/uL (3.8-10.6)
[2017-04-20] MEDS: LISINOPRIL 5 MG TAB PO SCH (08:45)
[2017-04-20] MEDS: ISOSORBIDE MONONITRATE ER 15 MG TAB PO SCH (08:45)
[2017-04-20] MEDS: PANTOPRAZOLE 40 MG TABLET PO SCH (08:45)
[2017-04-20] MEDS: METOPROLOL TARTRATE 25 MG TAB PO SCH ×2 (08:46→22:47)
[2017-04-20] MEDS: FLUCONAZOLE 100 MG TAB PO SCH (08:46)
[2017-04-20] MEDS: FAMOTIDINE 20 MG TAB PO SCH (08:46)
[2017-04-20] MEDS: CLOPIDOGREL 75 MG TAB PO SCH (08:46)
[2017-04-20] MEDS: INSULIN ASPART 100 UNIT/ML 1 ML 10 ML VIAL SQ SCH ×4 (08:53→22:39)
[2017-04-20] MEDS: ASPIRIN 81 MG PO SCH (09:34)
--- NOTE | 2017-04-20 11:03 | P.PN ---
Subjective Progress Note Date: 04/20/17 Principal diagnosis: humeral fracture Patient is still complaining of pain at this time. Good appetite. No nausea no vomiting. Objective - Vital Signs Vital signs: Vital Signs Temp 97.4 F L 04/20/17 08:00 Pulse 107 H 04/20/17 08:00 Resp 19 04/20/17 08:00 BP 156/88 04/20/17 08:00 Pulse Ox 95 04/20/17 08:00 Intake & Output 04/19/17 04/20/17 04/20/17 18:59 06:59 18:59 Intake Total 601 340 Output Total 200 200 Balance 401 140 Weight 63.503 kg 63.503 kg Intake: IV 601 Oral 340 Output: Urine 180 200 Estimated Blood Loss 20 Other: Voiding Method Bedside Commode Bedside Commode # Voids 1 1 - Exam gen:alert and oriented lungs:clear to auscultation heart:s1s2 abdomen:soft and depressible,non tender ext:no edema - Labs CBC & Chem 7: 04/20/17 06:55 04/20/17 06:55 Labs: Abnormal Lab Results - Last 24 Hours (Table) 04/19/17 04/19/17 04/19/17 Range/Units 12:00 15:07 16:25 RBC 3.19 L (3.80-5.40) m/uL Hgb 9.4 L (11.4-16.0) gm/dL Hct 30.9 L (34.0-46.0) % MCV (80.0-100.0) fL MCHC 30.2 L (31.0-37.0) g/dL RDW 19.7 H (11.5-15.5) % Neutrophils # 8.4 H (1.3-7.7) k/uL Lymphocytes # 0.5 L (1.0-4.8) k/uL Chloride (98-107) mmol/L BUN (7-17) mg/dL Creatinine (0.52-1.04) mg/dL Glucose (74-99) mg/dL POC Glucose (mg/dL) 122 H (75-99) mg/dL Calcium (8.4-10.2) mg/dL Urine Protein 1+ H (Negative) Urine Bacteria Rare H (None) /hpf Hyaline Casts 3 H (0-2) /lpf Urine Mucus Rare H (None) /hpf 04/19/17 04/19/17 04/20/17 Range/Units 16:57 20:50 06:55 RBC (3.80-5.40) m/uL Hgb (11.4-16.0) gm/dL Hct (34.0-46.0) % MCV (80.0-100.0) fL MCHC (31.0-37.0) g/dL RDW (11.5-15.5) % Neutrophils # (1.3-7.7) k/uL Lymphocytes # (1.0-4.8) k/uL Chloride 113 H (98-107) mmol/L BUN 24 H (7-17) mg/dL Creatinine 1.50 H (0.52-1.04) mg/dL Glucose 152 H (74-99) mg/dL POC Glucose (mg/dL) 166 H 209 H (75-99) mg/dL Calcium 8.1 L (8.4-10.2) mg/dL Urine Protein (Negative) Urine Bacteria (None) /hpf Hyaline Casts (0-2) /lpf Urine Mucus (None) /hpf 04/20/17 04/20/17 Range/Units 06:55 07:04 RBC 2.77 L (3.80-5.40) m/uL Hgb 8.2 L (11.4-16.0) gm/dL Hct 27.8 L (34.0-46.0) % MCV 100.5 H (80.0-100.0) fL MCHC 29.7 L (31.0-37.0) g/dL RDW 19.0 H (11.5-15.5) % Neutrophils # (1.3-7.7) k/uL Lymphocytes # 0.7 L (1.0-4.8) k/uL Chloride (98-107) mmol/L BUN (7-17) mg/dL Creatinine (0.52-1.04) mg/dL Glucose (74-99) mg/dL POC Glucose (mg/dL) 165 H (75-99) mg/dL Calcium (8.4-10.2) mg/dL Urine Protein (Negative) Urine Bacteria (None) /hpf Hyaline Casts (0-2) /lpf Urine Mucus (None) /hpf Assessment and Plan (1) Closed left humeral fracture Narrative/Plan: Status post repair Current Visit: No Status: Acute Code(s): S42.302A - UNSP FRACTURE OF SHAFT OF HUMERUS, LEFT ARM, INIT SNOMED Code(s): 93363294 (2) Essential hypertension Narrative/Plan: Uncontrolled, can be in part secondary to pain Currently on imdur, lisinopril and metoprolol Current Visit: No Status: Acute Code(s): I10 - ESSENTIAL (PRIMARY) HYPERTENSION SNOMED Code(s): 01365474 (3) Type 2 diabetes mellitus Narrative/Plan: continue sliding scale of insulin on prandin Current Visit: No Status: Acute Code(s): E11.9 - TYPE 2 DIABETES MELLITUS WITHOUT COMPLICATIONS SNOMED Code(s): 15547411 (4) Chronic renal failure Narrative/Plan: stable Current Visit: Yes Status: Acute Code(s): N18.9 - CHRONIC KIDNEY DISEASE, UNSPECIFIED SNOMED Code(s): 41927951 (5) Depression Narrative/Plan: Discussed with patient. This seems like a chronic issue. She has discussed with Dr Varner about this. And he was going to refer her to a psychiatrist. She is not suicidal,she said she would not do this to her kids because they are very good to her Current Visit: Yes Status: Acute Code(s): F32.9 - MAJOR DEPRESSIVE DISORDER , SINGLE EPISODE, UNSPECIFIED SNOMED Code(s): 23605924 (6) Anemia Narrative/Plan: stablke Current Visit: No Status: Acute Code(s): D64.9 - ANEMIA, UNSPECIFIED SNOMED Code(s): 773599609 (7) CAD (coronary artery disease) Narrative/Plan: aspirin and plavix no chest pain stable Current Visit: No Status: Acute Code(s): I25.10 - ATHSCL HEART DISEASE OF [place] CORONARY ARTERY W/O ANG PCTRS SNOMED Code(s): 76711294 (8) Deja esophagitis Narrative/Plan: on diflucan until 04/25 Current Visit: No Status: Acute Code(s): B37.81 - CANDIDAL ESOPHAGITIS SNOMED Code(s): 59310262 (9) Chronic diastolic (congestive) heart failure Narrative/Plan: compensated Current Visit: No Status: Acute Code(s): I50.32 - CHRONIC DIASTOLIC ( CONGESTIVE) HEART FAILURE SNOMED Code(s): 117090575 (10) Malnutrition Narrative/Plan: dietary consult Current Visit: No Status: Acute Code(s): E46 - UNSPECIFIED PROTEIN-CALORIE MALNUTRITION SNOMED Code(s): 77633468
--- NOTE | 2017-04-20 12:23 | CONS ---
CONSULTATION Mrs. Leon is a 76-year-old female who is seen for cardiac evaluation. This patient's medical records reviewed. This patient was recently in the hospital and had underwent surgery for left humerus fracture. The patient had issues with the pain medication. She continue her significant pain at home. Patient could not take [place] at home because she has a past history of hallucination. The patient was given Elavil and then see was waking up with hallucination and pain and so patient was brought to the hospital for further pain management. The patient has a stable coronary artery disease. Prior cardiac catheterization revealed the patient to be on the medical management. During the last admission, patient had borderline elevation in the troponin which could be secondary to low hemoglobin as well as supply and demand mismatch. At present, patient denies any chest pain. Patient home medications include Prandin, Lipitor 40 mg daily, Lopressor 25 mg daily, Zofran p.r.n., Elavil 25 mg daily, Lovenox 40 mg subcutaneous, [place], Isordil 15 mg daily. PHYSICAL EXAMINATION: Physical examination at present reveals a 76-year-old female, who does not appear to be in any acute distress. The patient's blood pressure is 156/88 mmHg, oxygen saturation is 95%. HEAD/ENT examination is negative. Neck is supple. There is no increase in jugular venous pressure. Both the carotid pulses are felt. There is no bruit. Chest is symmetrical. HEART: The PMI is not felt. First and second heart sounds are normal. There is an ejection systolic murmur noted. Lungs are clinically clear to auscultation and percussion. Abdomen is soft. EXTREMITIES: Peripheral pulses are 1+. EKG shows evidence of left bundle branch block pattern. The patient's laboratory tests are reviewed. FINAL IMPRESSION: This patient is stable cardiac mcg[place] without any symptoms of angina. The patient is status post recent fracture of the humerus. RECOMMENDATIONS: We will continue the patient on her cardiac medications including Plavix and baby aspirin. Thank you very much for letting me participate in the care of this nice lady. MMHARRYL / IJN: [id number] /
[2017-04-20 12:42] LABS: Glucose,Whole Blood 118 mg/dL (75-99)
[2017-04-20] MEDS ORDERED: ACETAMINOPHEN TAB 325 MG TAB PO PRN (13:43)
--- NOTE | 2017-04-20 16:18 | P.PN ---
Subjective Progress Note Date: 04/20/17 Patient if status post ORIF left proximal humerus. This is postoperative day # 1. Patient states she is tolerating the shoulder immobilizer. Patient does complain of pain to the left shoulder. Patient denies any numbness, tingling, or weakness. Objective - Vital Signs Vital signs: Vital Signs Temp 98.0 F 04/20/17 11:27 Pulse 71 04/20/17 11:27 Resp 14 04/20/17 11:27 BP 149/77 04/20/17 11:27 Pulse Ox 95 04/20/17 11:27 Intake & Output 04/19/17 04/20/17 04/20/17 18:59 06:59 18:59 Intake Total 601 340 Output Total 200 200 Balance 401 140 Weight 63.503 kg 63.503 kg Intake: IV 601 Oral 340 Output: Urine 180 200 Estimated Blood Loss 20 Other: Voiding Method Bedside Commode Bedside Commode # Voids 1 1 - Exam Dressing is clean, dry and intact. Shoulder immobilizer in place. Sensation intact. Neurovascular status and circulatory status intact. - Labs CBC & Chem 7: 04/20/17 06:55 04/20/17 06:55 Labs: Abnormal Lab Results - Last 24 Hours (Table) 04/19/17 04/19/17 04/19/17 Range/Units 16:25 16:57 20:50 RBC (3.80-5.40) m/uL Hgb (11.4-16.0) gm/dL Hct (34.0-46.0) % MCV (80.0-100.0) fL MCHC (31.0-37.0) g/dL RDW (11.5-15.5) % Lymphocytes # (1.0-4.8) k/uL Chloride (98-107) mmol/L BUN (7-17) mg/dL Creatinine (0.52-1.04) mg/dL Glucose (74-99) mg/dL POC Glucose (mg/dL) 166 H 209 H (75-99) mg/dL Calcium (8.4-10.2) mg/dL Urine Protein 1+ H (Negative) Urine Bacteria Rare H (None) /hpf Hyaline Casts 3 H (0-2) /lpf Urine Mucus Rare H (None) /hpf 04/20/17 04/20/1718 Range/Units 06:55 06:55 07:04 RBC 2.77 L (3.80-5.40) m/uL Hgb 8.2 L (11.4-16.0) gm/dL Hct 27.8 L (34.0-46.0) % MCV 100.5 H (80.0-100.0) fL MCHC 29.7 L (31.0-37.0) g/dL RDW 19.0 H (11.5-15.5) % Lymphocytes # 0.7 L (1.0-4.8) k/uL Chloride 113 H (98-107) mmol/L BUN 24 H (7-17) mg/dL Creatinine 1.50 H (0.52-1.04) mg/dL Glucose 152 H (74-99) mg/dL POC Glucose (mg/dL) 165 H (75-99) mg/dL Calcium 8.1 L (8.4-10.2) mg/dL Urine Protein (Negative) Urine Bacteria (None) /hpf Hyaline Casts (0-2) /lpf Urine Mucus (None) /hpf 04/20/17 Range/Units 12:32 RBC (3.80-5.40) m/uL Hgb (11.4-16.0) gm/dL Hct (34.0-46.0) % MCV (80.0-100.0) fL MCHC (31.0-37.0) g/dL RDW (11.5-15.5) % Lymphocytes # (1.0-4.8) k/uL Chloride (98-107) mmol/L BUN (7-17) mg/dL Creatinine (0.52-1.04) mg/dL Glucose (74-99) mg/dL POC Glucose (mg/dL) 118 H (75-99) mg/dL Calcium (8.4-10.2) mg/dL Urine Protein (Negative) Urine Bacteria (None) /hpf Hyaline Casts (0-2) /lpf Urine Mucus (None) /hpf Assessment and Plan (1) Closed fracture of left proximal humerus Current Visit: Yes Status: Acute Code(s): S42.202A - UNSP FRACTURE OF UPPER END OF LEFT HUMERUS, INIT FOR CLOS FX SNOMED Code(s): 16694178 Plan: #1. Maintain shoulder immobilizer to left upper extremity at all times. #2. Plavix and aspirin for anticoagulation. #3. Continue pain control and routine postoperative care. #4. Likely discharge to rehab tomorrow.
[2017-04-20 17:14] LABS: Glucose,Whole Blood 166 mg/dL (75-99)
[2017-04-20] MEDS: HYDROcodone/APAP 5-325MG 1 EACH TAB PO PRN (17:58)
[2017-04-20 21:29] LABS: Glucose,Whole Blood 121 mg/dL (75-99)
[2017-04-20] MEDS: ATORVASTATIN 40 MG TAB PO SCH (22:47)
[2017-04-21] MEDS: SODIUM CHLORIDE 0.9% 1,000 ML IV SCH ×2 (00:16→02:58)
[2017-04-21] MEDS: LACTATED RINGERS 1,000 ML IV SCH (00:16)
[2017-04-21] MEDS ORDERED: SODIUM CHLORIDE 0.9% 500 ML IV ONE (01:28)
[2017-04-21] MEDS: HYDROmorphone 0.5 MG/0.5 ML SYRINGE IVP PRN (03:15)
[2017-04-21 07:06] LABS: Glucose,Whole Blood 111 mg/dL (75-99)
[2017-04-21 08:21] VITALS: BP 156/71; PULSE 84; RESP 19; TEMP 97.4
[2017-04-21] MEDS: HYDROcodone/APAP 5-325MG 1 EACH TAB PO PRN (08:25)
[2017-04-21] MEDS: PANTOPRAZOLE 40 MG TABLET PO SCH (08:25)
[2017-04-21] MEDS ORDERED: AMITRIPTYLINE HCL 10 MG TAB PO SCH (09:00)
[2017-04-21] MEDS: ISOSORBIDE MONONITRATE ER 15 MG TAB PO SCH (09:54)
[2017-04-21] MEDS: FLUCONAZOLE 100 MG TAB PO SCH (09:54)
[2017-04-21] MEDS: ASPIRIN 81 MG PO SCH (09:54)
[2017-04-21] MEDS: FAMOTIDINE 20 MG TAB PO SCH (09:54)
[2017-04-21] MEDS: CLOPIDOGREL 75 MG TAB PO SCH (09:54)
[2017-04-21] MEDS: INSULIN ASPART 100 UNIT/ML 1 ML 10 ML VIAL SQ SCH ×2 (09:55→15:57)
[2017-04-21] MEDS: LISINOPRIL 5 MG TAB PO SCH (09:57)
[2017-04-21] MEDS: METOPROLOL TARTRATE 25 MG TAB PO SCH (09:58)
--- NOTE | 2017-04-21 11:26 | P.PN ---
Subjective Progress Note Date: 04/21/17 Principal diagnosis: humeral fracture Pain better controlled today,no fever, no nausea Objective - Vital Signs Vital signs: Vital Signs Temp 97.4 F L 04/21/17 07:00 Pulse 84 04/21/17 07:00 Resp 19 04/21/17 07:00 BP 156/71 04/21/17 07:00 Pulse Ox 97 04/21/17 07:00 Intake & Output 04/20/17 04/21/17 04/21/17 18:59 06:59 18:59 Intake Total 300 1280 Output Total 130 300 Balance 300 1150 -300 Weight 63.503 kg Intake: Oral 300 1280 Output: Urine 130 300 Other: Voiding Method Bedside Commode Bedside Commode # Voids 1 - Exam gen:alert and oriented lungs:clear to auscultation heart:s1s2 abdomen:soft and depressible,non tender ext:sling in place,bruising througout arm. - Labs CBC & Chem 7: 04/20/17 06:55 04/20/17 06:55 Labs: Abnormal Lab Results - Last 24 Hours (Table) 04/20/17 04/20/17 04/20/17 Range/Units 12:32 17:03 21:27 POC Glucose (mg/dL) 118 H 166 H 121 H (75-99) mg/dL 04/21/17 Range/Units 07:04 POC Glucose (mg/dL) 111 H (75-99) mg/dL Assessment and Plan (1) Closed left humeral fracture Narrative/Plan: Status post repair Current Visit: No Status: Acute Code(s): S42.302A - UNSP FRACTURE OF SHAFT OF HUMERUS, LEFT ARM, INIT SNOMED Code(s): 36719936 (2) Essential hypertension Narrative/Plan: controlled, can be in part secondary to pain Currently on imdur, lisinopril and metoprolol Current Visit: No Status: Acute Code(s): I10 - ESSENTIAL (PRIMARY) HYPERTENSION SNOMED Code(s): 67287917 (3) Type 2 diabetes mellitus Narrative/Plan: continue sliding scale of insulin on prandin controlled Current Visit: No Status: Acute Code(s): E11.9 - TYPE 2 DIABETES MELLITUS WITHOUT COMPLICATIONS SNOMED Code(s): 00093538 (4) Chronic renal failure Narrative/Plan: stable Current Visit: Yes Status: Acute Code(s): N18.9 - CHRONIC KIDNEY DISEASE, UNSPECIFIED SNOMED Code(s): 47310255 (5) Depression Narrative/Plan: Discussed with patient. This seems like a chronic issue. She has discussed with Dr Varner about this. And he was going to refer her to a psychiatrist. She is not suicidal,she said she would not do this to her kids because they are very good to her Current Visit: Yes Status: Acute Code(s): F32.9 - MAJOR DEPRESSIVE DISORDER , SINGLE EPISODE, UNSPECIFIED SNOMED Code(s): 69699007 (6) Anemia Narrative/Plan: stablke Current Visit: No Status: Acute Code(s): D64.9 - ANEMIA, UNSPECIFIED SNOMED Code(s): 491663757 (7) CAD (coronary artery disease) Narrative/Plan: aspirin and plavix no chest pain stable Current Visit: No Status: Acute Code(s): I25.10 - ATHSCL HEART DISEASE OF [place] CORONARY ARTERY W/O ANG PCTRS SNOMED Code(s): 34954399 (8) Deja esophagitis Narrative/Plan: on diflucan until 04/25 Current Visit: No Status: Acute Code(s): B37.81 - CANDIDAL ESOPHAGITIS SNOMED Code(s): 36431666 (9) Chronic diastolic (congestive) heart failure Narrative/Plan: compensated Current Visit: No Status: Acute Code(s): I50.32 - CHRONIC DIASTOLIC ( CONGESTIVE) HEART FAILURE SNOMED Code(s): 462885357 (10) Malnutrition Narrative/Plan: dietary consult Current Visit: No Status: Acute Code(s): E46 - UNSPECIFIED PROTEIN-CALORIE MALNUTRITION SNOMED Code(s): 27650237 Plan: awaiting arrangements for ecf
[2017-04-21 11:35] LABS: Glucose,Whole Blood 129 mg/dL (75-99)
--- NOTE | 2017-04-21 13:20 | P.DS ---
Providers Date of admission: 04/19/17 16:01 Expected date of discharge: 04/21/17 Attending physician: Greg Dumont Consults: 04/19/17 09:17 Consult Physician Routine Consulting Provider: Ashwini Farfan Consult Reason/Comments: medical management and anticoagulation Do you want consulting provider notified?: Yes Primary care physician: Andrés Varner - Discharge Diagnosis(es) (1) Closed fracture of left proximal humerus Current Visit: Yes Status: Acute Hospital Course: This is a 76-year-old female with known history of left proximal humerus fracture after a fall. The patient was evaluated for this injury during an inpatient admission from 04/10/2017-04/15/2017 and patient was discharged home before surgery could be done as patient needed to be off of her Plavix and aspirin for over 5 days. After discussion and consideration patient elects to proceed with ORIF left proximal humerus. The patient is seen preoperatively by Dr. Dumont and cleared for surgery. Patient is admitted to [facility] on 04/19/2017 for ORIF left proximal humerus. The procedures performed without complication or sequelae. The patient is doing well postoperatively. Labs and vital signs are stable on day of discharge. On day of discharge patient's incision is healing well. There is minimal erythema. There is no drainage noted at this time. Patient does have drainage from small skin tears on the left forearm. There are no signs of infection. Patient has full range of motion of the left hand without pain or difficulty. Neurovascular status to the left upper extremity is intact. Patient is discharged to rehab in good condition. Please see med rec for accurate list of home medications. Plan - Discharge Summary Discharge Rx Participant: Yes New Discharge Prescriptions: New HYDROcodone/APAP 5-325MG [[place] 5-325] 1 tab PO Q4-6H PRN #90 tab PRN Reason: Pain Sennosides [Senokot] 1 tab PO BID #60 tablet No Action Repaglinide [Prandin] 1 mg PO BID PRN PRN Reason: FOR CGB > 120 Pantoprazole Sodium 40 mg PO DAILY Atorvastatin [Lipitor] 40 mg PO HS #30 tab Metoprolol Tartrate [Lopressor] 25 mg PO BID #0 Benazepril [Lotensin] 5 mg PO DAILY #1 tablet Famotidine [Pepcid] 20 mg PO DAILY #30 tab Ondansetron HCl [Zofran Oral Soln] 4 mg PO Q6H PRN 20 Days #20 solution PRN Reason: Nausea And Vomiting Amitriptyline HCl [Elavil] 25 mg PO HS #30 tab HYDROcodone/APAP 10-325MG [[place] 10-325] 1 each PO Q6H PRN #45 tab PRN Reason: Pain Scale 6 To 10 Isosorbide Mononitrate ER [Imdur] 15 mg PO DAILY #30 dose Enoxaparin [Lovenox] 40 mg SQ DAILY #6 syringe Fluconazole [Diflucan] 100 mg PO DAILY Ergocalciferol (Vitamin D2) [Vitamin D2] 50,000 unit PO KEARNS Cyclobenzaprine [Flexeril] 10 mg PO TID Acetaminophen Tab [Tylenol Tab] 500 mg PO Q6H PRN PRN Reason: Pain Discharge Medication List Pantoprazole Sodium 40 mg PO DAILY 09/16/14 [History] Repaglinide [Prandin] 1 mg PO BID PRN 09/16/14 [History] Atorvastatin [Lipitor] 40 mg PO HS #30 tab 04/19/15 [Rx] Benazepril [Lotensin] 5 mg PO DAILY #1 tablet 05/31/16 [Rx] Metoprolol Tartrate [Lopressor] 25 mg PO BID #0 05/31/16 [Rx] Famotidine [Pepcid] 20 mg PO DAILY #30 tab 04/03/17 [Rx] Ondansetron HCl [Zofran Oral Soln] 4 mg PO Q6H PRN 20 Days #20 solution [Rx] Amitriptyline HCl [Elavil] 25 mg PO HS #30 tab 04/15/17 [Rx] Enoxaparin [Lovenox] 40 mg SQ DAILY #6 syringe 04/15/17 [Rx] HYDROcodone/APAP 10-325MG [[place] 10-325] 1 each PO Q6H PRN #45 tab 04/15/17 [Rx] Isosorbide Mononitrate ER [Imdur] 15 mg PO DAILY #30 dose 04/15/17 [Rx] Acetaminophen Tab [Tylenol Tab] 500 mg PO Q6H PRN 04/18/17 [History] Cyclobenzaprine [Flexeril] 10 mg PO TID 04/18/17 [History] Ergocalciferol (Vitamin D2) [Vitamin D2] 50,000 unit PO KEARNS 04/18/17 [History] Fluconazole [Diflucan] 100 mg PO DAILY 04/18/17 [History] HYDROcodone/APAP 5-325MG [[place] 5-325] 1 tab PO Q4-6H PRN #90 tab 04/21/17 [Rx] Sennosides [Senokot] 1 tab PO BID #60 tablet 04/21/17 [Rx] Follow up Appointment(s)/Referral(s): Greg Dumont DO [Doctor of Osteopathic Medicine] - 10 Days Activity/Diet/Wound Care/Special Instructions: Maintain shoulder immobilizer at all times. Nonweightbearing to left upper extremity. Leave dressing in place for 7 days. Dressing may be removed on 04/26/2017. Daily dressing changes to left forearm. Rest and ice the left upper extremity Please take all medications as prescribed. Follow-up with [facility] in 7-10 days. Any questions call Discharge Disposition: TRANSFER TO SNF/ECF
[2017-04-24] MEDS ORDERED: ERGOCALCIFEROL 50,000 UNIT CAP PO SCH (12:00)
== END 2017-04-21 16:02 | DRG 493 ==
LOC: OR 08:37 → EDSTATUS 09:50 → 6PED 11:23 → OR 16:01 → 6PED 16:01
PROVIDERS: ADMIT Orthopaedic Surgery; ATTEND Orthopaedic Surgery
PROC: 0PSD04Z Reposition Left Humeral Head with Internal Fixation Device, Open Approach (ICD-10-PCS; principal; 2017-04-19 09:50)
DX: S42.202A Unspecified fracture of upper end of left humerus, initial encounter for closed fracture (principal); B37.81 Candidal esophagitis; E11.22 Type 2 diabetes mellitus with diabetic chronic kidney disease; E44.1 Mild protein-calorie malnutrition; I13.0 Hypertensive heart and chronic kidney disease with heart failure and stage 1 through stage 4 chronic kidney disease, or unspecified chronic kidney disease; I50.42 Chronic combined systolic (congestive) and diastolic (congestive) heart failure; D50.9 Iron deficiency anemia, unspecified; E78.5 Hyperlipidemia, unspecified; F32.9 Major depressive disorder, single episode, unspecified; G47.00 Insomnia, unspecified; I25.10 Atherosclerotic heart disease of native coronary artery without angina pectoris; I25.2 Old myocardial infarction; J44.9 Chronic obstructive pulmonary disease, unspecified; K21.9 Gastro-esophageal reflux disease without esophagitis; N18.3 Chronic kidney disease, stage 3 (moderate); W19.XXXA Unspecified fall, initial encounter; Y92.009 Unspecified place in unspecified non-institutional (private) residence as the place of occurrence of the external cause; Z79.02 Long term (current) use of antithrombotics/antiplatelets; Z79.82 Long term (current) use of aspirin; Z79.899 Other long term (current) drug therapy; Z80.1 Family history of malignant neoplasm of trachea, bronchus and lung; Z87.891 Personal history of nicotine dependence; Z90.710 Acquired absence of both cervix and uterus; Z88.2 Allergy status to sulfonamides; Z88.6 Allergy status to analgesic agent; Z88.3 Allergy status to other anti-infective agents
CPT/HCPCS: 80048; 81001; 85025

== ENCOUNTER 2017-05-04 14:59 | Inpatient (IN) | payer MEDICARE ==
[2017-05-04] MEDS ORDERED: SODIUM CHLORIDE 0.9% 500 ML IV ONE (15:36)
--- NOTE | 2017-05-04 15:38 | ED ---
General Adult HPI - General Source: EMS, RN notes reviewed Mode of arrival: EMS Limitations: altered mental status <Kevin Acuña - Last Filed: 05/04/17 17:18> <Kevin Alberto - Last Filed: 05/04/17 18:17> - General Chief complaint: Altered Mental Status Stated complaint: ALTERED MENTAL STATUS Time Seen by Provider: 05/04/17 15:10 - History of Present Illness Initial comments: This is a 76-year-old female comes into the emergency department because of altered mental status. According to staff about 3 days ago she started becoming less and less alert and altered mentally. Patient started Celexa 3 days ago those well. Patient has had intermittent low-grade fevers according to the daughter but she does not know the temperature. Patient also had surgery on her left shoulder 2 weeks ago. Patient has had occasional vomiting according to the daughter. Patient has no complaints of pain she denies a headache she denies chest pain patient denies abdominal pain. Patient has had no history of any diarrhea that we know of. There's been no respiratory distress that we know of. Patient also is unable to speak loudly she only speaks in a whisper at this point in time. No one knows of any procedure that she has had done that would harm her throat. (Kevin Acuña) - Related Data Home Medications Medication Instructions Recorded Confirmed Pantoprazole Sodium 40 mg PO DAILY@0900 09/16/14 05/04/17 Repaglinide [Prandin] 1 mg PO BID PRN 09/16/14 05/04/17 Acetaminophen Tab [Tylenol] 500 mg PO Q6H PRN 04/18/17 05/04/17 Cyclobenzaprine [Flexeril] 10 mg PO TID@0600,1400,2200 04/18/17 05/04/17 Ergocalciferol (Vitamin D2) 50,000 unit PO KEARNS@1300 04/18/17 05/04/17 [Vitamin D2] Amitriptyline HCl [Elavil] 25 mg PO HS 05/04/17 05/04/17 Atorvastatin [Lipitor] 40 mg PO HS@2100 05/04/17 05/04/17 Benazepril [Lotensin] 5 mg PO DAILY@0900 05/04/17 05/04/17 Citalopram Hydrobromide [CeleXA] 20 mg PO DAILY@0900 05/04/17 05/04/17 Clopidogrel [Plavix] 75 mg PO DAILY@0905/04/17 05/04/17 Diazepam [Valium] 2 mg PO BID PRN 05/04/17 05/04/17 Famotidine [Pepcid] 20 mg PO DAILY@0600 05/04/17 05/04/17 Isosorbide Mononitrate ER [Imdur] 15 mg PO DAILY@0905/04/17 05/04/17 Loperamide HCl [Imodium A-D] 4 mg PO DAILY PRN MDD 4 tabs 05/04/17 05/04/17 Metoprolol Tartrate [Lopressor] 25 mg PO BID@0900,2100 05/04/17 05/04/17 Ondansetron Odt [Zofran Odt] 4 mg PO Q6H PRN 05/04/17 05/04/17 Sennosides [Senokot] 1 tab PO BID PRN 05/04/17 05/04/17 Previous Rx's Medication Instructions Recorded HYDROcodone/APAP 5-325MG [[place] 1 tab PO Q4-6H PRN #90 tab 04/21/17 5-325] Allergies Allergy/AdvReac Type Severity Reaction Status Date / Time blue dye Allergy Anaphylaxis Verified 05/04/17 15:15 clonidine [From Catapres] Allergy Diarrhea Verified 05/04/17 15:15 Iodinated Contrast- Oral and Allergy Unknown Verified 05/04/17 15:32 IV Dye monosodium glutamate [MSG] Allergy Anaphylaxis Verified 05/04/17 15:15 ofloxacin [From Floxin] Allergy Anaphylaxis Verified 05/04/17 15:15 piroxicam [From Feldene] Allergy Nausea & Verified 05/04/17 15:15 Vomiting red dye Allergy Anaphylaxis Verified 05/04/17 15:15 Sulfa (Sulfonamide Allergy Anaphylaxis Verified 05/04/17 15:15 Antibiotics) tramadol [From Ultram] Allergy Anaphylaxis Verified 05/04/17 15:15 amoxicillin AdvReac Diarrhea Verified 05/04/17 15:15 bisoprolol [From Ziac] AdvReac Unknown Verified 05/04/17 15:15 cephalexin [From Keflex] AdvReac Diarrhea Verified 05/04/17 15:15 glipizide AdvReac Unknown Verified 05/04/17 15:15 hydrochlorothiazide AdvReac Unknown Verified 05/04/17 15:15 [From Ziac] metformin AdvReac Unknown Verified 05/04/17 15:15 morphine AdvReac Hallucinati Verified 05/04/17 15:15 ons sertraline [From Zoloft] AdvReac Hallucinati Verified 05/04/17 15:15 ons triamterene [From Dyazide] AdvReac Unknown Verified 05/04/17 15:15 Review of Systems ROS Other: All systems not noted in ROS Statement are negative. <Kevin Acuña - Last Filed: 05/04/17 17:18> ROS Other: All systems not noted in ROS Statement are negative. <Kevin Alberto - Last Filed: 05/04/17 18:17> ROS Statement: Those systems with pertinent positive or pertinent negative responses have been documented in the HPI. Past Medical History Past Medical History: Coronary Artery Disease (CAD), Chest Pain / Angina, Heart Failure, COPD, Diabetes Mellitus, GERD/Reflux, GI Bleed, Hyperlipidemia, Hypertension, Myocardial Infarction (IA), Osteoarthritis (OA) Additional Past Medical History / Comment(s): NIDDM, chronic L knee pain, generalized arthiritis, anemia, back pain.sinus infections. 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 Stent in leg. Subclavian bypass. PTCA's, EGD with cauterized arterovenous malformation, colonoscopy, L hand's index finger amputation, R hand 's thumb tendon repair, R elbow replacement, subclavian steel surgery-"new veins in my neck." sinus sx, Past Anesthesia/Blood Transfusion Reactions: No Reported Reaction Additional Past Anesthesia/Blood Transfusion Reaction / Comment(s): Pt has recieved blood in the past without reaction. Date of Last Stent Placement:: 2010 Past Psychological History: Anxiety, Depression Smoking Status: Former smoker Past Alcohol Use History: None Reported Past Drug Use History: None Reported - Past Family History Father History Unknown: Yes Mother Family Medical History: Cancer Additional Family Medical History / Comment(s): Mother had lung cancer. <Kevin Acuña - Last Filed: 05/04/17 17:18> General Exam Limitations: altered mental status <Kevin Acuña - Last Filed: 05/04/17 17:18> <Kevin Alberto - Last Filed: 05/04/17 18:17> - General Exam Comments Initial Comments: GENERAL: Patient is well-developed and well-nourished. Patient is nontoxic and well- hydrated and is in no acute distress. Patient is very quiet when she speaks almost in audible. ENT: Neck is soft and supple. No significant lymphadenopathy is noted. Oropharynx is clear. Moist mucous membranes. Neck has full range of motion without eliciting any pain. EYES: The sclera were anicteric and conjunctiva were pink and moist. Extraocular movements were intact and pupils were equal round and reactive to light. Eyelids were unremarkable. PULMONARY: Unlabored respirations. Good breath sounds bilaterally. No audible rales rhonchi or wheezing was noted. CARDIOVASCULAR: There is a regular rate and rhythm without any murmurs gallops or rubs. ABDOMEN: Soft and nontender with normal bowel sounds. No palpable organomegaly was noted. There is no palpable pulsatile mass. SKIN: Skin is clear with no lesions or rashes and otherwise unremarkable. NEUROLOGIC: Patient is alert and oriented 2. Cranial nerves II through XII are grossly intact. Motor and sensory are also intact. Normal speech, volume and content. Symmetrical smile. MUSCULOSKELETAL: Normal extremities with adequate strength and full range of motion. No lower extremity swelling or edema. No calf tenderness. LYMPHATICS: No significant lymphadenopathy is noted PSYCHIATRIC: Difficult to assess because it's hard to hear what she says she is so quiet. ( Kevin Acuña) Course <Kevin Acuña - Last Filed: 05/04/17 17:18> <Kevin Alberto - Last Filed: 05/04/17 18:17> Vital Signs 05/04/17 15:15 Temperature 97.5 F L Pulse Rate 85 Respiratory 20 Rate Blood Pressure 161/73 O2 Sat by Pulse 99 Oximetry - Reevaluation(s) Reevaluation #1: 05/04/17 18:15 Patient found to have low blood sugar, blood sugar is replaced, patient is feeling better, patient is on oral hypoglycemics (Kevin Alberto) Medical Decision Making <Kevin Acuña - Last Filed: 05/04/17 17:18> - Lab Data Result diagrams: 05/04/17 17:03 05/04/17 17:03 - Radiology Data Radiology results: report reviewed (CT brain chest x-rays negative for acute disease), image reviewed <Kevin Alberto - Last Filed: 05/04/17 18:17> - Medical Decision Making EKG shows normal sinus rhythm at 85 bpm IL interval is 154 QRS is 150 QT intervals 4:30 QTC is 411. Patient's EKG shows a left bundle branch block. Patient's care be taking over Dr. Alberto at 5 PM (Keivn Acuña) 76 female the ER for evaluation or to mental state, found to have low blood sugar, recurrent, patient will be admitted for IV dextrose and reevaluation ( Kevin Alberto) - Lab Data Lab Results 05/04/17 05/04/1718 Range/Units 15:40 17:03 17:03 WBC 6.6 (3.8-10.6) k/uL RBC 3.06 L (3.80-5.40) m/uL Hgb 9.3 L (11.4-16.0) gm/dL Hct 31.6 L (34.0-46.0) % MCV 103.3 H (80.0-100.0) fL MCH 30.4 (25.0-35.0) pg MCHC 29.5 L (31.0-37.0) g/dL RDW 18.8 H (11.5-15.5) % Plt Count 255 (150-450) k/uL PT 10.8 (9.0-12.0) sec INR 1.1 (<1.2) APTT 26.0 (22.0-30.0) sec Sodium (137-145) mmol/L Potassium (3.5-5.1) mmol/L Chloride (98-107) mmol/L Carbon Dioxide (22-30) mmol/L Anion Gap mmol/L BUN (7-17) mg/dL Creatinine (0.52-1.04) mg/dL Est GFR (MDRD) Af Amer (>60 ml/min/1.73 sqM) Est GFR (MDRD) Non-Af (>60 ml/min/1.73 sqM) Glucose (74-99) mg/dL POC Glucose (mg/dL) (75-99) mg/dL POC Glu Superintendent [employer] ID Calcium (8.4-10.2) mg/dL Total Bilirubin (0.2-1.3) mg/dL AST (14-36) U/L ALT (9-52) U/L Alkaline Phosphatase (38-126) U/L Ammonia (<30) umol/L Total Creatine Kinase (30-135) U/L CK-MB (CK-2) (0.0-2.4) ng/mL CK-MB (CK-2) Rel Index Troponin I (0.000-0.034) ng/mL Total Protein (6.3-8.2) g/dL Albumin (3.5-5.0) g/dL Urine Color Yellow Urine Appearance Clear (Clear) Urine pH 6.0 (5.0-8.0) Ur Specific Moro 1.020 (1.001-1.035) Urine Protein 2+ H (Negative) Urine Glucose (UA) Negative (Negative) Urine Ketones 1+ H (Negative) Urine Blood Negative (Negative) Urine Nitrite Negative (Negative) Urine Bilirubin 1+ H (Negative) Urine Urobilinogen 3.0 (<2.0) mg/dL Ur Leukocyte Esterase Negative (Negative) Urine WBC <1 (0-5) /hpf Urine Opiates Screen Detected H (NotDetected) Ur Oxycodone Screen Not Detected (NotDetected) Urine Methadone Screen Not Detected (NotDetected) Ur Propoxyphene Screen Not Detected (NotDetected) Ur Barbiturates Screen Not Detected (NotDetected) U Tricyclic Antidepress Detected H (NotDetected) Ur Phencyclidine Scrn Not Detected (NotDetected) Ur Amphetamines Screen Not Detected (NotDetected) U Methamphetamines Scrn Not Detected (NotDetected) U Benzodiazepines Scrn Not Detected (NotDetected) Urine Cocaine Screen Not Detected (NotDetected) U Marijuana (THC) Screen Not Detected (NotDetected) 05/04/17 05/04/17 05/04/17 Range/Units 17:03 17:03 17:03 WBC (3.8-10.6) k/uL RBC (3.80-5.40) m/uL Hgb (11.4-16.0) gm/dL Hct (34.0-46.0) % MCV (80.0-100.0) fL MCH (25.0-35.0) pg MCHC (31.0-37.0) g/dL RDW (11.5-15.5) % Plt Count (150-450) k/uL PT (9.0-12.0) sec INR (<1.2) APTT (22.0-30.0) sec Sodium 145 (137-145) mmol/L Potassium 4.4 (3.5-5.1) mmol/L Chloride 112 H (98-107) mmol/L Carbon Dioxide 19 L (22-30) mmol/L Anion Gap 14 mmol/L BUN 28 H (7-17) mg/dL Creatinine 1.40 H (0.52-1.04) mg/dL Est GFR (MDRD) Af Amer 44 (>60 ml/min/1.73 sqM) Est GFR (MDRD) Non-Af 36 (>60 ml/min/1.73 sqM) Glucose 34 L* (74-99) mg/dL POC Glucose (mg/dL) (75-99) mg/dL POC Glu Superintendent [employer] ID Calcium 8.4 (8.4-10.2) mg/dL Total Bilirubin 0.6 (0.2-1.3) mg/dL AST 16 (14-36) U/L ALT 18 (9-52) U/L Alkaline Phosphatase 115 (38-126) U/L Ammonia <9 (<30) umol/L Total Creatine Kinase <20 L (30-135) U/L CK-MB (CK-2) 1.3 (0.0-2.4) ng/mL CK-MB (CK-2) Rel Index Troponin I 0.047 H* (0.000-0.034) ng/mL Total Protein 5.4 L (6.3-8.2) g/dL Albumin 2.7 L (3.5-5.0) g/dL Urine Color Urine Appearance (Clear) Urine pH (5.0-8.0) Ur Specific Moro (1.001-1.035) Urine Protein (Negative) Urine Glucose (UA) (Negative) Urine Ketones (Negative) Urine Blood (Negative) Urine Nitrite (Negative) Urine Bilirubin (Negative) Urine Urobilinogen (<2.0) mg/dL Ur Leukocyte Esterase (Negative) Urine WBC (0-5) /hpf Urine Opiates Screen (NotDetected) Ur Oxycodone Screen (NotDetected) Urine Methadone Screen (NotDetected) Ur Propoxyphene Screen (NotDetected) Ur Barbiturates Screen (NotDetected) U Tricyclic Antidepress (NotDetected) Ur Phencyclidine Scrn (NotDetected) Ur Amphetamines Screen (NotDetected) U Methamphetamines Scrn (NotDetected) U Benzodiazepines Scrn (NotDetected) Urine Cocaine Screen (NotDetected) U Marijuana (THC) Screen (NotDetected) 05/04/17 Range/Units 17:59 WBC (3.8-10.6) k/uL RBC (3.80-5.40) m/uL Hgb (11.4-16.0) gm/dL Hct (34.0-46.0) % MCV (80.0-100.0) fL MCH (25.0-35.0) pg MCHC (31.0-37.0) g/dL RDW (11.5-15.5) % Plt Count (150-450) k/uL PT (9.0-12.0) sec INR (<1.2) APTT (22.0-30.0) sec Sodium (137-145) mmol/L Potassium (3.5-5.1) mmol/L Chloride (98-107) mmol/L Carbon Dioxide (22-30) mmol/L Anion Gap mmol/L BUN (7-17) mg/dL Creatinine (0.52-1.04) mg/dL Est GFR (MDRD) Af Amer (>60 ml/min/1.73 sqM) Est GFR (MDRD) Non-Af (>60 ml/min/1.73 sqM) Glucose (74-99) mg/dL POC Glucose (mg/dL) 37 L (75-99) mg/dL POC Glu Superintendent Steved[employer] ID Claudia Salazar Calcium (8.4-10.2) mg/dL Total Bilirubin (0.2-1.3) mg/dL AST (14-36) U/L ALT (9-52) U/L Alkaline Phosphatase (38-126) U/L Ammonia (<30) umol/L Total Creatine Kinase (30-135) U/L CK-MB (CK-2) (0.0-2.4) ng/mL CK-MB (CK-2) Rel Index Troponin I (0.000-0.034) ng/mL Total Protein (6.3-8.2) g/dL Albumin (3.5-5.0) g/dL Urine Color Urine Appearance (Clear) Urine pH (5.0-8.0) Ur Specific Moro (1.001-1.035) Urine Protein (Negative) Urine Glucose (UA) (Negative) Urine Ketones (Negative) Urine Blood (Negative) Urine Nitrite (Negative) Urine Bilirubin (Negative) Urine Urobilinogen (<2.0) mg/dL Ur Leukocyte Esterase (Negative) Urine WBC (0-5) /hpf Urine Opiates Screen (NotDetected) Ur Oxycodone Screen (NotDetected) Urine Methadone Screen (NotDetected) Ur Propoxyphene Screen (NotDetected) Ur Barbiturates Screen (NotDetected) U Tricyclic Antidepress (NotDetected) Ur Phencyclidine Scrn (NotDetected) Ur Amphetamines Screen (NotDetected) U Methamphetamines Scrn (NotDetected) U Benzodiazepines Scrn (NotDetected) Urine Cocaine Screen (NotDetected) U Marijuana (THC) Screen (NotDetected) Disposition <Kevin Acuña - Last Filed: 05/04/17 17:18> <Kevin Alberto - Last Filed: 05/04/17 18:17> Clinical Impression: Altered mental status, Weakness, Hypoglycemia Disposition: HOME SELF-CARE Condition: Good Referrals: Andrés Varner MD [Primary Care Provider] - 1-2 days
[2017-05-04 16:04] LABS: Appearance,Urine Clear (Clear); Bilirubin,Urine 1+ (Negative); Blood,Urine Negative (Negative); Color,Urine Yellow; Glucose,Urine (UA) Negative (Negative); Ketones,Urine 1+ (Negative); Leukocyte Esterase,Urine Negative (Negative); Nitrite,Urine Negative (Negative); Protein,Urine 2+ (Negative); WBC,Urine <1 /hpf (0-5)
[2017-05-04 16:27] LABS: Amphetamine Screen,Urine Not Detected (NotDetected); Barbiturate Screen,Urine Not Detected (NotDetected); Benzodiazepines Screen,Urine Not Detected (NotDetected); Cocaine Screen,Urine Not Detected (NotDetected); Methadone Screen, Urine Not Detected (NotDetected); Opiate Screen,Urine Detected (NotDetected); Oxycodone Screen, Urine Not Detected (NotDetected); Phencyclidine Screen,Urine Not Detected (NotDetected); Tricyclic Antidepressant,Urine Detected (NotDetected); Urn Cannabinoid Scrn Not Detected (NotDetected)
--- NOTE | 2017-05-04 16:48 | CT ---
EXAMINATION TYPE: CT brain wo con DATE OF EXAM: 05/04/2017 HISTORY: increased confusion for [address] DLP: 1029.9 mGycm. Automated Exposure Control for Dose Reduction was Utilized. TECHNIQUE: CT scan of the head is performed without contrast. COMPARISON: CT brain April 09, 2017. FINDINGS: There is no acute intracranial hemorrhage or midline shift identified. There is diffuse v entricular and sulcal prominence consistent with diffuse age-related cerebral atrophy. There is low- attenuation in the periventricular white matter consistent with chronic small vessel ischemic change. Mild mucosal thickening left frontal sinus remains present. The globes are intact and the remainder of the sinuses are clear. Some vascular calcification of distal internal carotid arteries bilatera lly remains present. Soft tissue density bilateral external auditory canals likely reflects cerumen i s not significantly changed from prior study. Patchy opacification left mastoid air cells likely prod uct of retained secretions is redemonstrated. Localizer shows surgical change left humeral head level partially imaged. IMPRESSION: No acute intracranial hemorrhage or midline shift. There is mild to moderate diffuse ag e-related cerebral atrophy and chronic small vessel ischemic change redemonstrated without significan t change from prior study.
--- NOTE | 2017-05-04 16:53 | XR ---
EXAMINATION TYPE: XR chest 2V DATE OF EXAM: 05/04/2017 COMPARISON: Chest x-ray April 10, 2017 HISTORY: Altered mental status and weakness. TECHNIQUE: Frontal and lateral views of the chest are obtained. FINDINGS: There is chronic parenchymal change without suspicious focal air space opacity, pleural ef fusion, or pneumothorax seen. The cardiac silhouette size remains enlarged. The osseous structures r emain demineralized. There is interval surgical fixation through proximal left humeral fracture. Left supraclavicular surgical clips are redemonstrated. IMPRESSION: Chronic changes and cardiomegaly without acute pulmonary process.
[2017-05-04 17:37] LABS: Albumin 2.7 g/dL (3.5-5.0); Calcium 8.4 mg/dL (8.4-10.2); Potassium 4.4 mmol/L (3.5-5.1); Total Bilirubin 0.6 mg/dL (0.2-1.3); Total Protein 5.4 g/dL (6.3-8.2)
[2017-05-04 17:41] LABS: Creatine Kinase <20 U/L (30-135)
[2017-05-04 17:44] LABS: Anisocytosis Slight; HCT 31.6 % (34.0-46.0); HGB 9.3 gm/dL (11.4-16.0); Hypochromasia Marked; INR 1.1 (<1.2); MCH 30.4 pg (25.0-35.0); MCHC 29.5 g/dL (31.0-37.0); MCV 103.3 fL (80.0-100.0); Macrocytosis Moderate; Mean Platelet Volume 7.6; Platelet Count 255 k/uL (150-450); Prothrombin Time 10.8 sec (9.0-12.0); RBC 3.06 m/uL (3.80-5.40); RDW 18.8 % (11.5-15.5); WBC 6.6 k/uL (3.8-10.6)
[2017-05-04 17:54] LABS: Creatine Kinase MB 1.3 ng/mL (0.0-2.4)
[2017-05-04] MEDS ORDERED: DEXTROSE 50%-WATER 50 ML SYRINGE IVP STA (18:03)
[2017-05-04 18:05] LABS: Troponin I 0.047 ng/mL (0.000-0.034)
[2017-05-04] MEDS ORDERED: OCTREOTIDE 100 MCG/ML INJ IVP STA (18:07)
[2017-05-04 18:10] LABS: Glucose,Whole Blood 37 mg/dL (75-99)
[2017-05-04] MEDS: DEXTROSE 5%-0.45% NACL 1,000 ML IV ONE (18:13)
[2017-05-04 18:54] LABS: Glucose,Whole Blood 158 mg/dL (75-99)
[2017-05-04 18:58] LABS: Band Neutrophils % 10 %; Lymphocytes # (M) 0.92 k/uL (1.0-4.8); Monocytes # (M) 0.66 k/uL (0-1.0); Neutrophils % (M) 66 %; Nucleated Red Blood Cells 0 /100 WBC (0-0); Total Cells Counted 100
[2017-05-04 20:12] LABS: Glucose,Whole Blood 156 mg/dL (75-99)
[2017-05-04] MEDS ORDERED: SENNOSIDES 8.6 MG TAB PO PRN (22:03)
[2017-05-04] MEDS ORDERED: REPAGLINIDE 1 MG TAB PO PRN (22:03)
[2017-05-04 22:04] LABS: Glucose,Whole Blood 201 mg/dL (75-99)
[2017-05-04] MEDS ORDERED: NALOXONE 0.4 MG/ML 1 ML VIAL IV PRN (22:14)
--- NOTE | 2017-05-04 22:46 | P.HPIM ---
History of Present Illness H&P Date: 05/04/17 Chief Complaint: altered mental status 76 year old female, transferred from [facility] facility due to progressive altered mental status over the past couple days. Per family she was started on celexa 3 days ago and since then her mental status has been deteriorating. Patient was at [facility] due to recent surgery that she had 2 weeks ago for her left shoulder. Patient responded to verbal stimulation, and was communicating with whispering as she has lost her voice for 2 days now. She is able to swallow fine, denies any sorethroat or cough, but reports dry mouth. she denies any fever, chills, chest pain, trouble breathing, coughing, runny nose, ear pain, abd pain, or changes in urinary habits. She reports a diarrhea that has started 2 days ago, she goes 3-5 times daily , denies any blood or tenesmus. however, she reports that some residents at the facility were having diarrhea too. she does not have history of C.diff. in the ED she was found to be hypoglycemic and was given D50 to correct her blood sugars, she is known diabetic, currently on oral hypoglycemic agents, however, she reports very poor appetite at the facility . Daughter at bed side also assisted in history and answering some questions. Review of Systems Pertinent positives as noted in HPI. All other systems were reviewed and are negative Past Medical History Past Medical History: Coronary Artery Disease (CAD), Chest Pain / Angina, Heart Failure, COPD, Diabetes Mellitus, GERD/Reflux, GI Bleed, Hyperlipidemia, Hypertension, Myocardial Infarction (NE), Osteoarthritis (OA) Additional Past Medical History / Comment(s): NIDDM, chronic L knee pain, generalized arthiritis, anemia, back pain.sinus infections. 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 Stent in leg. Subclavian bypass. PTCA's, EGD with cauterized arterovenous malformation, colonoscopy, L hand's index finger amputation, R hand 's thumb tendon repair, R elbow replacement, subclavian steel surgery-"new veins in my neck." sinus sx, Past Anesthesia/Blood Transfusion Reactions: No Reported Reaction Additional Past Anesthesia/Blood Transfusion Reaction / Comment(s): Pt has recieved blood in the past without reaction. Date of Last Stent Placement:: 2010 Past Psychological History: Anxiety, Depression Smoking Status: Former smoker Past Alcohol Use History: None Reported Past Drug Use History: None Reported - Past Family History Father History Unknown: Yes Mother Family Medical History: Cancer Additional Family Medical History / Comment(s): Mother had lung cancer. Medications and Allergies Home Medications and Allergies Comment(s): celexa is new medications norco caused hallucinations last time she took it while hospitalized here earlier in Mar 2017 Home Medications Medication Instructions Recorded Confirmed Type Pantoprazole Sodium 40 mg PO DAILY@0900 09/16/14 05/04/17 History Repaglinide [Prandin] 1 mg PO BID PRN 09/16/14 05/04/17 History Acetaminophen Tab [Tylenol] 500 mg PO Q6H PRN 04/18/17 05/04/17 History Cyclobenzaprine [Flexeril] 10 mg PO TID@0600,1400,2200 04/18/17 05/04/17 History Ergocalciferol (Vitamin D2) 50,000 unit PO KEARNS@1300 04/18/17 05/04/17 History [Vitamin D2] HYDROcodone/APAP 5-325MG [[place] 1 tab PO Q4-6H PRN #90 tab 04/21/17 05/04/17 Rx 5-325] Amitriptyline HCl [Elavil] 25 mg PO HS 05/04/17 05/04/17 History Atorvastatin [Lipitor] 40 mg PO HS@2100 05/04/17 05/04/17 History Benazepril [Lotensin] 5 mg PO DAILY@89905/04/17 05/04/17 History Citalopram Hydrobromide [CeleXA] 20 mg PO DAILY@89905/04/17 05/04/17 History Clopidogrel [Plavix] 75 mg PO DAILY@89905/04/17 05/04/17 History Diazepam [Valium] 2 mg PO BID PRN 05/04/17 05/04/17 History Famotidine [Pepcid] 20 mg PO DAILY@59905/04/17 05/04/17 History Isosorbide Mononitrate ER [Imdur] 15 mg PO DAILY@0900 05/04/17 05/04/17 History Loperamide HCl [Imodium A-D] 4 mg PO DAILY PRN MDD 4 tabs 05/04/17 05/04/17 History Metoprolol Tartrate [Lopressor] 25 mg PO BID@0900,2100 05/04/17 05/04/17 History Ondansetron Odt [Zofran Odt] 4 mg PO Q6H PRN 05/04/17 05/04/17 History Sennosides [Senokot] 1 tab PO BID PRN 05/04/17 05/04/17 History Allergies Allergy/AdvReac Type Severity Reaction Status Date / Time blue dye Allergy Anaphylaxis Verified 05/04/17 15:15 clonidine [From Catapres] Allergy Diarrhea Verified 05/04/17 15:15 Iodinated Contrast- Oral and Allergy Unknown Verified 05/04/17 15:32 IV Dye monosodium glutamate [MSG] Allergy Anaphylaxis Verified 05/04/17 15:15 ofloxacin [From Floxin] Allergy Anaphylaxis Verified 05/04/17 15:15 piroxicam [From Feldene] Allergy Nausea & Verified 05/04/17 15:15 Vomiting red dye Allergy Anaphylaxis Verified 05/04/17 15:15 Sulfa (Sulfonamide Allergy Anaphylaxis Verified 05/04/17 15:15 Antibiotics) tramadol [From Ultram] Allergy Anaphylaxis Verified 05/04/17 15:15 amoxicillin AdvReac Diarrhea Verified 05/04/17 15:15 bisoprolol [From Ziac] AdvReac Unknown Verified 05/04/17 15:15 cephalexin [From Keflex] AdvReac Diarrhea Verified 05/04/17 15:15 glipizide AdvReac Unknown Verified 05/04/17 15:15 hydrochlorothiazide AdvReac Unknown Verified 05/04/17 15:15 [From Ziac] metformin AdvReac Unknown Verified 05/04/17 15:15 morphine AdvReac Hallucinati Verified 05/04/17 15:15 ons sertraline [From Zoloft] AdvReac Hallucinati Verified 05/04/17 15:15 ons triamterene [From Dyazide] AdvReac Unknown Verified 05/04/17 15:15 Physical Exam Vitals: Vital Signs Temp Pulse Resp BP Pulse Ox 05/04/17 19:12 98.4 F 104 H 18 146/78 95 05/04/17 15:15 97.5 F L 85 20 161/73 99 Intake and Output 05/04/17 05/04/17 05/04/17 06:59 14:59 22:59 Other: Weight 68.039 kg Patient Weight 05/05/17 06:59 Weight 68.039 kg Constitutional: No acute distress, conversant, pleasant, soft whispering voice Eyes: Anicteric sclerae, moist conjunctiva, no lid-lag Pupils equal round reactive to light ENMT: NC/AT Oropharynx clear, no erythema, exudates, dry mucus membranes Neck: Supple, FROM, no masses, or JVD No carotid bruits No thyromegaly Lungs: Clear to auscultation Clear to percussion Normal respiratory effort, no accessory muscle use Cardiovascular: Heart regular in rate and rhythm, systolic murmur, no gallops, or rubs No peripheral edema Abdominal: Soft Nontender, no guarding, rebound or rigidity Abdomen moving with respiration Normoactive bowel sounds No hepatomegaly, No splenomegaly No palpable mass No abdominal wall hernia noted Skin: bruising over upper extremities more on left than right, mainly around left shoulder Normal temperature, tone, texture, turgor No induration No subcutaneous nodules No rash, lesions No ulcers Extremities: left shoulder surgical wound well healed, no bleeding, no open wounds, no erythema or induration No digital cyanosis No clubbing Pedal pulses intact and symmetrical Radial pulses intact and symmetrical No calf tenderness Psychiatric: Alert and oriented to person, place Appropriate affect fair judgment Neuro Muscles Strength 4/5 in all 4 extremities Sensation to light touch grossly present throughout Cranial nerves II-XII grossly intact No focal sensory deficits Lymphatics: no palpable cervical or supraclavicular , or inguinal lymph nodes Results CBC & Chem 7: 05/04/17 17:03 05/04/17 17:03 Labs: Abnormal Lab Results - Last 24 Hours (Table) 05/04/17 05/04/17 05/04/17 Range/Units 15:40 17:03 17:03 RBC 3.06 L (3.80-5.40) m/uL Hgb 9.3 L (11.4-16.0) gm/dL Hct 31.6 L (34.0-46.0) % MCV 103.3 H (80.0-100.0) fL MCHC 29.5 L (31.0-37.0) g/dL RDW 18.8 H (11.5-15.5) % Lymphocytes # (Manual) 0.92 L (1.0-4.8) k/uL Chloride 112 H (98-107) mmol/L Carbon Dioxide 19 L (22-30) mmol/L BUN 28 H (7-17) mg/dL Creatinine 1.40 H (0.52-1.04) mg/dL Glucose 34 L* (74-99) mg/dL POC Glucose (mg/dL) (75-99) mg/dL Total Creatine Kinase (30-135) U/L Troponin I (0.000-0.034) ng/mL Total Protein 5.4 L (6.3-8.2) g/dL Albumin 2.7 L (3.5-5.0) g/dL Urine Protein 2+ H (Negative) Urine Ketones 1+ H (Negative) Urine Bilirubin 1+ H (Negative) Urine Opiates Screen Detected H (NotDetected) U Tricyclic Antidepress Detected H (NotDetected) 05/04/17 05/04/17 05/04/17 Range/Units 17:03 17:59 18:50 RBC (3.80-5.40) m/uL Hgb (11.4-16.0) gm/dL Hct (34.0-46.0) % MCV (80.0-100.0) fL MCHC (31.0-37.0) g/dL RDW (11.5-15.5) % Lymphocytes # (Manual) (1.0-4.8) k/uL Chloride (98-107) mmol/L Carbon Dioxide (22-30) mmol/L BUN (7-17) mg/dL Creatinine (0.52-1.04) mg/dL Glucose (74-99) mg/dL POC Glucose (mg/dL) 37 L 158 H (75-99) mg/dL Total Creatine Kinase <20 L (30-135) U/L Troponin I 0.047 H* (0.000-0.034) ng/mL Total Protein (6.3-8.2) g/dL Albumin (3.5-5.0) g/dL Urine Protein (Negative) Urine Ketones (Negative) Urine Bilirubin (Negative) Urine Opiates Screen (NotDetected) U Tricyclic Antidepress (NotDetected) 05/04/17 05/04/17 Range/Units 20:07 22:01 RBC (3.80-5.40) m/uL Hgb (11.4-16.0) gm/dL Hct (34.0-46.0) % MCV (80.0-100.0) fL MCHC (31.0-37.0) g/dL RDW (11.5-15.5) % Lymphocytes # (Manual) (1.0-4.8) k/uL Chloride (98-107) mmol/L Carbon Dioxide (22-30) mmol/L BUN (7-17) mg/dL Creatinine (0.52-1.04) mg/dL Glucose (74-99) mg/dL POC Glucose (mg/dL) 156 H 201 H (75-99) mg/dL Total Creatine Kinase (30-135) U/L Troponin I (0.000-0.034) ng/mL Total Protein (6.3-8.2) g/dL Albumin (3.5-5.0) g/dL Urine Protein (Negative) Urine Ketones (Negative) Urine Bilirubin (Negative) Urine Opiates Screen (NotDetected) U Tricyclic Antidepress (NotDetected) Assessment and Plan Assessment: # Acute metabolic encephalopathy secondary to hypoglycemia Check blood sugar every hour until midnight and then if blood sugar is stable, then every 2 hours overnight Continue with D5 0.45 IV fluid Regular diet as tolerated as passes swallow eval Neurochecks Fall precautions #Hoarseness of voice ENT consultation for further evaluation Swallow evaluation #Hypertension Currently controlled Continue home medications #Acute diarrhea Patient reported multiple patients with diarrhea at the facility where she came from Check C. diff #Chronic anemia secondary to chronic disease with CPD #Chronic kidney disease stage III currently stable #Elevated trops most likely secondary to CK D Patient denies any chest pain or trouble breathing at this point #Diabetes mellitus type 2 on oral hypoglycemic agents Currently presented with hypoglycemia Oral hypoglycemic agents on hold Continue with insulin sliding scale #History of CAD Continue with aspirin Plavix Continue statin #Chronic systolic CHF with left ventricular ejection fraction of 40-45% currently compensated Continue home medications # Polypharmacy Discontinue Celexa which is a new medication started 3 days ago Cut back on Elavil down to 10 mg daily at bedtime Avoid Essex's due to recent history of hallucinations after taking [place] Pain control with Tylenol only #Dvt prophylaxis Heparin subcu 3 times a day Preformed a thorough record review from recent hospitalization from March 2017 , left ventricular ejection fraction per most recent echo 4045 percent, patient during most recent hospitalization had hallucinations secondary to [place], she was recently treated for UTI and candidal esophagitis Surrogate decision-maker: patient daughter's, Sharri and Mitzy CODE STATUS: Full code DVT prophylaxis: heparin subcu Discussed with: Patient, ER, RN, family Anticipated discharge: 48-[address]: Most likely home per family request with possible home PT A total of 55 minutes were spent on the care of this complex patient more than 50% of the time was spent in counseling and care coordination.
[2017-05-04] MEDS: ACETAMINOPHEN TAB 500 MG TAB PO PRN (23:01)
[2017-05-04] MEDS: HEPARIN SODIUM,PORCINE 5,000 UNIT/ML 1 ML VIAL SQ SCH (23:02)
[2017-05-04 23:35] LABS: Glucose,Whole Blood 222 mg/dL (75-99)
[2017-05-05 01:14] LABS: Glucose,Whole Blood 208 mg/dL (75-99)
[2017-05-05 03:21] LABS: Glucose,Whole Blood 209 mg/dL (75-99)
[2017-05-05 05:06] LABS: Glucose,Whole Blood 188 mg/dL (75-99)
[2017-05-05] MEDS: CYCLOBENZAPRINE 10 MG TAB PO SCH ×3 (05:41→20:56)
[2017-05-05] MEDS: DEXTROSE 5%-0.45% NACL 1,000 ML IV ONE (05:42)
[2017-05-05 07:15] LABS: Calcium 8.3 mg/dL (8.4-10.2)
[2017-05-05 07:16] LABS: Potassium 4.1 mmol/L (3.5-5.1)
[2017-05-05 07:29] LABS: Anisocytosis Slight; HCT 32.9 % (34.0-46.0); HGB 9.6 gm/dL (11.4-16.0); Hypochromasia Marked; MCH 31.4 pg (25.0-35.0); MCHC 29.1 g/dL (31.0-37.0); MCV 107.8 fL (80.0-100.0); Macrocytosis Marked; Mean Platelet Volume 7.1; Platelet Count 217 k/uL (150-450); RBC 3.05 m/uL (3.80-5.40); RDW 18.7 % (11.5-15.5); WBC 3.9 k/uL (3.8-10.6)
[2017-05-05 07:33] LABS: Glucose,Whole Blood 202 mg/dL (75-99)
[2017-05-05 08:02] LABS: Eosinophils # (M) 0.12 k/uL (0-0.7); Lymphocytes # (M) 0.94 k/uL (1.0-4.8); Monocytes # (M) 0.78 k/uL (0-1.0); Neutrophils # (M) 2.07 k/uL (1.3-7.7); Neutrophils % (M) 53 %; Nucleated Red Blood Cells 0 /100 WBC (0-0); Total Cells Counted 100
[2017-05-05] MEDS: INSULIN ASPART 100 UNIT/ML 1 ML 10 ML VIAL SQ SCH ×4 (08:45→21:13)
[2017-05-05] MEDS: LISINOPRIL 5 MG TAB PO SCH (08:49)
[2017-05-05] MEDS: METOPROLOL TARTRATE 25 MG TAB PO SCH ×2 (08:49→20:56)
[2017-05-05] MEDS: ISOSORBIDE MONONITRATE ER 15 MG TAB PO SCH (08:49)
[2017-05-05] MEDS: CLOPIDOGREL 75 MG TAB PO SCH (08:49)
[2017-05-05] MEDS: HEPARIN SODIUM,PORCINE 5,000 UNIT/ML 1 ML VIAL SQ SCH ×3 (08:50→23:51)
[2017-05-05] MEDS ORDERED: PANTOPRAZOLE 40 MG TABLET PO SCH (09:00)
[2017-05-05 09:24] LABS: Glucose,Whole Blood 160 mg/dL (75-99)
[2017-05-05 11:09] LABS: Glucose,Whole Blood 154 mg/dL (75-99)
--- NOTE | 2017-05-05 11:22 | P.PN ---
Subjective Progress Note Date: 05/05/17 Principal diagnosis: hypoglycemia/altered mental status Patient more awake today, no nausea no vomiting. Fever Objective - Vital Signs Vital signs: Vital Signs Temp 98.0 F 05/05/17 08:38 Pulse 109 H 05/05/17 08:38 Resp 16 05/05/17 08:38 BP 150/80 05/05/17 08:38 Pulse Ox 96 05/05/17 08:38 Intake & Output 05/04/17 05/05/17 05/05/17 18:59 06:59 18:59 Intake Total 913 Balance 913 Weight 68.039 kg 70 kg Intake: Intake, IV Titration 913 Amount Dextrose 5%-0.45% NaCl 1, 913 000 ml @ 83 mls/hr IV . Q12H3M ONE Rx#:[id number] Other: Voiding Method Toilet Toilet Diaper # Voids 1 # Bowel Movements 1 - Exam gen:alert and oriented lungs:clear to auscultation heart:s1s2 abdomen:soft and depressible,non tender ext:no edema - Labs CBC & Chem 7: 05/05/17 06:38 05/05/17 06:38 Labs: Abnormal Lab Results - Last 24 Hours (Table) 05/04/17 05/04/17 05/04/17 Range/Units 15:40 17:03 17:03 RBC 3.06 L (3.80-5.40) m/uL Hgb 9.3 L (11.4-16.0) gm/dL Hct 31.6 L (34.0-46.0) % MCV 103.3 H (80.0-100.0) fL MCHC 29.5 L (31.0-37.0) g/dL RDW 18.8 H (11.5-15.5) % Lymphocytes # (Manual) 0.92 L (1.0-4.8) k/uL Chloride 112 H (98-107) mmol/L Carbon Dioxide 19 L (22-30) mmol/L BUN 28 H (7-17) mg/dL Creatinine 1.40 H (0.52-1.04) mg/dL Glucose 34 L* (74-99) mg/dL POC Glucose (mg/dL) (75-99) mg/dL Calcium (8.4-10.2) mg/dL Total Creatine Kinase (30-135) U/L Troponin I (0.000-0.034) ng/mL Total Protein 5.4 L (6.3-8.2) g/dL Albumin 2.7 L (3.5-5.0) g/dL Urine Protein 2+ H (Negative) Urine Ketones 1+ H (Negative) Urine Bilirubin 1+ H (Negative) Urine Opiates Screen Detected H (NotDetected) U Tricyclic Antidepress Detected H (NotDetected) 05/04/17 05/04/17 05/04/17 Range/Units 17:03 17:59 18:50 RBC (3.80-5.40) m/uL Hgb (11.4-16.0) gm/dL Hct (34.0-46.0) % MCV (80.0-100.0) fL MCHC (31.0-37.0) g/dL RDW (11.5-15.5) % Lymphocytes # (Manual) (1.0-4.8) k/uL Chloride (98-107) mmol/L Carbon Dioxide (22-30) mmol/L BUN (7-17) mg/dL Creatinine (0.52-1.04) mg/dL Glucose (74-99) mg/dL POC Glucose (mg/dL) 37 L 158 H (75-99) mg/dL Calcium (8.4-10.2) mg/dL Total Creatine Kinase <20 L (30-135) U/L Troponin I 0.047 H* (0.000-0.034) ng/mL Total Protein (6.3-8.2) g/dL Albumin (3.5-5.0) g/dL Urine Protein (Negative) Urine Ketones (Negative) Urine Bilirubin (Negative) Urine Opiates Screen (NotDetected) U Tricyclic Antidepress (NotDetected) 05/04/17 05/04/17 05/04/17 Range/Units 20:07 22:01 23:09 RBC (3.80-5.40) m/uL Hgb (11.4-16.0) gm/dL Hct (34.0-46.0) % MCV (80.0-100.0) fL MCHC (31.0-37.0) g/dL RDW (11.5-15.5) % Lymphocytes # (Manual) (1.0-4.8) k/uL Chloride (98-107) mmol/L Carbon Dioxide (22-30) mmol/L BUN (7-17) mg/dL Creatinine (0.52-1.04) mg/dL Glucose (74-99) mg/dL POC Glucose (mg/dL) 156 H 201 H 222 H (75-99) mg/dL Calcium (8.4-10.2) mg/dL Total Creatine Kinase (30-135) U/L Troponin I (0.000-0.034) ng/mL Total Protein (6.3-8.2) g/dL Albumin (3.5-5.0) g/dL Urine Protein (Negative) Urine Ketones (Negative) Urine Bilirubin (Negative) Urine Opiates Screen (NotDetected) U Tricyclic Antidepress (NotDetected) 05/05/17 05/05/17 05/05/17 Range/Units 01:08 03:06 05:01 RBC (3.80-5.40) m/uL Hgb (11.4-16.0) gm/dL Hct (34.0-46.0) % MCV (80.0-100.0) fL MCHC (31.0-37.0) g/dL RDW (11.5-15.5) % Lymphocytes # (Manual) (1.0-4.8) k/uL Chloride (98-107) mmol/L Carbon Dioxide (22-30) mmol/L BUN (7-17) mg/dL Creatinine (0.52-1.04) mg/dL Glucose (74-99) mg/dL POC Glucose (mg/dL) 208 H 209 H 188 H (75-99) mg/dL Calcium (8.4-10.2) mg/dL Total Creatine Kinase (30-135) U/L Troponin I (0.000-0.034) ng/mL Total Protein (6.3-8.2) g/dL Albumin (3.5-5.0) g/dL Urine Protein (Negative) Urine Ketones (Negative) Urine Bilirubin (Negative) Urine Opiates Screen (NotDetected) U Tricyclic Antidepress (NotDetected) 05/05/17 05/05/17 05/05/17 Range/Units 06:38 06:38 07:24 RBC 3.05 L (3.80-5.40) m/uL Hgb 9.6 L (11.4-16.0) gm/dL Hct 32.9 L (34.0-46.0) % MCV 107.8 H (80.0-100.0) fL MCHC 29.1 L (31.0-37.0) g/dL RDW 18.7 H (11.5-15.5) % Lymphocytes # (Manual) 0.94 L (1.0-4.8) k/uL Chloride 115 H (98-107) mmol/L Carbon Dioxide 18 L (22-30) mmol/L BUN 27 H (7-17) mg/dL Creatinine 1.34 H (0.52-1.04) mg/dL Glucose 177 H (74-99) mg/dL POC Glucose (mg/dL) 202 H (75-99) mg/dL Calcium 8.3 L (8.4-10.2) mg/dL Total Creatine Kinase (30-135) U/L Troponin I (0.000-0.034) ng/mL Total Protein (6.3-8.2) g/dL Albumin (3.5-5.0) g/dL Urine Protein (Negative) Urine Ketones (Negative) Urine Bilirubin (Negative) Urine Opiates Screen (NotDetected) U Tricyclic Antidepress (NotDetected) 05/05/17 05/05/17 Range/Units 09:02 11:04 RBC (3.80-5.40) m/uL Hgb (11.4-16.0) gm/dL Hct (34.0-46.0) % MCV (80.0-100.0) fL MCHC (31.0-37.0) g/dL RDW (11.5-15.5) % Lymphocytes # (Manual) (1.0-4.8) k/uL Chloride (98-107) mmol/L Carbon Dioxide (22-30) mmol/L BUN (7-17) mg/dL Creatinine (0.52-1.04) mg/dL Glucose (74-99) mg/dL POC Glucose (mg/dL) 160 H 154 H (75-99) mg/dL Calcium (8.4-10.2) mg/dL Total Creatine Kinase (30-135) U/L Troponin I (0.000-0.034) ng/mL Total Protein (6.3-8.2) g/dL Albumin (3.5-5.0) g/dL Urine Protein (Negative) Urine Ketones (Negative) Urine Bilirubin (Negative) Urine Opiates Screen (NotDetected) U Tricyclic Antidepress (NotDetected) Assessment and Plan (1) Altered mental status Narrative/Plan: Combination of hypoglycemia and medications Current Visit: Yes Status: Acute Code(s): R41.82 - ALTERED MENTAL STATUS, UNSPECIFIED SNOMED Code(s): 663626712 (2) Hypoglycemia Narrative/Plan: Better now will continue sliding-scale we'll discontinue D5 half water and monitor will restart medications as necessary Current Visit: Yes Status: Acute Code(s): E16.2 - HYPOGLYCEMIA, UNSPECIFIED SNOMED Code(s): 049192559 (3) Hoarseness of voice Narrative/Plan: ENT to evaluate Current Visit: Yes Status: Acute Code(s): R49.0 - DYSPHONIA SNOMED Code(s) : 21606195 (4) Dysphagia Narrative/Plan: Therapy evaluating patient Modified swallow will be done today She thinks problem with swallowing might be in the lower esophagus Might need GI evaluation for Current Visit: Yes Status: Acute Code(s): R13.10 - DYSPHAGIA, UNSPECIFIED SNOMED Code(s): 12074398 (5) CAD (coronary artery disease) Narrative/Plan: No chest pains Plavix Current Visit: No Status: Acute Code(s): I25.10 - ATHSCL HEART DISEASE OF [place] CORONARY ARTERY W/O ANG PCTRS SNOMED Code(s): 09987644 (6) Chronic diastolic (congestive) heart failure Narrative/Plan: Compensated Current Visit: No Status: Acute Code(s): I50.32 - CHRONIC DIASTOLIC ( CONGESTIVE) HEART FAILURE SNOMED Code(s): 022925387 (7) Chronic renal failure Current Visit: No Status: Acute Code(s): N18.9 - CHRONIC KIDNEY DISEASE, UNSPECIFIED SNOMED Code(s): 10083441
[2017-05-05 12:00] LABS: Hemoglobin A1C 4.9 % (4.0-6.0)
[2017-05-05 13:28] LABS: Glucose,Whole Blood 159 mg/dL (75-99)
--- NOTE | 2017-05-05 14:41 | FL ---
EXAMINATION TYPE: FL barium swallow w video DATE OF EXAM: 05/05/2017 COMPARISON: NONE HISTORY: Dysphagia TECHNIQUE: Fluoroscopy. FINDINGS: Fluoroscopic guidance was provided for the procedure performed in conjunction with the hospital [facility] pathology department. Please see complete report forthcoming from the Speech Pathology departmen t. Various consistencies from thin liquid to solids were administered. Thin and pudding thick consis tencies were utilized. Fluoroscopy time 2 minutes 25 seconds Number of images: 0. No aspiration or penetration was evident once the bolus was transferred to the hypopharynx. No significant pooling was observed in the vallecula. There is marked hesitancy of bolus formation for propulsion into the hypopharynx. IMPRESSION: 1. Marked has hesitancy of swallow initiation. 2. No aspiration or penetration evident.
[2017-05-05 15:30] LABS: Glucose,Whole Blood 149 mg/dL (75-99)
[2017-05-05 17:31] LABS: Glucose,Whole Blood 136 mg/dL (75-99)
[2017-05-05] MEDS: FLUCONAZOLE 100 MG TAB PO SCH (17:38)
[2017-05-05] MEDS: metroNIDAZOLE 500 MG TAB PO SCH ×2 (17:38→20:56)
--- NOTE | 2017-05-05 18:57 | P.GSCN ---
History of Present Illness Consult date: 05/05/17 Reason for Consult: Hoarseness Requesting physician: Andrés Varner History of present illness: This is a 76-year-old white female who underwent previous left-sided shoulder surgery. Subsequent to this shoulder surgery she developed significant hoarseness. The patient has almost become aphonic. She denies any dysphagia. She has some drainage. She denies any specific throat pain headache or hemoptysis. Review of Systems - Constitutional Reports anorexia, Denies fever - EENT EENT Comment(s): Head is normocephalic the face is symmetric. The patient demonstrated severe hoarseness. Auricles are well formed. Nose is patent no tumors polyps or masses. Mouth and throat no oral lesions are noted. Neck unremarkable. No tumors or masses are palpable. Eyes: denies as per HPI Ears: bilateral: decreased hearing, deny: ear discharge, earache, tinnitus Ears, nose, mouth and throat: Denies ant. neck pain, Denies bleeding gums - Cardiovascular Denies chest pain - Respiratory Denies congestion, Denies hemoptysis - Gastrointestinal Reports diarrhea, Denies dyspepsia - Genitourinary Genitourinary: Denies hematuria - Musculoskeletal Denies arm numbness/tingling - Integumentary Denies brittle nails - Neurological Reports hearing difficulties, Denies loss of vision - Psychiatric Denies anxiety - Endocrine Denies cold intolerance - Hematologic/Lymphatic Denies easy bleeding - Allergic/Immunologic Denies allergic rhinitis Past Medical History Past Medical History: Coronary Artery Disease (CAD), Chest Pain / Angina, Heart Failure, COPD, Diabetes Mellitus, GERD/Reflux, GI Bleed, Hyperlipidemia, Hypertension, Myocardial Infarction (PA), Osteoarthritis (OA) Additional Past Medical History / Comment(s): NIDDM, chronic L knee pain, generalized arthiritis, anemia, back pain.sinus infections. 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 Stent in leg. Subclavian bypass. PTCA's, EGD with cauterized arterovenous malformation, colonoscopy, L hand's index finger amputation, R hand 's thumb tendon repair, R elbow replacement, subclavian steel surgery-"new veins in my neck." sinus sx, Past Anesthesia/Blood Transfusion Reactions: No Reported Reaction Additional Past Anesthesia/Blood Transfusion Reaction / Comm: Pt has recieved blood in the past without reaction. Date of Last Stent Placement:: 2010 Past Psychological History: Anxiety, Depression Smoking Status: Former smoker Past Alcohol Use History: None Reported Past Drug Use History: None Reported - Past Family History Father History Unknown: Yes Mother Family Medical History: Cancer Additional Family Medical History / Comment(s): Mother had lung cancer. Medications and Allergies Home Medications Medication Instructions Recorded Confirmed Type Pantoprazole Sodium 40 mg PO DAILY@0900 09/16/14 05/04/17 History Repaglinide [Prandin] 1 mg PO BID PRN 09/16/14 05/04/17 History Acetaminophen Tab [Tylenol] 500 mg PO Q6H PRN 04/18/17 05/04/17 History Cyclobenzaprine [Flexeril] 10 mg PO TID@0600,1400,2200 04/18/17 05/04/17 History Ergocalciferol (Vitamin D2) 50,000 unit PO KEARNS@1300 04/18/17 05/04/17 History [Vitamin D2] HYDROcodone/APAP 5-325MG [[place] 1 tab PO Q4-6H PRN #90 tab 04/21/17 05/04/17 Rx 5-325] Amitriptyline HCl [Elavil] 25 mg PO HS 05/04/17 05/04/17 History Atorvastatin [Lipitor] 40 mg PO HS@2100 05/04/17 05/04/17 History Benazepril [Lotensin] 5 mg PO DAILY@89905/04/17 05/04/17 History Citalopram Hydrobromide [CeleXA] 20 mg PO DAILY@89905/04/17 05/04/17 History Clopidogrel [Plavix] 75 mg PO DAILY@89905/04/17 05/04/17 History Diazepam [Valium] 2 mg PO BID PRN 05/04/17 05/04/17 History Famotidine [Pepcid] 20 mg PO DAILY@59905/04/17 05/04/17 History Isosorbide Mononitrate ER [Imdur] 15 mg PO DAILY@0900 05/04/17 05/04/17 History Loperamide HCl [Imodium A-D] 4 mg PO DAILY PRN MDD 4 tabs 05/04/17 05/04/17 History Metoprolol Tartrate [Lopressor] 25 mg PO BID@0900,2100 05/04/17 05/04/17 History Ondansetron Odt [Zofran Odt] 4 mg PO Q6H PRN 05/04/17 05/04/17 History Sennosides [Senokot] 1 tab PO BID PRN 05/04/17 05/04/17 History Allergies Allergy/AdvReac Type Severity Reaction Status Date / Time blue dye Allergy Anaphylaxis Verified 05/04/17 15:15 clonidine [From Catapres] Allergy Diarrhea Verified 05/04/17 15:15 Iodinated Contrast- Oral and Allergy Unknown Verified 05/04/17 15:32 IV Dye monosodium glutamate [MSG] Allergy Anaphylaxis Verified 05/04/17 15:15 ofloxacin [From Floxin] Allergy Anaphylaxis Verified 05/04/17 15:15 piroxicam [From Feldene] Allergy Nausea & Verified 05/04/17 15:15 Vomiting red dye Allergy Anaphylaxis Verified 05/04/17 15:15 Sulfa (Sulfonamide Allergy Anaphylaxis Verified 05/04/17 15:15 Antibiotics) tramadol [From Ultram] Allergy Anaphylaxis Verified 05/04/17 15:15 amoxicillin AdvReac Diarrhea Verified 05/04/17 15:15 bisoprolol [From Ziac] AdvReac Unknown Verified 05/04/17 15:15 cephalexin [From Keflex] AdvReac Diarrhea Verified 05/04/17 15:15 glipizide AdvReac Unknown Verified 05/04/17 15:15 hydrochlorothiazide AdvReac Unknown Verified 05/04/17 15:15 [From Ziac] metformin AdvReac Unknown Verified 05/04/17 15:15 morphine AdvReac Hallucinati Verified 05/04/17 15:15 ons sertraline [From Zoloft] AdvReac Hallucinati Verified 05/04/17 15:15 ons triamterene [From Dyazide] AdvReac Unknown Verified 05/04/17 15:15 Surgical - Exam Osteopathic Statement: *. No significant issues noted on an osteopathic structural exam other than those noted in the History and Physical/Consult. Vital Signs Temp Pulse Resp BP Pulse Ox 97.5 F L 85 20 161/73 99 05/04/17 15:15 05/04/17 15:15 05/04/17 15:15 05/04/17 15:15 05/04/17 15:15 - General well developed, well nourished, no distress, no pain - Eyes PERRL, normal ocular movement, no icteric - ENT normal pinna, normal nares, normal mucosa, no no congestion - Neck no masses, no bruits, trachea midline, no lymphadectomy - Respiratory normal expansion, normal respiratory effort, clear to percussion - Cardiovascular Rhythm: regular - Abdomen Abdomen: soft, tender - Integumentary no rash, no growths - Musculoskeletal normal posture - Psychiatric oriented to time, oriented to person, oriented to place, speech is normal Results - Labs 05/05/17 06:38 05/05/17 06:38 Abnormal Lab Results - Last 24 Hours (Table) 05/04/17 05/04/17 05/04/17 Range/Units 17:03 18:50 20:07 RBC (3.80-5.40) m/uL Hgb (11.4-16.0) gm/dL Hct (34.0-46.0) % MCV (80.0-100.0) fL MCHC (31.0-37.0) g/dL RDW (11.5-15.5) % Lymphocytes # (Manual) 0.92 L (1.0-4.8) k/uL Chloride (98-107) mmol/L Carbon Dioxide (22-30) mmol/L BUN (7-17) mg/dL Creatinine (0.52-1.04) mg/dL Glucose (74-99) mg/dL POC Glucose (mg/dL) 158 H 156 H (75-99) mg/dL Calcium (8.4-10.2) mg/dL Vitamin B12 (200.0-944.0) pg/mL C. difficile (EIA) Intrp (Negative) 05/04/17 05/04/17 05/05/17 Range/Units 22:01 23:09 01:08 RBC (3.80-5.40) m/uL Hgb (11.4-16.0) gm/dL Hct (34.0-46.0) % MCV (80.0-100.0) fL MCHC (31.0-37.0) g/dL RDW (11.5-15.5) % Lymphocytes # (Manual) (1.0-4.8) k/uL Chloride (98-107) mmol/L Carbon Dioxide (22-30) mmol/L BUN (7-17) mg/dL Creatinine (0.52-1.04) mg/dL Glucose (74-99) mg/dL POC Glucose (mg/dL) 201 H 222 H 208 H (75-99) mg/dL Calcium (8.4-10.2) mg/dL Vitamin B12 (200.0-944.0) pg/mL C. difficile (EIA) Intrp (Negative) 05/05/17 05/05/17 05/05/17 Range/Units 03:06 05:01 06:38 RBC 3.05 L (3.80-5.40) m/uL Hgb 9.6 L (11.4-16.0) gm/dL Hct 32.9 L (34.0-46.0) % MCV 107.8 H (80.0-100.0) fL MCHC 29.1 L (31.0-37.0) g/dL RDW 18.7 H (11.5-15.5) % Lymphocytes # (Manual) 0.94 L (1.0-4.8) k/uL Chloride (98-107) mmol/L Carbon Dioxide (22-30) mmol/L BUN (7-17) mg/dL Creatinine (0.52-1.04) mg/dL Glucose (74-99) mg/dL POC Glucose (mg/dL) 209 H 188 H (75-99) mg/dL Calcium (8.4-10.2) mg/dL Vitamin B12 (200.0-944.0) pg/mL C. difficile (EIA) Intrp (Negative) 05/05/17 05/05/17 05/05/17 Range/Units 06:38 06:38 07:24 RBC (3.80-5.40) m/uL Hgb (11.4-16.0) gm/dL Hct (34.0-46.0) % MCV (80.0-100.0) fL MCHC (31.0-37.0) g/dL RDW (11.5-15.5) % Lymphocytes # (Manual) (1.0-4.8) k/uL Chloride 115 H (98-107) mmol/L Carbon Dioxide 18 L (22-30) mmol/L BUN 27 H (7-17) mg/dL Creatinine 1.34 H (0.52-1.04) mg/dL Glucose 177 H (74-99) mg/dL POC Glucose (mg/dL) 202 H (75-99) mg/dL Calcium 8.3 L (8.4-10.2) mg/dL Vitamin B12 1228.0 H (200.0-944.0) pg/mL C. difficile (EIA) Intrp (Negative) 05/05/17 05/05/17 05/05/17 Range/Units 09:02 11:04 13:03 RBC (3.80-5.40) m/uL Hgb (11.4-16.0) gm/dL Hct (34.0-46.0) % MCV (80.0-100.0) fL MCHC (31.0-37.0) g/dL RDW (11.5-15.5) % Lymphocytes # (Manual) (1.0-4.8) k/uL Chloride (98-107) mmol/L Carbon Dioxide (22-30) mmol/L BUN (7-17) mg/dL Creatinine (0.52-1.04) mg/dL Glucose (74-99) mg/dL POC Glucose (mg/dL) 160 H 154 H 159 H (75-99) mg/dL Calcium (8.4-10.2) mg/dL Vitamin B12 (200.0-944.0) pg/mL C. difficile (EIA) Intrp (Negative) 05/05/17 05/05/17 05/05/17 Range/Units 13:15 15:15 17:05 RBC (3.80-5.40) m/uL Hgb (11.4-16.0) gm/dL Hct (34.0-46.0) % MCV (80.0-100.0) fL MCHC (31.0-37.0) g/dL RDW (11.5-15.5) % Lymphocytes # (Manual) (1.0-4.8) k/uL Chloride (98-107) mmol/L Carbon Dioxide (22-30) mmol/L BUN (7-17) mg/dL Creatinine (0.52-1.04) mg/dL Glucose (74-99) mg/dL POC Glucose (mg/dL) 149 H 136 H (75-99) mg/dL Calcium (8.4-10.2) mg/dL Vitamin B12 (200.0-944.0) pg/mL C. difficile (EIA) Intrp Positive A (Negative) Diabetes panel 05/04/17 05/05/17 Range/Units 17:03 06:38 Sodium 143 (137-145) mmol/L Potassium 4.1 (3.5-5.1) mmol/L Chloride 115 H (98-107) mmol/L Carbon Dioxide 18 L (22-30) mmol/L BUN 27 H (7-17) mg/dL Creatinine 1.34 H (0.52-1.04) mg/dL Glucose 177 H (74-99) mg/dL Hemoglobin A1c 4.9 (4.0-6.0) % Calcium 8.3 L (8.4-10.2) mg/dL Calcium panel 05/05/17 Range/Units 06:38 Calcium 8.3 L (8.4-10.2) mg/dL Pituitary panel 05/05/17 Range/Units 06:38 Sodium 143 (137-145) mmol/L Potassium 4.1 (3.5-5.1) mmol/L Chloride 115 H (98-107) mmol/L Carbon Dioxide 18 L (22-30) mmol/L BUN 27 H (7-17) mg/dL Creatinine 1.34 H (0.52-1.04) mg/dL Glucose 177 H (74-99) mg/dL Calcium 8.3 L (8.4-10.2) mg/dL Adrenal panel 05/05/17 Range/Units 06:38 Sodium 143 (137-145) mmol/L Potassium 4.1 (3.5-5.1) mmol/L Chloride 115 H (98-107) mmol/L Carbon Dioxide 18 L (22-30) mmol/L BUN 27 H (7-17) mg/dL Creatinine 1.34 H (0.52-1.04) mg/dL Glucose 177 H (74-99) mg/dL Calcium 8.3 L (8.4-10.2) mg/dL Assessment and Plan (1) Acute laryngitis Current Visit: Yes Status: Acute Code(s): J04.0 - ACUTE LARYNGITIS SNOMED Code(s): 9111293 (2) Acute pharyngitis Current Visit: Yes Status: Acute Code(s): J02.9 - ACUTE PHARYNGITIS, UNSPECIFIED SNOMED Code(s): 120911120 (3) Deja albicans infection Current Visit: Yes Status: Acute Code(s): B37.9 - CANDIDIASIS, UNSPECIFIED SNOMED Code(s): 81907666 Plan: Nasopharyngeal laryngoscopy reveals evidence of inflamed vocal cords and hypopharynx which appear to be from candidiasis. She also has an aberrant carotid that's impinging the lateral and posterior pharynx pulsating. That is not clinically significant. I'm recommending continued use of the anti-yeast medication such as Diflucan. Increase hydration was recommended. This should self resolve with use of antifungal medication. Patient is to follow-up with me on an outpatient basis. Due to the fact that she has Diflucan I recommended cessation of all acid suppressant medication. Thank you very much for allowing me to participate in the care of this patient. If I'm needed further please do not hesitate to reconsult me. Time with Patient: Greater than 30
[2017-05-05 18:58] LABS: Glucose,Whole Blood 122 mg/dL (75-99)
--- NOTE | 2017-05-05 19:00 | P.OP ---
Date of Procedure: 05/05/17 Preoperative Diagnosis: Hoarseness Postoperative Diagnosis: Acute laryngitis with candidiasis Procedure(s) Performed: Flexible nasopharyngeal laryngoscopy Anesthesia: DAX Surgeon: Jose Ramon Woodson Estimated Blood Loss (ml): 0 Pathology: none sent Condition: stable Disposition: PACU Indications for Procedure: This patient has had over one week of persistent hoarseness where the patient's almost aphonic. Consultation for her hoarseness is ordered Operative Findings: Patient was found to have acute laryngitis with inflamed vocal cords and evidence of candidiasis. Description of Procedure: An EF type GP nasopharyngoscope was inserted and the patient's left nares with care to avoid any trauma to the septum or lateral nasal vault. We followed the floor the nose to the posterior nasopharynx and then guided this into the oropharynx and hypopharynx. We did a complete examination of the oropharynx and hypopharynx. We found that the patient has inflamed vocal cords bilaterally with evidence of yeast. There is white cheesy material over the vocal cords. There is no signs of any tumors or masses. The patient has no evidence of any vocal cord weakness or paralysis. Anti-yeast treatment is recommended for this patient's acute fungal laryngitis.
[2017-05-05] MEDS: AMITRIPTYLINE HCL 10 MG TAB PO SCH (20:56)
[2017-05-05] MEDS: ATORVASTATIN 40 MG TAB PO SCH (20:56)
[2017-05-05 21:16] LABS: Glucose,Whole Blood 106 mg/dL (75-99)
[2017-05-05 23:44] LABS: Glucose,Whole Blood 127 mg/dL (75-99)
[2017-05-06 02:01] LABS: Glucose,Whole Blood 113 mg/dL (75-99)
[2017-05-06 03:22] LABS: Glucose,Whole Blood 103 mg/dL (75-99)
[2017-05-06] MEDS: CYCLOBENZAPRINE 10 MG TAB PO SCH ×3 (05:24→21:27)
[2017-05-06 05:49] LABS: Glucose,Whole Blood 100 mg/dL (75-99)
[2017-05-06] MEDS: INSULIN ASPART 100 UNIT/ML 1 ML 10 ML VIAL SQ SCH ×4 (07:03→21:50)
[2017-05-06] MEDS: HEPARIN SODIUM,PORCINE 5,000 UNIT/ML 1 ML VIAL SQ SCH ×3 (07:04→23:47)
[2017-05-06] MEDS: METOPROLOL TARTRATE 25 MG TAB PO SCH ×2 (07:04→21:28)
[2017-05-06] MEDS: FLUCONAZOLE 100 MG TAB PO SCH (07:05)
[2017-05-06] MEDS: LISINOPRIL 5 MG TAB PO SCH (07:05)
[2017-05-06] MEDS: ISOSORBIDE MONONITRATE ER 15 MG TAB PO SCH (07:05)
[2017-05-06] MEDS: metroNIDAZOLE 500 MG TAB PO SCH ×3 (07:05→21:28)
[2017-05-06] MEDS: CLOPIDOGREL 75 MG TAB PO SCH (07:05)
[2017-05-06 07:11] LABS: Anisocytosis Slight; HCT 33.4 % (34.0-46.0); HGB 9.5 gm/dL (11.4-16.0); Hypochromasia Marked; MCH 30.6 pg (25.0-35.0); MCHC 28.6 g/dL (31.0-37.0); MCV 107.3 fL (80.0-100.0); Macrocytosis Marked; Mean Platelet Volume 7.4; Platelet Count 227 k/uL (150-450); RBC 3.12 m/uL (3.80-5.40); RDW 18.4 % (11.5-15.5); WBC 5.4 k/uL (3.8-10.6)
[2017-05-06 07:27] LABS: Calcium 8.7 mg/dL (8.4-10.2); Potassium 3.8 mmol/L (3.5-5.1)
[2017-05-06 07:53] LABS: Glucose,Whole Blood 136 mg/dL (75-99)
--- NOTE | 2017-05-06 08:55 | P.PN ---
Subjective Progress Note Date: 05/06/17 Principal diagnosis: hypoglycemia/altered mental status Patient more awake today, diarrhea present, no nausea no vomiting. Still with diarrhea today, tolerating oral. Objective - Vital Signs Vital signs: Vital Signs Temp 97.9 F 05/06/17 07:00 Pulse 105 H 05/06/17 07:00 Resp 16 05/06/17 07:15 BP 152/73 05/06/17 07:00 Pulse Ox 95 05/06/17 07:00 Intake & Output 05/05/17 05/06/17 05/06/17 18:59 06:59 18:59 Intake Total 550 Balance 550 Weight 70 kg Intake: Intake, IV Titration 250 Amount Dextrose 5%-0.45% NaCl 1, 250 000 ml @ 83 mls/hr IV . Q12H3M ONE Rx#:[id number] Oral 300 Other: Voiding Method Toilet Diaper Diaper Diaper Incontinent Incontinent # Voids 1 2 # Bowel Movements 3 1 - Exam gen:alert and oriented lungs:clear to auscultation heart:s1s2 abdomen:soft and depressible,non tender ext:no edema - Labs CBC & Chem 7: 05/06/17 06:29 05/06/17 06:29 Labs: Abnormal Lab Results - Last 24 Hours (Table) 05/05/17 05/05/17 05/05/17 Range/Units 06:38 09:02 11:04 RBC (3.80-5.40) m/uL Hgb (11.4-16.0) gm/dL Hct (34.0-46.0) % MCV (80.0-100.0) fL MCHC (31.0-37.0) g/dL RDW (11.5-15.5) % Chloride (98-107) mmol/L Carbon Dioxide (22-30) mmol/L BUN (7-17) mg/dL Creatinine (0.52-1.04) mg/dL Glucose (74-99) mg/dL POC Glucose (mg/dL) 160 H 154 H (75-99) mg/dL Vitamin B12 1228.0 H (200.0-944.0) pg/mL C. difficile (EIA) Intrp (Negative) 05/05/17 05/05/17 05/05/17 Range/Units 13:03 13:15 15:15 RBC (3.80-5.40) m/uL Hgb (11.4-16.0) gm/dL Hct (34.0-46.0) % MCV (80.0-100.0) fL MCHC (31.0-37.0) g/dL RDW (11.5-15.5) % Chloride (98-107) mmol/L Carbon Dioxide (22-30) mmol/L BUN (7-17) mg/dL Creatinine (0.52-1.04) mg/dL Glucose (74-99) mg/dL POC Glucose (mg/dL) 159 H 149 H (75-99) mg/dL Vitamin B12 (200.0-944.0) pg/mL C. difficile (EIA) Intrp Positive A (Negative) 05/05/17 05/05/17 05/05/17 Range/Units 17:05 18:52 21:12 RBC (3.80-5.40) m/uL Hgb (11.4-16.0) gm/dL Hct (34.0-46.0) % MCV (80.0-100.0) fL MCHC (31.0-37.0) g/dL RDW (11.5-15.5) % Chloride (98-107) mmol/L Carbon Dioxide (22-30) mmol/L BUN (7-17) mg/dL Creatinine (0.52-1.04) mg/dL Glucose (74-99) mg/dL POC Glucose (mg/dL) 136 H 122 H 106 H (75-99) mg/dL Vitamin B12 (200.0-944.0) pg/mL C. difficile (EIA) Intrp (Negative) 05/05/17 05/06/17 05/06/17 Range/Units 23:42 01:51 03:19 RBC (3.80-5.40) m/uL Hgb (11.4-16.0) gm/dL Hct (34.0-46.0) % MCV (80.0-100.0) fL MCHC (31.0-37.0) g/dL RDW (11.5-15.5) % Chloride (98-107) mmol/L Carbon Dioxide (22-30) mmol/L BUN (7-17) mg/dL Creatinine (0.52-1.04) mg/dL Glucose (74-99) mg/dL POC Glucose (mg/dL) 127 H 113 H 103 H (75-99) mg/dL Vitamin B12 (200.0-944.0) pg/mL C. difficile (EIA) Intrp (Negative) 05/06/17 05/06/17 05/06/17 Range/Units 05:23 06:29 06:29 RBC 3.12 L (3.80-5.40) m/uL Hgb 9.5 L (11.4-16.0) gm/dL Hct 33.4 L (34.0-46.0) % MCV 107.3 H (80.0-100.0) fL MCHC 28.6 L (31.0-37.0) g/dL RDW 18.4 H (11.5-15.5) % Chloride 115 H (98-107) mmol/L Carbon Dioxide 18 L (22-30) mmol/L BUN 24 H (7-17) mg/dL Creatinine 1.26 H (0.52-1.04) mg/dL Glucose 100 H (74-99) mg/dL POC Glucose (mg/dL) 100 H (75-99) mg/dL Vitamin B12 (200.0-944.0) pg/mL C. difficile (EIA) Intrp (Negative) 05/06/17 Range/Units 07:28 RBC (3.80-5.40) m/uL Hgb (11.4-16.0) gm/dL Hct (34.0-46.0) % MCV (80.0-100.0) fL MCHC (31.0-37.0) g/dL RDW (11.5-15.5) % Chloride (98-107) mmol/L Carbon Dioxide (22-30) mmol/L BUN (7-17) mg/dL Creatinine (0.52-1.04) mg/dL Glucose (74-99) mg/dL POC Glucose (mg/dL) 136 H (75-99) mg/dL Vitamin B12 (200.0-944.0) pg/mL C. difficile (EIA) Intrp (Negative) Assessment and Plan (1) Acute laryngitis Narrative/Plan: secondary to yeast on fluconazole Current Visit: Yes Status: Acute Code(s): J04.0 - ACUTE LARYNGITIS SNOMED Code(s): 7764360 (2) Clostridium difficile colitis Narrative/Plan: on flagyl Current Visit: Yes Status: Acute Code(s): A04.72 - ENTEROCOLITIS D/T CLOSTRIDIUM DIFFICILE, NOT SPCF RECUR SNOMED Code(s): 532240018 (3) Hypoglycemia Narrative/Plan: resolved prandin on hold continue to monitor acck Current Visit: Yes Status: Acute Code(s): E16.2 - HYPOGLYCEMIA, UNSPECIFIED SNOMED Code(s): 333071025 (4) Altered mental status Narrative/Plan: resolved, back to baseline Current Visit: Yes Status: Acute Code(s): R41.82 - ALTERED MENTAL STATUS, UNSPECIFIED SNOMED Code(s): 290306582 (5) Hoarseness of voice Narrative/Plan: secondary to fungal laryngitis Current Visit: Yes Status: Acute Code(s): R49.0 - DYSPHONIA SNOMED Code(s) : 31426765 (6) Dysphagia Current Visit: Yes Status: Acute Code(s): R13.10 - DYSPHAGIA, UNSPECIFIED SNOMED Code(s): 15977508 (7) CAD (coronary artery disease) Narrative/Plan: No chest pains Plavix Current Visit: No Status: Acute Code(s): I25.10 - ATHSCL HEART DISEASE OF [place] CORONARY ARTERY W/O ANG PCTRS SNOMED Code(s): 66103917 (8) Chronic diastolic (congestive) heart failure Narrative/Plan: Compensated Current Visit: No Status: Acute Code(s): I50.32 - CHRONIC DIASTOLIC ( CONGESTIVE) HEART FAILURE SNOMED Code(s): 706518207 (9) Chronic renal failure Narrative/Plan: stable Current Visit: No Status: Acute Code(s): N18.9 - CHRONIC KIDNEY DISEASE, UNSPECIFIED SNOMED Code(s): 75481734
[2017-05-06 09:42] LABS: Glucose,Whole Blood 125 mg/dL (75-99)
[2017-05-06 11:36] LABS: Glucose,Whole Blood 141 mg/dL (75-99)
[2017-05-06 13:39] LABS: Glucose,Whole Blood 140 mg/dL (75-99)
[2017-05-06 15:45] LABS: Glucose,Whole Blood 118 mg/dL (75-99)
[2017-05-06 18:03] LABS: Glucose,Whole Blood 132 mg/dL (75-99)
--- NOTE | 2017-05-06 18:43 | P.CNNES ---
History of Present Illness Consult date: 05/06/17 Reason for Consult: Patient with altered mental status and confusion. History of Present Illness: This patient is a 76-year-old right-handed white female who was admitted to [facility] on 05/04/2017 with symptoms of increasing confusion and altered mental status. The patient had recently been started on a new medication 3 days prior to her admission. She was started on Celexa. This has subsequently been discontinued. Patient also recently suffered a fall and had to undergo left shoulder surgery. This occurred about 2 weeks ago to the left shoulder. Patient was brought into the emergency room where she was further evaluated. In the emergency room she was found to have severe hypoglycemia requiring D50 fluid bolus to correct her low sugar readings. She has a known history of underlying diabetes mellitus. She had not been eating well prior to her admission. She was sent for a computed tomography scan of the brain on 09/2017. CAT scan revealed no acute intracranial hemorrhage or midline shift. There is mild to moderate diffuse age-related cerebral atrophy and chronic small vessel ischemic changes noted. There was no evidence of acute stroke. Patient was taken off of Celexa on admission. She is also recently developed severe hoarseness of voice. ENT was consulted. ENT evaluated the patient and she has acute laryngitis and acute pharyngitis. There was also evidence of deja albicans infection. She has been placed on Diflucan. The patient has been followed recently in the outpatient neurology clinic. She was evaluated for neck pain and headaches at that time. She underwent an MRI/MRA of the brain on 03/14/2017. Her MRI reveals evidence of a mass lesion in the C1-C2 level of the spinal column. This was felt to possibly be secondary to meningioma. 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 The patient has been scheduled to be seen in the neurosurgery clinic at [facility] in the next few weeks. Due to her hospitalizations recently she has to verify her current schedule for evaluation in the neurosurgery clinic. We will need to check this as well or her on Tuesday. The patient seems to be doing much better in terms of her mental status. She likely had some degree of metabolic encephalopathy due to severe hypoglycemia. She seems to be back to baseline. She still has hoarseness of voice which hopefully will improve. Would recommend to discontinue the Celexa for at this time. We reviewed the CAT scan of the brain that was just done 2 days ago and there is once again no evidence of acute findings. Neurology is now been consulted for further evaluation and recommendations. Review of Systems Constitutional: Denies chills, Denies fever Eyes: denies blurred vision, denies pain Ears, nose, mouth and throat: Denies headache, Denies sore throat Cardiovascular: Denies chest pain, Denies shortness of breath Respiratory: Denies cough Gastrointestinal: Denies abdominal pain, Denies diarrhea, Denies nausea, Denies vomiting Genitourinary: Denies dysuria, Denies hematuria Musculoskeletal: Denies myalgias Integumentary: Denies pruritus, Denies rash Neurological: Reports change in speech, Reports headaches, Denies numbness, Denies weakness Psychiatric: Denies anxiety, Denies depression Endocrine: Denies fatigue, Denies weight change Past Medical History Past Medical History: Coronary Artery Disease (CAD), Chest Pain / Angina, Heart Failure, COPD, Diabetes Mellitus, GERD/Reflux, GI Bleed, Hyperlipidemia, Hypertension, Myocardial Infarction ([place]), Osteoarthritis (OA) Additional Past Medical History / Comment(s): NIDDM, chronic L knee pain, generalized arthiritis, anemia, back pain.sinus infections. 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 Stent in leg. Subclavian bypass. PTCA's, EGD with cauterized arterovenous malformation, colonoscopy, L hand's index finger amputation, R hand 's thumb tendon repair, R elbow replacement, subclavian steel surgery-"new veins in my neck." sinus sx, Past Anesthesia/Blood Transfusion Reactions: No Reported Reaction Additional Past Anesthesia/Blood Transfusion Reaction / Comment(s): Pt has recieved blood in the past without reaction. Date of Last Stent Placement:: 2010 Past Psychological History: Anxiety, Depression Smoking Status: Former smoker Past Alcohol Use History: None Reported Past Drug Use History: None Reported - Past Family History Father History Unknown: Yes Mother Family Medical History: Cancer Additional Family Medical History / Comment(s): Mother had lung cancer. Medications and Allergies Home Medications Medication Instructions Recorded Confirmed Type Pantoprazole Sodium 40 mg PO DAILY@0900 09/16/14 05/04/17 History Repaglinide [Prandin] 1 mg PO BID PRN 09/16/14 05/04/17 History Acetaminophen Tab [Tylenol] 500 mg PO Q6H PRN 04/18/17 05/04/17 History Cyclobenzaprine [Flexeril] 10 mg PO TID@0600,1400,2200 04/18/17 05/04/17 History Ergocalciferol (Vitamin D2) 50,000 unit PO KEARNS@1300 04/18/17 05/04/17 History [Vitamin D2] HYDROcodone/APAP 5-325MG [[place] 1 tab PO Q4-6H PRN #90 tab 04/21/17 05/04/17 Rx 5-325] Amitriptyline HCl [Elavil] 25 mg PO HS 05/04/17 05/04/17 History Atorvastatin [Lipitor] 40 mg PO HS@2100 05/04/17 05/04/17 History Benazepril [Lotensin] 5 mg PO DAILY@0900 05/04/17 05/04/17 History Citalopram Hydrobromide [CeleXA] 20 mg PO DAILY@0905/04/17 05/04/17 History Clopidogrel [Plavix] 75 mg PO DAILY@0900 05/04/17 05/04/17 History Diazepam [Valium] 2 mg PO BID PRN 05/04/17 05/04/17 History Famotidine [Pepcid] 20 mg PO DAILY@0605/04/17 05/04/17 History Isosorbide Mononitrate ER [Imdur] 15 mg PO DAILY@0900 05/04/17 05/04/17 History Loperamide HCl [Imodium A-D] 4 mg PO DAILY PRN MDD 4 tabs 05/04/17 05/04/17 History Metoprolol Tartrate [Lopressor] 25 mg PO BID@0900,2100 05/04/17 05/04/17 History Ondansetron Odt [Zofran ODT] 4 mg PO Q6H PRN 05/04/17 05/04/17 History Sennosides [Senokot] 1 tab PO BID PRN 05/04/17 05/04/17 History Fluconazole [Diflucan] 100 mg PO DAILY 17 Days #34 tab 05/09/17 Rx metroNIDAZOLE [Flagyl] 500 mg PO TID 14 Days #42 tab 05/09/17 Rx Allergies Allergy/AdvReac Type Severity Reaction Status Date / Time blue dye Allergy Anaphylaxis Verified 05/04/17 15:15 clonidine [From Catapres] Allergy Diarrhea Verified 05/04/17 15:15 Iodinated Contrast- Oral and Allergy Unknown Verified 05/04/17 15:32 IV Dye monosodium glutamate [MSG] Allergy Anaphylaxis Verified 05/04/17 15:15 ofloxacin [From Floxin] Allergy Anaphylaxis Verified 05/04/17 15:15 piroxicam [From Feldene] Allergy Nausea & Verified 05/04/17 15:15 Vomiting red dye Allergy Anaphylaxis Verified 05/04/17 15:15 Sulfa (Sulfonamide Allergy Anaphylaxis Verified 05/04/17 15:15 Antibiotics) tramadol [From Ultram] Allergy Anaphylaxis Verified 05/04/17 15:15 amoxicillin AdvReac Diarrhea Verified 05/04/17 15:15 bisoprolol [From Ziac] AdvReac Unknown Verified 05/04/17 15:15 cephalexin [From Keflex] AdvReac Diarrhea Verified 05/04/17 15:15 glipizide AdvReac Unknown Verified 05/04/17 15:15 hydrochlorothiazide AdvReac Unknown Verified 05/04/17 15:15 [From Ziac] metformin AdvReac Unknown Verified 05/04/17 15:15 morphine AdvReac Hallucinati Verified 05/04/17 15:15 ons sertraline [From Zoloft] AdvReac Hallucinati Verified 05/04/17 15:15 ons triamterene [From Dyazide] AdvReac Unknown Verified 05/04/17 15:15 Physical Examination - Vital Signs Vital Signs: Vital Signs Temp Pulse Resp BP BP Pulse Ox 05/06/17 15:00 97.6 F 95 16 139/72 97 05/06/17 07:15 16 05/06/17 07:00 97.9 F 105 H 16 152/73 95 05/05/17 23:00 98.5 F 85 20 138/71 95 05/05/17 19:45 96 05/05/17 19:33 99.2 F 106 H 20 143/83 95 Intake and Output 05/06/17 05/06/17 05/06/17 06:59 14:59 22:59 Intake Total 230 Balance 230 Intake: Intake, IV Titration 170 Amount Dextrose 5%-0.45% NaCl 1, 170 000 ml @ 83 mls/hr IV . Q12H3M ONE Rx#:[id number] Oral 60 Other: Voiding Method Diaper Incontinent # Voids 1 # Bowel Movements 1 1 Weight 69 kg Patient Weight 05/07/17 06:59 Weight 69 kg - Constitutional General appearance: average body habitus, cooperative - EENT EENT: PERRL, mucous membranes moist - Respiratory Respiratory: lungs clear, normal breath sounds - Cardiovascular Cardiovascular: regular rate, normal S1, normal S2 Extremities: no peripheral edema bilaterally - Gastrointestinal Gastrointestinal: normoactive bowel sounds - Integumentary Integumentary: normal - Neurologic Cranial nerve examination: PERRL, EOMI, VFF, V1/V2/V3 grossly intact, face symmetric, intact gag reflex, intact corneal reflex, normal palatal elevation Speech examination: intact Sensorimotor examination: intact Motor examination - right side: 4/5: biceps, triceps, wrist flexion, wrist extension, sorter upholstery parts, hip flexors, knee extensors, dorsiflexion, toe extension (EHL) , plantarflexion Motor examination - left side: 4/5: biceps, triceps, wrist flexion, wrist extension, sorter upholstery parts, hip flexors, knee extensors, dorsiflexion, toe extension (EHL) , plantarflexion Detailed sensory examination: intact Reflex and gait examination: intact Reflexes: 1+: ankle, bicep, knee, tricep - Musculoskeletal Musculoskeletal: no pain - Psychiatric Psychiatric: mood/affect appropriate, cooperative Results - Laboratory Findings CBC and BMP: 05/09/17 06:30 05/09/17 06:30 Abnormal Lab Findings: Abnormal Labs 05/04/17 05/04/17 05/04/17 15:40 17:03 17:03 RBC 3.06 L Hgb 9.3 L Hct 31.6 L MCV 103.3 H MCHC 29.5 L RDW 18.8 H Lymphocytes # (Manual) 0.92 L Chloride 112 H Carbon Dioxide 19 L BUN 28 H Creatinine 1.40 H Glucose 34 L* POC Glucose (mg/dL) Calcium Total Creatine Kinase Troponin I Total Protein 5.4 L Albumin 2.7 L Vitamin B12 Urine Protein 2+ H Urine Ketones 1+ H Urine Bilirubin 1+ H Urine Opiates Screen Detected H U Tricyclic Antidepress Detected H C. difficile (EIA) Intrp 05/04/17 05/04/17 05/04/17 17:03 17:59 18:50 RBC Hgb Hct MCV MCHC RDW Lymphocytes # (Manual) Chloride Carbon Dioxide BUN Creatinine Glucose POC Glucose (mg/dL) 37 L 158 H Calcium Total Creatine Kinase <20 L Troponin I 0.047 H* Total Protein Albumin Vitamin B12 Urine Protein Urine Ketones Urine Bilirubin Urine Opiates Screen U Tricyclic Antidepress C. difficile (EIA) Intrp 05/04/17 05/04/17 05/04/17 20:07 22:01 23:09 RBC Hgb Hct MCV MCHC RDW Lymphocytes # (Manual) Chloride Carbon Dioxide BUN Creatinine Glucose POC Glucose (mg/dL) 156 H 201 H 222 H Calcium Total Creatine Kinase Troponin I Total Protein Albumin Vitamin B12 Urine Protein Urine Ketones Urine Bilirubin Urine Opiates Screen U Tricyclic Antidepress C. difficile (EIA) Intrp 05/05/17 05/05/17 05/05/17 01:08 03:06 05:01 RBC Hgb Hct MCV MCHC RDW Lymphocytes # (Manual) Chloride Carbon Dioxide BUN Creatinine Glucose POC Glucose (mg/dL) 208 H 209 H 188 H Calcium Total Creatine Kinase Troponin I Total Protein Albumin Vitamin B12 Urine Protein Urine Ketones Urine Bilirubin Urine Opiates Screen U Tricyclic Antidepress C. difficile (EIA) Intrp 05/05/17 05/05/17 05/05/17 06:38 06:38 06:38 RBC 3.05 L Hgb 9.6 L Hct 32.9 L MCV 107.8 H MCHC 29.1 L RDW 18.7 H Lymphocytes # (Manual) 0.94 L Chloride 115 H Carbon Dioxide 18 L BUN 27 H Creatinine 1.34 H Glucose 177 H POC Glucose (mg/dL) Calcium 8.3 L Total Creatine Kinase Troponin I Total Protein Albumin Vitamin B12 1228.0 H Urine Protein Urine Ketones Urine Bilirubin Urine Opiates Screen U Tricyclic Antidepress C. difficile (EIA) Intrp 05/05/17 05/05/17 05/05/17 07:24 09:02 11:04 RBC Hgb Hct MCV MCHC RDW Lymphocytes # (Manual) Chloride Carbon Dioxide BUN Creatinine Glucose POC Glucose (mg/dL) 202 H 160 H 154 H Calcium Total Creatine Kinase Troponin I Total Protein Albumin Vitamin B12 Urine Protein Urine Ketones Urine Bilirubin Urine Opiates Screen U Tricyclic Antidepress C. difficile (EIA) Intrp 05/05/17 05/05/17 05/05/17 13:03 13:15 15:15 RBC Hgb Hct MCV MCHC RDW Lymphocytes # (Manual) Chloride Carbon Dioxide BUN Creatinine Glucose POC Glucose (mg/dL) 159 H 149 H Calcium Total Creatine Kinase Troponin I Total Protein Albumin Vitamin B12 Urine Protein Urine Ketones Urine Bilirubin Urine Opiates Screen U Tricyclic Antidepress C. difficile (EIA) Intrp Positive A 05/05/17 05/05/17 05/05/17 17:05 18:52 21:12 RBC Hgb Hct MCV MCHC RDW Lymphocytes # (Manual) Chloride Carbon Dioxide BUN Creatinine Glucose POC Glucose (mg/dL) 136 H 122 H 106 H Calcium Total Creatine Kinase Troponin I Total Protein Albumin Vitamin B12 Urine Protein Urine Ketones Urine Bilirubin Urine Opiates Screen U Tricyclic Antidepress C. difficile (EIA) Intrp 05/05/17 05/06/17 05/06/17 23:42 01:51 03:19 RBC Hgb Hct MCV MCHC RDW Lymphocytes # (Manual) Chloride Carbon Dioxide BUN Creatinine Glucose POC Glucose (mg/dL) 127 H 113 H 103 H Calcium Total Creatine Kinase Troponin I Total Protein Albumin Vitamin B12 Urine Protein Urine Ketones Urine Bilirubin Urine Opiates Screen U Tricyclic Antidepress C. difficile (EIA) Intrp 05/06/17 05/06/17 05/06/17 05:23 06:29 06:29 RBC 3.12 L Hgb 9.5 L Hct 33.4 L MCV 107.3 H MCHC 28.6 L RDW 18.4 H Lymphocytes # (Manual) Chloride 115 H Carbon Dioxide 18 L BUN 24 H Creatinine 1.26 H Glucose 100 H POC Glucose (mg/dL) 100 H Calcium Total Creatine Kinase Troponin I Total Protein Albumin Vitamin B12 Urine Protein Urine Ketones Urine Bilirubin Urine Opiates Screen U Tricyclic Antidepress C. difficile (EIA) Intrp 05/06/17 05/06/17 05/06/17 07:28 09:39 11:32 RBC Hgb Hct MCV MCHC RDW Lymphocytes # (Manual) Chloride Carbon Dioxide BUN Creatinine Glucose POC Glucose (mg/dL) 136 H 125 H 141 H Calcium Total Creatine Kinase Troponin I Total Protein Albumin Vitamin B12 Urine Protein Urine Ketones Urine Bilirubin Urine Opiates Screen U Tricyclic Antidepress C. difficile (EIA) Intrp 05/06/17 05/06/17 05/06/17 13:36 15:42 17:36 RBC Hgb Hct MCV MCHC RDW Lymphocytes # (Manual) Chloride Carbon Dioxide BUN Creatinine Glucose POC Glucose (mg/dL) 140 H 118 H 132 H Calcium Total Creatine Kinase Troponin I Total Protein Albumin Vitamin B12 Urine Protein Urine Ketones Urine Bilirubin Urine Opiates Screen U Tricyclic Antidepress C. difficile (EIA) Intrp Assessment and Plan (1) Acute encephalopathy Status: Acute Code(s): G93.40 - ENCEPHALOPATHY, UNSPECIFIED SNOMED Code(s): 44733557 (2) Acute laryngitis Status: Acute Code(s): J04.0 - ACUTE LARYNGITIS SNOMED Code(s): 3430891 (3) Acute pharyngitis Status: Acute Code(s): J02.9 - ACUTE PHARYNGITIS, UNSPECIFIED SNOMED Code(s) : 234667663 (4) Meningioma Status: Acute Code(s): D32.9 - BENIGN NEOPLASM OF MENINGES, UNSPECIFIED SNOMED Code(s): 815911624 (5) Brain aneurysm Status: Acute Code(s): I67.1 - CEREBRAL ANEURYSM, NONRUPTURED SNOMED Code(s) : 295109374 (6) Deja albicans infection Status: Acute Code(s): B37.9 - CANDIDIASIS, UNSPECIFIED SNOMED Code(s): 09166915 (7) Hoarseness of voice Status: Acute Code(s): R49.0 - DYSPHONIA SNOMED Code(s): 41164773 (8) Hypoglycemia Status: Acute Code(s): E16.2 - HYPOGLYCEMIA, UNSPECIFIED SNOMED Code(s): 424748231 Plan: This patient is a 76-year-old female admitted to hospital with episode of altered mental status 3 days prior to admission. She had recently been started on Celexa 3 days prior to her admission. She was noted to be confused and disoriented. She also had evidence of severe hypoglycemia in the emergency room. She was up 20 admitted to hospital for further evaluation. She underwent a computed tomography scan of the brain which failed to reveal any acute changes. Results as noted above. Celexa was discontinued and the patient has shown significant improvement in her mental status today. She seems to be back to baseline but still has hoarseness of voice. She has been seen by ENT and is being treated for acute laryngitis and acute pharyngitis. Patient recently underwent MRI of the brain and MRA on 03/14/2017. Both of the studies came back abnormal with evidence of possible cervical meningioma as well as brain aneurysm. She has been scheduled for consultation in the neurosurgery clinic at [facility] in the next few weeks. The patient denies any symptoms today of headache or neck pain. She is being treated for the acute laryngitis and acute pharyngitis with Diflucan. Most likely she had a mixed metabolic encephalopathy due to the hypoglycemia as well as medication effect of Celexa. She seems to be near baseline level of function cognitively today on examination. We will continue to follow her progress closely during this admission. Her overall prognosis at this time remains guarded. Time with Patient: Greater than 30
[2017-05-06 19:58] LABS: Glucose,Whole Blood 109 mg/dL (75-99)
[2017-05-06] MEDS: AMITRIPTYLINE HCL 10 MG TAB PO SCH (21:28)
[2017-05-06] MEDS: ATORVASTATIN 40 MG TAB PO SCH (21:28)
[2017-05-06 21:53] LABS: Glucose,Whole Blood 104 mg/dL (75-99)
[2017-05-07] MEDS: CYCLOBENZAPRINE 10 MG TAB PO SCH ×3 (05:07→20:14)
[2017-05-07 07:18] LABS: Glucose,Whole Blood 102 mg/dL (75-99)
[2017-05-07 07:39] LABS: Anisocytosis Slight; HCT 31.3 % (34.0-46.0); Hypochromasia Marked; MCHC 28.9 g/dL (31.0-37.0); MCV 103.9 fL (80.0-100.0); Macrocytosis Marked; Mean Platelet Volume 7.5; Platelet Count 191 k/uL (150-450); RBC 3.01 m/uL (3.80-5.40); RDW 18.2 % (11.5-15.5); WBC 5.6 k/uL (3.8-10.6)
[2017-05-07] MEDS: INSULIN ASPART 100 UNIT/ML 1 ML 10 ML VIAL SQ SCH ×4 (07:45→20:22)
[2017-05-07 07:46] LABS: Calcium 8.4 mg/dL (8.4-10.2); Potassium 3.5 mmol/L (3.5-5.1)
[2017-05-07] MEDS: LISINOPRIL 5 MG TAB PO SCH (10:12)
[2017-05-07] MEDS: FLUCONAZOLE 100 MG TAB PO SCH (10:12)
[2017-05-07] MEDS: CLOPIDOGREL 75 MG TAB PO SCH (10:12)
[2017-05-07] MEDS: ISOSORBIDE MONONITRATE ER 15 MG TAB PO SCH (10:12)
[2017-05-07] MEDS: METOPROLOL TARTRATE 25 MG TAB PO SCH ×2 (10:12→20:14)
[2017-05-07] MEDS: HEPARIN SODIUM,PORCINE 5,000 UNIT/ML 1 ML VIAL SQ SCH ×3 (10:12→23:04)
[2017-05-07] MEDS: metroNIDAZOLE 500 MG TAB PO SCH ×3 (10:13→20:14)
[2017-05-07 11:20] LABS: Glucose,Whole Blood 130 mg/dL (75-99)
--- NOTE | 2017-05-07 12:16 | P.PN ---
Subjective Progress Note Date: 05/07/17 Principal diagnosis: hypoglycemia/altered mental status Patient more awake today, stools are better formed, tolerating oral. Objective - Vital Signs Vital signs: Vital Signs Temp 97.8 F 05/07/17 09:59 Pulse 113 H 05/07/17 09:59 Resp 18 05/07/17 09:59 BP 139/84 05/07/17 09:59 Pulse Ox 98 05/06/17 23:00 Intake & Output 05/06/17 05/07/17 05/07/17 18:59 06:59 18:59 Intake Total 180 Balance 180 Weight 69 kg 69 kg Intake: Oral 180 Other: Voiding Method Diaper Diaper Diaper Incontinent Incontinent Incontinent # Voids 1 1 1 # Bowel Movements 1 1 1 - Exam gen:alert and oriented lungs:clear to auscultation heart:s1s2 abdomen:soft and depressible,non tender ext:no edema - Labs CBC & Chem 7: 05/07/17 07:10 05/07/17 07:10 Labs: Abnormal Lab Results - Last 24 Hours (Table) 05/06/17 05/06/17 05/06/17 Range/Units 13:36 15:42 17:36 RBC (3.80-5.40) m/uL Hgb (11.4-16.0) gm/dL Hct (34.0-46.0) % MCV (80.0-100.0) fL MCHC (31.0-37.0) g/dL RDW (11.5-15.5) % Chloride (98-107) mmol/L Carbon Dioxide (22-30) mmol/L BUN (7-17) mg/dL Creatinine (0.52-1.04) mg/dL POC Glucose (mg/dL) 140 H 118 H 132 H (75-99) mg/dL 05/06/17 05/06/17 05/07/17 Range/Units 19:40 21:49 07:10 RBC 3.01 L (3.80-5.40) m/uL Hgb 9.0 L (11.4-16.0) gm/dL Hct 31.3 L (34.0-46.0) % MCV 103.9 H (80.0-100.0) fL MCHC 28.9 L (31.0-37.0) g/dL RDW 18.2 H (11.5-15.5) % Chloride (98-107) mmol/L Carbon Dioxide (22-30) mmol/L BUN (7-17) mg/dL Creatinine (0.52-1.04) mg/dL POC Glucose (mg/dL) 109 H 104 H (75-99) mg/dL 05/07/17 05/07/17 05/07/17 Range/Units 07:10 07:12 11:14 RBC (3.80-5.40) m/uL Hgb (11.4-16.0) gm/dL Hct (34.0-46.0) % MCV (80.0-100.0) fL MCHC (31.0-37.0) g/dL RDW (11.5-15.5) % Chloride 114 H (98-107) mmol/L Carbon Dioxide 21 L (22-30) mmol/L BUN 23 H (7-17) mg/dL Creatinine 1.20 H (0.52-1.04) mg/dL POC Glucose (mg/dL) 102 H 130 H (75-99) mg/dL Assessment and Plan (1) Acute laryngitis Narrative/Plan: Continue Diflucan We'll give 21 day course Current Visit: Yes Status: Acute Code(s): J04.0 - ACUTE LARYNGITIS SNOMED Code(s): 6055299 (2) Clostridium difficile colitis Narrative/Plan: Continue Flagyl Clinically improving Current Visit: Yes Status: Acute Code(s): A04.72 - ENTEROCOLITIS D/T CLOSTRIDIUM DIFFICILE, NOT SPCF RECUR SNOMED Code(s): 484583320 (3) Hypoglycemia Narrative/Plan: Stable Current Visit: Yes Status: Acute Code(s): E16.2 - HYPOGLYCEMIA, UNSPECIFIED SNOMED Code(s): 041139933 (4) Altered mental status Narrative/Plan: Improved Current Visit: Yes Status: Acute Code(s): R41.82 - ALTERED MENTAL STATUS, UNSPECIFIED SNOMED Code(s): 235682816 (5) Hoarseness of voice Narrative/Plan: Secondary to laryngitis Current Visit: Yes Status: Acute Code(s): R49.0 - DYSPHONIA SNOMED Code(s) : 29057103 (6) Dysphagia Narrative/Plan: Secondary to esophagitis Current Visit: Yes Status: Acute Code(s): R13.10 - DYSPHAGIA, UNSPECIFIED SNOMED Code(s): 96438868 (7) CAD (coronary artery disease) Narrative/Plan: No chest pain Current Visit: No Status: Acute Code(s): I25.10 - ATHSCL HEART DISEASE OF [place] CORONARY ARTERY W/O ANG PCTRS SNOMED Code(s): 81369382 (8) Chronic diastolic (congestive) heart failure Narrative/Plan: Compensated Current Visit: No Status: Acute Code(s): I50.32 - CHRONIC DIASTOLIC ( CONGESTIVE) HEART FAILURE SNOMED Code(s): 881790132 (9) Chronic renal failure Narrative/Plan: Stable Current Visit: No Status: Acute Code(s): N18.9 - CHRONIC KIDNEY DISEASE, UNSPECIFIED SNOMED Code(s): 16931274
--- NOTE | 2017-05-07 12:24 | P.PN ---
Progress Note - Text Progress Note Date: 05/06/17 Discussed with both daughters today. They are concerns with patient's multiple admissions. They are also concerned with patient's mentation. They say that she does not recognize them. Patient is having some hallucinations. They are also concerned that before all this patient was driving, and patient's condition continues to worsen. She also has one more week at rehab then they were are going to have to take care of her at home. So they would like her to stay to make sure that she is not cannot come back to the hospital. They want psychiatry to evaluate her for her hallucinations. And neurology to evaluate her. I did discuss with them that they might be expecting too much. I was concerned with her being here and then been at a rehab facility where there are they can do more physical therapy for which is what she needs. I let them know that I am concerned if she can get weaker being at the hospital. And I suggestion be for us to release her from the hospital soon as we can. And I think that medically patient is ready to be released.
--- NOTE | 2017-05-07 15:35 | CONS ---
CONSULTATION DATE OF SERVICE DICTATION: 05/07/2017 IDENTIFYING DATA: This patient is a 76-year-old who was admitted to the mental health unit with mental status changes x3 days. HISTORY OF PRESENT ILLNESS: The patient is presented to the hospital with mental status changes including hallucinations. The patient has numerous medical comorbidities. There was a concern that recently started Celexa had precipitated the hallucinations. The Celexa has been discontinued. There has been discontinuation of [place] and Valium. She is diagnosed with laryngitis, pharyngitis, and there was evidence of candidiasis. CT scan was completed with no acute change, but she is diagnosed with a brain aneurysm and angioma. She is being treated for C diff colitis. She has chronic renal failure and anemia. The patient has been seen by Neurology that was reviewed. The patient is lying in bed. She reports that she is no longer experiencing any auditory or visual hallucinations. She feels safe in the hospital. She is endorsing no paranoid or persecutory thoughts. She appears to struggle at times with depressed mood which prompted the prescription of Celexa. She had previously tried Zoloft, but states she had a similar reaction with Zoloft. She does not wish to trial any other antidepressants. She is reporting no suicidal or homicidal ideation. She is endorsing no history of hypomanic or manic episodes. PAST PSYCHIATRIC HISTORY: No inpatient psychiatric care. No suicide attempts. She is prescribed Elavil 10 mg at bedtime. The purpose is unclear. PAST MEDICAL HISTORY: The patient is currently diagnosed with acute laryngitis, Clostridium difficile colitis, hypoglycemia, coronary artery disease, dysphagia, chronic diastolic heart failure, chronic renal failure. ALLERGIES: ZOLOFT. CHEMICAL DEPENDENCY HISTORY: She reports no use of alcohol or illicit drugs. SOCIAL HISTORY: The patient is 76 years old. She resides with her daughter. She states she has a total of 9 children. MENTAL STATUS EXAM: The patient is a female appearing her stated age. She is lying in bed. She is dressed in hospital attire. Her voice is hoarse and very faint. She is pleasant and cooperative. She maintains a constricted affect. She reports that her mood can be down at times. She is reporting no suicidal or homicidal ideation, intent, or plan. She is endorsing no auditory or visual hallucinations or any specific delusions. There is no evidence of observed psychosis while interacting with her today. She does not appear hypomanic or manic. She can be mildly circumstantial at times, but demonstrates no tangential thinking, loose associations or flight of ideas. She is oriented to person, place. She names the month as January, but names the correct year. She demonstrates no verbal or physical aggressiveness. She demonstrates no abnormal involuntary movements. IMPRESSION: 1. Delirium, multifactorial etiology. Depression, unspecified rule out major depressive disorder. 2. Numerous medical comorbidities including recent episode of hypoglycemia, Clostridium difficile colitis, Deja infection, laryngitis, chronic renal failure, anemia. PLAN: It appears that the symptoms of psychosis are resolving. We will refrain from initiating any other psychotropic medication at this time. She has numerous other medical comorbidities that are being addressed and treated. There is no perceived imminent safety risk. She does not require inpatient psychiatric hospitalization. When she is medically stabilized, she may be appropriate for outpatient counseling. Please call with any other questions or concerns. BURKEL / IJN: [id number] /
[2017-05-07 17:06] LABS: Glucose,Whole Blood 105 mg/dL (75-99)
--- NOTE | 2017-05-07 18:25 | P.PN ---
Subjective Progress Note Date: 05/07/17 This patient is a 76-year-old female with multiple complex medical issues. Neurology was consulted yesterday for evaluation of altered mental status. She was recently admitted to the inpatient psychiatry floor and was treated with Celexa for treatment of depression. She has shown side effects to this including hallucinations. She was seen by psychiatry for further evaluation of her delirium and depression. We are waiting further recommendations. Patient has noted improvement with her speech as she is being treated for acute laryngitis an acute pharyngitis. Neurologically she does have a meningioma located in the cervical spine. She also has evidence on MRA of aneurysm. She is being scheduled to be seen in the neurosurgery clinic at [facility] hopefully soon after her discharge from hospital. At this time we would recommend to continue current management. She does seem to show improvement in her overall mental status today and this may have been a medication effect. We will continue to follow her progress closely along with psychiatry. Overall prognosis at this time remains very guarded. Objective - Vital Signs Vital signs: Vital Signs Temp 97.7 F 05/07/17 15:10 Pulse 87 05/07/17 16:00 Resp 14 05/07/17 16:00 BP 149/79 05/07/17 15:10 Pulse Ox 97 05/07/17 15:10 Intake & Output 05/06/17 05/07/17 05/07/17 18:59 06:59 18:59 Intake Total 180 Balance 180 Weight 69 kg 69 kg Intake: Oral 180 Other: Voiding Method Diaper Diaper Diaper Incontinent Incontinent Incontinent # Voids 1 1 2 # Bowel Movements 1 1 1 - Exam Physical examination: PHYSICAL EXAMINATION: Patient is resting comfortably in bed. VITAL SIGNS: Blood pressure is [149/79]. Heart rate is [87]. Respiration is [14] . Temperature is [97.7]. HEENT: Head is atraumatic, neck is supple, there were no carotid bruits. CHEST: Lungs are clear to auscultation and percussion. CARDIAC: S1, S2 normal rate and rhythm. There is no murmur. ABDOMEN: Soft and nontender. Bowel sounds are present. EXTREMITIES: There is no pedal edema. Peripheral pulses are present. Neurological examination: This patient's neurological examination is unchanged from yesterday. - Labs CBC & Chem 7: 05/07/17 07:10 05/07/17 07:10 Labs: Abnormal Lab Results - Last 24 Hours (Table) 05/06/17 05/06/17 05/07/17 Range/Units 19:40 21:49 07:10 RBC 3.01 L (3.80-5.40) m/uL Hgb 9.0 L (11.4-16.0) gm/dL Hct 31.3 L (34.0-46.0) % MCV 103.9 H (80.0-100.0) fL MCHC 28.9 L (31.0-37.0) g/dL RDW 18.2 H (11.5-15.5) % Chloride (98-107) mmol/L Carbon Dioxide (22-30) mmol/L BUN (7-17) mg/dL Creatinine (0.52-1.04) mg/dL POC Glucose (mg/dL) 109 H 104 H (75-99) mg/dL 05/07/17 05/07/17 05/07/17 Range/Units 07:10 07:12 11:14 RBC (3.80-5.40) m/uL Hgb (11.4-16.0) gm/dL Hct (34.0-46.0) % MCV (80.0-100.0) fL MCHC (31.0-37.0) g/dL RDW (11.5-15.5) % Chloride 114 H (98-107) mmol/L Carbon Dioxide 21 L (22-30) mmol/L BUN 23 H (7-17) mg/dL Creatinine 1.20 H (0.52-1.04) mg/dL POC Glucose (mg/dL) 102 H 130 H (75-99) mg/dL 05/07/17 Range/Units 17:00 RBC (3.80-5.40) m/uL Hgb (11.4-16.0) gm/dL Hct (34.0-46.0) % MCV (80.0-100.0) fL MCHC (31.0-37.0) g/dL RDW (11.5-15.5) % Chloride (98-107) mmol/L Carbon Dioxide (22-30) mmol/L BUN (7-17) mg/dL Creatinine (0.52-1.04) mg/dL POC Glucose (mg/dL) 105 H (75-99) mg/dL Assessment and Plan (1) Acute encephalopathy Current Visit: Yes Status: Acute Code(s): G93.40 - ENCEPHALOPATHY, UNSPECIFIED SNOMED Code(s): 46171306 (2) Acute laryngitis Current Visit: Yes Status: Acute Code(s): J04.0 - ACUTE LARYNGITIS SNOMED Code(s): 6551676 (3) Acute pharyngitis Current Visit: Yes Status: Acute Code(s): J02.9 - ACUTE PHARYNGITIS, UNSPECIFIED SNOMED Code(s): 752619532 (4) Meningioma Current Visit: Yes Status: Acute Code(s): D32.9 - BENIGN NEOPLASM OF MENINGES, UNSPECIFIED SNOMED Code(s): 000456795 (5) Brain aneurysm Current Visit: Yes Status: Acute Code(s): I67.1 - CEREBRAL ANEURYSM, NONRUPTURED SNOMED Code(s): 086382911 (6) Deja albicans infection Current Visit: Yes Status: Acute Code(s): B37.9 - CANDIDIASIS, UNSPECIFIED SNOMED Code(s): 19849374 (7) Hoarseness of voice Current Visit: Yes Status: Acute Code(s): R49.0 - DYSPHONIA SNOMED Code(s) : 83388968 (8) Hypoglycemia Current Visit: Yes Status: Acute Code(s): E16.2 - HYPOGLYCEMIA, UNSPECIFIED SNOMED Code(s): 893949509 Plan: This patient is 76-year-old female who was admitted to hospital with altered mental status and weakness. She was seen by psychiatry today for further evaluation of delirium. She was taken off of Celexa. She is showing improvement in her overall mental status today. We will continue to monitor her progress closely. She has been referred to neurosurgery at [facility] once she is discharged from hospital. She has evidence of a cervical meningioma as well as aneurysm on MRA findings. She we will need to follow-up soon after discharge for this patient as to the recommendations from neurosurgery. Her overall prognosis remains very guarded due to multiple complex medical issues. We will continue to follow her progress closely during this admission.
[2017-05-07] MEDS: ATORVASTATIN 40 MG TAB PO SCH (20:13)
[2017-05-07] MEDS: AMITRIPTYLINE HCL 10 MG TAB PO SCH (20:14)
[2017-05-07 20:31] LABS: Glucose,Whole Blood 110 mg/dL (75-99)
[2017-05-07] MEDS: ACETAMINOPHEN TAB 500 MG TAB PO PRN (22:22)
[2017-05-07 23:34] LABS: Glucose,Whole Blood 113 mg/dL (75-99)
[2017-05-08] MEDS: CYCLOBENZAPRINE 10 MG TAB PO SCH ×3 (04:58→21:58)
[2017-05-08 07:21] LABS: Glucose,Whole Blood 95 mg/dL (75-99)
[2017-05-08] MEDS: CLOPIDOGREL 75 MG TAB PO SCH (08:13)
[2017-05-08] MEDS: FLUCONAZOLE 100 MG TAB PO SCH (08:13)
[2017-05-08] MEDS: HEPARIN SODIUM,PORCINE 5,000 UNIT/ML 1 ML VIAL SQ SCH ×2 (08:13→17:40)
[2017-05-08] MEDS: metroNIDAZOLE 500 MG TAB PO SCH ×3 (08:14→21:58)
[2017-05-08] MEDS: LISINOPRIL 5 MG TAB PO SCH (08:14)
[2017-05-08] MEDS: ISOSORBIDE MONONITRATE ER 15 MG TAB PO SCH (08:14)
[2017-05-08] MEDS: METOPROLOL TARTRATE 25 MG TAB PO SCH ×2 (08:14→21:58)
[2017-05-08] MEDS: INSULIN ASPART 100 UNIT/ML 1 ML 10 ML VIAL SQ SCH ×4 (08:17→21:58)
--- NOTE | 2017-05-08 09:39 | P.PN ---
Subjective Progress Note Date: 05/08/17 Principal diagnosis: hypoglycemia/altered mental status The patient seemed alert Stools most frequent, described as "like pudding". no abdominal pain Objective - Vital Signs Vital signs: Vital Signs Temp 97.9 F 05/08/17 07:00 Pulse 105 H 05/08/17 07:00 Resp 18 05/08/17 07:00 BP 146/68 05/08/17 07:00 Pulse Ox 98 05/08/17 02:38 Intake & Output 05/07/17 05/08/17 05/08/17 18:59 06:59 18:59 Intake Total 300 60 Balance 300 60 Weight 69 kg Intake: Oral 300 60 Other: Voiding Method Diaper Diaper Incontinent Incontinent # Voids 2 1 # Bowel Movements 1 1 - Exam gen:alert and oriented lungs:clear to auscultation heart:s1s2 abdomen:soft and depressible,non tender ext:no edema - Labs CBC & Chem 7: 05/07/17 07:10 05/07/17 07:10 Labs: Abnormal Lab Results - Last 24 Hours (Table) 05/07/17 05/07/17 05/07/17 Range/Units 11:14 17:00 20:21 POC Glucose (mg/dL) 130 H 105 H 110 H (75-99) mg/dL 05/07/17 Range/Units 23:18 POC Glucose (mg/dL) 113 H (75-99) mg/dL Assessment and Plan (1) Acute laryngitis Narrative/Plan: Continue Diflucan We'll give 21 day course Current Visit: Yes Status: Acute Code(s): J04.0 - ACUTE LARYNGITIS SNOMED Code(s): 7018280 (2) Clostridium difficile colitis Narrative/Plan: Continue Flagyl Clinically improving Current Visit: Yes Status: Acute Code(s): A04.72 - ENTEROCOLITIS D/T CLOSTRIDIUM DIFFICILE, NOT SPCF RECUR SNOMED Code(s): 748525297 (3) Hypoglycemia Current Visit: Yes Status: Acute Code(s): E16.2 - HYPOGLYCEMIA, UNSPECIFIED SNOMED Code(s): 188901140 (4) Hoarseness of voice Current Visit: Yes Status: Acute Code(s): R49.0 - DYSPHONIA SNOMED Code(s) : 15132247 (5) Altered mental status Narrative/Plan: Improving Current Visit: Yes Status: Acute Code(s): R41.82 - ALTERED MENTAL STATUS, UNSPECIFIED SNOMED Code(s): 549401845 (6) Dysphagia Narrative/Plan: Secondary to esophagitis Current Visit: Yes Status: Acute Code(s): R13.10 - DYSPHAGIA, UNSPECIFIED SNOMED Code(s): 13618547 (7) CAD (coronary artery disease) Narrative/Plan: No chest pain Continue Plavix and Imdur Current Visit: No Status: Acute Code(s): I25.10 - ATHSCL HEART DISEASE OF [place] CORONARY ARTERY W/O ANG PCTRS SNOMED Code(s): 00437745 (8) Chronic diastolic (congestive) heart failure Narrative/Plan: Compensated Continue lisinopril Current Visit: No Status: Acute Code(s): I50.32 - CHRONIC DIASTOLIC ( CONGESTIVE) HEART FAILURE SNOMED Code(s): 620378032 (9) Chronic renal failure Narrative/Plan: Stable Current Visit: No Status: Acute Code(s): N18.9 - CHRONIC KIDNEY DISEASE, UNSPECIFIED SNOMED Code(s): 71238294 (10) Meningioma Narrative/Plan: [facility]eds [facility] as [facility] Current Visit: Yes Status: Acute Code(s): D32.9 - BENIGN NEOPLASM OF MENINGES, UNSPECIFIED SNOMED Code(s): 399800796 Plan: Plan is for ECF Daughter come in from [place] today We'll discuss discharge plans
[2017-05-08 12:32] LABS: Glucose,Whole Blood 113 mg/dL (75-99)
--- NOTE | 2017-05-08 16:02 | P.PN ---
Subjective Progress Note Date: 05/08/17 This patient is a 76-year-old female who was being evaluated for altered mental status and confusion. Patient has a history of underlying psychiatric findings of depression. She was started on Celexa recently by her psychiatrist. This was discontinued as it was causing her major side effects. She seems to be now doing much better and is near baseline level of function. She is being treated for severe acute laryngitis and acute pharyngitis. She was also having evidence of Clostridium difficile colitis and is currently on Flagyl. Patient does have history of cervical meningioma for which she has been referred to [facility] neurosurgery clinic as outpatient. At this time patient is making slow progress with improvement in her mental status. She is awaiting transferred to [facility] possibly this next week. We will continue to follow her progress closely. Objective - Vital Signs Vital signs: Vital Signs Temp 98.6 F 05/08/17 15:00 Pulse 88 05/08/17 15:00 Resp 18 05/08/17 15:00 BP 146/88 05/08/17 15:00 Pulse Ox 97 05/08/17 15:00 Intake & Output 05/07/17 05/08/17 05/08/17 18:59 06:59 18:59 Intake Total 300 60 Balance 300 60 Weight 69 kg Intake: Oral 300 60 Other: Voiding Method Diaper Diaper Diaper Incontinent Incontinent # Voids 2 1 # Bowel Movements 1 1 - Exam Physical examination: PHYSICAL EXAMINATION: Patient is resting comfortably in bed. VITAL SIGNS: Blood pressure is [146/88]. Heart rate is [88]. Respiration is [18] . Temperature is [98.7]. HEENT: Head is atraumatic, neck is supple, there were no carotid bruits. CHEST: Lungs are clear to auscultation and percussion. CARDIAC: S1, S2 normal rate and rhythm. There is no murmur. ABDOMEN: Soft and nontender. Bowel sounds are present. EXTREMITIES: There is no pedal edema. Peripheral pulses are present. Neurological examination: This patient's neurological examination is unchanged from yesterday. She is slightly more awake and alert today. Her speech is also improving with less hoarseness in voice. - Labs CBC & Chem 7: 05/07/17 07:10 05/07/17 07:10 Labs: Abnormal Lab Results - Last 24 Hours (Table) 05/07/17 05/07/17 05/07/17 Range/Units 17:00 20:21 23:18 POC Glucose (mg/dL) 105 H 110 H 113 H (75-99) mg/dL 05/08/17 Range/Units 12:16 POC Glucose (mg/dL) 113 H (75-99) mg/dL Assessment and Plan (1) Acute encephalopathy Current Visit: Yes Status: Acute Code(s): G93.40 - ENCEPHALOPATHY, UNSPECIFIED SNOMED Code(s): 94854148 (2) Acute laryngitis Current Visit: Yes Status: Acute Code(s): J04.0 - ACUTE LARYNGITIS SNOMED Code(s): 1336911 (3) Acute pharyngitis Current Visit: Yes Status: Acute Code(s): J02.9 - ACUTE PHARYNGITIS, UNSPECIFIED SNOMED Code(s): 585740230 (4) Meningioma Current Visit: Yes Status: Acute Code(s): D32.9 - BENIGN NEOPLASM OF MENINGES, UNSPECIFIED SNOMED Code(s): 796613428 (5) Brain aneurysm Current Visit: Yes Status: Acute Code(s): I67.1 - CEREBRAL ANEURYSM, NONRUPTURED SNOMED Code(s): 195801761 (6) Deja albicans infection Current Visit: Yes Status: Acute Code(s): B37.9 - CANDIDIASIS, UNSPECIFIED SNOMED Code(s): 16371821 (7) Hoarseness of voice Current Visit: Yes Status: Acute Code(s): R49.0 - DYSPHONIA SNOMED Code(s) : 95508608 (8) Hypoglycemia Current Visit: Yes Status: Acute Code(s): E16.2 - HYPOGLYCEMIA, UNSPECIFIED SNOMED Code(s): 423229215 Plan: Respirations 76-year-old female who is being evaluated for altered mental status. Patient seems to be near baseline level of function today. Her speech and voice is improving as she has been treated for severe acute laryngitis and acute pharyngitis. She is awaiting possible discharge to [facility] early this next week. We have recommended that she follow-up in the neurosurgery clinic in [facility] she has evidence of a cervical meningioma. This was once again emphasized to the patient to schedule for this as soon as possible once she is discharged. We will continue to follow her progress closely during this admission. Her overall prognosis at this time remains guarded.
[2017-05-08] MEDS: ONDANSETRON ODT 4 MG TAB PO PRN (16:48)
[2017-05-08 17:18] LABS: Glucose,Whole Blood 147 mg/dL (75-99)
[2017-05-08] MEDS: ACETAMINOPHEN TAB 500 MG TAB PO PRN (17:32)
[2017-05-08 20:25] LABS: Glucose,Whole Blood 117 mg/dL (75-99)
[2017-05-08] MEDS: AMITRIPTYLINE HCL 10 MG TAB PO SCH (21:58)
[2017-05-08] MEDS: ATORVASTATIN 40 MG TAB PO SCH (21:58)
[2017-05-09] MEDS: HEPARIN SODIUM,PORCINE 5,000 UNIT/ML 1 ML VIAL SQ SCH ×2 (01:38→08:07)
[2017-05-09 01:39] VITALS: TEMP 97.8
[2017-05-09] MEDS: CYCLOBENZAPRINE 10 MG TAB PO SCH ×2 (05:56→14:16)
[2017-05-09 06:55] LABS: Anisocytosis Slight; HCT 32.1 % (34.0-46.0); HGB 9.3 gm/dL (11.4-16.0); Hypochromasia Marked; MCH 29.9 pg (25.0-35.0); MCHC 29.1 g/dL (31.0-37.0); MCV 102.9 fL (80.0-100.0); Macrocytosis Moderate; Mean Platelet Volume 7.3; Platelet Count 184 k/uL (150-450); RBC 3.12 m/uL (3.80-5.40); RDW 18.4 % (11.5-15.5); WBC 8.1 k/uL (3.8-10.6)
[2017-05-09 07:14] LABS: Glucose,Whole Blood 100 mg/dL (75-99)
[2017-05-09 07:30] LABS: Calcium 8.2 mg/dL (8.4-10.2); Potassium 3.6 mmol/L (3.5-5.1)
[2017-05-09] MEDS: INSULIN ASPART 100 UNIT/ML 1 ML 10 ML VIAL SQ SCH ×2 (07:41→12:08)
[2017-05-09 07:43] VITALS: BP 137/82; PULSE 81; RESP 16
[2017-05-09] MEDS: FLUCONAZOLE 100 MG TAB PO SCH (08:07)
[2017-05-09] MEDS: CLOPIDOGREL 75 MG TAB PO SCH (08:07)
[2017-05-09] MEDS: METOPROLOL TARTRATE 25 MG TAB PO SCH (08:07)
[2017-05-09] MEDS: metroNIDAZOLE 500 MG TAB PO SCH (08:07)
[2017-05-09] MEDS: LISINOPRIL 5 MG TAB PO SCH (08:07)
[2017-05-09] MEDS: ISOSORBIDE MONONITRATE ER 15 MG TAB PO SCH (08:07)
[2017-05-09] MEDS: ACETAMINOPHEN TAB 500 MG TAB PO PRN (09:31)
[2017-05-09 10:44] VITALS: BMI 27.8
[2017-05-09 12:04] LABS: Glucose,Whole Blood 121 mg/dL (75-99)
--- NOTE | 2017-05-09 12:14 | P.DS ---
Providers Date of admission: 05/04/17 18:13 Expected date of discharge: 05/09/17 Attending physician: Baldemar Vazquez MD Consults: 05/04/17 22:29 Consult Physician Routine Consulting Provider: Jose Ramon Woodson Consult Reason/Comments: horseness of voice Do you want consulting provider notified?: Yes 05/06/17 15:48 Consult Physician Routine Consulting Provider: Vik Braswell Consult Reason/Comments: hallucinations Do you want consulting provider notified?: Yes 05/06/17 16:53 Consult Physician Routine Consulting Provider: Rebecca Hamilton Consult Reason/Comments: altered mental status Do you want consulting provider notified?: Yes Primary care physician: [facility] Course: This patient is a 76-year-old right-handed white female who was admitted to [facility] on 05/04[facility]2017 with symptoms of increasing confusion and altered mental status. The patient had recently been started on celexa 3 days prior to her admission. 3 weeks ago patient suffered a fall and had to have left shoulder surgery. In the emergency room she was found to have severe hypoglycemia requiring D50 fluid bolus to correct sugar. She has a known history of underlying diabetes mellitus. She had not been eating well prior to her admission. Patient was diagnosed with metabolic encephalopathy due to severe hypoglycemia as well as Celexa side effect. In the ER CAT scan of the head revealed no acute intracranial hemorrhage or midline shift. The confusion and change in her mental status was partly attributed to Celexa. Patient was taken off of Celexa on admission, mental status improved after that. She was also recently evaluated by ENT for severe hoarseness of her voice. Patient was diagnosed with acute candidal laryngitis. She has been placed on Diflucan. In february patient was evaluated for neck pain and headaches, she underwent an MRI/MRA of the brain on 03/14/2017. Her MRI reveals evidence of a mass lesion in the C1-C2 level of the spinal column. This was felt to possibly be secondary to meningioma. 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 The patient has been scheduled to be seen in the neurosurgery clinic at [facility] in the next few weeks. Patient was seen by neurology, cleared for discharge back to the alf from the neurology standpoint. Her mental status is much better today. Neurology recommended to discontinue the Celexa at this time. Patient will be discharged back to the alf in a stable condition. She was instructed to follow-up with neurosurgery at [facility]. She was also instructed to follow-up with her primary care physician after discharge. Time for discharge 35 minutes. Patient Condition at Discharge: Good Plan - Discharge Summary Discharge Rx Participant: Yes New Discharge Prescriptions: New Fluconazole [Diflucan] 100 mg PO DAILY 17 Days #34 tab metroNIDAZOLE [Flagyl] 500 mg PO TID 14 Days #42 tab Continue Repaglinide [Prandin] 1 mg PO BID PRN PRN Reason: FOR CGB > 120 Pantoprazole Sodium 40 mg PO DAILY@0900 Ergocalciferol (Vitamin D2) [Vitamin D2] 50,000 unit PO KEARNS@1300 Cyclobenzaprine [Flexeril] 10 mg PO TID@0600,1400,2200 Acetaminophen Tab [Tylenol] 500 mg PO Q6H PRN PRN Reason: Pain HYDROcodone/APAP 5-325MG [[place] 5-325] 1 tab PO Q4-6H PRN #90 tab PRN Reason: Pain Amitriptyline HCl [Elavil] 25 mg PO HS Atorvastatin [Lipitor] 40 mg PO HS@2100 Benazepril [Lotensin] 5 mg PO DAILY@0900 Citalopram Hydrobromide [CeleXA] 20 mg PO DAILY@0900 Clopidogrel [Plavix] 75 mg PO DAILY@0900 Diazepam [Valium] 2 mg PO BID PRN PRN Reason: Anxiety Famotidine [Pepcid] 20 mg PO DAILY@0600 Isosorbide Mononitrate ER [Imdur] 15 mg PO DAILY@0900 Loperamide HCl [Imodium A-D] 4 mg PO DAILY PRN MDD 4 tabs PRN Reason: Diarrhea Metoprolol Tartrate [Lopressor] 25 mg PO BID@0900,2100 Ondansetron Odt [Zofran ODT] 4 mg PO Q6H PRN PRN Reason: Nausea Sennosides [Senokot] 1 tab PO BID PRN PRN Reason: Constipation Discharge Medication List Pantoprazole Sodium 40 mg PO DAILY@0900 09/16/14 [History] Repaglinide [Prandin] 1 mg PO BID PRN 09/16/14 [History] Acetaminophen Tab [Tylenol] 500 mg PO Q6H PRN 04/18/17 [History] Cyclobenzaprine [Flexeril] 10 mg PO TID@0600,1400,2200 04/18/17 [History] Ergocalciferol (Vitamin D2) [Vitamin D2] 50,000 unit PO KEARNS@1300 04/18/17 [ History] HYDROcodone/APAP 5-325MG [[place] 5-325] 1 tab PO Q4-6H PRN #90 tab 04/21/17 [Rx] Amitriptyline HCl [Elavil] 25 mg PO HS 05/04/17 [History] Atorvastatin [Lipitor] 40 mg PO HS@209905/04/17 [History] Benazepril [Lotensin] 5 mg PO DAILY@0905/04/17 [History] Citalopram Hydrobromide [CeleXA] 20 mg PO DAILY@0905/04/17 [History] Clopidogrel [Plavix] 75 mg PO DAILY@0905/04/17 [History] Diazepam [Valium] 2 mg PO BID PRN 05/04/17 [History] Famotidine [Pepcid] 20 mg PO DAILY@0605/04/17 [History] Isosorbide Mononitrate ER [Imdur] 15 mg PO DAILY@0905/04/17 [History] Loperamide HCl [Imodium A-D] 4 mg PO DAILY PRN MDD 4 tabs 05/04/17 [History] Metoprolol Tartrate [Lopressor] 25 mg PO BID@0900,2100 05/04/17 [History] Ondansetron Odt [Zofran ODT] 4 mg PO Q6H PRN 05/04/17 [History] Sennosides [Senokot] 1 tab PO BID PRN 05/04/17 [History] Fluconazole [Diflucan] 100 mg PO DAILY 17 Days #34 tab 05/09/17 [Rx] metroNIDAZOLE [Flagyl] 500 mg PO TID 14 Days #42 tab 05/09/17 [Rx] Follow up Appointment(s)/Referral(s): Andrés Varner MD [Primary Care Provider] - 1-2 days
[2017-05-09] MEDS: ONDANSETRON ODT 4 MG TAB PO PRN (14:16)
== END 2017-05-09 15:02 | DRG 638 ==
LOC: EC 14:59 → 3SUR 18:13
PROVIDERS: ADMIT Family Medicine; ATTEND Family Medicine
PROC: 0CJS8ZZ Inspection of Larynx, Via Natural or Artificial Opening Endoscopic (ICD-10-PCS; principal; 2017-05-05)
DX: E11.649 Type 2 diabetes mellitus with hypoglycemia without coma (principal); B37.89 Other sites of candidiasis; G92 Toxic encephalopathy; A04.72 Enterocolitis due to Clostridium difficile, not specified as recurrent; I67.1 Cerebral aneurysm, nonruptured; F05 Delirium due to known physiological condition; I13.0 Hypertensive heart and chronic kidney disease with heart failure and stage 1 through stage 4 chronic kidney disease, or unspecified chronic kidney disease; I50.32 Chronic diastolic (congestive) heart failure; I44.7 Left bundle-branch block, unspecified; J44.9 Chronic obstructive pulmonary disease, unspecified; E11.22 Type 2 diabetes mellitus with diabetic chronic kidney disease; D63.8 Anemia in other chronic diseases classified elsewhere; N18.3 Chronic kidney disease, stage 3 (moderate); J04.0 Acute laryngitis; J02.9 Acute pharyngitis, unspecified; D32.9 Benign neoplasm of meninges, unspecified; T43.225A Adverse effect of selective serotonin reuptake inhibitors, initial encounter; I25.10 Atherosclerotic heart disease of native coronary artery without angina pectoris; K21.0 Gastro-esophageal reflux disease with esophagitis; E78.5 Hyperlipidemia, unspecified; I25.2 Old myocardial infarction; F32.9 Major depressive disorder, single episode, unspecified; F41.9 Anxiety disorder, unspecified; M19.91 Primary osteoarthritis, unspecified site; M20.002 Unspecified deformity of left finger(s); G89.29 Other chronic pain; Z79.84 Long term (current) use of oral hypoglycemic drugs; Z79.02 Long term (current) use of antithrombotics/antiplatelets; Z79.899 Other long term (current) drug therapy; Z87.891 Personal history of nicotine dependence; Z95.5 Presence of coronary angioplasty implant and graft; Z90.710 Acquired absence of both cervix and uterus; Z87.440 Personal history of urinary (tract) infections; Z88.1 Allergy status to other antibiotic agents; Z91.041 Radiographic dye allergy status; Z91.02 Food additives allergy status; Z88.5 Allergy status to narcotic agent; Z88.2 Allergy status to sulfonamides; Z88.8 Allergy status to other drugs, medicaments and biological substances; Z91.018 Allergy to other foods; Y92.129 Unspecified place in nursing home as the place of occurrence of the external cause
CPT/HCPCS: 36415; 70450; 71046; 74230; 80048; 80053; 80306; 81001; 82140; 82550; 82553; 82607; 82747; 83036; 84484; 85025; 85027; 85610; 85730; 87324; 93005; 94760; 96360; 96361; 96374; 96375; 99285

== ENCOUNTER 2017-05-22 09:39 | Inpatient (IN) | payer MEDICARE ==
[2017-05-22] MEDS ORDERED: SODIUM CHLORIDE 0.9% 1,000 ML IV STA ×2 (09:48→13:10)
--- NOTE | 2017-05-22 09:52 | ED ---
Arrhythmia/Palpitations HPI - General Stated Complaint: Nauseated, AFIB Time Seen by Provider: 05/22/17 09:39 Source: patient, EMS, RN notes reviewed, old records reviewed Mode of arrival: EMS - History of Present Illness Initial Comments: This is a 76-year-old female who was at a detention for rehab she did break her left arm about 2 weeks ago she has a history of [place] COPD CHF and recent C. difficile infection for she still been treated she was noted to have hypotension today with a blood pressure heart rate going from 122 144. A pulse ox of 91% on 2 L. Room air was 77%. She denies any chest pain no fevers chills or sweats. Related has some confusion at the detention. No other report is available at this time he doesn't dyspnea type 2 diabetes hyperlipidemia hypertension GERD she is a full code per paperwork. Patient was recently hospitalized on the [facility] service she is a private patient Dr. Gardenia HOUSE Complaint: atrial fibrillation - Related Data Home Medications Medication Instructions Recorded Confirmed Pantoprazole Sodium 40 mg PO DAILY@0909/16/14 05/22/17 Repaglinide [Prandin] 1 mg PO BID PRN 09/16/14 05/22/17 Acetaminophen Tab [Tylenol] 500 mg PO Q6H PRN 04/18/17 05/22/17 Cyclobenzaprine [Flexeril] 10 mg PO TID@0600,1400,2200 PRN 04/18/17 05/22/17 Ergocalciferol (Vitamin D2) 50,000 unit PO KEARNS@1700 04/18/17 05/22/17 [Vitamin D2] Atorvastatin [Lipitor] 40 mg PO HS@209905/04/17 05/22/17 Benazepril [Lotensin] 5 mg PO DAILY@0900 05/04/17 05/22/17 Clopidogrel [Plavix] 75 mg PO DAILY@0905/04/17 05/22/17 Diazepam [Valium] 2 mg PO BID PRN 05/04/17 05/22/17 Famotidine [Pepcid] 20 mg PO DAILY@0600 05/04/17 05/22/17 Metoprolol Tartrate [Lopressor] 25 mg PO BID@0900,209905/04/17 05/22/17 Sennosides [Senokot] 8.6 mg PO BID PRN 05/04/17 05/22/17 Amitriptyline HCl [Elavil] 10 mg PO HS 05/22/17 05/22/17 Bisacodyl [Dulcolax] 10 mg RECTAL DAILY PRN 05/22/17 05/22/17 [place] Instant Breakfast 1 packet PO BID 05/22/17 05/22/17 Isosorbide Mononitrate ER [Imdur] 30 mg PO DAILY 05/22/17 05/22/17 Loperamide HCl [Imodium A-D] 4 mg PO DAILY PRN 05/22/17 05/22/17 Magnesium Hydroxide [Milk of 2,400 mg PO DAILY PRN 05/22/17 05/22/17 Magnesia] Na Phos,M-B/Na Phos,Di-Ba [Fleet 133 ml RECTAL DAILY PRN 05/22/17 05/22/17 Adult] Ondansetron [Zofran] 4 mg PO Q6H PRN 05/22/17 05/22/17 Previous Rx's Medication Instructions Recorded Fluconazole [Diflucan] 100 mg PO DAILY 17 Days #34 tab 05/09/17 metroNIDAZOLE [Flagyl] 500 mg PO TID 14 Days #42 tab 05/09/17 Allergies Allergy/AdvReac Type Severity Reaction Status Date / Time blue dye Allergy Anaphylaxis Verified 05/22/17 09:50 clonidine [From Catapres] Allergy Diarrhea Verified 05/22/17 09:50 Iodinated Contrast- Oral and Allergy Unknown Verified 05/22/17 09:50 IV Dye monosodium glutamate [MSG] Allergy Anaphylaxis Verified 05/22/17 09:50 ofloxacin [From Floxin] Allergy Anaphylaxis Verified 05/22/17 09:50 piroxicam [From Feldene] Allergy Nausea & Verified 05/22/17 09:50 Vomiting red dye Allergy Anaphylaxis Verified 05/22/17 09:50 Sulfa (Sulfonamide Allergy Anaphylaxis Verified 05/22/17 09:50 Antibiotics) tramadol [From Ultram] Allergy Anaphylaxis Verified 05/22/17 09:50 amoxicillin AdvReac Diarrhea Verified 05/22/17 09:50 bisoprolol [From Ziac] AdvReac Unknown Verified 05/22/17 09:50 cephalexin [From Keflex] AdvReac Diarrhea Verified 05/22/17 09:50 glipizide AdvReac Unknown Verified 05/22/17 09:50 hydrochlorothiazide AdvReac Unknown Verified 05/22/17 09:50 [From Ziac] metformin AdvReac Unknown Verified 05/22/17 09:50 morphine AdvReac Hallucinati Verified 05/22/17 09:50 ons sertraline [From Zoloft] AdvReac Hallucinati Verified 05/22/17 09:50 ons triamterene [From Dyazide] AdvReac Unknown Verified 05/22/17 09:50 Review of Systems ROS Statement: Those systems with pertinent positive or pertinent negative responses have been documented in the HPI. ROS Other: All systems not noted in ROS Statement are negative. Past Medical History Past Medical History: Coronary Artery Disease (CAD), Chest Pain / Angina, Heart Failure, COPD, Diabetes Mellitus, GERD/Reflux, GI Bleed, Hyperlipidemia, Hypertension, Myocardial Infarction ([place]), Osteoarthritis (OA) Additional Past Medical History / Comment(s): NIDDM, chronic L knee pain, generalized arthiritis, anemia, back pain.sinus infections. 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 Stent in leg. Subclavian bypass. PTCA's, EGD with cauterized arterovenous malformation, colonoscopy, L hand's index finger amputation, R hand 's thumb tendon repair, R elbow replacement, subclavian steel surgery-"new veins in my neck." sinus sx, Past Anesthesia/Blood Transfusion Reactions: No Reported Reaction Additional Past Anesthesia/Blood Transfusion Reaction / Comment(s): Pt has recieved blood in the past without reaction. Date of Last Stent Placement:: 2010 Past Psychological History: Anxiety, Depression Smoking Status: Former smoker Past Alcohol Use History: None Reported Past Drug Use History: None Reported - Past Family History Father History Unknown: Yes Mother Family Medical History: Cancer Additional Family Medical History / Comment(s): Mother had lung cancer. General Exam - General Exam Comments Initial Comments: This is a well-developed well-nourished awake alert at this time oriented patient she is somewhat slow to answer questions however. General appearance: alert, in no apparent distress Head exam: Present: atraumatic, normocephalic, normal inspection Eye exam: Present: normal appearance, PERRL, EOMI. Absent: scleral icterus, conjunctival injection, periorbital swelling ENT exam: Present: mucous membranes dry Neck exam: Present: normal inspection. Absent: tenderness, meningismus, lymphadenopathy Respiratory exam: Present: decreased breath sounds. Absent: respiratory distress, wheezes, rales, rhonchi, stridor Cardiovascular Exam: Present: tachycardia, irregular rhythm. Absent: systolic murmur, diastolic murmur, rubs, gallop, clicks GI/Abdominal exam: Present: soft, normal bowel sounds. Absent: distended, tenderness, guarding, rebound, rigid Extremities exam: Present: tenderness, normal capillary refill, other ( Ecchymosis is noted in the process of healing. Patient does have a sling on the left upper extremity.). Absent: pedal edema, joint swelling, calf tenderness Back exam: Present: normal inspection Neurological exam: Present: alert, oriented X3, CN II-XII intact Psychiatric exam: Present: normal affect, normal mood Skin exam: Present: warm, dry, intact, normal color. Absent: rash Course Vital Signs 05/22/17 05/22/17 05/22/17 09:39 09:58 10:09 Temperature 97.3 F L Pulse Rate 48 L 114 H Pulse Rate [ 120 H Installation Supervisor ] Respiratory 18 18 Rate Blood Pressure 117/68 O2 Sat by Pulse 91 L Oximetry 05/22/17 11:41 Temperature Pulse Rate 127 H Pulse Rate [ Installation Supervisor ] Respiratory 18 Rate Blood Pressure 118/68 O2 Sat by Pulse 95 Oximetry - Reevaluation(s) Reevaluation #1: 05/22/17 12:14 Reevaluation patient reveals that she still nature fibrillation did require IV Cardizem. She is also hypomagnesemic and does demonstrate evidence of acute renal failure. Per family has not been eating and drinking very well. Reevaluation #2: 05/22/17 12:40 I did discuss findings with the patient and family members. Also Dr. Veras was in the emergency department did discuss the case with him he will see the patient in the emergency department. EKG Findings - EKG Results: EKG: interpreted by ERMD (EKG shows evidence of atrial fibrillation with a left exodeviation left bundle-branch block rate of 137 QRS 146 QT since QTC of 366/ 552) Medical Decision Making - Medical Decision Making I did discuss findings with the patient and family members of family has requested Dr. Dr. Sher's service for admission I did discuss case with Dr. Small. - Lab Data Result diagrams: 05/22/17 09:48 05/22/17 09:48 Lab Results 05/22/17 05/22/17 05/22/17 Range/Units 09:48 09:48 09:48 WBC 9.2 (3.8-10.6) k/uL RBC 3.16 L (3.80-5.40) m/uL Hgb 9.8 L (11.4-16.0) gm/dL Hct 33.6 L (34.0-46.0) % MCV 106.5 H (80.0-100.0) fL MCH 31.0 (25.0-35.0) pg MCHC 29.1 L (31.0-37.0) g/dL RDW 20.3 H (11.5-15.5) % Plt Count 108 L (150-450) k/uL Neutrophils % 73 % Lymphocytes % 19 % Monocytes % 6 % Eosinophils % 0 % Basophils % 0 % Neutrophils # 6.6 (1.3-7.7) k/uL Lymphocytes # 1.7 (1.0-4.8) k/uL Monocytes # 0.6 (0-1.0) k/uL Eosinophils # 0.0 (0-0.7) k/uL Basophils # 0.0 (0-0.2) k/uL Manual Slide Review Performed Hypochromasia Marked Poikilocytosis (manual Present Anisocytosis Moderate Macrocytosis Marked Fragmented RBCs Present PT (9.0-12.0) sec INR (<1.2) APTT (22.0-30.0) sec Sodium 143 (137-145) mmol/L Potassium 5.0 (3.5-5.1) mmol/L Chloride 112 H (98-107) mmol/L Carbon Dioxide 17 L (22-30) mmol/L Anion Gap 14 mmol/L BUN 36 H (7-17) mg/dL Creatinine 3.13 H (0.52-1.04) mg/dL Est GFR (MDRD) Af Amer 17 (>60 ml/min/1.73 sqM) Est GFR (MDRD) Non-Af 14 (>60 ml/min/1.73 sqM) Glucose 118 H (74-99) mg/dL Calcium 8.4 (8.4-10.2) mg/dL Magnesium 1.5 L (1.6-2.3) mg/dL Total Bilirubin 0.7 (0.2-1.3) mg/dL AST 894 H (14-36) U/L ALT 237 H (9-52) U/L Alkaline Phosphatase 137 H (38-126) U/L Total Creatine Kinase 43 (30-135) U/L CK-MB (CK-2) 1.5 (0.0-2.4) ng/mL CK-MB (CK-2) Rel Index 3.5 Troponin I 0.199 H* (0.000-0.034) ng/mL Total Protein 5.5 L (6.3-8.2) g/dL Albumin 2.6 L (3.5-5.0) g/dL 05/22/17 Range/Units 09:48 WBC (3.8-10.6) k/uL RBC (3.80-5.40) m/uL Hgb (11.4-16.0) gm/dL Hct (34.0-46.0) % MCV (80.0-100.0) fL MCH (25.0-35.0) pg MCHC (31.0-37.0) g/dL RDW (11.5-15.5) % Plt Count (150-450) k/uL Neutrophils % % Lymphocytes % % Monocytes % % Eosinophils % % Basophils % % Neutrophils # (1.3-7.7) k/uL Lymphocytes # (1.0-4.8) k/uL Monocytes # (0-1.0) k/uL Eosinophils # (0-0.7) k/uL Basophils # (0-0.2) k/uL Manual Slide Review Hypochromasia Poikilocytosis (manual Anisocytosis Macrocytosis Fragmented RBCs PT 16.8 H (9.0-12.0) sec INR 1.8 H (<1.2) APTT 35.6 H (22.0-30.0) sec Sodium (137-145) mmol/L Potassium (3.5-5.1) mmol/L Chloride (98-107) mmol/L Carbon Dioxide (22-30) mmol/L Anion Gap mmol/L BUN (7-17) mg/dL Creatinine (0.52-1.04) mg/dL Est GFR (MDRD) Af Amer (>60 ml/min/1.73 sqM) Est GFR (MDRD) Non-Af (>60 ml/min/1.73 sqM) Glucose (74-99) mg/dL Calcium (8.4-10.2) mg/dL Magnesium (1.6-2.3) mg/dL Total Bilirubin (0.2-1.3) mg/dL AST (14-36) U/L ALT (9-52) U/L Alkaline Phosphatase (38-126) U/L Total Creatine Kinase (30-135) U/L CK-MB (CK-2) (0.0-2.4) ng/mL CK-MB (CK-2) Rel Index Troponin I (0.000-0.034) ng/mL Total Protein (6.3-8.2) g/dL Albumin (3.5-5.0) g/dL - Radiology Data Radiology results: report reviewed (I did review the imaging and report no definite acute findings are seen there is some question of a left side small pleural effusion.), image reviewed Critical Care Time Critical Care Time: Yes Critical Care Time: 37 minutes of critical care time which includes initial presentation with history physical labs x-rays monitoring the EMS run and discussed with paramedics upon arrival. Review of old charting that was available. Multiple re-evaluations the patient response to therapy discussion with the patient family members regarding findings discussed with the admitting physician and consult. Admission orders and documentation of the above. Disposition Clinical Impression: Rapid atrial fibrillation, Acute renal failure, Elevated liver enzymes, Dehydration, Hypomagnesemia syndrome Disposition: ADMITTED IP TO THIS [facility] Condition: Stable Referrals: Robert Sher MD [Primary Care Provider] - 1-2 days
[2017-05-22 10:40] LABS: Anisocytosis Moderate; Basophils % (A) 0 %; Eosinophils % (A) 0 %; HCT 33.6 % (34.0-46.0); HGB 9.8 gm/dL (11.4-16.0); Hypochromasia Marked; Lymphocytes # (A) 1.7 k/uL (1.0-4.8); Lymphocytes % (A) 19 %; MCHC 29.1 g/dL (31.0-37.0); MCV 106.5 fL (80.0-100.0); Macrocytosis Marked; Mean Platelet Volume 8.8; Monocytes # (A) 0.6 k/uL (0-1.0); Monocytes % (A) 6 %; Neutrophils # (A) 6.6 k/uL (1.3-7.7); Neutrophils % (A) 73 %; Platelet Count 108 k/uL (150-450); RBC 3.16 m/uL (3.80-5.40); RDW 20.3 % (11.5-15.5); WBC 9.2 k/uL (3.8-10.6)
--- NOTE | 2017-05-22 10:44 | XR ---
EXAMINATION TYPE: XR chest 2V DATE OF EXAM: 05/22/2017 HISTORY: dysrhythmia. REFERENCE: Previous study dated 05/04/2017. FINDINGS: There has been previous internal fixation of the left shoulder. Much of the humeral head is been resorbed. The heart is enlarged. The lungs are clear. There is minimal blunting of the left CP angle. IMPRESSION: 1. CARDIOMEGALY. 2. I CANNOT EXCLUDE A SMALL LEFT EFFUSION.
[2017-05-22 11:01] LABS: Albumin 2.6 g/dL (3.5-5.0); Calcium 8.4 mg/dL (8.4-10.2); Magnesium 1.5 mg/dL (1.6-2.3); Total Bilirubin 0.7 mg/dL (0.2-1.3); Total Protein 5.5 g/dL (6.3-8.2)
[2017-05-22 11:14] LABS: INR 1.8 (<1.2); Partial Thromboplastin Time 35.6 sec (22.0-30.0); Poikilocytosis (M) Present; Prothrombin Time 16.8 sec (9.0-12.0); RBC Fragments Present
[2017-05-22] MEDS ORDERED: DILTIAZEM 125 MG in SODIUM CHLORIDE 0.9% 100 ML IV ONE (11:15)
[2017-05-22 11:20] LABS: Creatine Kinase MB 1.5 ng/mL (0.0-2.4)
[2017-05-22 11:24] LABS: Troponin I 0.199 ng/mL (0.000-0.034)
[2017-05-22] MEDS ORDERED: ACETAMINOPHEN TAB 325 MG TAB PO STA (11:33)
[2017-05-22] MEDS ORDERED: MAGNESIUM SULFATE-D5W PMX 1 GM in DEXTROSE/WATER 1 100ML.BAG IVPB ONE (11:55)
[2017-05-22] MEDS ORDERED: SODIUM CHLORIDE 0.9% 500 ML IV STA (12:14)
[2017-05-22] MEDS ORDERED: DILTIAZEM 5 MG/ML 5 ML VIAL IVP STA (12:16)
[2017-05-22] MEDS ORDERED: NALOXONE 0.4 MG/ML 1 ML VIAL IV PRN (12:34)
[2017-05-22] MEDS ORDERED: HEPARIN SODIUM,PORCINE 5,000 UNIT/ML 1 ML VIAL IV ONE (12:36)
[2017-05-22] MEDS ORDERED: ACETAMINOPHEN TAB 500 MG TAB PO PRN (12:37)
[2017-05-22] MEDS ORDERED: REPAGLINIDE 1 MG TAB PO PRN (12:37)
[2017-05-22] MEDS ORDERED: DIAZEPAM 2 MG TAB PO PRN (12:37)
[2017-05-22] MEDS ORDERED: BISACODYL 10 MG SUPP RECTAL PRN (12:37)
[2017-05-22] MEDS ORDERED: SENNOSIDES 8.6 MG TAB PO PRN (12:37)
[2017-05-22] MEDS ORDERED: LOPERAMIDE HCL 4 MG PO PRN (12:37)
[2017-05-22] MEDS ORDERED: MAGNESIUM HYDROXIDE 2,400 MG/10 ML CUP PO PRN (12:37)
[2017-05-22] MEDS ORDERED: NA PHOS,M-B/NA PHOS,DI-BA 133 ML ENEMA RECTAL PRN (12:37)
[2017-05-22] MEDS ORDERED: ONDANSETRON 4 MG TAB PO PRN (12:37)
[2017-05-22] MEDS: HEPARIN SOD,PORK IN 0.45% NACL 25,000 UNIT in 0.45% NACL 1 500ML.BAG IV SCH (13:37)
[2017-05-22] MEDS: SODIUM CHLORIDE 0.9% 1,000 ML IV SCH (13:40)
[2017-05-22] MEDS ORDERED: CYCLOBENZAPRINE 10 MG TAB PO PRN (14:00)
[2017-05-22] MEDS ORDERED: IOHEXOL 350 MG/ML 25 ML BOTTLE (ORAL USE) PO PRN (16:27)
[2017-05-22] MEDS ORDERED: ERGOCALCIFEROL 50,000 UNIT CAP PO SCH (17:00)
[2017-05-22 17:31] LABS: Glucose,Whole Blood 125 mg/dL (75-99)
[2017-05-22 17:45] LABS: Prothrombin Time 18.3 sec (9.0-12.0)
[2017-05-22] MEDS ORDERED: BARIUM SULFATE 450 ML ORAL.SUSP BOTTLE PO PRN (18:04)
[2017-05-22] MEDS: metroNIDAZOLE 500 MG TAB PO SCH ×2 (18:18→20:53)
--- NOTE | 2017-05-22 18:23 | P.HPIM ---
History of Present Illness H&P Date: 05/22/17 Chief Complaint: palpitations hypotension found to be in new onset atrial fibrillation with this is a 76-year-old pleasant gentleman patient of / dr Pittman. Currently resides arm [facility] and was followed by Dr. Sher and family requested our service to follow the patient. Patient was admitted to emergency room withunderlying history of COPD, CAD, CK D, CHF, recent seed the colitis, and esophageal candidiasis for which she is managed and was in the hospital for several admissions secondary to the following: Recent admission was on 2017 when the patient developed dehydration and respiratory failure and was diagnosed to have urinary tract infection. She was sent home on oral antibiotic , at home she fell down and after diarrhea episodes, and developed a left humeral fracture requiring ORIF on 04/19/2017.she was later [facility] the [place], patient developed diarrhea and had laryngitis mental status changes and was noted to be hypoglycemic, patient was subsequently admitted and was diagnosed to have dehydration with diarrhea on 05/04/2017 secondary to C. diff colitis. patiently currently resides at [facility] from 05/09/[address] Sher for skilled therapies. She had been sent into the emergency room after have spoken to the nurse regarding a sick call at [facility], patient was having palpitations, and was hypotensive when evaluated, systolic blood pressure of 80 , was hypoxemic, patient was having chest pain and shortness of breath, palpitations, and one was seen in emergency room she was noted to be in atrial fibrillation new onset, with rapid ventricular response, hemodynamic instability with circulatory collapse and hypotension. Patient's daughter is at bedside she mentioned that she still having intermittent diarrhea, however patient is on laxatives. Unknown whether the patient has some fever, she does have abdominal cramping mainly periumbilical region, decreased appetite, no nausea no vomiting,she is on Diflucan for esophageal candidiasis for which she is to complete at least 3 weeks of Diflucan orally. most of the information comes from the daughter. She has a sling on the left side, pain is controlled in the left arm wound is healed patient has a healing decubitus ulcer right sacrum 0.5 cm shallow scab no cellulitis in the emergency roomhe was noted to be hypotensive, anemic 9.8, without any leukkocytosis of 9.2,creatinine of 3.13 from a previous of 1.89and in atrial fibrillation with rapid ventricular rate, heart rate in the 150s, troponin was 0.199, liver function tests elevated with AST of 894, ALT of 237, and alkaline phosphatase of 137patient denies any right upper quadrant pain,or jaundice. Bilirubin is normal NT proBNP of 103,000hypoxemia in the low77 room air Review of Systems Constitutional: Reports anorexia, Reports fatigue, Reports lethargy, Reports malaise, Reports weakness, Reports weight loss, Denies as per HPI, Denies chills , Denies chronic headaches, Denies chronic pain, Denies daytime sleepiness, Denies fever, Denies night sweats, Denies poor appetite, Denies sweats, Denies weight gain Ears, nose, mouth and throat: Reports as per HPI, Denies ant. neck pain, Denies bleeding gums, Denies dental pain, Denies dysphagia, Denies epistaxis, Denies headache, Denies hoarseness, Denies mouth pain, Denies nasal congestion, Denies nasal discharge, Denies neck fullness/pressure, Denies neck lump, Denies nose pain, Denies odynophagia, Denies post-nasal drip, Denies sinus pain, Denies sinus pressure, Denies swelling in mouth, Denies swelling in throat, Denies sore throat, Denies vertigo, Denies voice changes Cardiovascular: Reports as per HPI, Reports chest pain, Reports dyspnea on exertion, Reports irregular heart beat, Reports shortness of breath, Denies claudication, Denies decreased exercise tolerance, Denies edema, Denies high blood pressure, Denies leg edema, Denies lightheadedness, Denies orthopnea, Denies palpitations, Denies paroxysmal nocturnal dyspnea, Denies phlebitis, Denies rapid heart beat, Denies syncope Respiratory: Reports as per HPI, Denies congestion, Denies cough, Denies cough with sputum, Denies dyspnea, Denies excessive sputum, Denies hemoptysis, Denies home oxygen, Denies pain, Denies pain on inspiration, Denies pleurisy, Denies respiratory infections, Denies sleep apnea, Denies snoring, Denies wheezing Gastrointestinal: Reports as per HPI, Reports abdominal pain, Reports diarrhea, Denies belching, Denies bloating, Denies BRBPR, Denies change in bowel habits, Denies coffee ground emesis, Denies constipation, Denies dyspepsia, Denies early satiety, Denies excessive gas, Denies heartburn, Denies hematemesis, Denies hematochezia, Denies indigestion, Denies jaundice, Denies lactose intolerance, Denies loss of appetite, Denies melena, Denies nausea, Denies vomiting Genitourinary: Reports as per HPI, Reports urinary frequency, Denies abnormal vaginal bleeding, Denies decreased libido, Denies difficulty conceiving, Denies difficulty voiding, Denies dysmenorrhea, Denies dyspareunia, Denies dysuria, Denies flank pain, Denies genital sores, Denies hematuria, Denies hot flashes, Denies incomplete emptying, Denies kidney stones, Denies menorrhagia, Denies mixed incontinence, Denies nocturia, Denies pelvic pain, Denies post void dribbling, Denies , Denies prolapse symptoms, Denies stress incontinence , Denies urge incontinence, Denies urgency, Denies vaginal discharge, Denies vaginal dryness, Denies vaginal itching, Denies vaginal odor Menstruation: Reports as per HPI, Reports postmenopausal, Denies amenorrhea, Denies amenorrhea on BC, Denies currently menstrual, Denies cycle < 21 days, Denies cycle > 35 days, Denies cycle variable, Denies menses 1-7 days, Denies menses 8 or > days, Denies menses variable, Denies period heavy, Denies period light, Denies period normal, Denies period spotting, Denies post hysterectomy, Denies premenarcheal Musculoskeletal: Reports as per HPI, Denies arm numbness/tingling, Denies atrophy, Denies fractures, Denies frequent falls, Denies gait dysfunction, Denies hot joints, Denies leg numbness/tingling, Denies limitation of motion, Denies loss of height, Denies low back pain, Denies morning stiffness, Denies muscle cramps, Denies muscle weakness, Denies myalgias, Denies neck pain, Denies neck stiffness, Denies prior amputations, Denies redness of joints, Denies shooting arm pain, Denies shooting leg pain Integumentary: Reports as per HPI, Reports dryness, Reports striae, Denies acne , Denies boils, Denies brittle nails, Denies change in hair/nails, Denies color changes, Denies darkening of skin, Denies depigmentation, Denies foot/leg ulcers , Denies growths, Denies hirsutism, Denies lesions, Denies onychomycosis, Denies pruritus, Denies rash, Denies sores, Denies unusual bruising, Denies wounds Neurological: Reports as per HPI, Reports gait dysfunction, Reports weakness, Denies aphasia, Denies ataxia, Denies balance difficulties, Denies burning pain , Denies change in mentation, Denies change in smell/taste, Denies change in speech, Denies confusion, Denies convulsions, Denies double vision, Denies head injury, Denies headaches, Denies hearing difficulties, Denies lack of coordination, Denies loss of vision, Denies memory loss, Denies migraines, Denies motor disturbance, Denies numbness, Denies paralysis, Denies paresthesias , Denies seizures, Denies sensory deficit, Denies spasticity, Denies syncope, Denies tic, Denies tingling, Denies transient paralysis, Denies tremors, Denies vertigo, Denies visual changes Psychiatric: Reports as per HPI, Denies anhedonia, Denies anxiety, Denies anxiety attacks, Denies change in appetite, Denies change in libido, Denies change in sleep habits, Denies confusion, Denies depression, Denies difficulty concentrating, Denies disorientation, Denies hallucinations, Denies hopelessness , Denies hypersomnia, Denies insomnia, Denies irritability, Denies memory loss, Denies mood swings, Denies paranoia, Denies sadness/tearfulness, Denies sleep disturbances, Denies suicidal ideation Endocrine: Reports as per HPI, Denies cold intolerance, Denies deepening of the voice, Denies excessive sweating, Denies excessive thirst, Denies fatigue, Denies flushing, Denies heat intolerance, Denies high blood sugars, Denies increase in ring/shoe/hat size, Denies low blood sugars, Denies nocturia, Denies palpitations, Denies polydipsia, Denies polyphagia, Denies polyuria, Denies proptosis, Denies recent glucocorticoid use, Denies thyroid mass, Denies weight change Hematologic/Lymphatic: Reports as per HPI, Denies easy bleeding, Denies easy bruising, Denies lymphadenopathy, Denies lymphedema, Denies thrombophilia Allergic/Immunologic: Reports as per HPI, Denies allergic rhinitis, Denies anaphylaxis, Denies angioedema, Denies gluten intolerance, Denies persistent infections, Denies seasonal allergies, Denies urticaria, Denies wheezing Past Medical History Past Medical History: Coronary Artery Disease (CAD), Chest Pain / Angina, Heart Failure, COPD, Diabetes Mellitus, GERD/Reflux, GI Bleed, Hyperlipidemia, Hypertension, Myocardial Infarction (NC), Osteoarthritis (OA) Additional Past Medical History / Comment(s): NIDDM, chronic L knee pain, generalized arthiritis, anemia, back pain.sinus infections. 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 Stent in leg. Subclavian bypass. PTCA's, EGD with cauterized arterovenous malformation, colonoscopy, L hand's index finger amputation, R hand 's thumb tendon repair, R elbow replacement, subclavian steel surgery-"new veins in my neck." sinus sx, Past Anesthesia/Blood Transfusion Reactions: No Reported Reaction Additional Past Anesthesia/Blood Transfusion Reaction / Comment(s): Pt has recieved blood in the past without reaction. Date of Last Stent Placement:: 2010 Past Psychological History: Anxiety, Depression Smoking Status: Former smoker Past Alcohol Use History: None Reported Past Drug Use History: None Reported - Past Family History Father History Unknown: Yes Mother Family Medical History: Cancer Additional Family Medical History / Comment(s): Mother had lung cancer. Medications and Allergies Home Medications Medication Instructions Recorded Confirmed Type Pantoprazole Sodium 40 mg PO DAILY@0900 09/16/14 05/22/17 History Repaglinide [Prandin] 1 mg PO BID PRN 09/16/14 05/22/17 History Acetaminophen Tab [Tylenol] 500 mg PO Q6H PRN 04/18/17 05/22/17 History Cyclobenzaprine [Flexeril] 10 mg PO TID@0600,1400,2200 PRN 04/18/17 05/22/17 History Ergocalciferol (Vitamin D2) 50,000 unit PO KEARNS@1700 04/18/17 05/22/17 History [Vitamin D2] Atorvastatin [Lipitor] 40 mg PO HS@2100 05/04/17 05/22/17 History Benazepril [Lotensin] 5 mg PO DAILY@0900 05/04/17 05/22/17 History Clopidogrel [Plavix] 75 mg PO DAILY@0900 05/04/17 05/22/17 History Diazepam [Valium] 2 mg PO BID PRN 05/04/17 05/22/17 History Famotidine [Pepcid] 20 mg PO DAILY@0600 05/04/17 05/22/17 History Metoprolol Tartrate [Lopressor] 25 mg PO BID@0900,2100 05/04/17 05/22/17 History Sennosides [Senokot] 8.6 mg PO BID PRN 05/04/17 05/22/17 History Fluconazole [Diflucan] 100 mg PO DAILY 17 Days #34 tab 05/09/17 05/22/17 Rx metroNIDAZOLE [Flagyl] 500 mg PO TID 14 Days #42 tab 05/09/17 05/22/17 Rx Amitriptyline HCl [Elavil] 10 mg PO HS 05/22/17 05/22/17 History Bisacodyl [Dulcolax] 10 mg RECTAL DAILY PRN 05/22/17 05/22/17 History [place] Instant Breakfast 1 packet PO BID 05/22/17 05/22/17 History Isosorbide Mononitrate ER [Imdur] 30 mg PO DAILY 05/22/17 05/22/17 History Loperamide HCl [Imodium A-D] 4 mg PO DAILY PRN 05/22/17 05/22/17 History Magnesium Hydroxide [Milk of 2,400 mg PO DAILY PRN 05/22/17 05/22/17 History Magnesia] Na Phos,M-B/Na Phos,Di-Ba [Fleet 133 ml RECTAL DAILY PRN 05/22/17 05/22/17 History Adult] Ondansetron [Zofran] 4 mg PO Q6H PRN 05/22/17 05/22/17 History Allergies Allergy/AdvReac Type Severity Reaction Status Date / Time blue dye Allergy Anaphylaxis Verified 05/22/17 09:50 clonidine [From Catapres] Allergy Diarrhea Verified 05/22/17 09:50 Iodinated Contrast- Oral and Allergy Unknown Verified 05/22/17 09:50 IV Dye monosodium glutamate [MSG] Allergy Anaphylaxis Verified 05/22/17 09:50 ofloxacin [From Floxin] Allergy Anaphylaxis Verified 05/22/17 09:50 piroxicam [From Feldene] Allergy Nausea & Verified 05/22/17 09:50 Vomiting red dye Allergy Anaphylaxis Verified 05/22/17 09:50 Sulfa (Sulfonamide Allergy Anaphylaxis Verified 05/22/17 09:50 Antibiotics) tramadol [From Ultram] Allergy Anaphylaxis Verified 05/22/17 09:50 amoxicillin AdvReac Diarrhea Verified 05/22/17 09:50 bisoprolol [From Ziac] AdvReac Unknown Verified 05/22/17 09:50 cephalexin [From Keflex] AdvReac Diarrhea Verified 05/22/17 09:50 glipizide AdvReac Unknown Verified 05/22/17 09:50 hydrochlorothiazide AdvReac Unknown Verified 05/22/17 09:50 [From Ziac] metformin AdvReac Unknown Verified 05/22/17 09:50 morphine AdvReac Hallucinati Verified 05/22/17 09:50 ons sertraline [From Zoloft] AdvReac Hallucinati Verified 05/22/17 09:50 ons triamterene [From Dyazide] AdvReac Unknown Verified 05/22/17 09:50 Physical Exam Vitals: Vital Signs Temp Pulse Pulse Resp BP Pulse Ox 05/22/17 14:56 97.3 F L 99 20 99/82 99 05/22/17 13:26 124 H 18 116/58 05/22/17 11:41 127 H 18 118/68 95 05/22/17 10:09 120 H 05/22/17 09:58 114 H 18 05/22/17 09:39 97.3 F L 48 L 18 117/68 91 L Intake and Output 05/22/17 05/22/17 05/22/17 06:59 14:59 22:59 Intake Total 100 Balance 100 Intake: Amount of Fluid Infused ( 100 ml) Other: Weight 61.054 kg Patient Weight 05/23/17 06:59 Weight 61.054 kg - Constitutional General appearance: average body habitus, cooperative, no acute distress - EENT Eyes: anicteric sclerae, EOMI, PERRLA, dentition normal, normal appearance ENT: hearing grossly normal, normal oropharynx (dry) - Neck Neck: normal ROM - Respiratory Respiratory: bilateral: CTA, diminished, negative: dullness, rales, rhonchi - Cardiovascular Rhythm: regular Heart sounds: normal: S1 Abnormal Heart Sounds: no systolic murmur, no diastolic murmur, no rub, no S3 Gallop, no S4 Gallop, no click, no other - Gastrointestinal General gastrointestinal: normal bowel sounds, soft - Integumentary Integumentary: normal, normal turgor - Musculoskeletal Musculoskeletal: gait normal, strength equal bilaterally - Psychiatric Psychiatric: A&O x's 3, appropriate affect Results CBC & Chem 7: 05/22/17 09:48 05/22/17 09:48 Labs: Abnormal Lab Results - Last 24 Hours (Table) 05/22/17 05/22/17 05/22/17 Range/Units 09:48 09:48 09:48 RBC 3.16 L (3.80-5.40) m/uL Hgb 9.8 L (11.4-16.0) gm/dL Hct 33.6 L (34.0-46.0) % MCV 106.5 H (80.0-100.0) fL MCHC 29.1 L (31.0-37.0) g/dL RDW 20.3 H (11.5-15.5) % Plt Count 108 L (150-450) k/uL PT (9.0-12.0) sec INR (<1.2) APTT (22.0-30.0) sec Chloride 112 H (98-107) mmol/L Carbon Dioxide 17 L (22-30) mmol/L BUN 36 H (7-17) mg/dL Creatinine 3.13 H (0.52-1.04) mg/dL Glucose 118 H (74-99) mg/dL POC Glucose (mg/dL) (75-99) mg/dL Magnesium 1.5 L (1.6-2.3) mg/dL AST 894 H (14-36) U/L ALT 237 H (9-52) U/L Alkaline Phosphatase 137 H (38-126) U/L Troponin I 0.199 H* (0.000-0.034) ng/mL Total Protein 5.5 L (6.3-8.2) g/dL Albumin 2.6 L (3.5-5.0) g/dL 05/22/17 05/22/17 05/22/17 Range/Units 09:48 17:13 17:33 RBC (3.80-5.40) m/uL Hgb (11.4-16.0) gm/dL Hct (34.0-46.0) % MCV (80.0-100.0) fL MCHC (31.0-37.0) g/dL RDW (11.5-15.5) % Plt Count (150-450) k/uL PT 16.8 H 18.3 H (9.0-12.0) sec INR 1.8 H 2.0 H (<1.2) APTT 35.6 H (22.0-30.0) sec Chloride (98-107) mmol/L Carbon Dioxide (22-30) mmol/L BUN (7-17) mg/dL Creatinine (0.52-1.04) mg/dL Glucose (74-99) mg/dL POC Glucose (mg/dL) 125 H (75-99) mg/dL Magnesium (1.6-2.3) mg/dL AST (14-36) U/L ALT (9-52) U/L Alkaline Phosphatase (38-126) U/L Troponin I (0.000-0.034) ng/mL Total Protein (6.3-8.2) g/dL Albumin (3.5-5.0) g/dL Laboratory Results WBC 9.2 k/uL (3.8-10.6) 05/22/17 09:48 RBC 3.16 m/uL (3.80-5.40) L 05/22/17 09:48 Hgb 9.8 gm/dL (11.4-16.0) L 05/22/17 09:48 Hct 33.6 % (34.0-46.0) L 05/22/17 09:48 MCV 106.5 fL (80.0-100.0) H 05/22/17 09:48 MCH 31.0 pg (25.0-35.0) 05/22/17 09:48 MCHC 29.1 g/dL (31.0-37.0) L 05/22/17 09:48 RDW 20.3 % (11.5-15.5) H 05/22/17 09:48 Plt Count 108 k/uL (150-450) L 05/22/17 09:48 Neutrophils % 73 % 05/22/17 09:48 Lymphocytes % 19 % 05/22/17 09:48 Monocytes % 6 % 05/22/17 09:48 Eosinophils % 0 % 05/22/17 09:48 Basophils % 0 % 05/22/17 09:48 Neutrophils # 6.6 k/uL (1.3-7.7) 05/22/17 09:48 Lymphocytes # 1.7 k/uL (1.0-4.8) 05/22/17 09:48 Monocytes # 0.6 k/uL (0-1.0) 05/22/17 09:48 Eosinophils # 0.0 k/uL (0-0.7) 05/22/17 09:48 Basophils # 0.0 k/uL (0-0.2) 05/22/17 09:48 Manual Slide Review Performed 05/22/17 09:48 Hypochromasia Marked 05/22/17 09:48 Poikilocytosis (manual Present 05/22/17 09:48 Anisocytosis Moderate 05/22/17 09:48 Macrocytosis Marked 05/22/17 09:48 Fragmented RBCs Present 05/22/17 09:48 PT 18.3 sec (9.0-12.0) H 05/22/17 17:33 INR 2.0 (<1.2) H 05/22/17 17:33 APTT 35.6 sec (22.0-30.0) H 05/22/17 09:48 Sodium 143 mmol/L (137-145) 05/22/17 09:48 Potassium 5.0 mmol/L (3.5-5.1) 05/22/17 09:48 Chloride 112 mmol/L (98-107) H 05/22/17 09:48 Carbon Dioxide 17 mmol/L (22-30) L 05/22/17 09:48 Anion Gap 14 mmol/L 05/22/17 09:48 BUN 36 mg/dL (7-17) H 05/22/17 09:48 Creatinine 3.13 mg/dL (0.52-1.04) H 05/22/17 09:48 Est GFR (MDRD) Af Amer 17 (>60 ml/min/1.73 sqM) 05/22/17 09:48 Est GFR (MDRD) Non-Af 14 (>60 ml/min/1.73 sqM) 05/22/17 09:48 Glucose 118 mg/dL (74-99) H 05/22/17 09:48 POC Glucose (mg/dL) 125 mg/dL (75-99) H 05/22/17 17:13 POC Glu [employer] Dealer ID Raúl Yan 05/22/17 17:13 Calcium 8.4 mg/dL (8.4-10.2) 05/22/17 09:48 Magnesium 1.5 mg/dL (1.6-2.3) L 05/22/17 09:48 Total Bilirubin 0.7 mg/dL (0.2-1.3) 05/22/17 09:48 AST 894 U/L (14-36) H 05/22/17 09:48 ALT 237 U/L (9-52) H 05/22/17 09:48 Alkaline Phosphatase 137 U/L (38-126) H 05/22/17 09:48 Total Creatine Kinase 43 U/L (30-135) 05/22/17 09:48 CK-MB (CK-2) 1.5 ng/mL (0.0-2.4) 05/22/17 09:48 CK-MB (CK-2) Rel Index 3.5 05/22/17 09:48 Troponin I 0.199 ng/mL (0.000-0.034) H* 05/22/17 09:48 NT-Pro-B Natriuret Pep [id number] pg/mL 05/22/17 09:48 Total Protein 5.5 g/dL (6.3-8.2) L 05/22/17 09:48 Albumin 2.6 g/dL (3.5-5.0) L 05/22/17 09:48 Thrombosis Risk Factor Assmnt - DVT/VTE Prophylaxis DVT/VTE Prophylaxis: Pharmacologic Prophylaxis ordered - Choose All That Apply Each Factor Represents 1 point: History of prior major surgery (<1month) Each Risk Factor Represents 3 Points: Age 75 years or older Thrombosis Risk Factor Assessment Total Risk Factor Score: 4 Thrombosis Risk Factor Assessment Level: Moderate Risk Assessment and Plan Plan: 1. New-onset atrial fibrillation with rapid ventricular rate, patient is on Cardizem drip, heparin drip, Plavix patient is not on aspirin, thyroid function test to be obtained, echocardiogram and cardiology consultation 2 CADcurrently on Imdur, metoprolol, Cardizem IV secondary to A. fib with RVR, Lotensin on hold secondary to kidney failure. Continue Plavix 3 Recent C. diff colitisCompleted treatment using Flagyl, patient would be of antidiarrheal agents and laxatives, if diarrhea recurs, patient would need repeat Clostridium difficile a stool toxin evaluation, and might require difficile and oral vancomycin 4 Abdominal pain toni umbilical, currently nonsurgical, however in view of her current comorbidities, and recent C. diff, CAT scan of the abdomen and pelvis will be done and is secondary consult with Dr. Yang 5 Acute hemodynamic instability withcirculatory collapse from atrial fibrillation RVR, and diarrheaIV fluids to be given, protect blood pressurecurrently not requiring any pressor agents blood pressure medication is on hold,secondary to acute kidney failure, Lotensin,continue Imdur 6 Acute hypoxemic respiratory failureO2 supplementation, cannot rule out underlying pulmonary emboli, patient would need a VQ scan in view of her current acute kidney failure, patient would be on IV heparin for her atrial fibrillation unless contraindicated otherwise 7 Esophageal candidiasis and recent candidal laryngitis status post evaluation by ENT for severe hoarsenessof voice during last admission 8 transaminitis with cholestasis, no jaundice. hepatitis panel will be obtained , most likely this is related to drug induced transaminitis with coexisting use of Diflucan as well as statin, statin is held in order for us to proceed with the use of Diflucan for treatment of her esophageal candidiasis 9 Acute kidney failure with CK D stage III, ATN picture ,fluid resuscitation, patient would have CAT scan of the kidneys without IV contrast, to evaluate hydronephrosis and other pathologies related to her transaminitis, Dr. Flowers will be consulted 10 diabetes mellitus type 2 with recent hyperglycemia, hemoglobin A1c of 4.9, Prandin would be discontinued, Accu-Cheks before meals and at bedtime with NovoLog correctional scale 11 suspected meningioma C1-C2 spinal columnbased on recent MRI, neurosurgery at [facility] to see after discharge 12 Recent MRI with MRA showing right MCA aneurysm 2 mm and left ICA aneurysm measuring 2 mm would follow to see neurosurgery clinic at [facility] in the next few weeks 13 recent left humeral fracture secondary to fall at home, or ORIF on 2017surgical wound is healed 14 Underlying osteoporosis postmenopausalbone density to be addressed as outpatient 15 recent metabolic encephalopathy for which Celexa was thought to be of culprit , Celexa has been discontinued 05/04/2017 16 protein calorie malnutrition, moderateprotein supplementation with ensure enlive 17 Anemia suspect iron deficiency with anemia of chronic disease unknown whether patient has underlying other blood losses, continue to monitor with Hemoccult stool test 19 Hypertension currently normotensive with transient hypotension IV fluids are in provide provided for fluid resuscitation, Lotensin on hold, secondary to kidney failure, continued into metoprolol 20 bilateral breast candidal rash, Mycostatin powder to be applied 21 DVT prophylaxisIV heparin 12 GI prophylaxis 13 CODE STATUS
[2017-05-22 18:24] LABS: Troponin I 0.184 ng/mL (0.000-0.034)
[2017-05-22] MEDS: INSULIN ASPART 100 UNIT/ML 1 ML 10 ML VIAL SQ SCH ×2 (18:46→21:11)
[2017-05-22] MEDS: NYSTATIN 100,000 UNIT/GM POWD 15 GM TOPICAL SCH ×2 (19:42→20:51)
[2017-05-22] MEDS: FLUCONAZOLE ORAL SUSP 1,400 MG/35 ML BOTTLE PO SCH (20:51)
[2017-05-22] MEDS: METOPROLOL TARTRATE 25 MG TAB PO SCH ×2 (20:53→20:58)
[2017-05-22] MEDS: AMITRIPTYLINE HCL 10 MG TAB PO SCH (20:53)
[2017-05-22] MEDS ORDERED: ATORVASTATIN 40 MG TAB PO SCH (21:00)
[2017-05-22] MEDS ORDERED: [UNRECOGNIZED DRUG - OTHER] PO SCH (21:00)
[2017-05-22 21:11] LABS: Glucose,Whole Blood 119 mg/dL (75-99)
[2017-05-22] MEDS: SUCRALFATE 1 GM TAB PO SCH (22:21)
[2017-05-23 00:16] LABS: Creatine Kinase MB 2.1 ng/mL (0.0-2.4)
[2017-05-23 00:25] LABS: Troponin I 0.249 ng/mL (0.000-0.034)
[2017-05-23] MEDS: METOPROLOL TARTRATE 50 MG TAB PO SCH ×2 (00:30→10:02)
[2017-05-23] MEDS: FAMOTIDINE 20 MG TAB PO SCH (04:15)
[2017-05-23 06:02] LABS: Glucose,Whole Blood 87 mg/dL (75-99)
[2017-05-23] MEDS: INSULIN ASPART 100 UNIT/ML 1 ML 10 ML VIAL SQ SCH ×4 (06:10→21:00)
--- NOTE | 2017-05-23 08:12 | CT ---
EXAM: CT Abdomen and Pelvis Without Intravenous Contrast CLINICAL HISTORY: abdominal pain transaminitis, c diff colitis TECHNIQUE: Axial computed tomography images of the abdomen and pelvis without intravenous contrast. DLP is 463.70 mGy-cm. This CT exam was performed using one or more of the following dose reduction techniques: automated exposure control, adjustment of the mA and/or kV according to patient size, and/or use of iterative reconstruction technique. COMPARISON: No relevant prior studies available. FINDINGS: Lower thorax: Bilateral small pleural effusions resulting in compressive atelectasis of both lower lobes. Superimposed infection cannot be definitively excluded. The heart is mildly enlarged. Trace pericardial effusion. ABDOMEN: Liver: Subtle nodular contour of liver raises concern for early cirrhosis. Probable focal fatty infiltration of the liver adjacent to the falciform ligament. Gallbladder and bile ducts: Probable gallbladder sludge. Gallbladder appears mildly prominent. No calcified stones. Pancreas: Unremarkable. No ductal dilation. Spleen: Unremarkable. No splenomegaly. Adrenals: Unremarkable. No mass. Kidneys and ureters: Atrophic kidneys are seen with probable symmetric chronic perinephric fat stranding. There is a 4.7 x 5.4 x 6 cm probable cystic structure superior to the left kidney, which may represent an exophytic cyst. 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 Probable 1.5 cm cyst in the interpolar region of the left kidney. No obstructing stones. No hydronephrosis. Stomach and bowel: Evaluation of the bowel is limited without the use of oral or IV contrast. Within this limitation, there may be mild wall thickening of the ascending and transverse segments of the colon raising concern for infectious versus inflammatory colitis. Colonic diverticulosis without definitive evidence of acute diverticulitis. Lipomatosis of the ileocecal valve is seen, which is a nonspecific finding, although can be seen in chronic IBD. No obstruction. Appendix: No findings to suggest acute appendicitis. PELVIS: Bladder: Unremarkable. No stones. Reproductive: Patient appears to be status post hysterectomy. ABDOMEN and PELVIS: Intraperitoneal space: Unremarkable. No free air. No significant fluid collection. Bones/joints: Severe osteoarthropathy of the left hip is seen. Moderate osteoarthropathy of the right hip is seen. No acute fracture. No dislocation. Partial amputation of the left second digit is incidentally noted. Soft tissues: Extensive anasarca is seen. Postoperative changes are seen involving the lower anterior abdominal wall. Vasculature: Aneurysmal dilatation of the infrarenal aorta is seen, measuring up to 2.8 cm in diameter. Aneurysmal dilatation of the distended thoracic aorta is also seen, measuring up to 3.5 cm in diameter. Moderate/severe vascular calcifications are seen involving the intra- abdominal aorta and its branches. Lymph nodes: No significantly enlarged lymph nodes, although evaluation is limited without IV contrast. IMPRESSION: 1. Bilateral small pleural effusions resulting in compressive atelectasis of both lower lobes. Superimposed infection cannot be definitively excluded. 2. Atrophic kidneys. A 6 cm probable cystic structure superior to the left kidney, which may represent an exophytic cyst. 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 Nonemergent renal ultrasound is recommended for further evaluation. 3. Evaluation of the bowel is limited without the use of oral or IV contrast. Within this limitation, suspected mild wall thickening of the ascending and transverse segments of the colon raising concern for infectious versus inflammatory colitis. 4. Aneurysmal dilatation of the infrarenal aorta, measuring up to 2.8 cm in diameter. Aneurysmal dilatation of the distended thoracic aorta is also seen, measuring up to 3.5 cm in diameter. Moderate/severe vascular calcifications involving the intra-abdominal aorta and its branches. Nonemergent CTA of the chest and abdomen recommended for further evaluation of the aneurysmal dilatation. 5. Subtle nodular contour of liver raises concern for early cirrhosis. 6. Probable gallbladder sludge. Gallbladder appears mildly prominent. Right upper quadrant ultrasound recommended for further evaluation. 7. Other findings, as above.
[2017-05-23] MEDS ORDERED: ISOSORBIDE MONONITRATE ER 30 MG TAB.ER.24H PO SCH (09:00)
[2017-05-23] MEDS ORDERED: PANTOPRAZOLE 40 MG TABLET PO SCH (09:00)
--- NOTE | 2017-05-23 09:31 | P.NPCON ---
History of Present Illness - Reason for Consult acute renal failure - History of Present Illness Reason for consultation: Acute kidney injury History of present illness: Patient is a 76-year-old female seen in renal consultation for acute kidney injury. Patient does have chronic kidney disease stage III with baseline creatinine in the range of 1.2-1.4. Patient's had multiple hospital admissions recently. She underwent open reduction internal fixation of the left humerus on 04/19/2017. She was again admitted in April for diarrhea and was noted to have C. diff colitis. She currently resides at an [facility]. She was noted to be hypotensive the systolic blood pressure in the 80s as well as complained of palpitations and was subsequently sent to the hospital. She was noted to be in atrial fibrillation with RVR and was started on a Cardizem drip which is now discontinued. Her blood pressure was in the systolic 80s and she did receive a 1 L bolus of 0.9 saline. Her blood pressure this morning is in the systolic 100s. She does admit to diarrhea. No vomiting. No further chest pain or palpitations. Oral intake is poor but states she's been drinking. She is currently maintained on normal saline at 75 mL an hour. Her CT of the abdomen and pelvis revealed atrophic kidneys with also questionable small effusions. Denies regular use of NSAIDs. Denies any prior history of kidney disease. She does not follow with a admissions manager rn as an outpatient. Vital signs are stable. General: The patient appeared well nourished and normally developed. HEENT: Head exam is unremarkable. Neck is without jugular venous distension. LUNGS: Lungs are clear to auscultation and percussion. Breath sounds decreased. HEART: Rate and Rhythm are regular. First and second heart sounds normal. No murmurs, rubs or gallops. ABDOMEN: Abdominal exam reveals normal bowel sounds. Non-tender and non- distended. No evidence of peritonitis. EXTREMITITES: No clubbing, cyanosis, or edema. Past Medical History Past Medical History: Coronary Artery Disease (CAD), Chest Pain / Angina, Heart Failure, COPD, Diabetes Mellitus, GERD/Reflux, GI Bleed, Hyperlipidemia, Hypertension, Myocardial Infarction (SD), Osteoarthritis (OA) Additional Past Medical History / Comment(s): NIDDM, chronic L knee pain, generalized arthiritis, anemia, back pain.sinus infections. 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 Stent in leg. Subclavian bypass. PTCA's, EGD with cauterized arterovenous malformation, colonoscopy, L hand's index finger amputation, R hand 's thumb tendon repair, R elbow replacement, subclavian steel surgery-"new veins in my neck." sinus sx, Past Anesthesia/Blood Transfusion Reactions: No Reported Reaction Additional Past Anesthesia/Blood Transfusion Reaction / Comment(s): Pt has recieved blood in the past without reaction. Date of Last Stent Placement:: 2010 Past Psychological History: Anxiety, Depression Smoking Status: Former smoker Past Alcohol Use History: None Reported Past Drug Use History: None Reported - Past Family History Father History Unknown: Yes Mother Family Medical History: Cancer Additional Family Medical History / Comment(s): Mother had lung cancer. Medications and Allergies Home Medications Medication Instructions Recorded Confirmed Type Pantoprazole Sodium 40 mg PO DAILY@0900 09/16/14 05/22/17 History Repaglinide [Prandin] 1 mg PO BID PRN 09/16/14 05/22/17 History Acetaminophen Tab [Tylenol] 500 mg PO Q6H PRN 04/18/17 05/22/17 History Cyclobenzaprine [Flexeril] 10 mg PO TID@0600,1400,2200 PRN 04/18/17 05/22/17 History Ergocalciferol (Vitamin D2) 50,000 unit PO KEARNS@1700 04/18/17 05/22/17 History [Vitamin D2] Atorvastatin [Lipitor] 40 mg PO HS@2100 05/04/17 05/22/17 History Benazepril [Lotensin] 5 mg PO DAILY@0900 05/04/17 05/22/17 History Clopidogrel [Plavix] 75 mg PO DAILY@0900 05/04/17 05/22/17 History Diazepam [Valium] 2 mg PO BID PRN 05/04/17 05/22/17 History Famotidine [Pepcid] 20 mg PO DAILY@0600 05/04/17 05/22/17 History Metoprolol Tartrate [Lopressor] 25 mg PO BID@0900,2100 05/04/17 05/22/17 History Sennosides [Senokot] 8.6 mg PO BID PRN 05/04/17 05/22/17 History Fluconazole [Diflucan] 100 mg PO DAILY 17 Days #34 tab 05/09/17 05/22/17 Rx metroNIDAZOLE [Flagyl] 500 mg PO TID 14 Days #42 tab 05/09/17 05/22/17 Rx Amitriptyline HCl [Elavil] 10 mg PO HS 05/22/17 05/22/17 History Bisacodyl [Dulcolax] 10 mg RECTAL DAILY PRN 05/22/17 05/22/17 History [place] Instant Breakfast 1 packet PO BID 05/22/17 05/22/17 History Isosorbide Mononitrate ER [Imdur] 30 mg PO DAILY 05/22/17 05/22/17 History Loperamide HCl [Imodium A-D] 4 mg PO DAILY PRN 05/22/17 05/22/17 History Magnesium Hydroxide [Milk of 2,400 mg PO DAILY PRN 05/22/17 05/22/17 History Magnesia] Na Phos,M-B/Na Phos,Di-Ba [Fleet 133 ml RECTAL DAILY PRN 05/22/17 05/22/17 History Adult] Ondansetron [Zofran] 4 mg PO Q6H PRN 05/22/17 05/22/17 History Allergies Allergy/AdvReac Type Severity Reaction Status Date / Time blue dye Allergy Anaphylaxis Verified 05/22/17 09:50 clonidine [From Catapres] Allergy Diarrhea Verified 05/22/17 09:50 Iodinated Contrast- Oral and Allergy Unknown Verified 05/22/17 09:50 IV Dye monosodium glutamate [MSG] Allergy Anaphylaxis Verified 05/22/17 09:50 ofloxacin [From Floxin] Allergy Anaphylaxis Verified 05/22/17 09:50 piroxicam [From Feldene] Allergy Nausea & Verified 05/22/17 09:50 Vomiting red dye Allergy Anaphylaxis Verified 05/22/17 09:50 Sulfa (Sulfonamide Allergy Anaphylaxis Verified 05/22/17 09:50 Antibiotics) tramadol [From Ultram] Allergy Anaphylaxis Verified 05/22/17 09:50 amoxicillin AdvReac Diarrhea Verified 05/22/17 09:50 bisoprolol [From Ziac] AdvReac Unknown Verified 05/22/17 09:50 cephalexin [From Keflex] AdvReac Diarrhea Verified 05/22/17 09:50 glipizide AdvReac Unknown Verified 05/22/17 09:50 hydrochlorothiazide AdvReac Unknown Verified 05/22/17 09:50 [From Ziac] metformin AdvReac Unknown Verified 05/22/17 09:50 morphine AdvReac Hallucinati Verified 05/22/17 09:50 ons sertraline [From Zoloft] AdvReac Hallucinati Verified 05/22/17 09:50 ons triamterene [From Dyazide] AdvReac Unknown Verified 05/22/17 09:50 Physical Exam Vitals: Vital Signs Temp Pulse Pulse Pulse Resp BP BP 05/23/17 08:00 96.9 F L 84 16 119/55 05/23/17 04:00 97.5 F L 120 H 90 18 103/59 05/22/17 23:44 97.4 F L 120 H 112 H 16 101/59 05/22/17 20:00 97.1 F L 120 H 117 H 18 85/58 05/22/17 15:45 107 H 20 05/22/17 14:56 97.3 F L 99 20 99/82 05/22/17 13:26 124 H 18 116/58 05/22/17 13:00 98.3 F 107 H 18 108/66 05/22/17 11:41 127 H 18 118/68 05/22/17 10:09 120 H 05/22/17 09:58 114 H 18 05/22/17 09:39 97.3 F L 48 L 18 117/68 Pulse Ox 05/23/17 08:00 05/23/17 04:00 97 05/22/17 23:44 96 05/22/17 20:00 92 L 05/22/17 15:45 05/22/17 14:56 99 05/22/17 13:26 05/22/17 13:00 99 05/22/17 11:41 95 05/22/17 10:09 05/22/17 09:58 05/22/17 09:39 91 L Intake and Output 05/22/17 05/23/17 05/23/17 22:59 06:59 14:59 Intake Total 240 215.843 0 Output Total 4 4 Balance 236 211.843 0 Intake: Intake, IV Titration 215.843 Amount Heparin Sod,Pork in 0.45% 215.843 NaCl 25,000 unit In 0.45 % NaCl 1 500ml.bag @ 12 UNITS/KG/HR 14.65 mls/hr IV .Q24H HOLLI Rx#: [id number] Oral 240 0 Output: Stool 4 4 Other: # Voids 1 Weight 61.05 kg 71 kg Results - Lab Results Most recent lab results Calcium 8.4 mg/dL (8.4-10.2) 05/22/17 09:48 Magnesium 1.5 mg/dL (1.6-2.3) L 05/22/17 09:48 05/22/17 09:48 05/22/17 09:48 Assessment and Plan Plan: Assessment: #1. Nonoliguric acute kidney injury secondary to ischemic ATN secondary to hypotension and hemodynamic instability. Creatinine was 3.1 on admission. Labs from today are pending at this time. #2. Chronic kidney disease stage III with baseline creatinine in the range of 1.2-1.4. Etiology is likely diabetic kidney disease. She is noted to have atrophic kidneys but will check a renal ultrasound to assess the size. #3. Atrial fibrillation with RVR. Rate controlled. #4. Hypotension related to intravascular volume depletion. Improved with IV fluids. #5. Recent C. diff colitis maintained on Flagyl. #6. Metabolic acidosis secondary to acute kidney injury and diarrhea. #7. Hypomagnesemia from GI losses. This was replaced. Plan: Continue normal saline to run at 75 mL an hour. Repeat UA. Check renal ultrasound. Add oral sodium bicarbonate 650 mg by Alley. Avoid nephrotoxic agents and hypotensive episodes. Discontinue Fleet enemas. Continue to hold CELESTINA inhibitor. Repeat electrolytes in the morning. Check labs today as well. Thank you for the consultation. I will continue to follow the patient with you during her hospital stay.
[2017-05-23 09:55] LABS: Calcium 7.8 mg/dL (8.4-10.2); Magnesium 1.8 mg/dL (1.6-2.3); Potassium 6.1 mmol/L (3.5-5.1)
[2017-05-23] MEDS: FLUCONAZOLE ORAL SUSP 1,400 MG/35 ML BOTTLE PO SCH (09:59)
[2017-05-23] MEDS: SODIUM CHLORIDE 0.9% 1,000 ML IV SCH ×2 (09:59→16:00)
[2017-05-23] MEDS: metroNIDAZOLE 500 MG TAB PO SCH ×3 (10:00→21:01)
[2017-05-23] MEDS: SODIUM BICARBONATE TAB 650 MG TAB PO SCH ×2 (10:00→21:00)
[2017-05-23] MEDS: SUCRALFATE 1 GM TAB PO SCH ×4 (10:00→21:00)
[2017-05-23] MEDS: CLOPIDOGREL 75 MG TAB PO SCH (10:00)
[2017-05-23] MEDS: NYSTATIN 100,000 UNIT/GM POWD 15 GM TOPICAL SCH ×3 (10:02→22:07)
[2017-05-23 10:14] VITALS: BMI 28.6
[2017-05-23] MEDS ORDERED: INSULIN REGULAR 100 UNIT/ML VIAL IV ONE (10:31)
[2017-05-23] MEDS ORDERED: SODIUM BICARB 8.4% 50 ML SYR (1 MEQ/ML) IV ONE (10:31)
[2017-05-23] MEDS ORDERED: DEXTROSE 50%-WATER 50 ML SYRINGE IVP ONE (10:31)
[2017-05-23] MEDS ORDERED: SODIUM BICARB 8.4% 50 ML VIAL (1 MEQ/ML) IV ONE (10:33)
--- NOTE | 2017-05-23 10:35 | P.CRDCN ---
History of Present Illness Consult date: 05/23/17 Requesting physician: Dalia Small Consult reason: atrial fibrillation Chief complaint: Palpitations and weakness History of present illness: This is a pleasant 76-year-old female who follows regularly with Dr. Mojica in the office. She has a past medical history significant for coronary artery disease with prior stenting of the RCA and left circumflex, COPD with prior smoking history, peripheral arterial disease, chronic kidney disease, hypertension, diabetes, hyperlipidemia, chronic anemia, she is currently at [facility]. Patient had a recent femur fracture for which she underwent ORIF on April 19, and subsequent to that was on multiple antibiotics and developed C. diff for which she has been on Flagyl, patient also has esophageal candidiasis for which she is on treatment. The patient was noted by the nurses at [facility] to be hypotensive, with a systolic blood pressure of 80, she was also hypoxemic , complaining of palpitations at that time, noted that her heart rate was up as well as irregular. For these reasons she was brought to the hospital for further evaluation. EKG on arrival here showed atrial fibrillation with a rapid ventricular response and a left bundle-branch block pattern. Chest x-ray shows cardiomegaly with small left effusion. CAT scan of the abdomen and pelvis was performed which revealed bilateral small pleural effusions, superimposed infection cannot be excluded. Atrophic kidneys, a 6 cm cystic structure superior to the left kidney noted. Aneurysmal dilatated of the infrarenal aorta measuring 2.8 cm, aneurysmal dilatated patient of the descending thoracic aorta measuring 3.5 cm. Moderate to severe vascular calcifications involving the intra-abdominal aorta and its branches. Subtle nodular contour of the liver raises concern for early cirrhosis. Probable gallbladder sludge. Blood pressure on arrival 117/68, heart rate 114, 91% on room air. She has remained afebrile. Blood pressure this morning 120/56. White blood cell count 9.2, hemoglobin 9.8, platelet count 108. Admission labs , sodium 143, potassium 5.0, chloride 112, carbon dioxide 17, BUN 36, creatinine 3.1. Magnesium 1.5, AST 894, ALT 237, alk phos 137. BNP level 103, 000. Troponin 0.19, 0.18, 0.24. Stool for C. diff negative. This morning's labs, sodium 145, potassium 6.1, chloride 116, CO2 9, BUN 37, creatinine 3.5, magnesium 1.8. It appears that her baseline creatinine is in the range of 1.2. At the time of my examination this morning, patient is complaining of abdominal discomfort and moderate to severe headache. She is lying flat in bed , mild shortness of breath, however she doesn't complain of feeling short of breath. Her home medications included Flagyl 500 3 times a day, Senokot, Prandin, Protonix, Zofran 4 mg when necessary, Lopressor 25 twice a day, magnesium, Imdur 30 daily, Diflucan 100 mg daily, Flexeril, Plavix, Lotensin 5 mg daily, Lipitor 40 mg daily, Elavil 10 mg at bedtime. The patient is currently on a Cardizem drip at 5 mg per hour along with metoprolol 50 mg one tablet by mouth twice a day. She was also initiated on IV heparin. 3 of her daughters are at bedside. Past Medical History Past Medical History: Coronary Artery Disease (CAD), Chest Pain / Angina, Heart Failure, COPD, Diabetes Mellitus, GERD/Reflux, GI Bleed, Hyperlipidemia, Hypertension, Myocardial Infarction ([place]), Osteoarthritis (OA) Additional Past Medical History / Comment(s): NIDDM, chronic L knee pain, generalized arthiritis, anemia, back pain.sinus infections. 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 Stent in leg. Subclavian bypass. PTCA's, EGD with cauterized arterovenous malformation, colonoscopy, L hand's index finger amputation, R hand 's thumb tendon repair, R elbow replacement, subclavian steel surgery-"new veins in my neck." sinus sx, Past Anesthesia/Blood Transfusion Reactions: No Reported Reaction Additional Past Anesthesia/Blood Transfusion Reaction / Comment(s): Pt has recieved blood in the past without reaction. Date of Last Stent Placement:: 2010 Past Psychological History: Anxiety, Depression Smoking Status: Former smoker Past Alcohol Use History: None Reported Past Drug Use History: None Reported - Past Family History Father History Unknown: Yes Mother Family Medical History: Cancer Additional Family Medical History / Comment(s): Mother had lung cancer. Medications and Allergies Home Medications Medication Instructions Recorded Confirmed Type Pantoprazole Sodium 40 mg PO DAILY@0900 09/16/14 05/22/17 History Repaglinide [Prandin] 1 mg PO BID PRN 09/16/14 05/22/17 History Acetaminophen Tab [Tylenol] 500 mg PO Q6H PRN 04/18/17 05/22/17 History Cyclobenzaprine [Flexeril] 10 mg PO TID@0600,1400,2200 PRN 04/18/17 05/22/17 History Ergocalciferol (Vitamin D2) 50,000 unit PO KEARNS@1700 04/18/17 05/22/17 History [Vitamin D2] Atorvastatin [Lipitor] 40 mg PO HS@2100 05/04/17 05/22/17 History Benazepril [Lotensin] 5 mg PO DAILY@0900 05/04/17 05/22/17 History Clopidogrel [Plavix] 75 mg PO DAILY@0900 05/04/17 05/22/17 History Diazepam [Valium] 2 mg PO BID PRN 05/04/17 05/22/17 History Famotidine [Pepcid] 20 mg PO DAILY@0600 05/04/17 05/22/17 History Metoprolol Tartrate [Lopressor] 25 mg PO BID@0900,2100 05/04/17 05/22/17 History Sennosides [Senokot] 8.6 mg PO BID PRN 05/04/17 05/22/17 History Fluconazole [Diflucan] 100 mg PO DAILY 17 Days #34 tab 05/09/17 05/22/17 Rx metroNIDAZOLE [Flagyl] 500 mg PO TID 14 Days #42 tab 05/09/17 05/22/17 Rx Amitriptyline HCl [Elavil] 10 mg PO HS 05/22/17 05/22/17 History Bisacodyl [Dulcolax] 10 mg RECTAL DAILY PRN 05/22/17 05/22/17 History Dresher Instant Breakfast 1 packet PO BID 05/22/17 05/22/17 History Isosorbide Mononitrate ER [Imdur] 30 mg PO DAILY 05/22/17 05/22/17 History Loperamide HCl [Imodium A-D] 4 mg PO DAILY PRN 05/22/17 05/22/17 History Magnesium Hydroxide [Milk of 2,400 mg PO DAILY PRN 05/22/17 05/22/17 History Magnesia] Na Phos,M-B/Na Phos,Di-Ba [Fleet 133 ml RECTAL DAILY PRN 05/22/17 05/22/17 History Adult] Ondansetron [Zofran] 4 mg PO Q6H PRN 05/22/17 05/22/17 History Allergies Allergy/AdvReac Type Severity Reaction Status Date / Time blue dye Allergy Anaphylaxis Verified 05/22/17 09:50 clonidine [From Catapres] Allergy Diarrhea Verified 05/22/17 09:50 Iodinated Contrast- Oral and Allergy Unknown Verified 05/22/17 09:50 IV Dye monosodium glutamate [MSG] Allergy Anaphylaxis Verified 05/22/17 09:50 ofloxacin [From Floxin] Allergy Anaphylaxis Verified 05/22/17 09:50 piroxicam [From Feldene] Allergy Nausea & Verified 05/22/17 09:50 Vomiting red dye Allergy Anaphylaxis Verified 05/22/17 09:50 Sulfa (Sulfonamide Allergy Anaphylaxis Verified 05/22/17 09:50 Antibiotics) tramadol [From Ultram] Allergy Anaphylaxis Verified 05/22/17 09:50 amoxicillin AdvReac Diarrhea Verified 05/22/17 09:50 bisoprolol [From Ziac] AdvReac Unknown Verified 05/22/17 09:50 cephalexin [From Keflex] AdvReac Diarrhea Verified 05/22/17 09:50 glipizide AdvReac Unknown Verified 05/22/17 09:50 hydrochlorothiazide AdvReac Unknown Verified 05/22/17 09:50 [From Ziac] metformin AdvReac Unknown Verified 05/22/17 09:50 morphine AdvReac Hallucinati Verified 05/22/17 09:50 ons sertraline [From Zoloft] AdvReac Hallucinati Verified 05/22/17 09:50 ons triamterene [From Dyazide] AdvReac Unknown Verified 05/22/17 09:50 Physical Exam Vitals: Vital Signs Temp Pulse Pulse Pulse Resp BP BP 05/23/17 08:00 96.9 F L 84 20 119/55 05/23/17 04:00 97.5 F L 120 H 90 18 103/59 05/22/17 23:44 97.4 F L 120 H 112 H 16 101/59 05/22/17 20:00 97.1 F L 120 H 117 H 18 85/58 05/22/17 15:45 107 H 20 05/22/17 14:56 97.3 F L 99 20 99/82 05/22/17 13:26 124 H 18 116/58 05/22/17 13:00 98.3 F 107 H 18 108/66 05/22/17 11:41 127 H 18 118/68 05/22/17 10:09 120 H Pulse Ox 05/23/17 08:00 96 05/23/17 04:00 97 05/22/17 23:44 96 05/22/17 20:00 92 L 05/22/17 15:45 05/22/17 14:56 99 05/22/17 13:26 05/22/17 13:00 99 05/22/17 11:41 95 05/22/17 10:09 Intake and Output 05/22/17 05/23/17 05/23/17 22:59 06:59 14:59 Intake Total 240 215.843 55.144 Output Total 4 4 Balance 236 211.843 55.144 Intake: Intake, IV Titration 215.843 55.144 Amount Heparin Sod,Pork in 0.45% 215.843 55.144 NaCl 25,000 unit In 0.45 % NaCl 1 500ml.bag @ 12 UNITS/KG/HR 14.65 mls/hr IV .Q24H [facility] Rx#: [id number] Oral 240 0 Output: Stool 4 4 Other: # Voids 1 Weight 61.05 kg 71 kg PHYSICAL EXAMINATION: HEENT: Head is atraumatic, normocephalic. Pupils equal, round. Neck is supple. There is elevated jugular venous pressure. HEART EXAMINATION: Heart S1 and S2 irregularly irregular CHEST EXAMINATION: Lungs reveal diminished air entry to bilateral bases. ] ABDOMEN: Soft, positive right upper quadrant tenderness . EXTREMITIES: 1+ peripheral pulses with no evidence of peripheral edema and no calf tenderness noted. NEUROLOGIC patient is awake, alert and oriented -3. . Results 05/22/17 09:48 05/22/17 09:48 Cardiac Enzymes 05/22/17 05/22/17 05/22/17 Range/Units 09:48 09:48 17:33 AST 894 H (14-36) U/L CK-MB (CK-2) 1.5 2.0 (0.0-2.4) ng/mL Troponin I 0.199 H* 0.184 H* (0.000-0.034) ng/mL 05/22/17 Range/Units 23:31 AST (14-36) U/L CK-MB (CK-2) 2.1 (0.0-2.4) ng/mL Troponin I 0.249 H* (0.000-0.034) ng/mL Coagulation 05/22/17 05/22/17 05/23/17 Range/Units 09:48 17:33 01:26 PT 16.8 H 18.3 H (9.0-12.0) sec APTT 35.6 H 142.9 H* (22.0-30.0) sec 05/23/17 Range/Units 08:13 PT (9.0-12.0) sec APTT 42.1 H (22.0-30.0) sec CBC 05/22/17 Range/Units 09:48 WBC 9.2 (3.8-10.6) k/uL RBC 3.16 L (3.80-5.40) m/uL Hgb 9.8 L (11.4-16.0) gm/dL Hct 33.6 L (34.0-46.0) % Plt Count 108 L (150-450) k/uL Comprehensive Metabolic Panel 05/22/17 Range/Units 09:48 Sodium 143 (137-145) mmol/L Potassium 5.0 (3.5-5.1) mmol/L Chloride 112 H (98-107) mmol/L Carbon Dioxide 17 L (22-30) mmol/L BUN 36 H (7-17) mg/dL Creatinine 3.13 H (0.52-1.04) mg/dL Glucose 118 H (74-99) mg/dL Calcium 8.4 (8.4-10.2) mg/dL AST 894 H (14-36) U/L ALT 237 H (9-52) U/L Alkaline Phosphatase 137 H (38-126) U/L Total Protein 5.5 L (6.3-8.2) g/dL Albumin 2.6 L (3.5-5.0) g/dL Current Medications Generic Name Dose Route Start Last Admin Trade Name Freq PRN Reason Stop Dose Admin Acetaminophen 500 mg 05/22/17 12:37 05/23/17 05:46 Tylenol Tab PO 500 mg Q6H PRN Administration MILD Pain Amitriptyline HCl 10 mg 05/22/17 21:00 05/22/17 20:53 Elavil PO 10 mg HS HOLLI Administration Barium Sulfate 450 ml 05/22/17 18:04 Readi-Cat 2 PO 05/23/17 18:[address] Scan Bisacodyl 10 mg 05/22/17 12:37 Dulcolax RECTAL DAILY PRN Constipation Clopidogrel Bisulfate 75 mg 05/23/17 09:00 Plavix PO DAILY@0900 [facility] Cyclobenzaprine HCl 10 mg 05/22/17 14:00 Flexeril PO TID@0600,1400,2200 PRN Spasms Diazepam 2 mg 05/22/17 12:37 Valium PO BID PRN Anxiety Ergocalciferol 50,000 unit 05/22/17 17:00 05/22/17 18:18 Vitamin D2 PO Not Given KEARNS@1700 [facility] Famotidine 20 mg 05/23/17 06:00 05/23/17 04:15 Pepcid PO Not Given DAILY@0600 [facility] Fluconazole 100 mg 05/22/17 17:00 05/22/17 20:51 Diflucan PO 100 mg DAILY [facility] Administration Heparin Sodium/Sodium Chloride 500 mls @ 14.65 mls/hr 05/22/17 12:45 09:22 25,000 unit/ Sodium Chloride IV 11 units/kg/hr .Q24H HOLLI 13.43 mls/hr Protocol Titration 12 UNITS/KG/HR Sodium Chloride 1,000 mls @ 75 mls/hr 05/22/17 12:45 05/22/17 13:40 Saline 0.9% IV 20 mls/hr .[id number] HOLLI Administration Insulin Aspart 0 unit 05/22/17 17:30 05/23/17 06:10 Novolog SQ Not Given ACHS [facility] Protocol Iohexol 25 ml 05/22/17 16:27 Omnipaque 350 Mg/Ml (For Oral Use) PO 05/23/17 16:[address] Scan Isosorbide Mononitrate 30 mg 05/23/17 09:00 Imdur PO DAILY [facility] Magnesium Hydroxide 2,400 mg 05/22/17 12:37 Milk Of Magnesia PO DAILY PRN Constipation Metoprolol Tartrate 50 mg 05/22/17 21:30 05/23/17 00:30 Lopressor PO 50 mg BID HOLLI Administration Metronidazole 500 mg 05/22/17 16:00 05/22/17 20:53 Flagyl PO 500 mg TID HOLLI Administration Naloxone HCl 0.2 mg 05/22/17 12:34 Narcan IV Q2M PRN Opioid Reversal Nystatin 1 applic 05/22/17 16:30 05/22/17 20:51 Mycostatin Powder TOPICAL 1 applic TID HOLLI Administration Ondansetron HCl 4 mg 05/22/17 12:37 Zofran PO Q6H PRN Nausea And Vomiting Sodium Bicarbonate 650 mg 05/23/17 09:30 Sodium Bicarbonate Tab PO BID [facility] Sucralfate 1 gm 05/22/17 22:00 05/22/17 22:21 Carafate PO 1 gm QID HOLLI Administration Intake and Output 05/22/17 05/23/17 05/23/17 22:59 06:59 14:59 Intake Total 240 215.843 55.144 Output Total 4 4 Balance 236 211.843 55.144 Intake: Intake, IV Titration 215.843 55.144 Amount Heparin Sod,Pork in 0.45% 215.843 55.144 NaCl 25,000 unit In 0.45 % NaCl 1 500ml.bag @ 12 UNITS/KG/HR 14.65 mls/hr IV .Q24H [facility] Rx#: [id number] Oral 240 0 Output: Stool 4 4 Other: # Voids 1 Weight 61.05 kg 71 kg 05/22/17 09:48 05/22/17 09:48 EKG Interpretations (text) EKG shows atrial fibrillation with a rapid ventricular response Assessment and Plan Plan: Assessment and plan #1 atrial fibrillation with rapid ventricular response, new onset, paroxysmal. Currently on Cardizem drip and heparin drip. #2 known history of coronary artery disease with prior stenting of the circumflex and RCA #3 peripheral arterial disease #4 diabetes #5 hypertension #6 hyperlipidemia #7 chronic anemia #8 recent C. diff #9 abdominal pain #10 esophageal candidiasis #11 elevated liver function #12 acute kidney failure with chronic kidney disease stage III #13 recent left humeral fracture status post ORIF #14 COPD #15 prior history of smoking #16 hypotension likely secondary to intravascular volume depletion and A. fib with RVR #17 hypomagnesemia, replaced #18 elevated BNP level with no clear-cut evidence of congestive cardiac failure. Plan We will continue the IV Cardizem drip along with the IV heparin drip. We will also obtain an echocardiogram with Doppler study to assess the patient's LV function. Patient is currently receiving normal saline at 75 mL an hour per nephrology. Recommendations to follow. DNP note has been reviewed, I agree with a documented findings and plan of care. Patient was seen and examined.
--- NOTE | 2017-05-23 10:38 | ECHOF ---
Referral Reason:New-onset A. fib MEASUREMENTS -------- HEIGHT: 157.5 cm WEIGHT: 70.8 kg BP: 103/59 RVIDd: 3.0 cm (< 3.3) IVSd: 1.6 cm (0.6 - 1.1) LVIDd: 3.8 cm (3.9 - 5.3) LVPWd: 1.7 cm (0.6 - 1.1) IVSs: 1.9 cm LVIDs: 3.6 cm LVPWs: 1.8 cm LAESV Index (A-L): 58.41 ml/m Ao Diam: 2.8 cm (2.0 - 3.7) AV Cusp: 1.5 cm (1.5 - 2.6) LA Diam: 3.5 cm (2.7 - 3.8) MV EXCURSION: 13.189 mm (> 18.000) MV EF SLOPE: 50 mm/s (70 - 150) EPSS: 1.3 cm AR PHT: 339 ms RAP: 5.00 mmHg RVSP: 34.03 mmHg FINDINGS -------- Atrial fibrillation. This was a technically good study. The left ventricular size is normal. There is severe concentric left ventricular hypertrophy. The re is severe global hypokinesis of LV . Overall left ventricular systolic function is severely impa ired with, an EF < 20%. The right ventricle is normal in size. LA is severely dilated >40 ml/m2 The right atrium is normal in size. Aortic valve is trileaflet and is mildly thickened. Trace amount of aortic regurgitation. The mitral valve leaflets are mildly thickened. [id number] mitral regurgitation is present. Mild tricuspid regurgitation present. There is no evidence of pulmonary hypertension. The right v entricular systolic pressure, as measured by Doppler, is 34.03mmHg. There is no pulmonic regurgitation present. The aortic root size is normal. Normal inferior vena cava with normal inspiratory collapse consistent with estimated right atrial pre ssure of 5 mmHg. There is no pericardial effusion. CONCLUSIONS -------- 1. Atrial fibrillation. 2. This was a technically good study. 3. The left ventricular size is normal. 4. There is severe concentric left ventricular hypertrophy. 5. There is severe global hypokinesis of LV . 6. Overall left ventricular systolic function is severely impaired with, an EF < 20%. 7. LA is severely dilated >40 ml/m2 8. Aortic valve is trileaflet and is mildly thickened. 9. Trace amount of aortic regurgitation. 10. The mitral valve leaflets are mildly thickened. 11. Mild tricuspid regurgitation present. 12. There is no evidence of pulmonary hypertension. 13. There is no pulmonic regurgitation present. 14. The aortic root size is normal. 15. Normal inferior vena cava with normal inspiratory collapse consistent with estimated right atrial pressure of 5 mmHg. 16. There is no pericardial effusion. CYBER ENGINEER: Sharda Manley RDCS
[2017-05-23] MEDS ORDERED: DEXTROSE 5% IN WATER 1,000 ML with SODIUM BICARB (1 MEQ/ML) 150 ML IV ONE (11:00)
--- NOTE | 2017-05-23 11:08 | US ---
EXAMINATION TYPE: US kidneys/renal and bladder DATE OF EXAM: 05/23/2017 COMPARISON: 05/23/2017 CT CLINICAL HISTORY: ravi. follow up CT EXAM MEASUREMENTS: Right Kidney: 8.6 x 4.0 x 4.1 cm Left Kidney: 8.1 x 3.9 x 5.1 cm Limited exam due to patient unable to move, bowel gas and unable to hold breath. Right Kidney: Appears small in size. Cortical thinning. No hydronephrosis or nephrolithiasis. Left Kidney: Appears small in size. Cortical thinning. No hydronephrosis or nephrolithiasis. Latera l cystic lesion = 1.6 x 1.7 x 1.6 cm. Unable to see cystic lesion seen on CT due to excessive bowel gas and patients position. Bladder: distended, appears wnl as visualized Bilateral Jets not seen IMPRESSION: 1. Bilateral sequela of medical renal disease with 1.6 cm simple appearing left renal cyst. 2. 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
[2017-05-23 11:28] LABS: Hepatitis A Antibody IgM Non-Reactive (Non-Reactive); Hepatitis B Core IgM Non-Reactive (Non-Reactive)
[2017-05-23 11:35] LABS: Glucose,Whole Blood 83 mg/dL (75-99)
[2017-05-23] MEDS ORDERED: SODIUM BICARB 8.4% 50 ML SYR (1 MEQ/ML) IV STA (11:58)
[2017-05-23] MEDS ORDERED: MORPHINE SULFATE 4 MG/ML SYRINGE IVP PRN (13:16)
[2017-05-23] MEDS ORDERED: LIDOCAINE 2% INJ 20 MG/ML SQ ONE (13:46)
[2017-05-23 14:25] LABS: Glucose,Whole Blood 152 mg/dL (75-99)
--- NOTE | 2017-05-23 14:28 | P.CNPUL ---
History of Present Illness Consult date: 05/23/17 Reason for consult: other Chief complaint: ICU management, atrial fibrillation/RVR. History of present illness: Consult dated 05/23/2017 76-year-old female who was brought over from the sixth floor. Apparently the patient was having hypotension over on the sixth floor and they wanted to bring her over to see whether or not they could include improve her cardiac output and blood pressure by using Primacor and/or dobutamine. Anyway, the patient apparently came over to the hospital back on the . She tells me that she thought she was "having a heart attack". The patient states that she was very short of breath. She was having some chest pain. Also headache. She felt like her heart was racing as well. She was nauseated. Her saturations were quite low at 77%. She's feeling better now. Denies any chest pain or chest discomfort. No fever no chills. No nausea vomiting or diarrhea. She's not sure why she's over into the ICU. Her primary care physician is Dr. Varner. She's being managed by Dr. Sher currently. The patient's in atrial fibrillation. Her heart rates controlled at about 85-92 bpm. Her extremities are cool but not cold. She appears to have no pain or shortness of breath. Alert and oriented. Review of Systems A 12 point review of system really is not too remarkable at this time. Other than being a little weak and fatigued, she really denies any other complaints. States that she's not short of breath. She is wearing oxygen. No chest pain or chest discomfort. No palpitations. No cough no fever. No nausea vomiting or diarrhea. Past Medical History Past Medical History: Coronary Artery Disease (CAD), Chest Pain / Angina, Heart Failure, COPD, Diabetes Mellitus, GERD/Reflux, GI Bleed, Hyperlipidemia, Hypertension, Myocardial Infarction (NH), Osteoarthritis (OA) Additional Past Medical History / Comment(s): NIDDM, chronic L knee pain, generalized arthiritis, anemia, back pain.sinus infections. 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 Stent in leg. Subclavian bypass. PTCA's, EGD with cauterized arterovenous malformation, colonoscopy, L hand's index finger amputation, R hand 's thumb tendon repair, R elbow replacement, subclavian steel surgery-"new veins in my neck." sinus sx, Past Anesthesia/Blood Transfusion Reactions: No Reported Reaction Additional Past Anesthesia/Blood Transfusion Reaction / Comment(s): Pt has recieved blood in the past without reaction. Date of Last Stent Placement:: 2010 Past Psychological History: Anxiety, Depression Smoking Status: Former smoker Past Alcohol Use History: None Reported Past Drug Use History: None Reported - Past Family History Father History Unknown: Yes Mother Family Medical History: Cancer Additional Family Medical History / Comment(s): Mother had lung cancer. Medications and Allergies Home Medications Medication Instructions Recorded Confirmed Type Pantoprazole Sodium 40 mg PO DAILY@0900 09/16/14 05/22/17 History Repaglinide [Prandin] 1 mg PO BID PRN 09/16/14 05/22/17 History Acetaminophen Tab [Tylenol] 500 mg PO Q6H PRN 04/18/17 05/22/17 History Cyclobenzaprine [Flexeril] 10 mg PO TID@0600,1400,2200 PRN 04/18/17 05/22/17 History Ergocalciferol (Vitamin D2) 50,000 unit PO KEARNS@1700 04/18/17 05/22/17 History [Vitamin D2] Atorvastatin [Lipitor] 40 mg PO HS@2100 05/04/17 05/22/17 History Benazepril [Lotensin] 5 mg PO DAILY@0900 05/04/17 05/22/17 History Clopidogrel [Plavix] 75 mg PO DAILY@0900 05/04/17 05/22/17 History Diazepam [Valium] 2 mg PO BID PRN 05/04/17 05/22/17 History Famotidine [Pepcid] 20 mg PO DAILY@0600 05/04/17 05/22/17 History Metoprolol Tartrate [Lopressor] 25 mg PO BID@0900,2100 05/04/17 05/22/17 History Sennosides [Senokot] 8.6 mg PO BID PRN 05/04/17 05/22/17 History Fluconazole [Diflucan] 100 mg PO DAILY 17 Days #34 tab 05/09/17 05/22/17 Rx metroNIDAZOLE [Flagyl] 500 mg PO TID 14 Days #42 tab 05/09/17 05/22/17 Rx Amitriptyline HCl [Elavil] 10 mg PO HS 05/22/17 05/22/17 History Bisacodyl [Dulcolax] 10 mg RECTAL DAILY PRN 05/22/17 05/22/17 History [place] Instant Breakfast 1 packet PO BID 05/22/17 05/22/17 History Isosorbide Mononitrate ER [Imdur] 30 mg PO DAILY 05/22/17 05/22/17 History Loperamide HCl [Imodium A-D] 4 mg PO DAILY PRN 05/22/17 05/22/17 History Magnesium Hydroxide [Milk of 2,400 mg PO DAILY PRN 05/22/17 05/22/17 History Magnesia] Na Phos,M-B/Na Phos,Di-Ba [Fleet 133 ml RECTAL DAILY PRN 05/22/17 05/22/17 History Adult] Ondansetron [Zofran] 4 mg PO Q6H PRN 05/22/17 05/22/17 History Allergies Allergy/AdvReac Type Severity Reaction Status Date / Time blue dye Allergy Anaphylaxis Verified 05/22/17 09:50 clonidine [From Catapres] Allergy Diarrhea Verified 05/22/17 09:50 Iodinated Contrast- Oral and Allergy Unknown Verified 05/22/17 09:50 IV Dye monosodium glutamate [MSG] Allergy Anaphylaxis Verified 05/22/17 09:50 ofloxacin [From Floxin] Allergy Anaphylaxis Verified 05/22/17 09:50 piroxicam [From Feldene] Allergy Nausea & Verified 05/22/17 09:50 Vomiting red dye Allergy Anaphylaxis Verified 05/22/17 09:50 Sulfa (Sulfonamide Allergy Anaphylaxis Verified 05/22/17 09:50 Antibiotics) tramadol [From Ultram] Allergy Anaphylaxis Verified 05/22/17 09:50 amoxicillin AdvReac Diarrhea Verified 05/22/17 09:50 bisoprolol [From Ziac] AdvReac Unknown Verified 05/22/17 09:50 cephalexin [From Keflex] AdvReac Diarrhea Verified 05/22/17 09:50 glipizide AdvReac Unknown Verified 05/22/17 09:50 hydrochlorothiazide AdvReac Unknown Verified 05/22/17 09:50 [From Ziac] metformin AdvReac Unknown Verified 05/22/17 09:50 morphine AdvReac Hallucinati Verified 05/22/17 09:50 ons sertraline [From Zoloft] AdvReac Hallucinati Verified 05/22/17 09:50 ons triamterene [From Dyazide] AdvReac Unknown Verified 05/22/17 09:50 Physical Exam Osteopathic Statement: *. No significant issues noted on an osteopathic structural exam other than those noted in the History and Physical/Consult. Vitals: Vital Signs Temp Pulse Pulse Pulse Resp BP BP 05/23/17 12:00 104 H 05/23/17 11:27 104 H 18 83/54 05/23/17 08:00 96.9 F L 84 20 119/55 05/23/17 04:00 97.5 F L 120 H 90 18 103/59 05/22/17 23:44 97.4 F L 120 H 112 H 16 101/59 05/22/17 20:00 97.1 F L 120 H 117 H 18 85/58 05/22/17 15:45 107 H 20 05/22/17 14:56 97.3 F L 99 20 99/82 Pulse Ox 05/23/17 12:00 05/23/17 11:27 93 L 05/23/17 08:00 96 05/23/17 04:00 97 05/22/17 23:44 96 05/22/17 20:00 92 L 05/22/17 15:45 05/22/17 14:56 99 Intake and Output 05/22/17 05/23/17 05/23/17 22:59 06:59 14:59 Intake Total 240 215.843 415.144 Output Total 4 4 Balance 236 211.843 415.144 Intake: Intake, IV Titration 215.843 55.144 Amount Heparin Sod,Pork in 0.45% 215.843 55.144 NaCl 25,000 unit In 0.45 % NaCl 1 500ml.bag @ 12 UNITS/KG/HR 14.65 mls/hr IV .Q24H HOLLI Rx#: [id number] Oral 240 360 Output: Stool 4 4 Other: # Voids 1 Weight 61.05 kg 71 kg 71 kg Patient Weight 05/24/17 06:59 Weight 71 kg No acute distress, oriented 3. Nasal O2 in place. HEENT examination is grossly unremarkable. Mucous membranes are moist. No oral lesions. Neck supple. Full range of motion. No adenopathy thyromegaly or neck vein distention. Cardiovascular examination reveals irregular rhythm rate. S1-S2 normal. No S3 or S4. No discernible murmur noted. Heart sounds are distant. Heart rate about 90 bpm. Lungs reveal a few scattered mild rhonchi. No wheezes or crackles. Breath sounds are equal. Abdomen soft bowel sounds are heard. No masses or tenderness. Extremities are intact. No cyanosis clubbing or edema. Skin is without rash or lesion. Neurologic examination is brief but nonfocal. Results - Laboratory Findings CBC and BMP: 05/22/17 09:48 05/23/17 08:13 PT/INR, D-dimer PT 18.3 sec (9.0-12.0) H 05/22/17 17:33 INR 2.0 (<1.2) H 05/22/17 17:33 Abnormal lab findings: Abnormal Labs 05/22/17 05/22/17 05/22/17 09:48 09:48 09:48 RBC 3.16 L Hgb 9.8 L Hct 33.6 L MCV 106.5 H MCHC 29.1 L RDW 20.3 H Plt Count 108 L PT INR APTT Potassium Chloride 112 H Carbon Dioxide 17 L BUN 36 H Creatinine 3.13 H Glucose 118 H POC Glucose (mg/dL) Calcium Magnesium 1.5 L AST 894 H ALT 237 H Alkaline Phosphatase 137 H Troponin I 0.199 H* Total Protein 5.5 L Albumin 2.6 L 05/22/17 05/22/17 05/22/17 09:48 17:13 17:33 RBC Hgb Hct MCV MCHC RDW Plt Count PT 16.8 H INR 1.8 H APTT 35.6 H Potassium Chloride Carbon Dioxide BUN Creatinine Glucose POC Glucose (mg/dL) 125 H Calcium Magnesium AST ALT Alkaline Phosphatase Troponin I 0.184 H* Total Protein Albumin 05/22/17 05/22/17 05/22/17 17:33 21:09 23:31 RBC Hgb Hct MCV MCHC RDW Plt Count PT 18.3 H INR 2.0 H APTT Potassium Chloride Carbon Dioxide BUN Creatinine Glucose POC Glucose (mg/dL) 119 H Calcium Magnesium AST ALT Alkaline Phosphatase Troponin I 0.249 H* Total Protein Albumin 05/23/17 05/23/17 05/23/17 01:26 08:13 08:13 RBC Hgb Hct MCV MCHC RDW Plt Count PT INR APTT 142.9 H* 42.1 H Potassium 6.1 H Chloride 116 H Carbon Dioxide 9 L* BUN 37 H Creatinine 3.59 H Glucose POC Glucose (mg/dL) Calcium 7.8 L Magnesium AST ALT Alkaline Phosphatase Troponin I Total Protein Albumin - Diagnostic Findings Chest x-ray: image reviewed (Labs x-rays and medications are reviewed.) Assessment and Plan Assessment: Assessment Atrial fibrillation/rapid ventricular response, now with a controlled rate below 100 History of coronary artery disease History of CHF Possible history of COPD secondary to previous tobacco use Diabetes mellitus GERD History of GI bleed Hyperlipidemia Hypertension Previous history of myocardial infarction History of anemia Previous stent placement service CAD Multiple previous surgeries Previous history of tobacco use Acute kidney injury Anion gap metabolic acidosis secondary to renal failure Plan: Plan dated 05/23/2017 I will continue to follow this patient while in the ICU. The patient appears to be relatively stable this time although blood pressures are low. She is in atrial fibrillation but her ventricular response rate is in the 90s. Her extremities are not cold. Apparently the plan per cardiology is to start the patient on inotropic agent such as dobutamine and/or Primacor. She is stable from the pulmonary standpoint. She has a pretty significant anion gap metabolic acidosis from renal failure. Labs x-rays a medications are reviewed. Prognosis is guarded. Time with Patient: Greater than 30
[2017-05-23] MEDS ORDERED: IPRATROPIUM-ALBUTEROL 3 ML NEB INHALATION PRN (14:29)
[2017-05-23 14:34] LABS: Anisocytosis Moderate; HCT 32.2 % (34.0-46.0); HGB 9.6 gm/dL (11.4-16.0); Hypochromasia Marked; MCH 31.8 pg (25.0-35.0); MCHC 29.8 g/dL (31.0-37.0); MCV 106.7 fL (80.0-100.0); Macrocytosis Marked; Platelet Count 105 k/uL (150-450); RBC 3.02 m/uL (3.80-5.40); RDW 20.3 % (11.5-15.5); WBC 8.9 k/uL (3.8-10.6)
[2017-05-23] MEDS: HEPARIN SOD,PORK IN 0.45% NACL 25,000 UNIT in 0.45% NACL 1 500ML.BAG IV SCH (15:26)
--- NOTE | 2017-05-23 16:06 | IR ---
EXAMINATION TYPE: IR cvc insert >=5 years DATE OF EXAM: 05/23/2017 COMPARISON: NONE CLINICAL HISTORY: Infection Needs long-term intravenous access for antibiotics and therapy. PROCEDURE: After informed consent, the skin overlying the right upper extremity vein was localized with ultrasou nd and noted to be compressible and patent. An ultrasound image was obtained and submitted on the donna lanza's chart. The overlying skin was prepped and draped and Lidocaine was used for local anesthesia . A skin gabriel was made with a scalpel. Access was gained to the vein under ultrasound guidance with a 21 gauge needle and a 0.018 inch wire was advanced. Access site was dilated with Peel-Away sheath and catheter tailored to the appropriate length and advanced such that the distal tip is at the cavo atrial junction. Spot image was obtained verifying placement. Catheter was fixed to the skin with s uture and a sterile dressing was placed following hemostasis. Catheter was aspirated and flushed wit h saline. Patient was discharged in stable condition without complication.Maximal barrier technique is utilized. Ultrasound image is documented on the chart. Ultrasound used with sterile technique. Fluoro time and fluoroscopic images submitted to document procedure: 301 intraoperative images, 1.5 m inutes fluoroscopy time supplied IMPRESSION: STATUS POST ULTRASOUND AND FLUOROSCOPIC GUIDED PICC LINE PLACEMENT, READY FOR USE. THIS PROCEDURE WAS PERFORMED BY THE UNDERSIGNED.
[2017-05-23] MEDS: MILRINONE-D5W PMX 20 MG in DEXTROSE/WATER 1 100ML.BAG IV SCH ×2 (16:18→19:30)
--- NOTE | 2017-05-23 16:18 | P.PN ---
Subjective Progress Note Date: 05/23/17 this is a 76-year-old pleasant gentleman patient of / dr Pittman. Currently resides arm [facility] and was followed by Dr. Sher and family requested our service to follow the patient. Patient was admitted to emergency room withunderlying history of COPD, CAD, CK D, CHF, recent seed the colitis, and esophageal candidiasis for which she is managed and was in the hospital for several admissions secondary to the following: Recent admission was on 2017 when the patient developed dehydration and respiratory failure and was diagnosed to have urinary tract infection. She was sent home on oral antibiotic , at home she fell down and after diarrhea episodes, and developed a left humeral fracture requiring ORIF on 04/19/2017.she was later discharged to [facility] [place], patient developed diarrhea and had laryngitis mental status changes and was noted to be hypoglycemic, patient was subsequently admitted and was diagnosed to have dehydration with diarrhea on 05/04/2017 secondary to C. diff colitis. patiently currently resides at [facility] from 05/09/[address] Sher for skilled therapies. She had been sent into the emergency room after have spoken to the nurse regarding a sick call at [facility], patient was having palpitations, and was hypotensive when evaluated, systolic blood pressure of 80 , was hypoxemic, patient was having chest pain and shortness of breath, palpitations, and one was seen in emergency room she was noted to be in atrial fibrillation new onset, with rapid ventricular response, hemodynamic instability with circulatory collapse and hypotension. Patient's daughter is at bedside she mentioned that she still having intermittent diarrhea, however patient is on laxatives. Unknown whether the patient has some fever, she does have abdominal cramping mainly periumbilical region, decreased appetite, no nausea no vomiting,she is on Diflucan for esophageal candidiasis for which she is to complete at least 3 weeks of Diflucan orally. most of the information comes from the daughter. She has a sling on the left side, pain is controlled in the left arm wound is healed patient has a healing decubitus ulcer right sacrum 0.5 cm shallow scab no cellulitis in the emergency roomhe was noted to be hypotensive, anemic 9.8, without any leukkocytosis of 9.2,creatinine of 3.13 from a previous of 1.89and in atrial fibrillation with rapid ventricular rate, heart rate in the 150s, troponin was 0.199, liver function tests elevated with AST of 894, ALT of 237, and alkaline phosphatase of 137patient denies any right upper quadrant pain,or jaundice. Bilirubin is normal NT proBNP of 103,000hypoxemia in the low77 room air 05/23: CAT scan of the abdomen and pelvis without IV contrast revealed bilateral pleural effusions resulting compressive atelectasis in both lower lobes. Superimposed infection cannot be definitively excluded. Atrophic kidneys. A 6 cm cystic structure superior to the left kidney may represent exophytic cyst. 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 Nonemergent renal ultrasound is recommended. Suspected mild wall thickening of the ascending and transverse colon raising concern for infectious versus inflammatory colitis. Aneurysmal dilatation of the infrarenal aorta measuring up to 2.8 cm in diameter. Aneurysmal dilatation of the descending thoracic aorta measuring 3.5 cm. Moderate or severe vascular calcifications in the intra-abdominal aorta and branches. Nonemergent CT of the chest and abdomen recommended. Subtle nodular contour of liver suggest early cirrhosis. Probable gallbladder sludge. Dr. Yang is on consult. Patient is currently on oral Flagyl. Patient is followed by nephrology for non-oliguric acute kidney injury secondary to ischemic ATN secondary to hypotension and hemodynamic instability. IV fluids at 75 mL per hour, sodium bicarb. CO2 9, potassium 6.1, BUN 37 creatinine 3.59. Renal ultrasound has been ordered by nephrology. Patient has been seen by cardiology for A. fib with RVR and currently on Cardizem drip and heparin drip. Echocardiogram reveals EF of less than 20%, severe concentric left ventricular hypertrophy, severe global hypokinesia of LV, trace aortic regurgitation, mild tricuspid regurgitation, no pulmonary hypertension. Plan is for patient to have PICC line placed and start on dobutamine drip, sodium bicarb drip and continue heparin drip. Patient will be transferred into the intensive care unit and consult with Dr. Mae has been added. CODE STATUS clarified with family members at patient's bedside. Plan is for no code but all other aggressive treatment and this may change depending on patient's course. Objective - Vital Signs Vital signs: Vital Signs Temp 96.9 F L 05/23/17 08:00 Pulse 84 05/23/17 08:00 Resp 20 05/23/17 08:00 BP 119/55 05/23/17 08:00 Pulse Ox 96 05/23/17 08:00 Intake & Output 05/22/17 05/23/17 05/23/17 18:59 06:59 18:59 Intake Total 100 455.843 55.144 Output Total 2 6 Balance 98 449.843 55.144 Weight 61.05 kg 71 kg 71 kg Intake: Amount of Fluid Infused ( 100 ml) Intake, IV Titration 215.843 55.144 Amount Heparin Sod,Pork in 0.45% 215.843 55.144 NaCl 25,000 unit In 0.45 % NaCl 1 500ml.bag @ 12 UNITS/KG/HR 14.65 mls/hr IV .Q24H HOLLI Rx#: [id number] Oral 240 0 Output: Stool 2 6 Other: # Voids 1 - Exam General appearance: average body habitus, cooperative, no acute distress - EENT Eyes: anicteric sclerae, EOMI, PERRLA, dentition normal, normal appearance ENT: hearing grossly normal, normal oropharynx (dry) - Neck Neck: normal ROM - Respiratory Respiratory: bilateral: CTA, diminished, negative: dullness, rales, rhonchi - Cardiovascular Rhythm: irregular Heart sounds: normal: S1 Abnormal Heart Sounds: no systolic murmur, no diastolic murmur, no rub, no S3 Gallop, no S4 Gallop, no click, no other - Gastrointestinal General gastrointestinal: normal bowel sounds, soft - Integumentary Integumentary: normal, normal turgor - Musculoskeletal Musculoskeletal: gait normal, strength equal bilaterally - Psychiatric Psychiatric: A&O x's 3, appropriate affect - Labs CBC & Chem 7: 05/23/17 14:15 05/23/17 14:15 Labs: Abnormal Lab Results - Last 24 Hours (Table) 05/22/17 05/22/17 05/22/17 Range/Units 09:48 09:48 09:48 RBC 3.16 L (3.80-5.40) m/uL Hgb 9.8 L (11.4-16.0) gm/dL Hct 33.6 L (34.0-46.0) % MCV 106.5 H (80.0-100.0) fL MCHC 29.1 L (31.0-37.0) g/dL RDW 20.3 H (11.5-15.5) % Plt Count 108 L (150-450) k/uL PT (9.0-12.0) sec INR (<1.2) APTT (22.0-30.0) sec Potassium (3.5-5.1) mmol/L Chloride 112 H (98-107) mmol/L Carbon Dioxide 17 L (22-30) mmol/L BUN 36 H (7-17) mg/dL Creatinine 3.13 H (0.52-1.04) mg/dL Glucose 118 H (74-99) mg/dL POC Glucose (mg/dL) (75-99) mg/dL Calcium (8.4-10.2) mg/dL Magnesium 1.5 L (1.6-2.3) mg/dL AST 894 H (14-36) U/L ALT 237 H (9-52) U/L Alkaline Phosphatase 137 H (38-126) U/L Troponin I 0.199 H* (0.000-0.034) ng/mL Total Protein 5.5 L (6.3-8.2) g/dL Albumin 2.6 L (3.5-5.0) g/dL 05/22/17 05/22/17 05/22/17 Range/Units 09:48 17:13 17:33 RBC (3.80-5.40) m/uL Hgb (11.4-16.0) gm/dL Hct (34.0-46.0) % MCV (80.0-100.0) fL MCHC (31.0-37.0) g/dL RDW (11.5-15.5) % Plt Count (150-450) k/uL PT 16.8 H (9.0-12.0) sec INR 1.8 H (<1.2) APTT 35.6 H (22.0-30.0) sec Potassium (3.5-5.1) mmol/L Chloride (98-107) mmol/L Carbon Dioxide (22-30) mmol/L BUN (7-17) mg/dL Creatinine (0.52-1.04) mg/dL Glucose (74-99) mg/dL POC Glucose (mg/dL) 125 H (75-99) mg/dL Calcium (8.4-10.2) mg/dL Magnesium (1.6-2.3) mg/dL AST (14-36) U/L ALT (9-52) U/L Alkaline Phosphatase (38-126) U/L Troponin I 0.184 H* (0.000-0.034) ng/mL Total Protein (6.3-8.2) g/dL Albumin (3.5-5.0) g/dL 05/22/17 05/22/17 05/22/17 Range/Units 17:33 21:09 23:31 RBC (3.80-5.40) m/uL Hgb (11.4-16.0) gm/dL Hct (34.0-46.0) % MCV (80.0-100.0) fL MCHC (31.0-37.0) g/dL RDW (11.5-15.5) % Plt Count (150-450) k/uL PT 18.3 H (9.0-12.0) sec INR 2.0 H (<1.2) APTT (22.0-30.0) sec Potassium (3.5-5.1) mmol/L Chloride (98-107) mmol/L Carbon Dioxide (22-30) mmol/L BUN (7-17) mg/dL Creatinine (0.52-1.04) mg/dL Glucose (74-99) mg/dL POC Glucose (mg/dL) 119 H (75-99) mg/dL Calcium (8.4-10.2) mg/dL Magnesium (1.6-2.3) mg/dL AST (14-36) U/L ALT (9-52) U/L Alkaline Phosphatase (38-126) U/L Troponin I 0.249 H* (0.000-0.034) ng/mL Total Protein (6.3-8.2) g/dL Albumin (3.5-5.0) g/dL 05/23/17 05/23/17 05/23/17 Range/Units 01:26 08:13 08:13 RBC (3.80-5.40) m/uL Hgb (11.4-16.0) gm/dL Hct (34.0-46.0) % MCV (80.0-100.0) fL MCHC (31.0-37.0) g/dL RDW (11.5-15.5) % Plt Count (150-450) k/uL PT (9.0-12.0) sec INR (<1.2) APTT 142.9 H* 42.1 H (22.0-30.0) sec Potassium 6.1 H (3.5-5.1) mmol/L Chloride 116 H (98-107) mmol/L Carbon Dioxide 9 L* (22-30) mmol/L BUN 37 H (7-17) mg/dL Creatinine 3.59 H (0.52-1.04) mg/dL Glucose (74-99) mg/dL POC Glucose (mg/dL) (75-99) mg/dL Calcium 7.8 L (8.4-10.2) mg/dL Magnesium (1.6-2.3) mg/dL AST (14-36) U/L ALT (9-52) U/L Alkaline Phosphatase (38-126) U/L Troponin I (0.000-0.034) ng/mL Total Protein (6.3-8.2) g/dL Albumin (3.5-5.0) g/dL Assessment and Plan Plan: 1. New-onset atrial fibrillation with rapid ventricular rate, patient is on Cardizem drip, heparin drip, Plavix patient is not on aspirin, thyroid function test to be obtained, echocardiogram and cardiology consultation. Milrinone ordered by cardiology. Patient will be transferred to the intensive care unit. Blood pressure is marginal. 2. CAD currently on Imdur, metoprolol, Lotensin on hold secondary to kidney failure. Continue Plavix 3. Recent C. diff colitis Completed treatment using Flagyl. 4. Abdominal pain toni umbilical, currently nonsurgical, however in view of her current comorbidities, and recent C. diff, CAT scan of the abdomen and pelvis will be done and is secondary consult with Dr. Yang. Patient is on Carafate and Flagyl. 5. Acute hypotension secondary to atrial fibrillation RVR, and diarrhea. Continue IV fluids at 75 mL per hour. Hold blood pressure medications. Avoid hypotensive episodes. 6. Acute hypoxemic respiratory insufficiency presenting with a pulse ox of 91%. O2 supplementation, cannot rule out underlying pulmonary emboli, patient would need a VQ scan in view of her current acute kidney failure, patient would be on IV heparin for her atrial fibrillation unless contraindicated otherwise 7. Esophageal candidiasis and recent candidal laryngitis status post evaluation by ENT for severe hoarseness of voice during last admission 8. transaminitis with cholestasis, no jaundice. hepatitis panel will be obtained, most likely this is related to drug induced transaminitis with coexisting use of Diflucan as well as statin, statin is held in order for us to proceed with the use of Diflucan for treatment of her esophageal candidiasis 9. Acute kidney failure secondary to ischemic ATN secondary to hypotension and hemodynamic instability with CKD stage III and an ion gap metabolic acidosis. Nephrology consult appreciated. Renal ultrasound has been ordered. Bicarbonate drip ordered by nephrology. 10. Diabetes mellitus type 2 with recent hyperglycemia, hemoglobin A1c of 4.9, Prandin would be discontinued, Accu-Cheks before meals and at bedtime with NovoLog correctional scale 11. Suspected meningioma C1-C2 spinal columnbased on recent MRI, neurosurgery at [facility] to see after discharge 12. Recent MRI with MRA showing right MCA aneurysm 2 mm and left ICA aneurysm measuring 2 mm would follow to see neurosurgery clinic at [facility] in the next few weeks 13. recent left humeral fracture secondary to fall at home, or ORIF on 2017surgical wound is healed 14. Underlying osteoporosis postmenopausal bone density to be addressed as outpatient 15. Recent metabolic encephalopathy for which Celexa was thought to be of culprit, Celexa has been discontinued 05/04/2017 16. Moderate protein calorie malnutrition, supplementation with ensure enlive 17. Anemia suspect iron deficiency with anemia of chronic disease unknown whether patient has underlying other blood losses, continue to monitor with Hemoccult stool test 18. Hypertension, Lotensin on hold, secondary to kidney failure, continued metoprolol 19. Bilateral breast candidal rash, Mycostatin powder to be applied 20. DVT prophylaxis IV heparin 21. GI prophylaxis 23. CODE STATUS: Full code Discharge plan: Return to [facility] on the care of Dr. Sher Impression and plan of care have been directed as dictated by the signing physician. Pilar Oliver nurse practitioner acting as scribe for signing physician.
[2017-05-23] MEDS ORDERED: NOREPINEPHRIN 16 MG-0.9%NS PMX 16 MG/250 ML ML IV SCH (16:30)
[2017-05-23 18:16] LABS: Glucose,Whole Blood 148 mg/dL (75-99)
[2017-05-23 18:47] LABS: Appearance,Urine Cloudy (Clear); Bacteria,Urine Many /hpf; Bilirubin,Urine 1+ (Negative); Blood,Urine Negative (Negative); Color,Urine Dark Brown; Glucose,Urine (UA) Negative (Negative); Ketones,Urine Negative (Negative); Leukocyte Esterase,Urine Negative (Negative); Mucus,Urine Many /hpf; Nitrite,Urine Positive (Negative); Protein,Urine 1+ (Negative); Specific Gravity,Urine 1.021 (1.001-1.035); Urobilinogen,Urine <2.0 mg/dL (<2.0); WBC,Urine 13 /hpf (0-5)
[2017-05-23 18:47] LABS: Hemoglobin A1C 5.3 % (4.0-6.0)
[2017-05-23] MEDS: IPRATROPIUM-ALBUTEROL 3 ML NEB INHALATION SCH (20:12)
[2017-05-23 20:51] LABS: Glucose,Whole Blood 196 mg/dL (75-99)
[2017-05-23] MEDS: AMITRIPTYLINE HCL 10 MG TAB PO SCH (21:01)
--- NOTE | 2017-05-23 21:04 | P.GSCN ---
History of Present Illness Consult date: 05/23/17 Reason for Consult: Abdominal pain History of present illness: Patient comes in the hospital with weakness and various discomforts. She has pain in her back and also transiently has pain in her abdomen. Today she says her pain in the abdomen is absent. Per the family and the patient she admits to chronic abdominal discomfort. She was found to have new onset A. fib and hypotension. She was found have a significantly elevated BNP as well as renal function and elevated liver enzymes. No history of gallbladder issues. CAT scan abdomen showed some mild nodularity of the liver. Gallbladder minimally distended, mild thickening of the ascending colon. Patient has recent history of C. diff colitis. Currently in the ICU on low-dose Levophed. Family wants medical management only. Ultrasound of the kidneys was performed but not of the biliary system. She has seen Dr. Chao recently for candidal esophagitis and C. diff. Review of Systems The patient denies any acute changes in vision or hearing, no dysphagia or odynophagia, no dysuria or hematuria, no headache, no runny nose, no rectal bleeding or melena, no unexplained weight loss Past Medical History Past Medical History: Coronary Artery Disease (CAD), Chest Pain / Angina, Heart Failure, COPD, Diabetes Mellitus, GERD/Reflux, GI Bleed, Hyperlipidemia, Hypertension, Myocardial Infarction (PA), Osteoarthritis (OA) Additional Past Medical History / Comment(s): NIDDM, chronic L knee pain, generalized arthiritis, anemia, back pain.sinus infections. 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 Stent in leg. Subclavian bypass. PTCA's, EGD with cauterized arterovenous malformation, colonoscopy, L hand's index finger amputation, R hand 's thumb tendon repair, R elbow replacement, subclavian steel surgery-"new veins in my neck." sinus sx, Past Anesthesia/Blood Transfusion Reactions: No Reported Reaction Additional Past Anesthesia/Blood Transfusion Reaction / Comm: Pt has recieved blood in the past without reaction. Date of Last Stent Placement:: 2010 Past Psychological History: Anxiety, Depression Smoking Status: Former smoker Past Alcohol Use History: None Reported Past Drug Use History: None Reported - Past Family History Father History Unknown: Yes Mother Family Medical History: Cancer Additional Family Medical History / Comment(s): Mother had lung cancer. Medications and Allergies Home Medications Medication Instructions Recorded Confirmed Type Pantoprazole Sodium 40 mg PO DAILY@0900 09/16/14 05/22/17 History Repaglinide [Prandin] 1 mg PO BID PRN 09/16/14 05/22/17 History Acetaminophen Tab [Tylenol] 500 mg PO Q6H PRN 04/18/17 05/22/17 History Cyclobenzaprine [Flexeril] 10 mg PO TID@0600,1400,2200 PRN 04/18/17 05/22/17 History Ergocalciferol (Vitamin D2) 50,000 unit PO KEARNS@1700 04/18/17 05/22/17 History [Vitamin D2] Atorvastatin [Lipitor] 40 mg PO HS@2100 05/04/17 05/22/17 History Benazepril [Lotensin] 5 mg PO DAILY@0900 05/04/17 05/22/17 History Clopidogrel [Plavix] 75 mg PO DAILY@0900 05/04/17 05/22/17 History Diazepam [Valium] 2 mg PO BID PRN 05/04/17 05/22/17 History Famotidine [Pepcid] 20 mg PO DAILY@0600 05/04/17 05/22/17 History Metoprolol Tartrate [Lopressor] 25 mg PO BID@0900,2100 05/04/17 05/22/17 History Sennosides [Senokot] 8.6 mg PO BID PRN 05/04/17 05/22/17 History Fluconazole [Diflucan] 100 mg PO DAILY 17 Days #34 tab 05/09/17 05/22/17 Rx metroNIDAZOLE [Flagyl] 500 mg PO TID 14 Days #42 tab 05/09/17 05/22/17 Rx Amitriptyline HCl [Elavil] 10 mg PO HS 05/22/17 05/22/17 History Bisacodyl [Dulcolax] 10 mg RECTAL DAILY PRN 05/22/17 05/22/17 History [place] Instant Breakfast 1 packet PO BID 05/22/17 05/22/17 History Isosorbide Mononitrate ER [Imdur] 30 mg PO DAILY 05/22/17 05/22/17 History Loperamide HCl [Imodium A-D] 4 mg PO DAILY PRN 05/22/17 05/22/17 History Magnesium Hydroxide [Milk of 2,400 mg PO DAILY PRN 05/22/17 05/22/17 History Magnesia] Na Phos,M-B/Na Phos,Di-Ba [Fleet 133 ml RECTAL DAILY PRN 05/22/17 05/22/17 History Adult] Ondansetron [Zofran] 4 mg PO Q6H PRN 05/22/17 05/22/17 History Allergies Allergy/AdvReac Type Severity Reaction Status Date / Time blue dye Allergy Anaphylaxis Verified 05/22/17 09:50 clonidine [From Catapres] Allergy Diarrhea Verified 05/22/17 09:50 Iodinated Contrast- Oral and Allergy Unknown Verified 05/22/17 09:50 IV Dye monosodium glutamate [MSG] Allergy Anaphylaxis Verified 05/22/17 09:50 ofloxacin [From Floxin] Allergy Anaphylaxis Verified 05/22/17 09:50 piroxicam [From Feldene] Allergy Nausea & Verified 05/22/17 09:50 Vomiting red dye Allergy Anaphylaxis Verified 05/22/17 09:50 Sulfa (Sulfonamide Allergy Anaphylaxis Verified 05/22/17 09:50 Antibiotics) tramadol [From Ultram] Allergy Anaphylaxis Verified 05/22/17 09:50 amoxicillin AdvReac Diarrhea Verified 05/22/17 09:50 bisoprolol [From Ziac] AdvReac Unknown Verified 05/22/17 09:50 cephalexin [From Keflex] AdvReac Diarrhea Verified 05/22/17 09:50 glipizide AdvReac Unknown Verified 05/22/17 09:50 hydrochlorothiazide AdvReac Unknown Verified 05/22/17 09:50 [From Ziac] metformin AdvReac Unknown Verified 05/22/17 09:50 morphine AdvReac Hallucinati Verified 05/22/17 09:50 ons sertraline [From Zoloft] AdvReac Hallucinati Verified 05/22/17 09:50 ons triamterene [From Dyazide] AdvReac Unknown Verified 05/22/17 09:50 Surgical - Exam Vital Signs Temp Pulse Resp BP Pulse Ox 97.3 F L 48 L 18 117/68 91 L 05/22/17 09:39 05/22/17 09:39 05/22/17 09:39 05/22/17 09:39 05/22/17 09:39 Physical exam: General: Well-developed, well-nourished HEENT: Normocephalic, sclerae nonicteric Abdomen: Nontender, nondistended Extremities: No edema Neuro: Alert and oriented Results - Labs 05/23/17 14:15 05/23/17 14:15 Abnormal Lab Results - Last 24 Hours (Table) 05/22/17 05/22/17 05/23/17 Range/Units 21:09 23:31 01:26 RBC (3.80-5.40) m/uL Hgb (11.4-16.0) gm/dL Hct (34.0-46.0) % MCV (80.0-100.0) fL MCHC (31.0-37.0) g/dL RDW (11.5-15.5) % Plt Count (150-450) k/uL APTT 142.9 H* (22.0-30.0) sec Potassium (3.5-5.1) mmol/L Chloride (98-107) mmol/L Carbon Dioxide (22-30) mmol/L BUN (7-17) mg/dL Creatinine (0.52-1.04) mg/dL POC Glucose (mg/dL) 119 H (75-99) mg/dL Calcium (8.4-10.2) mg/dL Troponin I 0.249 H* (0.000-0.034) ng/mL Urine Appearance (Clear) Urine Protein (Negative) Urine Nitrite (Negative) Urine Bilirubin (Negative) Urine WBC (0-5) /hpf Urine Bacteria (None) /hpf Urine Mucus (None) /hpf 05/23/17 05/23/17 05/23/17 Range/Units 08:13 08:13 14:15 RBC 3.02 L (3.80-5.40) m/uL Hgb 9.6 L (11.4-16.0) gm/dL Hct 32.2 L (34.0-46.0) % MCV 106.7 H (80.0-100.0) fL MCHC 29.8 L (31.0-37.0) g/dL RDW 20.3 H (11.5-15.5) % Plt Count 105 L (150-450) k/uL APTT 42.1 H (22.0-30.0) sec Potassium 6.1 H (3.5-5.1) mmol/L Chloride 116 H (98-107) mmol/L Carbon Dioxide 9 L* (22-30) mmol/L BUN 37 H (7-17) mg/dL Creatinine 3.59 H (0.52-1.04) mg/dL POC Glucose (mg/dL) (75-99) mg/dL Calcium 7.8 L (8.4-10.2) mg/dL Troponin I (0.000-0.034) ng/mL Urine Appearance (Clear) Urine Protein (Negative) Urine Nitrite (Negative) Urine Bilirubin (Negative) Urine WBC (0-5) /hpf Urine Bacteria (None) /hpf Urine Mucus (None) /hpf 05/23/17 05/23/17 05/23/17 Range/Units 14:23 17:35 18:14 RBC (3.80-5.40) m/uL Hgb (11.4-16.0) gm/dL Hct (34.0-46.0) % MCV (80.0-100.0) fL MCHC (31.0-37.0) g/dL RDW (11.5-15.5) % Plt Count (150-450) k/uL APTT (22.0-30.0) sec Potassium (3.5-5.1) mmol/L Chloride (98-107) mmol/L Carbon Dioxide (22-30) mmol/L BUN (7-17) mg/dL Creatinine (0.52-1.04) mg/dL POC Glucose (mg/dL) 152 H 148 H (75-99) mg/dL Calcium (8.4-10.2) mg/dL Troponin I (0.000-0.034) ng/mL Urine Appearance Cloudy H (Clear) Urine Protein 1+ H (Negative) Urine Nitrite Positive H (Negative) Urine Bilirubin 1+ H (Negative) Urine WBC 13 H (0-5) /hpf Urine Bacteria Many H (None) /hpf Urine Mucus Many H (None) /hpf 05/23/17 05/23/17 Range/Units 19:15 20:41 RBC (3.80-5.40) m/uL Hgb (11.4-16.0) gm/dL Hct (34.0-46.0) % MCV (80.0-100.0) fL MCHC (31.0-37.0) g/dL RDW (11.5-15.5) % Plt Count (150-450) k/uL APTT 60.4 H (22.0-30.0) sec Potassium (3.5-5.1) mmol/L Chloride (98-107) mmol/L Carbon Dioxide (22-30) mmol/L BUN (7-17) mg/dL Creatinine (0.52-1.04) mg/dL POC Glucose (mg/dL) 196 H (75-99) mg/dL Calcium (8.4-10.2) mg/dL Troponin I (0.000-0.034) ng/mL Urine Appearance (Clear) Urine Protein (Negative) Urine Nitrite (Negative) Urine Bilirubin (Negative) Urine WBC (0-5) /hpf Urine Bacteria (None) /hpf Urine Mucus (None) /hpf Diabetes panel 05/23/17 05/23/17 Range/Units 08:13 14:15 Sodium 145 (137-145) mmol/L Potassium 6.1 H 4.6 (3.5-5.1) mmol/L Chloride 116 H (98-107) mmol/L Carbon Dioxide 9 L* (22-30) mmol/L BUN 37 H (7-17) mg/dL Creatinine 3.59 H (0.52-1.04) mg/dL Glucose 90 (74-99) mg/dL Calcium 7.8 L (8.4-10.2) mg/dL Calcium panel 05/23/17 Range/Units 08:13 Calcium 7.8 L (8.4-10.2) mg/dL Pituitary panel 05/23/17 05/23/17 Range/Units 08:13 14:15 Sodium 145 (137-145) mmol/L Potassium 6.1 H 4.6 (3.5-5.1) mmol/L Chloride 116 H (98-107) mmol/L Carbon Dioxide 9 L* (22-30) mmol/L BUN 37 H (7-17) mg/dL Creatinine 3.59 H (0.52-1.04) mg/dL Glucose 90 (74-99) mg/dL Calcium 7.8 L (8.4-10.2) mg/dL Adrenal panel 05/23/17 05/23/17 Range/Units 08:13 14:15 Sodium 145 (137-145) mmol/L Potassium 6.1 H 4.6 (3.5-5.1) mmol/L Chloride 116 H (98-107) mmol/L Carbon Dioxide 9 L* (22-30) mmol/L BUN 37 H (7-17) mg/dL Creatinine 3.59 H (0.52-1.04) mg/dL Glucose 90 (74-99) mg/dL Calcium 7.8 L (8.4-10.2) mg/dL Assessment and Plan (1) Abdominal pain Narrative/Plan: Thanks for the patient's abdominal pain currently is resolved. Her enzyme elevation is likely on the basis of low flow ischemia or possible passive congestion related to CHF. Plan repeat labs tomorrow. If enzyme elevation persists consider ultrasound gallbladder and GI evaluation. We'll follow with you. Current Visit: Yes Status: Acute Code(s): R10.9 - UNSPECIFIED ABDOMINAL PAIN SNOMED Code(s): 93010857
[2017-05-24] MEDS ORDERED: FUROSEMIDE 10 MG/ML 4 ML VIAL IV STA ×2 (01:55→11:15)
[2017-05-24] MEDS: FAMOTIDINE 20 MG TAB PO SCH (02:51)
[2017-05-24] MEDS ORDERED: DEXTROSE 5% IN WATER 1,000 ML with SODIUM BICARB (1 MEQ/ML) 150 ML IV ONE (03:25)
[2017-05-24 05:55] LABS: Anisocytosis Moderate; Basophils % (A) 0 %; Eosinophils # (A) 0.2 k/uL (0-0.7); Eosinophils % (A) 1 %; HCT 37.9 % (34.0-46.0); HGB 11.6 gm/dL (11.4-16.0); Hypochromasia Slight; Lymphocytes # (A) 2.4 k/uL (1.0-4.8); Lymphocytes % (A) 22 %; MCHC 30.5 g/dL (31.0-37.0); Macrocytosis Moderate; Mean Platelet Volume 8.8; Monocytes # (A) 0.5 k/uL (0-1.0); Monocytes % (A) 5 %; Neutrophils # (A) 7.6 k/uL (1.3-7.7); Neutrophils % (A) 70 %; Platelet Count 150 k/uL (150-450); RBC 3.72 m/uL (3.80-5.40); RDW 20.3 % (11.5-15.5); WBC 10.8 k/uL (3.8-10.6)
[2017-05-24 05:57] LABS: MCV 101.7 fL (80.0-100.0)
[2017-05-24 06:18] LABS: Albumin 2.3 g/dL (3.5-5.0); Calcium 7.4 mg/dL (8.4-10.2); Magnesium 1.6 mg/dL (1.6-2.3); Potassium 3.7 mmol/L (3.5-5.1); Total Bilirubin 0.7 mg/dL (0.2-1.3); Total Protein 5.1 g/dL (6.3-8.2)
[2017-05-24] MEDS ORDERED: MAGNESIUM SULFATE-D5W PMX 1 GM in DEXTROSE/WATER 1 100ML.BAG IVPB ONE (07:00)
[2017-05-24] MEDS: IPRATROPIUM-ALBUTEROL 3 ML NEB INHALATION SCH (07:11)
--- NOTE | 2017-05-24 08:31 | P.PN ---
Subjective Progress Note Date: 05/24/17 Principal diagnosis: Hypotension, atrial fibrillation Progress note dated 05/24/2017 This is a 76-year-old female who I saw yesterday. She was brought over from the floor to the ICU yesterday on the . The patient was apparently having some hypotensive episodes over there. Cardiology wanted to bring her over here for some dobutamine and/or Primacor. They're hoping to improve her cardiac output. When she got here, she was quite hypotensive. My nurse practitioner attempted a heart line but there was no good palpable pulsatile it was not even attempted. She felt like her heart was racing. She does have atrial fibrillation. Her heart rate about 1 38 bpm. Saturations were also low. Anyway, it appears that over the night, she's become a DO NOT RESUSCITATE. Also , there is some talk from the family about making her hospice patient. She looks very moribund they're in the ICU room 611 bed 1. She's very lethargic and somnolent. Does respond. Does not appear to be any pain. Objective - Vital Signs Vital signs: Vital Signs Temp 97.7 F 05/24/17 04:00 Pulse 135 H 05/24/17 07:24 Resp 13 05/24/17 07:00 BP 91/51 05/24/17 07:00 Pulse Ox 99 05/24/17 07:00 Intake & Output 05/23/17 05/24/17 05/24/17 18:59 06:59 18:59 Intake Total 758.086 4774.05 100 Output Total 230 175 0 Balance 156.017 2876.05 100 Weight 71 kg 66.9 kg Intake: IV 200 1200 100 Dextrose 5% in Water 1, 200 1200 100 000 ml @ 100 mls/hr IV . [id number] ONE with Sodium Bicarb (1 Meq/ml) 150 ml Rx#:[id number] Intake, IV Titration 136.619 18.05 Amount Heparin Sod,Pork in 0.45% 136.619 NaCl 25,000 unit In 0.45 % NaCl 1 500ml.bag @ 12 UNITS/KG/HR 14.65 mls/hr IV .Q24H [facility] Rx#: [id number] Norepinephrin 16 mg-0.9% 18.05 Ns Pmx 16 mg In 250 ml @ Titrate IV .Q0M [facility] Rx#: [id number] Oral 360 Output: Urine 230 172 0 Stool 3 Other: Voiding Method Indwelling Catheter Indwelling Catheter # Voids 1 # Bowel Movements 1 - Exam Very ill-appearing. Very sleepy and lethargic but she does arouse. HEENT examination is grossly unremarkable. Mucous membranes are moist. No oral lesions. Neck supple. Full range of motion. No adenopathy thyromegaly or neck vein distention. Cardiovascular examination reveals irregular rhythm rate. Heart rate is 138 . S1-S2 normal. No S3 or S4. No discernible murmur noted. Lungs reveal diffuse coarse rhonchi. Bibasilar crackles are noted. Breath sounds are equal. No wheezes. Abdomen soft bowel sounds are heard. No masses or tenderness. Extremities are intact. No cyanosis clubbing or edema. Skin is without rash or lesion. Neurologic examination is difficult to assess because she still somnolent. She does move all 4 extremities. - Labs CBC & Chem 7: 05/24/17 05:30 05/24/17 05:30 Labs: Abnormal Lab Results - Last 24 Hours (Table) 05/23/17 05/23/17 05/23/17 Range/Units 08:13 08:13 14:15 WBC (3.8-10.6) k/uL RBC 3.02 L (3.80-5.40) m/uL Hgb 9.6 L (11.4-16.0) gm/dL Hct 32.2 L (34.0-46.0) % MCV 106.7 H (80.0-100.0) fL MCHC 29.8 L (31.0-37.0) g/dL RDW 20.3 H (11.5-15.5) % Plt Count 105 L (150-450) k/uL APTT 42.1 H (22.0-30.0) sec Potassium 6.1 H (3.5-5.1) mmol/L Chloride 116 H (98-107) mmol/L Carbon Dioxide 9 L* (22-30) mmol/L BUN 37 H (7-17) mg/dL Creatinine 3.59 H (0.52-1.04) mg/dL Glucose (74-99) mg/dL POC Glucose (mg/dL) (75-99) mg/dL Calcium 7.8 L (8.4-10.2) mg/dL AST (14-36) U/L ALT (9-52) U/L Alkaline Phosphatase (38-126) U/L Total Protein (6.3-8.2) g/dL Albumin (3.5-5.0) g/dL Urine Appearance (Clear) Urine Protein (Negative) Urine Nitrite (Negative) Urine Bilirubin (Negative) Urine WBC (0-5) /hpf Urine Bacteria (None) /hpf Urine Mucus (None) /hpf 05/23/17 05/23/17 05/23/17 Range/Units 14:23 17:35 18:14 WBC (3.8-10.6) k/uL RBC (3.80-5.40) m/uL Hgb (11.4-16.0) gm/dL Hct (34.0-46.0) % MCV (80.0-100.0) fL MCHC (31.0-37.0) g/dL RDW (11.5-15.5) % Plt Count (150-450) k/uL APTT (22.0-30.0) sec Potassium (3.5-5.1) mmol/L Chloride (98-107) mmol/L Carbon Dioxide (22-30) mmol/L BUN (7-17) mg/dL Creatinine (0.52-1.04) mg/dL Glucose (74-99) mg/dL POC Glucose (mg/dL) 152 H 148 H (75-99) mg/dL Calcium (8.4-10.2) mg/dL AST (14-36) U/L ALT (9-52) U/L Alkaline Phosphatase (38-126) U/L Total Protein (6.3-8.2) g/dL Albumin (3.5-5.0) g/dL Urine Appearance Cloudy H (Clear) Urine Protein 1+ H (Negative) Urine Nitrite Positive H (Negative) Urine Bilirubin 1+ H (Negative) Urine WBC 13 H (0-5) /hpf Urine Bacteria Many H (None) /hpf Urine Mucus Many H (None) /hpf 05/23/17 05/23/17 05/24/17 Range/Units 19:15 20:41 05:30 WBC (3.8-10.6) k/uL RBC (3.80-5.40) m/uL Hgb (11.4-16.0) gm/dL Hct (34.0-46.0) % MCV (80.0-100.0) fL MCHC (31.0-37.0) g/dL RDW (11.5-15.5) % Plt Count (150-450) k/uL APTT 60.4 H (22.0-30.0) sec Potassium (3.5-5.1) mmol/L Chloride 109 H (98-107) mmol/L Carbon Dioxide 21 L (22-30) mmol/L BUN 42 H (7-17) mg/dL Creatinine 3.70 H (0.52-1.04) mg/dL Glucose 167 H (74-99) mg/dL POC Glucose (mg/dL) 196 H (75-99) mg/dL Calcium 7.4 L (8.4-10.2) mg/dL AST 963 H (14-36) U/L ALT 339 H (9-52) U/L Alkaline Phosphatase 136 H (38-126) U/L Total Protein 5.1 L (6.3-8.2) g/dL Albumin 2.3 L (3.5-5.0) g/dL Urine Appearance (Clear) Urine Protein (Negative) Urine Nitrite (Negative) Urine Bilirubin (Negative) Urine WBC (0-5) /hpf Urine Bacteria (None) /hpf Urine Mucus (None) /hpf 05/24/17 05/24/17 Range/Units 05:30 05:31 WBC 10.8 H (3.8-10.6) k/uL RBC 3.72 L (3.80-5.40) m/uL Hgb (11.4-16.0) gm/dL Hct (34.0-46.0) % MCV 101.7 H D (80.0-100.0) fL MCHC 30.5 L (31.0-37.0) g/dL RDW 20.3 H (11.5-15.5) % Plt Count (150-450) k/uL APTT 67.5 H (22.0-30.0) sec Potassium (3.5-5.1) mmol/L Chloride (98-107) mmol/L Carbon Dioxide (22-30) mmol/L BUN (7-17) mg/dL Creatinine (0.52-1.04) mg/dL Glucose (74-99) mg/dL POC Glucose (mg/dL) (75-99) mg/dL Calcium (8.4-10.2) mg/dL AST (14-36) U/L ALT (9-52) U/L Alkaline Phosphatase (38-126) U/L Total Protein (6.3-8.2) g/dL Albumin (3.5-5.0) g/dL Urine Appearance (Clear) Urine Protein (Negative) Urine Nitrite (Negative) Urine Bilirubin (Negative) Urine WBC (0-5) /hpf Urine Bacteria (None) /hpf Urine Mucus (None) /hpf Assessment and Plan Assessment: Assessment Atrial fibrillation/rapid ventricular response, now with a controlled rate below 100 Hypotension History of coronary artery disease History of CHF Possible history of COPD secondary to previous tobacco use Diabetes mellitus GERD History of GI bleed Hyperlipidemia Hypertension Previous history of myocardial infarction History of anemia Previous stent placement service CAD Multiple previous surgeries Previous history of tobacco use Acute kidney injury Anion gap metabolic acidosis secondary to renal failure Plan: Plan dated 05/23/2017 I will continue to follow this patient while in the ICU. The patient appears to be relatively stable this time although blood pressures are low. She is in atrial fibrillation but her ventricular response rate is in the 90s. Her extremities are not cold. Apparently the plan per cardiology is to start the patient on inotropic agent such as dobutamine and/or Primacor. She is stable from the pulmonary standpoint. She has a pretty significant anion gap metabolic acidosis from renal failure. Labs x-rays a medications are reviewed. Prognosis is guarded. Plan dated 05/24/2017 The patient's currently on O2 at 2 L by nasal cannula. The patient's IV is dextrose with 3 ampules of sodium bicarbonate at 100 mL an hour. The patient's also on heparin via weightbase protocol, norepinephrine at 5 mcg/m and Primacor at 0.3 mics per kilogram per minute. The patient clinically looks very poor. She is poorly responsive. She does arouse. Her extremities are cool. There is no mottling. Overall prognosis remains poor. She was made a DO NOT RESUSCITATE yesterday. There is some talk that there might be a move towards hospice or palliative care referral. That has not yet been done. We'll continue to follow. Prognosis is poor. Critical care time 32 minutes Time with Patient: Greater than 30
[2017-05-24] MEDS: SUCRALFATE 1 GM TAB PO SCH (08:57)
[2017-05-24] MEDS: CLOPIDOGREL 75 MG TAB PO SCH (08:57)
[2017-05-24] MEDS: NYSTATIN 100,000 UNIT/GM POWD 15 GM TOPICAL SCH (08:57)
[2017-05-24] MEDS: metroNIDAZOLE 500 MG TAB PO SCH (08:57)
[2017-05-24] MEDS: SODIUM BICARBONATE TAB 650 MG TAB PO SCH (08:57)
[2017-05-24] MEDS: FLUCONAZOLE ORAL SUSP 1,400 MG/35 ML BOTTLE PO SCH (08:58)
[2017-05-24] MEDS ORDERED: cefTRIAXone IN SWFI 1,000 MG/10 ML SYRINGE IVP SCH (09:00)
[2017-05-24 09:20] VITALS: TEMP 97.6
--- NOTE | 2017-05-24 10:37 | P.PN ---
Subjective Patient is seen in follow-up for acute kidney injury and hyperkalemia. Potassium level is down to 3.7 and creatinine is at 3.7 today. She is currently on 18 mics of levo fed. Her ejection fraction is 20%. She is also noted to be in atrial fibrillation with RVR. She remains oliguric. She did receive a dose of Lasix 20 mg last night with no significant response in her urine output. She is currently maintained on a Primacor drip. Family is present at bedside. Patient is awake and alert. Vital signs are stable. General: The patient appeared well nourished and normally developed. HEENT: Head exam is unremarkable. Neck is without jugular venous distension. LUNGS: Lungs are clear to auscultation and percussion. Breath sounds decreased. HEART: Irregular rate and rhythm. ABDOMEN: Abdominal exam reveals normal bowel sounds. Non-tender and non- distended. No evidence of peritonitis. EXTREMITITES: No clubbing, cyanosis, or edema. Objective - Vital Signs Vital signs: Vital Signs Temp 97.6 F 05/24/17 08:00 Pulse 154 H 05/24/17 10:00 Resp 16 05/24/17 10:00 BP 100/76 05/24/17 10:00 Pulse Ox 98 05/24/17 10:00 Intake & Output 05/23/17 05/24/17 05/24/17 18:59 06:59 18:59 Intake Total 468.474 3531.05 400 Output Total 230 175 35 Balance 398.871 2765.05 365 Weight 71 kg 66.9 kg Intake: IV 200 1200 400 Dextrose 5% in Water 1, 200 1200 400 000 ml @ 100 mls/hr IV . [id number] ONE with Sodium Bicarb (1 Meq/ml) 150 ml Rx#:[id number] Intake, IV Titration 136.619 18.05 Amount Heparin Sod,Pork in 0.45% 136.619 NaCl 25,000 unit In 0.45 % NaCl 1 500ml.bag @ 12 UNITS/KG/HR 14.65 mls/hr IV .Q24H [facility] Rx#: [id number] Norepinephrin 16 mg-0.9% 18.05 Ns Pmx 16 mg In 250 ml @ Titrate IV .Q0M [facility] Rx#: [id number] Oral 360 Output: Urine 230 172 35 Stool 3 Other: Voiding Method Indwelling Catheter Indwelling Catheter # Voids 1 # Bowel Movements 1 - Labs CBC & Chem 7: 05/24/17 05:30 05/24/17 05:30 Labs: Abnormal Lab Results - Last 24 Hours (Table) 05/23/17 05/23/17 05/23/17 Range/Units 14:15 14:23 17:35 WBC (3.8-10.6) k/uL RBC 3.02 L (3.80-5.40) m/uL Hgb 9.6 L (11.4-16.0) gm/dL Hct 32.2 L (34.0-46.0) % MCV 106.7 H (80.0-100.0) fL MCHC 29.8 L (31.0-37.0) g/dL RDW 20.3 H (11.5-15.5) % Plt Count 105 L (150-450) k/uL APTT (22.0-30.0) sec Chloride (98-107) mmol/L Carbon Dioxide (22-30) mmol/L BUN (7-17) mg/dL Creatinine (0.52-1.04) mg/dL Glucose (74-99) mg/dL POC Glucose (mg/dL) 152 H (75-99) mg/dL Calcium (8.4-10.2) mg/dL AST (14-36) U/L ALT (9-52) U/L Alkaline Phosphatase (38-126) U/L Total Protein (6.3-8.2) g/dL Albumin (3.5-5.0) g/dL Urine Appearance Cloudy H (Clear) Urine Protein 1+ H (Negative) Urine Nitrite Positive H (Negative) Urine Bilirubin 1+ H (Negative) Urine WBC 13 H (0-5) /hpf Urine Bacteria Many H (None) /hpf Urine Mucus Many H (None) /hpf 05/23/17 05/23/17 05/23/17 Range/Units 18:14 19:15 20:41 WBC (3.8-10.6) k/uL RBC (3.80-5.40) m/uL Hgb (11.4-16.0) gm/dL Hct (34.0-46.0) % MCV (80.0-100.0) fL MCHC (31.0-37.0) g/dL RDW (11.5-15.5) % Plt Count (150-450) k/uL APTT 60.4 H (22.0-30.0) sec Chloride (98-107) mmol/L Carbon Dioxide (22-30) mmol/L BUN (7-17) mg/dL Creatinine (0.52-1.04) mg/dL Glucose (74-99) mg/dL POC Glucose (mg/dL) 148 H 196 H (75-99) mg/dL Calcium (8.4-10.2) mg/dL AST (14-36) U/L ALT (9-52) U/L Alkaline Phosphatase (38-126) U/L Total Protein (6.3-8.2) g/dL Albumin (3.5-5.0) g/dL Urine Appearance (Clear) Urine Protein (Negative) Urine Nitrite (Negative) Urine Bilirubin (Negative) Urine WBC (0-5) /hpf Urine Bacteria (None) /hpf Urine Mucus (None) /hpf 05/24/17 05/24/17 05/24/17 Range/Units 05:30 05:30 05:31 WBC 10.8 H (3.8-10.6) k/uL RBC 3.72 L (3.80-5.40) m/uL Hgb (11.4-16.0) gm/dL Hct (34.0-46.0) % MCV 101.7 H D (80.0-100.0) fL MCHC 30.5 L (31.0-37.0) g/dL RDW 20.3 H (11.5-15.5) % Plt Count (150-450) k/uL APTT 67.5 H (22.0-30.0) sec Chloride 109 H (98-107) mmol/L Carbon Dioxide 21 L (22-30) mmol/L BUN 42 H (7-17) mg/dL Creatinine 3.70 H (0.52-1.04) mg/dL Glucose 167 H (74-99) mg/dL POC Glucose (mg/dL) (75-99) mg/dL Calcium 7.4 L (8.4-10.2) mg/dL AST 963 H (14-36) U/L ALT 339 H (9-52) U/L Alkaline Phosphatase 136 H (38-126) U/L Total Protein 5.1 L (6.3-8.2) g/dL Albumin 2.3 L (3.5-5.0) g/dL Urine Appearance (Clear) Urine Protein (Negative) Urine Nitrite (Negative) Urine Bilirubin (Negative) Urine WBC (0-5) /hpf Urine Bacteria (None) /hpf Urine Mucus (None) /hpf Assessment and Plan Plan: Assessment: #1. Oliguric acute kidney injury secondary to ischemic ATN secondary to hypotension and hemodynamic instability. Creatinine was 3.1 on admission and output 3.7 today. #2. Chronic kidney disease stage III with baseline creatinine in the range of 1.2-1.4. Etiology is likely diabetic kidney disease. She is noted to have small sized kidneys with cortical thinning suggestive of underlying chronic kidney disease. #3. Atrial fibrillation with RVR. #4. Hypotension related to intravascular volume depletion and underlying cardiac status. Currently on 18 mics of levofed. #5. Recent C. diff colitis maintained on Flagyl. #6. Metabolic acidosis secondary to acute kidney injury and diarrhea. #7. Hypomagnesemia from GI losses. This was replaced. Plan: Continue isotonic sodium bicarbonate drip to be run at 100 mL an hour. Lasix 40 mg IV once now. Maintain oral sodium bicarbonate 650 mg by Alley. Avoid nephrotoxic agents and hypotensive episodes. Discontinued Fleet enemas. Continue to hold CELESTINA inhibitor. Continue to monitor renal function and urine output. I did discuss with the family the potential need for renal replacement therapy due to oliguria and worsening renal function. At this point dictation for no invasive procedures and will also be meeting with hospice.
[2017-05-24] MEDS: INSULIN ASPART 100 UNIT/ML 1 ML 10 ML VIAL SQ SCH (10:43)
[2017-05-24 10:44] LABS: Glucose,Whole Blood 180 mg/dL (75-99)
[2017-05-24 12:22] VITALS: BP 99/65; PULSE 156; RESP 31
--- NOTE | 2017-05-24 12:29 | PN ---
PROGRESS NOTE This is a 76-year-old lady with multiple comorbid conditions. Yesterday she had an acute renal failure type picture with also a poor organ perfusion type picture with ejection fraction of less than 20% with abnormal liver function test, acute renal failure type picture. We tried dobutamine, but this was not available. Primacor at the 0.3 mcg has been initiated. Her blood pressure is in the 70s. I am recommending that we increase the IV Levophed to increase her pressure in the 90s. Family is considering hospice. Prognosis is poor. Renal function remains poor. Urine output is scanty. Blood pressure is 70 systolic, pulse rate is in the 120s atrial fib with wide QRS. S1, S2 heard normally. Short systolic murmur noted. Tachycardia noted. Lungs reveal diminished air entry. Abdomen is soft. Lower extremities reveal diminished pulses. Rest of physical examination is unchanged. Patient has poor prognosis. I am recommending IV Levophed to support blood pressure. Overall prognosis remains poor. We will continue the currently outlined management with increase in Levophed. MMODL / IJN: [id number] /
--- NOTE | 2017-05-24 12:58 | P.PN ---
Subjective Progress Note Date: 05/24/17 Principal diagnosis: Abdominal pain Patient denies abdominal pain. The patient's heart rate remains elevated. She has made no urine. Family has decided to change CODE STATUS to hospice measures only. Objective - Vital Signs Vital signs: Vital Signs Temp 97.6 F 05/24/17 08:00 Pulse 156 H 05/24/17 12:00 Resp 31 H 05/24/17 12:00 BP 99/65 05/24/17 12:00 Pulse Ox 98 05/24/17 12:00 Intake & Output 05/23/17 05/24/17 05/24/17 18:59 06:59 18:59 Intake Total 580.246 0885.05 510 Output Total 230 175 65 Balance 472.521 5893.05 445 Weight 71 kg 66.9 kg Intake: IV 200 1200 410 Dextrose 5% in Water 1, 200 1200 410 000 ml @ 100 mls/hr IV . [id number] ONE with Sodium Bicarb (1 Meq/ml) 150 ml Rx#:[id number] Intake, IV Titration 136.619 18.05 100 Amount Heparin Sod,Pork in 0.45% 136.619 NaCl 25,000 unit In 0.45 % NaCl 1 500ml.bag @ 12 UNITS/KG/HR 14.65 mls/hr IV .Q24H [facility] Rx#: [id number] Milrinone-D5w Pmx 20 mg 100 In Dextrose/Water 1 100ml .bag @ 0.3 MCG/KG/MIN 6. 39 mls/hr IV .[id number] [facility] Rx#:[id number] Norepinephrin 16 mg-0.9% 18.05 Ns Pmx 16 mg In 250 ml @ Titrate IV .Q0M [facility] Rx#: [id number] Oral 360 Output: Urine 230 172 65 Stool 3 Other: Voiding Method Indwelling Catheter Indwelling Catheter Indwelling Catheter # Voids 1 # Bowel Movements 1 - Exam Abdomen: Soft, nontender, nondistended - Labs CBC & Chem 7: 05/24/17 05:30 05/24/17 05:30 Labs: Abnormal Lab Results - Last 24 Hours (Table) 05/23/17 05/23/17 05/23/17 Range/Units 14:15 14:23 17:35 WBC (3.8-10.6) k/uL RBC 3.02 L (3.80-5.40) m/uL Hgb 9.6 L (11.4-16.0) gm/dL Hct 32.2 L (34.0-46.0) % MCV 106.7 H (80.0-100.0) fL MCHC 29.8 L (31.0-37.0) g/dL RDW 20.3 H (11.5-15.5) % Plt Count 105 L (150-450) k/uL APTT (22.0-30.0) sec Chloride (98-107) mmol/L Carbon Dioxide (22-30) mmol/L BUN (7-17) mg/dL Creatinine (0.52-1.04) mg/dL Glucose (74-99) mg/dL POC Glucose (mg/dL) 152 H (75-99) mg/dL Calcium (8.4-10.2) mg/dL AST (14-36) U/L ALT (9-52) U/L Alkaline Phosphatase (38-126) U/L Total Protein (6.3-8.2) g/dL Albumin (3.5-5.0) g/dL Urine Appearance Cloudy H (Clear) Urine Protein 1+ H (Negative) Urine Nitrite Positive H (Negative) Urine Bilirubin 1+ H (Negative) Urine WBC 13 H (0-5) /hpf Urine Bacteria Many H (None) /hpf Urine Mucus Many H (None) /hpf 05/23/17 05/23/17 05/23/17 Range/Units 18:14 19:15 20:41 WBC (3.8-10.6) k/uL RBC (3.80-5.40) m/uL Hgb (11.4-16.0) gm/dL Hct (34.0-46.0) % MCV (80.0-100.0) fL MCHC (31.0-37.0) g/dL RDW (11.5-15.5) % Plt Count (150-450) k/uL APTT 60.4 H (22.0-30.0) sec Chloride (98-107) mmol/L Carbon Dioxide (22-30) mmol/L BUN (7-17) mg/dL Creatinine (0.52-1.04) mg/dL Glucose (74-99) mg/dL POC Glucose (mg/dL) 148 H 196 H (75-99) mg/dL Calcium (8.4-10.2) mg/dL AST (14-36) U/L ALT (9-52) U/L Alkaline Phosphatase (38-126) U/L Total Protein (6.3-8.2) g/dL Albumin (3.5-5.0) g/dL Urine Appearance (Clear) Urine Protein (Negative) Urine Nitrite (Negative) Urine Bilirubin (Negative) Urine WBC (0-5) /hpf Urine Bacteria (None) /hpf Urine Mucus (None) /hpf 05/24/17 05/24/17 05/24/17 Range/Units 05:30 05:30 05:31 WBC 10.8 H (3.8-10.6) k/uL RBC 3.72 L (3.80-5.40) m/uL Hgb (11.4-16.0) gm/dL Hct (34.0-46.0) % MCV 101.7 H D (80.0-100.0) fL MCHC 30.5 L (31.0-37.0) g/dL RDW 20.3 H (11.5-15.5) % Plt Count (150-450) k/uL APTT 67.5 H (22.0-30.0) sec Chloride 109 H (98-107) mmol/L Carbon Dioxide 21 L (22-30) mmol/L BUN 42 H (7-17) mg/dL Creatinine 3.70 H (0.52-1.04) mg/dL Glucose 167 H (74-99) mg/dL POC Glucose (mg/dL) (75-99) mg/dL Calcium 7.4 L (8.4-10.2) mg/dL AST 963 H (14-36) U/L ALT 339 H (9-52) U/L Alkaline Phosphatase 136 H (38-126) U/L Total Protein 5.1 L (6.3-8.2) g/dL Albumin 2.3 L (3.5-5.0) g/dL Urine Appearance (Clear) Urine Protein (Negative) Urine Nitrite (Negative) Urine Bilirubin (Negative) Urine WBC (0-5) /hpf Urine Bacteria (None) /hpf Urine Mucus (None) /hpf 05/24/17 Range/Units 10:41 WBC (3.8-10.6) k/uL RBC (3.80-5.40) m/uL Hgb (11.4-16.0) gm/dL Hct (34.0-46.0) % MCV (80.0-100.0) fL MCHC (31.0-37.0) g/dL RDW (11.5-15.5) % Plt Count (150-450) k/uL APTT (22.0-30.0) sec Chloride (98-107) mmol/L Carbon Dioxide (22-30) mmol/L BUN (7-17) mg/dL Creatinine (0.52-1.04) mg/dL Glucose (74-99) mg/dL POC Glucose (mg/dL) 180 H (75-99) mg/dL Calcium (8.4-10.2) mg/dL AST (14-36) U/L ALT (9-52) U/L Alkaline Phosphatase (38-126) U/L Total Protein (6.3-8.2) g/dL Albumin (3.5-5.0) g/dL Urine Appearance (Clear) Urine Protein (Negative) Urine Nitrite (Negative) Urine Bilirubin (Negative) Urine WBC (0-5) /hpf Urine Bacteria (None) /hpf Urine Mucus (None) /hpf Assessment and Plan (1) Abdominal pain Narrative/Plan: Patient unfortunately has not shown improvement despite fairly aggressive medical therapy in the last 24 hours. Plans for hospice are not unreasonable. Will sign off at this point. Status: Acute Code(s): R10.9 - UNSPECIFIED ABDOMINAL PAIN SNOMED Code(s): 38302461
--- NOTE | 2017-05-25 11:33 | P.DS ---
Providers Date of admission: 05/22/17 12:34 Expected date of discharge: 05/24/17 Attending physician: Robert Sher Consults: 05/22/17 12:35 Consult Physician Urgent Consulting Provider: Christoph Veras Consult Reason/Comments: New-onset atrial fibrillation Do you want consulting provider notified?: Already Contacted 05/22/17 16:30 Consult Physician Routine Consulting Provider: Davon Yang Consult Reason/Comments: abdominal pain persisitent increase lft Do you want consulting provider notified?: Yes 05/22/17 16:34 Consult Physician Routine Consulting Provider: Dayna Flowers Consult Reason/Comments: acute kidey failure atn Do you want consulting provider notified?: Yes 05/23/17 13:09 Consult Physician Routine Consulting Provider: Francois Mae Consult Reason/Comments: intensive care management Do you want consulting provider notified?: Yes Primary care physician: Robert Sher Hospital Course: this is a 76-year-old pleasant gentleman patient of / dr Pittman. Currently resides arm [facility] and was followed by Dr. Sher and family requested our service to follow the patient. Patient was admitted to emergency room withunderlying history of COPD, CAD, CK D, CHF, recent seed the colitis, and esophageal candidiasis for which she is managed and was in the hospital for several admissions secondary to the following: Recent admission was on 2017 when the patient developed dehydration and respiratory failure and was diagnosed to have urinary tract infection. She was sent home on oral antibiotic , at home she fell down and after diarrhea episodes, and developed a left humeral fracture requiring ORIF on 04/19/2017.she was later discharged to [facility] the [place], patient developed diarrhea and had laryngitis mental status changes and was noted to be hypoglycemic, patient was subsequently admitted and was diagnosed to have dehydration with diarrhea on 05/04/2017 secondary to C. diff colitis. patiently currently resides at [facility] from 05/09/[address] Sher for skilled therapies. She had been sent into the emergency room after have spoken to the nurse regarding a sick call at [facility], patient was having palpitations, and was hypotensive when evaluated, systolic blood pressure of 80 , was hypoxemic, patient was having chest pain and shortness of breath, palpitations, and one was seen in emergency room she was noted to be in atrial fibrillation new onset, with rapid ventricular response, hemodynamic instability with circulatory collapse and hypotension. Patient's daughter is at bedside she mentioned that she still having intermittent diarrhea, however patient is on laxatives. Unknown whether the patient has some fever, she does have abdominal cramping mainly periumbilical region, decreased appetite, no nausea no vomiting,she is on Diflucan for esophageal candidiasis for which she is to complete at least 3 weeks of Diflucan orally. most of the information comes from the daughter. She has a sling on the left side, pain is controlled in the left arm wound is healed patient has a healing decubitus ulcer right sacrum 0.5 cm shallow scab no cellulitis in the emergency roomhe was noted to be hypotensive, anemic 9.8, without any leukkocytosis of 9.2,creatinine of 3.13 from a previous of 1.89and in atrial fibrillation with rapid ventricular rate, heart rate in the 150s, troponin was 0.199, liver function tests elevated with AST of 894, ALT of 237, and alkaline phosphatase of 137patient denies any right upper quadrant pain,or jaundice. Bilirubin is normal NT proBNP of 103,000hypoxemia in the low77 room air 05/23: CAT scan of the abdomen and pelvis without IV contrast revealed bilateral pleural effusions resulting compressive atelectasis in both lower lobes. Superimposed infection cannot be definitively excluded. Atrophic kidneys. A 6 cm cystic structure superior to the left kidney may represent exophytic cyst. 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 Nonemergent renal ultrasound is recommended. Suspected mild wall thickening of the ascending and transverse colon raising concern for infectious versus inflammatory colitis. Aneurysmal dilatation of the infrarenal aorta measuring up to 2.8 cm in diameter. Aneurysmal dilatation of the descending thoracic aorta measuring 3.5 cm. Moderate or severe vascular calcifications in the intra-abdominal aorta and branches. Nonemergent CT of the chest and abdomen recommended. Subtle nodular contour of liver suggest early cirrhosis. Probable gallbladder sludge. Dr. Yang is on consult. Patient is currently on oral Flagyl. Patient is followed by nephrology for non-oliguric acute kidney injury secondary to ischemic ATN secondary to hypotension and hemodynamic instability. IV fluids at 75 mL per hour, sodium bicarb. CO2 9, potassium 6.1, BUN 37 creatinine 3.59. Renal ultrasound has been ordered by nephrology. Patient has been seen by cardiology for A. fib with RVR and currently on Cardizem drip and heparin drip. Echocardiogram reveals EF of less than 20%, severe concentric left ventricular hypertrophy, severe global hypokinesia of LV, trace aortic regurgitation, mild tricuspid regurgitation, no pulmonary hypertension. Plan is for patient to have PICC line placed and start on dobutamine drip, sodium bicarb drip and continue heparin drip. Patient will be transferred into the intensive care unit and consult with Dr. Mae has been added. CODE STATUS clarified with family members at patient's bedside. Plan is for no code but all other aggressive treatment and this may change depending on patient's course. 05/24: Patient is seen in the intensive care unit. She is lethargic and weak. She has been on norepinephrine and Primacor. She is also continued on Lasix drip and was given Lasix 40 mg IV this morning. She has been oliguric. Patient was seen by Dr. gonzalez. Abdominal pain has resolved. Liver enzyme elevation thought to be due to low flow ischemia or passive congestion secondary to her heart failure. Renal ultrasound shows bilateral sequela of medical renal disease and a 1.6 cm left renal cyst. PICC line was placed yesterday. Patient is to have informational meeting with hospice today. Patient has been transitioned over to [facility] hospice care. All aggressive treatment has been stopped. Discharge diagnoses: 1. New-onset atrial fibrillation with rapid ventricular rate, 2. CAD 3. Recent C. diff colitis 4. Abdominal pain toni umbilical, currently nonsurgical 5. Acute hypotension secondary to atrial fibrillation RVR, and diarrhea. 6. Acute hypoxemic respiratory insufficiency presenting with a pulse ox of 91%. 7. Esophageal candidiasis and recent candidal laryngitis status post evaluation by ENT 8. transaminitis with cholestasis 9. Acute kidney failure secondary to ischemic ATN secondary to hypotension and hemodynamic instability with CKD stage III and an ion gap metabolic acidosis. 10. Diabetes mellitus type 2 11. Suspected meningioma C1-C2 spinal columnbased on recent MRI 12. Recent MRI with MRA showing right MCA aneurysm 2 mm and left ICA aneurysm measuring 2 mm 13. recent left humeral fracture secondary to fall at home, ORIF on 04/19/2017 14. Underlying osteoporosis 15. Recent metabolic encephalopathy 16. Moderate protein calorie malnutrition 17. Anemia suspect iron deficiency with anemia of chronic disease 18. Hypertension, 19. Bilateral breast candidal rash PLAN: Continue comfort care measures only. Discharge plan: GIP Under hospice Impression and plan of care have been directed as dictated by the signing physician. Pilar Oliver nurse practitioner acting as scribe for signing physician. Patient Condition at Discharge: Stable Plan - Discharge Summary Discharge Rx Participant: No New Discharge Prescriptions: No Action Repaglinide [Prandin] 1 mg PO BID PRN PRN Reason: FOR CGB > 120 Pantoprazole Sodium 40 mg PO DAILY@0900 Ergocalciferol (Vitamin D2) [Vitamin D2] 50,000 unit PO KEARNS@1700 Cyclobenzaprine [Flexeril] 10 mg PO TID@0600,1400,2200 PRN PRN Reason: Spasms Acetaminophen Tab [Tylenol] 500 mg PO Q6H PRN PRN Reason: Pain Atorvastatin [Lipitor] 40 mg PO HS@2100 Benazepril [Lotensin] 5 mg PO DAILY@0900 Clopidogrel [Plavix] 75 mg PO DAILY@0900 Diazepam [Valium] 2 mg PO BID PRN PRN Reason: Anxiety Famotidine [Pepcid] 20 mg PO DAILY@0600 Metoprolol Tartrate [Lopressor] 25 mg PO BID@0900,2100 Sennosides [Senokot] 8.6 mg PO BID PRN PRN Reason: Constipation Fluconazole [Diflucan] 100 mg PO DAILY 17 Days #34 tab metroNIDAZOLE [Flagyl] 500 mg PO TID 14 Days #42 tab Amitriptyline HCl [Elavil] 10 mg PO HS Bisacodyl [Dulcolax] 10 mg RECTAL DAILY PRN PRN Reason: Constipation [place] Instant Breakfast 1 packet PO BID Isosorbide Mononitrate ER [Imdur] 30 mg PO DAILY Loperamide HCl [Imodium A-D] 4 mg PO DAILY PRN PRN Reason: Loose Stool Magnesium Hydroxide [Milk of Magnesia] 2,400 mg PO DAILY PRN PRN Reason: Constipation Na Phos,M-B/Na Phos,Di-Ba [Fleet Adult] 133 ml RECTAL DAILY PRN PRN Reason: Constipation Ondansetron [Zofran] 4 mg PO Q6H PRN PRN Reason: Nausea And Vomiting Discharge Medication List Pantoprazole Sodium 40 mg PO DAILY@0900 09/16/14 [History] Repaglinide [Prandin] 1 mg PO BID PRN 09/16/14 [History] Acetaminophen Tab [Tylenol] 500 mg PO Q6H PRN 04/18/17 [History] Cyclobenzaprine [Flexeril] 10 mg PO TID@0600,1400,2200 PRN 04/18/17 [History] Ergocalciferol (Vitamin D2) [Vitamin D2] 50,000 unit PO KEARNS@1700 04/18/17 [ History] Atorvastatin [Lipitor] 40 mg PO HS@2100 05/04/17 [History] Benazepril [Lotensin] 5 mg PO DAILY@0900 05/04/17 [History] Clopidogrel [Plavix] 75 mg PO DAILY@0900 05/04/17 [History] Diazepam [Valium] 2 mg PO BID PRN 05/04/17 [History] Famotidine [Pepcid] 20 mg PO DAILY@0600 05/04/17 [History] Metoprolol Tartrate [Lopressor] 25 mg PO BID@0900,2100 05/04/17 [History] Sennosides [Senokot] 8.6 mg PO BID PRN 05/04/17 [History] Fluconazole [Diflucan] 100 mg PO DAILY 17 Days #34 tab 05/09/17 [Rx] metroNIDAZOLE [Flagyl] 500 mg PO TID 14 Days #42 tab 05/09/17 [Rx] Amitriptyline HCl [Elavil] 10 mg PO HS 05/22/17 [History] Bisacodyl [Dulcolax] 10 mg RECTAL DAILY PRN 05/22/17 [History] [place] Instant Breakfast 1 packet PO BID 05/22/17 [History] Isosorbide Mononitrate ER [Imdur] 30 mg PO DAILY 05/22/17 [History] Loperamide HCl [Imodium A-D] 4 mg PO DAILY PRN 05/22/17 [History] Magnesium Hydroxide [Milk of Magnesia] 2,400 mg PO DAILY PRN 05/22/17 [History] Na Phos,M-B/Na Phos,Di-Ba [Fleet Adult] 133 ml RECTAL DAILY PRN 05/22/17 [ History] Ondansetron [Zofran] 4 mg PO Q6H PRN 05/22/17 [History] Follow up Appointment(s)/Referral(s): Robert Sher MD [Primary Care Provider] - 1-2 days Discharge Disposition: DISCH TO [facility]
== END 2017-05-24 12:35 | disposition hospice, inpatient (51) | DRG 308 ==
LOC: EC 09:39 → 6SEL 12:34 → 6ICU 05-23 14:10
PROVIDERS: ADMIT Internal Medicine; ATTEND Internal Medicine
PROC: 02HV33Z Insertion of Infusion Device into Superior Vena Cava, Percutaneous Approach (ICD-10-PCS; principal; 2017-05-23 12:25)
DX: I48.0 Paroxysmal atrial fibrillation (principal); N17.0 Acute kidney failure with tubular necrosis; L89.159 Pressure ulcer of sacral region, unspecified stage; E44.0 Moderate protein-calorie malnutrition; I67.1 Cerebral aneurysm, nonruptured; K83.1 Obstruction of bile duct; E87.2 Acidosis; B37.81 Candidal esophagitis; E11.22 Type 2 diabetes mellitus with diabetic chronic kidney disease; I13.0 Hypertensive heart and chronic kidney disease with heart failure and stage 1 through stage 4 chronic kidney disease, or unspecified chronic kidney disease; Z51.5 Encounter for palliative care; I95.9 Hypotension, unspecified; E11.51 Type 2 diabetes mellitus with diabetic peripheral angiopathy without gangrene; E86.0 Dehydration; E87.5 Hyperkalemia; J44.9 Chronic obstructive pulmonary disease, unspecified; E83.42 Hypomagnesemia; N28.1 Cyst of kidney, acquired; B37.2 Candidiasis of skin and nail; E78.5 Hyperlipidemia, unspecified; F32.9 Major depressive disorder, single episode, unspecified; F41.9 Anxiety disorder, unspecified; I25.10 Atherosclerotic heart disease of native coronary artery without angina pectoris; I25.2 Old myocardial infarction; I44.7 Left bundle-branch block, unspecified; I12.9 Hypertensive chronic kidney disease with stage 1 through stage 4 chronic kidney disease, or unspecified chronic kidney disease; N18.3 Chronic kidney disease, stage 3 (moderate); K21.9 Gastro-esophageal reflux disease without esophagitis; M81.0 Age-related osteoporosis without current pathological fracture; G89.29 Other chronic pain; R74.8 Abnormal levels of other serum enzymes; R19.7 Diarrhea, unspecified; M15.9 Polyosteoarthritis, unspecified; M25.562 Pain in left knee; R10.9 Unspecified abdominal pain; D50.8 Other iron deficiency anemias; D63.8 Anemia in other chronic diseases classified elsewhere; R09.02 Hypoxemia; R06.89 Other abnormalities of breathing; T50.995A Adverse effect of other drugs, medicaments and biological substances, initial encounter; T37.8X5A Adverse effect of other specified systemic anti-infectives and antiparasitics, initial encounter; D32.1 Benign neoplasm of spinal meninges; I08.0 Rheumatic disorders of both mitral and aortic valves; Z66 Do not resuscitate; Z79.02 Long term (current) use of antithrombotics/antiplatelets; Z79.899 Other long term (current) drug therapy; Z88.1 Allergy status to other antibiotic agents; Z91.041 Radiographic dye allergy status; Z88.5 Allergy status to narcotic agent; Z88.0 Allergy status to penicillin; Z88.2 Allergy status to sulfonamides; Z88.8 Allergy status to other drugs, medicaments and biological substances; Z91.048 Other nonmedicinal substance allergy status; Z95.5 Presence of coronary angioplasty implant and graft; Z96.621 Presence of right artificial elbow joint; Z90.710 Acquired absence of both cervix and uterus; Z87.891 Personal history of nicotine dependence; Z86.19 Personal history of other infectious and parasitic diseases; Y92.009 Unspecified place in unspecified non-institutional (private) residence as the place of occurrence of the external cause
CPT/HCPCS: 0; 36415; 36569; 71046; 74176; 76770; 76937; 77001; 80048; 80053; 80074; 81001; 82550; 82553; 83036; 83690; 83735; 83880; 84132; 84484; 85025; 85027; 85610; 85730; 87324; 93005; 93306; 94640; 96361; 96365; 96366; 96368; 96376; 99291

== ENCOUNTER 2017-05-24 12:48 | Inpatient (IN) | payer MEDICAID ==
[2017-05-24] MEDS ORDERED: MORPHINE SULFATE 4 MG/ML SYRINGE ONE ×2 (13:12→13:21)
[2017-05-24] MEDS ORDERED: ONDANSETRON 4 MG/2 ML VIAL IVP PRN (13:34)
[2017-05-24] MEDS ORDERED: ONDANSETRON 4 MG/2 ML VIAL ONE (13:36)
[2017-05-24] MEDS ORDERED: ONDANSETRON 4 MG/2 ML VIAL IM STA (13:37)
[2017-05-24] MEDS ORDERED: ATROPINE OPHTH SOLN 1% 5ML BTL BOTH EYES PRN (13:44)
[2017-05-24] MEDS: MORPHINE SULFATE 4 MG/ML SYRINGE IVP PRN ×2 (17:27→22:02)
[2017-05-25] MEDS ORDERED: ARTIFICIAL TEARS-HYPROMELLOSE DROPS 15 ML BTL BOTH EYES PRN (00:38)
[2017-05-25] MEDS: MORPHINE SULFATE 4 MG/ML SYRINGE IVP PRN ×3 (09:08→22:03)
--- NOTE | 2017-05-25 11:32 | P.HPIM ---
History of Present Illness H&P Date: 05/24/17 this is a 76-year-old pleasant gentleman patient of / dr Pittman. Currently resides arm [facility] and was followed by Dr. Sher and family requested our service to follow the patient. Patient was admitted to emergency room withunderlying history of COPD, CAD, CK D, CHF, recent seed the colitis, and esophageal candidiasis for which she is managed and was in the hospital for several admissions secondary to the following: Recent admission was on 2017 when the patient developed dehydration and respiratory failure and was diagnosed to have urinary tract infection. She was sent home on oral antibiotic , at home she fell down and after diarrhea episodes, and developed a left humeral fracture requiring ORIF on 04/19/2017.she was later discharged to [facility] [place], patient developed diarrhea and had laryngitis mental status changes and was noted to be hypoglycemic, patient was subsequently admitted and was diagnosed to have dehydration with diarrhea on 05/04/2017 secondary to C. diff colitis. patiently currently resides at [facility] from 05/09/[address] Sher for skilled therapies. She had been sent into the emergency room after have spoken to the nurse regarding a sick call at [facility], patient was having palpitations, and was hypotensive when evaluated, systolic blood pressure of 80 , was hypoxemic, patient was having chest pain and shortness of breath, palpitations, and one was seen in emergency room she was noted to be in atrial fibrillation new onset, with rapid ventricular response, hemodynamic instability with circulatory collapse and hypotension. Patient's daughter is at bedside she mentioned that she still having intermittent diarrhea, however patient is on laxatives. Unknown whether the patient has some fever, she does have abdominal cramping mainly periumbilical region, decreased appetite, no nausea no vomiting,she is on Diflucan for esophageal candidiasis for which she is to complete at least 3 weeks of Diflucan orally. most of the information comes from the daughter. She has a sling on the left side, pain is controlled in the left arm wound is healed patient has a healing decubitus ulcer right sacrum 0.5 cm shallow scab no cellulitis in the emergency roomhe was noted to be hypotensive, anemic 9.8, without any leukkocytosis of 9.2,creatinine of 3.13 from a previous of 1.89and in atrial fibrillation with rapid ventricular rate, heart rate in the 150s, troponin was 0.199, liver function tests elevated with AST of 894, ALT of 237, and alkaline phosphatase of 137patient denies any right upper quadrant pain,or jaundice. Bilirubin is normal NT proBNP of 103,000hypoxemia in the low77 room air 05/23: CAT scan of the abdomen and pelvis without IV contrast revealed bilateral pleural effusions resulting compressive atelectasis in both lower lobes. Superimposed infection cannot be definitively excluded. Atrophic kidneys. A 6 cm cystic structure superior to the left kidney may represent exophytic cyst. 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 Nonemergent renal ultrasound is recommended. Suspected mild wall thickening of the ascending and transverse colon raising concern for infectious versus inflammatory colitis. Aneurysmal dilatation of the infrarenal aorta measuring up to 2.8 cm in diameter. Aneurysmal dilatation of the descending thoracic aorta measuring 3.5 cm. Moderate or severe vascular calcifications in the intra-abdominal aorta and branches. Nonemergent CT of the chest and abdomen recommended. Subtle nodular contour of liver suggest early cirrhosis. Probable gallbladder sludge. Dr. Yang is on consult. Patient is currently on oral Flagyl. Patient is followed by nephrology for non-oliguric acute kidney injury secondary to ischemic ATN secondary to hypotension and hemodynamic instability. IV fluids at 75 mL per hour, sodium bicarb. CO2 9, potassium 6.1, BUN 37 creatinine 3.59. Renal ultrasound has been ordered by nephrology. Patient has been seen by cardiology for A. fib with RVR and currently on Cardizem drip and heparin drip. Echocardiogram reveals EF of less than 20%, severe concentric left ventricular hypertrophy, severe global hypokinesia of LV, trace aortic regurgitation, mild tricuspid regurgitation, no pulmonary hypertension. Plan is for patient to have PICC line placed and start on dobutamine drip, sodium bicarb drip and continue heparin drip. Patient will be transferred into the intensive care unit and consult with Dr. Mae has been added. CODE STATUS clarified with family members at patient's bedside. Plan is for no code but all other aggressive treatment and this may change depending on patient's course. 05/24: Patient is seen in the intensive care unit. She is lethargic and weak. She has been on norepinephrine and Primacor. She is also continued on Lasix drip and was given Lasix 40 mg IV this morning. She has been oliguric. Patient was seen by Dr. gonzalez. Abdominal pain has resolved. Liver enzyme elevation thought to be due to low flow ischemia or passive congestion secondary to her heart failure. Renal ultrasound shows bilateral sequela of medical renal disease and a 1.6 cm left renal cyst. PICC line was placed yesterday. Patient is to have informational meeting with hospice today. Patient has been transitioned over to [facility] hospice care. All aggressive treatment has been stopped. Review of Systems ROS unobtainable: due to mental status Past Medical History Past Medical History: Coronary Artery Disease (CAD), Chest Pain / Angina, Heart Failure, COPD, Diabetes Mellitus, GERD/Reflux, GI Bleed, Hyperlipidemia, Hypertension, Myocardial Infarction (OK), Osteoarthritis (OA) Additional Past Medical History / Comment(s): NIDDM, chronic L knee pain, generalized arthiritis, anemia, back pain.sinus infections. 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 Stent in leg. Subclavian bypass. PTCA's, EGD with cauterized arterovenous malformation, colonoscopy, L hand's index finger amputation, R hand 's thumb tendon repair, R elbow replacement, subclavian steel surgery-"new veins in my neck." sinus sx, Past Anesthesia/Blood Transfusion Reactions: No Reported Reaction Additional Past Anesthesia/Blood Transfusion Reaction / Comment(s): Pt has recieved blood in the past without reaction. Date of Last Stent Placement:: 2010 Past Psychological History: Anxiety, Depression Smoking Status: Former smoker Past Alcohol Use History: None Reported Past Drug Use History: None Reported - Past Family History Father History Unknown: Yes Mother Family Medical History: Cancer Additional Family Medical History / Comment(s): Mother had lung cancer. Medications and Allergies Home Medications Medication Instructions Recorded Confirmed Type Pantoprazole Sodium 40 mg PO DAILY@0900 09/16/14 05/22/17 History Repaglinide [Prandin] 1 mg PO BID PRN 09/16/14 05/22/17 History Acetaminophen Tab [Tylenol] 500 mg PO Q6H PRN 04/18/17 05/22/17 History Cyclobenzaprine [Flexeril] 10 mg PO TID@0600,1400,2200 PRN 04/18/17 05/22/17 History Ergocalciferol (Vitamin D2) 50,000 unit PO KEARNS@1700 04/18/17 05/22/17 History [Vitamin D2] Atorvastatin [Lipitor] 40 mg PO HS@2100 05/04/17 05/22/17 History Benazepril [Lotensin] 5 mg PO DAILY@0900 05/04/17 05/22/17 History Clopidogrel [Plavix] 75 mg PO DAILY@0900 05/04/17 05/22/17 History Diazepam [Valium] 2 mg PO BID PRN 05/04/17 05/22/17 History Famotidine [Pepcid] 20 mg PO DAILY@0600 05/04/17 05/22/17 History Metoprolol Tartrate [Lopressor] 25 mg PO BID@0900,2100 05/04/17 05/22/17 History Sennosides [Senokot] 8.6 mg PO BID PRN 05/04/17 05/22/17 History Fluconazole [Diflucan] 100 mg PO DAILY 17 Days #34 tab 05/09/17 05/22/17 Rx metroNIDAZOLE [Flagyl] 500 mg PO TID 14 Days #42 tab 05/09/17 05/22/17 Rx Amitriptyline HCl [Elavil] 10 mg PO HS 05/22/17 05/22/17 History Bisacodyl [Dulcolax] 10 mg RECTAL DAILY PRN 05/22/17 05/22/17 History [place] Instant Breakfast 1 packet PO BID 05/22/17 05/22/17 History Isosorbide Mononitrate ER [Imdur] 30 mg PO DAILY 05/22/17 05/22/17 History Loperamide HCl [Imodium A-D] 4 mg PO DAILY PRN 05/22/17 05/22/17 History Magnesium Hydroxide [Milk of 2,400 mg PO DAILY PRN 05/22/17 05/22/17 History Magnesia] Na Phos,M-B/Na Phos,Di-Ba [Fleet 133 ml RECTAL DAILY PRN 05/22/17 05/22/17 History Adult] Ondansetron [Zofran] 4 mg PO Q6H PRN 05/22/17 05/22/17 History Allergies Allergy/AdvReac Type Severity Reaction Status Date / Time blue dye Allergy Anaphylaxis Verified 05/22/17 09:50 clonidine [From Catapres] Allergy Diarrhea Verified 05/22/17 09:50 Iodinated Contrast- Oral and Allergy Unknown Verified 05/22/17 09:50 IV Dye monosodium glutamate [MSG] Allergy Anaphylaxis Verified 05/22/17 09:50 ofloxacin [From Floxin] Allergy Anaphylaxis Verified 05/22/17 09:50 piroxicam [From Feldene] Allergy Nausea & Verified 05/22/17 09:50 Vomiting red dye Allergy Anaphylaxis Verified 05/22/17 09:50 Sulfa (Sulfonamide Allergy Anaphylaxis Verified 05/22/17 09:50 Antibiotics) tramadol [From Ultram] Allergy Anaphylaxis Verified 05/22/17 09:50 amoxicillin AdvReac Diarrhea Verified 05/22/17 09:50 bisoprolol [From Ziac] AdvReac Unknown Verified 05/22/17 09:50 cephalexin [From Keflex] AdvReac Diarrhea Verified 05/22/17 09:50 glipizide AdvReac Unknown Verified 05/22/17 09:50 hydrochlorothiazide AdvReac Unknown Verified 05/22/17 09:50 [From Ziac] metformin AdvReac Unknown Verified 05/22/17 09:50 morphine AdvReac Hallucinati Verified 05/22/17 09:50 ons sertraline [From Zoloft] AdvReac Hallucinati Verified 05/22/17 09:50 ons triamterene [From Dyazide] AdvReac Unknown Verified 05/22/17 09:50 Physical Exam Vitals: Intake and Output 05/23/17 05/24/17 05/24/17 22:59 06:59 14:59 Other: Weight 66.9 kg Patient Weight 05/25/17 06:59 Weight 66.9 kg General appearance: average body habitus, cooperative, no acute distress - EENT Eyes: anicteric sclerae, EOMI, PERRLA, dentition normal, normal appearance ENT: hearing grossly normal, normal oropharynx (dry) - Neck Neck: normal ROM - Respiratory Respiratory: bilateral: CTA, diminished, negative: dullness, rales, rhonchi - Cardiovascular Rhythm: irregular Heart sounds: normal: S1 Abnormal Heart Sounds: no systolic murmur, no diastolic murmur, no rub, no S3 Gallop, no S4 Gallop, no click, no other - Gastrointestinal General gastrointestinal: normal bowel sounds, soft - Integumentary Integumentary: normal, normal turgor - Musculoskeletal Musculoskeletal: strength equal and weak bilaterally - Constitutional General appearance: average body habitus, no acute distress Thrombosis Risk Factor Assmnt - DVT/VTE Prophylaxis DVT/VTE Prophylaxis: Contraindicated - See note Assessment and Plan Plan: 1. New-onset atrial fibrillation with rapid ventricular rate, 2. CAD 3. Recent C. diff colitis 4. Abdominal pain toni umbilical, currently nonsurgical 5. Acute hypotension secondary to atrial fibrillation RVR, and diarrhea. 6. Acute hypoxemic respiratory insufficiency presenting with a pulse ox of 91%. 7. Esophageal candidiasis and recent candidal laryngitis status post evaluation by ENT 8. transaminitis with cholestasis 9. Acute kidney failure secondary to ischemic ATN secondary to hypotension and hemodynamic instability with CKD stage III and an ion gap metabolic acidosis. 10. Diabetes mellitus type 2 11. Suspected meningioma C1-C2 spinal columnbased on recent MRI 12. Recent MRI with MRA showing right MCA aneurysm 2 mm and left ICA aneurysm measuring 2 mm 13. recent left humeral fracture secondary to fall at home, ORIF on 04/19/2017 14. Underlying osteoporosis 15. Recent metabolic encephalopathy 16. Moderate protein calorie malnutrition 17. Anemia suspect iron deficiency with anemia of chronic disease 18. Hypertension, 19. Bilateral breast candidal rash CODE STATUS: No code PLAN: Continue comfort care measures only. Discharge plan: GIP Under hospice Impression and plan of care have been directed as dictated by the signing physician. Pilar Oliver nurse practitioner acting as scribe for signing physician.
--- NOTE | 2017-05-25 15:10 | P.PN ---
Subjective Progress Note Date: 05/25/17 this is a 76-year-old pleasant gentleman patient of / dr Pittman. Currently resides [facility] and was followed by Dr. Sher and family requested our service to follow the patient. Patient was admitted to emergency room withunderlying history of COPD, CAD, CK D, CHF, recent seed the colitis, and esophageal candidiasis. Patient presented with new onset atrial fibrillation with RVR with significant hypotension and hypoxia along with acute kidney injury and transition over to hospice care. Objective - Vital Signs Vital signs: Vital Signs Temp 100.5 F H 05/25/17 09:00 Pulse 149 H 05/25/17 09:00 Resp 11 L 05/25/17 09:00 BP 42/35 05/25/17 09:00 Pulse Ox 94 L 05/24/17 18:09 Intake & Output 05/24/17 05/25/17 05/25/17 18:59 06:59 18:59 Output Total 20 Balance -20 Weight 66.9 kg Output: Urine 20 - Exam Gen: This is a 76-year-old female. She is in bed and appears to be comfortable and in no acute distress. HEENT: Head is atraumatic, normocephalic. LUNGS: Clear to auscultation. No wheezes or rhonchi. No intercostal retractions. HEART: Regular rate and rhythm. No murmur. ABDOMEN: Soft. Bowel sounds are present. No masses. No tenderness. NEUROLOGICAL: Patient is unresponsive. Assessment and Plan Plan: 1. New-onset atrial fibrillation with rapid ventricular rate, 2. CAD 3. Recent C. diff colitis 4. Abdominal pain toni umbilical, currently nonsurgical 5. Acute hypotension secondary to atrial fibrillation RVR, and diarrhea. 6. Acute hypoxemic respiratory insufficiency presenting with a pulse ox of 91%. 7. Esophageal candidiasis and recent candidal laryngitis status post evaluation by ENT 8. transaminitis with cholestasis 9. Acute kidney failure secondary to ischemic ATN secondary to hypotension and hemodynamic instability with CKD stage III and an ion gap metabolic acidosis. 10. Diabetes mellitus type 2 11. Suspected meningioma C1-C2 spinal columnbased on recent MRI 12. Recent MRI with MRA showing right MCA aneurysm 2 mm and left ICA aneurysm measuring 2 mm 13. recent left humeral fracture secondary to fall at home, ORIF on 04/19/2017 14. Underlying osteoporosis 15. Recent metabolic encephalopathy 16. Moderate protein calorie malnutrition 17. Anemia suspect iron deficiency with anemia of chronic disease 18. Hypertension, 19. Bilateral breast candidal rash CODE STATUS: No code PLAN: Continue comfort care measures only. Discharge plan: GIP Under hospice Impression and plan of care have been directed as dictated by the signing physician. Pilar Oliver nurse practitioner acting as scribe for signing physician.
[2017-05-25] MEDS: LORazepam 2 MG/ML INJ IV PRN ×2 (16:18→22:03)
[2017-05-26] MEDS: MORPHINE SULFATE 4 MG/ML SYRINGE IVP PRN ×4 (01:03→10:15)
[2017-05-26] MEDS: LORazepam 2 MG/ML INJ IV PRN ×4 (01:05→10:15)
[2017-05-26 03:31] VITALS: BP 59/32; PULSE 152; TEMP 97.7
[2017-05-26 08:28] VITALS: RESP 6
[2017-05-26] MEDS: MORPHINE SULFATE (100 MG/2 ML) 100 MG in SODIUM CHLORIDE 0.9% 100 ML IV SCH (12:18)
[2017-05-26] MEDS: ATROPINE OPHTH SOLN 1% 5ML BTL SUBLINGUAL PRN ×2 (18:15→20:56)
[2017-05-27] MEDS: LORazepam 2 MG/ML INJ IV PRN ×3 (08:04→16:41)
[2017-05-27] MEDS: MORPHINE SULFATE (100 MG/2 ML) 100 MG in SODIUM CHLORIDE 0.9% 100 ML IV SCH (12:59)
[2017-05-27] MEDS ORDERED: SCOPOLAMINE 1.5MG/72HR PATCH TRANSDERM SCH (16:45)
[2017-05-27] MEDS ORDERED: LORazepam 2 MG/ML INJ IV SCH (16:45)
--- NOTE | 2017-05-28 08:52 | P.DS ---
Providers Date of admission: 05/24/17 12:48 Expected date of discharge: 05/27/17 Attending physician: Josefina Leonardo MD Primary care physician: Stated None Hospital Course: this is a 76-year-old pleasant gentleman patient of / dr Pittman. Currently resides [facility] and was followed by Dr. Sher and family requested our service to follow the patient. Patient was admitted to emergency room withunderlying history of COPD, CAD, CK D, CHF, recent seed the colitis, and esophageal candidiasis. Patient presented with new onset atrial fibrillation with RVR with significant hypotension and hypoxia along with acute kidney injury and transition over to hospice care. Patient on May 27. Please see nursing recommendation for details. Discharge diagnoses: 1. Multiorgan failure secondary to cardiogenic shock secondary to atrial fibrillation and low cardiac output 2. New-onset atrial fibrillation with rapid ventricular rate, 3. CAD 4. Recent C. diff colitis 5. Abdominal pain toni umbilical, currently nonsurgical 6. Acute hypotension secondary to atrial fibrillation RVR, and diarrhea with dehydration. 7. Acute hypoxemic respiratory insufficiency presenting with a pulse ox of 91%. 8. Esophageal candidiasis and recent candidal laryngitis status post evaluation by ENT 9. transaminitis with cholestasis 10. Acute kidney failure secondary to ischemic ATN secondary to hypotension and hemodynamic instability with CKD stage III and an ion gap metabolic acidosis. 11. Diabetes mellitus type 2 12. Suspected meningioma C1-C2 spinal columnbased on recent MRI 13. Recent MRI with MRA showing right MCA aneurysm 2 mm and left ICA aneurysm measuring 2 mm 14. recent left humeral fracture secondary to fall at home, ORIF on 04/19/2017 15. Underlying osteoporosis 16. Recent metabolic encephalopathy 17. Moderate protein calorie malnutrition 18. Anemia suspect iron deficiency with anemia of chronic disease 19. Hypertension, 20. Bilateral breast candidal rash Impression and plan of care have been directed as dictated by the signing physician. Pilar Oliver nurse practitioner acting as scribe for signing physician. Patient Condition at Discharge: Undetermined Plan - Discharge Summary New Discharge Prescriptions: No Action Repaglinide [Prandin] 1 mg PO BID PRN PRN Reason: FOR CGB > 120 Pantoprazole Sodium 40 mg PO DAILY@0900 Ergocalciferol (Vitamin D2) [Vitamin D2] 50,000 unit PO KEARNS@1700 Cyclobenzaprine [Flexeril] 10 mg PO TID@0600,1400,2200 PRN PRN Reason: Spasms Acetaminophen Tab [Tylenol] 500 mg PO Q6H PRN PRN Reason: Pain Atorvastatin [Lipitor] 40 mg PO HS@2100 Benazepril [Lotensin] 5 mg PO DAILY@0900 Clopidogrel [Plavix] 75 mg PO DAILY@0900 Diazepam [Valium] 2 mg PO BID PRN PRN Reason: Anxiety Famotidine [Pepcid] 20 mg PO DAILY@0600 Metoprolol Tartrate [Lopressor] 25 mg PO BID@0900,2100 Sennosides [Senokot] 8.6 mg PO BID PRN PRN Reason: Constipation Fluconazole [Diflucan] 100 mg PO DAILY 17 Days #34 tab metroNIDAZOLE [Flagyl] 500 mg PO TID 14 Days #42 tab Amitriptyline HCl [Elavil] 10 mg PO HS Bisacodyl [Dulcolax] 10 mg RECTAL DAILY PRN PRN Reason: Constipation Yolo Instant Breakfast 1 packet PO BID Isosorbide Mononitrate ER [Imdur] 30 mg PO DAILY Loperamide HCl [Imodium A-D] 4 mg PO DAILY PRN PRN Reason: Loose Stool Magnesium Hydroxide [Milk of Magnesia] 2,400 mg PO DAILY PRN PRN Reason: Constipation Na Phos,M-B/Na Phos,Di-Ba [Fleet Adult] 133 ml RECTAL DAILY PRN PRN Reason: Constipation Ondansetron [Zofran] 4 mg PO Q6H PRN PRN Reason: Nausea And Vomiting Discharge Medication List Pantoprazole Sodium 40 mg PO DAILY@0900 09/16/14 [History] Repaglinide [Prandin] 1 mg PO BID PRN 09/16/14 [History] Acetaminophen Tab [Tylenol] 500 mg PO Q6H PRN 04/18/17 [History] Cyclobenzaprine [Flexeril] 10 mg PO TID@0600,1400,2200 PRN 04/18/17 [History] Ergocalciferol (Vitamin D2) [Vitamin D2] 50,000 unit PO KEARNS@1700 04/18/17 [ History] Atorvastatin [Lipitor] 40 mg PO HS@2100 05/04/17 [History] Benazepril [Lotensin] 5 mg PO DAILY@0900 05/04/17 [History] Clopidogrel [Plavix] 75 mg PO DAILY@0900 05/04/17 [History] Diazepam [Valium] 2 mg PO BID PRN 05/04/17 [History] Famotidine [Pepcid] 20 mg PO DAILY@0600 05/04/17 [History] Metoprolol Tartrate [Lopressor] 25 mg PO BID@0900,2100 05/04/17 [History] Sennosides [Senokot] 8.6 mg PO BID PRN 05/04/17 [History] Fluconazole [Diflucan] 100 mg PO DAILY 17 Days #34 tab 05/09/17 [Rx] metroNIDAZOLE [Flagyl] 500 mg PO TID 14 Days #42 tab 05/09/17 [Rx] Amitriptyline HCl [Elavil] 10 mg PO HS 05/22/17 [History] Bisacodyl [Dulcolax] 10 mg RECTAL DAILY PRN 05/22/17 [History] [place] Instant Breakfast 1 packet PO BID 05/22/17 [History] Isosorbide Mononitrate ER [Imdur] 30 mg PO DAILY 05/22/17 [History] Loperamide HCl [Imodium A-D] 4 mg PO DAILY PRN 05/22/17 [History] Magnesium Hydroxide [Milk of Magnesia] 2,400 mg PO DAILY PRN 05/22/17 [History] Na Phos,M-B/Na Phos,Di-Ba [Fleet Adult] 133 ml RECTAL DAILY PRN 05/22/17 [ History] Ondansetron [Zofran] 4 mg PO Q6H PRN 05/22/17 [History] Discharge Disposition: - Preliminary Cause of Preliminary Cause of : Multiorgan failure 2nd to cardiogenic shock 2nd to A fib w low cardiac outp
== END 2017-05-27 18:20 | disposition expired | DRG 308 ==
LOC: 6ICU 12:48 → 5ONC 05-25 23:39
PROVIDERS: ADMIT Internal Medicine; ATTEND Internal Medicine
DX: I48.91 Unspecified atrial fibrillation (principal); N17.0 Acute kidney failure with tubular necrosis; R57.0 Cardiogenic shock; L89.159 Pressure ulcer of sacral region, unspecified stage; E44.0 Moderate protein-calorie malnutrition; I67.1 Cerebral aneurysm, nonruptured; K83.1 Obstruction of bile duct; E11.22 Type 2 diabetes mellitus with diabetic chronic kidney disease; B37.81 Candidal esophagitis; E87.2 Acidosis; I13.0 Hypertensive heart and chronic kidney disease with heart failure and stage 1 through stage 4 chronic kidney disease, or unspecified chronic kidney disease; J98.11 Atelectasis; I50.9 Heart failure, unspecified; B37.2 Candidiasis of skin and nail; D63.8 Anemia in other chronic diseases classified elsewhere; E86.0 Dehydration; J44.9 Chronic obstructive pulmonary disease, unspecified; R06.89 Other abnormalities of breathing; I25.2 Old myocardial infarction; Z51.5 Encounter for palliative care; Z79.02 Long term (current) use of antithrombotics/antiplatelets; D50.9 Iron deficiency anemia, unspecified; E78.5 Hyperlipidemia, unspecified; F32.9 Major depressive disorder, single episode, unspecified; F41.9 Anxiety disorder, unspecified; I25.10 Atherosclerotic heart disease of native coronary artery without angina pectoris; K21.9 Gastro-esophageal reflux disease without esophagitis; M81.0 Age-related osteoporosis without current pathological fracture; N18.3 Chronic kidney disease, stage 3 (moderate); N28.1 Cyst of kidney, acquired; Z79.899 Other long term (current) drug therapy; Z80.1 Family history of malignant neoplasm of trachea, bronchus and lung; Z87.891 Personal history of nicotine dependence; Z88.8 Allergy status to other drugs, medicaments and biological substances; Z91.041 Radiographic dye allergy status; Z95.5 Presence of coronary angioplasty implant and graft; D32.1 Benign neoplasm of spinal meninges; I95.9 Hypotension, unspecified; S42.302D Unspecified fracture of shaft of humerus, left arm, subsequent encounter for fracture with routine healing; W19.XXXD Unspecified fall, subsequent encounter; Z87.440 Personal history of urinary (tract) infections; M19.90 Unspecified osteoarthritis, unspecified site; G89.29 Other chronic pain; M25.562 Pain in left knee; Z89.022 Acquired absence of left finger(s); Z96.621 Presence of right artificial elbow joint; Z79.2 Long term (current) use of antibiotics